=== PATIENT | female | born 1985 | race Caucasian/White ===

== ENCOUNTER 2018-01-20 10:27 | Emergency (ER) | payer BC ==
--- OUTSIDE RECORDS SUMMARY | 2018-01-20 10:31 | XMS REPORT | Clinical Summary ---
:1985 Author Organization [facility] Address [address] [place] [address] Phone Care Team Providers Name Role Phone Unavailable Primary Care Provider Unavailable Allergies Not on File Current Medications Not on file Active Problems Not on file Social History Tobacco Use Types Packs/Day Years Used Date Never Assessed Sex Assigned at Date Recorded Not on file Last Filed Vital Signs Not on file Plan of Treatment Not on file Results Not on fileafter 01/19/2017
--- OUTSIDE RECORDS SUMMARY | 2018-01-20 10:31 | XMS REPORT | Clinical Summary ---
:1985 Author Organization [facility] Address [address] [place] [address] Care Team Providers Name Role Phone Asked, No Pcp Primary Care Provider Unavailable Allergies Active Allergy Reactions Severity Noted Date Comments Diphenhydramine Hcl 08/06/2017 Fast heart rate Infliximab Shortness Of Breath High 05/07/2016 Pt said airway becomes completely closed within 5 seconds Current Medications Prescription Sig. Disp. Refills Start Date End Date Status fentaNYL (DURAGESIC) Place 1 patch Active 75 mcg/hr on the skin every third day. tiZANidine Take 4 mg by Active (ZANAFLEX) 4 MG mouth every 6 tablet (six) hours. clonAZEPAM Take 0.5 mg Active (KlonoPIN) 0.5 MG by mouth tablet nightly. zolpidem (AMBIEN) 10 Take 10 mg by Active mg tablet mouth nightly as needed for sleep. thyroid, pork, Take 30 mg by Active (ARMOUR THYROID) 15 mouth daily. mg tablet magnesium oxide Take 400 mg 0 07/25/2017 Active (MAG-OX) 400 mg by mouth 2 tablet (two) times a day. traMADol (ULTRAM) 50 Take 50 mg by Discontinued mg tablet mouth every 6 7 (six) hours as needed for moderate pain. 2 tabs of 50mg ( total of 100mg) levofloxacin Take 500 mg Discontinued (LEVAQUIN) 500 MG by mouth 7 tablet daily. gabapentin Take 600 mg Discontinued (NEURONTIN) 600 MG by mouth 3 7 tablet (three) times a day. benzonatate Take 100 mg Discontinued (TESSALON) 100 MG by mouth 3 7 capsule (three) times a day as needed for cough. acetaminophen-codein Take 1 tablet Discontinued e (TYLENOL with by mouth 7 CODEINE #4) 300-60 every 4 mg per tablet (four) hours as needed for moderate pain. potassium chloride Take 20 mEq 0 07/25/2017 Discontinued 20 mEq tablet by mouth 7 extended release daily. sucralfate Take 1 g by Discontinued (CARAFATE) 100 mg/mL mouth 4 7 suspension (four) times a day with meals and nightly. cyanocobalamin 1,000 Inject 1,000 Discontinued mcg/mL injection mcg into the 7 shoulder, thigh, or buttocks every 7 days. dicyclomine (BENTYL) Take 2 80 tablet 0 09/02/2017 20 mg tablet tablets (40 7 mg total) by mouth 4 (four) times a day for 10 days. gabapentin Take 1 tablet 90 tablet 0 09/02/2017 (NEURONTIN) 800 mg (800 mg 8 tablet total) by mouth 3 (three) times a day for 30 days. pantoprazole Take 1 tablet 15 tablet 0 09/03/2017 (PROTONIX) 20 MG EC (20 mg total) 8 tablet by mouth daily for 15 days. baclofen (LIORESAL) Take 1 tablet 28 tablet 0 09/02/2017 10 MG tablet (10 mg total) 7 by mouth every 6 (six) hours for 7 days. amitriptyline Take 2 60 tablet 0 09/02/2017 (ELAVIL) 10 MG tablets (20 8 tablet mg total) by mouth nightly for 30 days. cholecalciferol, Take 25 100 capsule 0 09/02/2017 vitamin D3, (VITAMIN capsules 8 D3) 2,000 unit (50,000 Units capsule capsule total) by mouth once a week for 30 days. metroNIDAZOLE Take 1 tablet 63 tablet 0 09/02/2017 (FLAGYL) 500 MG (500 mg 8 tablet total) by mouth 3 (three) times a day for 21 days. Active Problems Problem Noted Date Fever 08/24/2017 Crohn's disease of both small and large intestine with intestinal 08/12/2017 obstruction Stricture intestinal 08/12/2017 Small bowel obstruction 08/06/2017 Cyst of ovary 08/06/2017 Generalized abdominal pain 05/07/2016 Encounters Date Type Specialty Care Team Description 09/24/2017 Office Visit General Surgery Rohit Claros Crohn's disease without MD Melvin complication, unspecified gastrointestinal tract location (Primary Dx) 09/23/2017 Telephone Internal Medicine Rebeakh Spivey MA 08/19/2017 Anesthesia Event General Surgery Santi Lange Jr., MD 08/19/2017 Procedure Pass General Surgery 08/19/2017 Surgery General Surgery Gamaliel, DIAGNOSTIC LAPAROSCOPY, Nicholai LYSIS OF ADHESIONS (ONE MD Terry HOUR), MINI LAPAROTOMY WITH SMALL BOWEL RESECTION, REDUCTION AND CLOSURE INTERNAL HERNIA, STRICTUREPLASTY, COLOTOMY AND PRIMARY CLOSURE 08/18/2017 Anesthesia Event General Surgery Eric Evans MD 08/17/2017 Procedure Pass General Surgery 08/05/2017 - Hospital Encounter General Internal Ramos, Small bowel obstruction (Primary Dx); 09/02/2017 Medicine DO Jessica History of Crohn's disease; Nataliya Atwood Crohn's disease of pylorus without complication; MD Elena Fever, unspecified fever cause; Lazaro, Crohn's disease of both small and large intestine with intestinal obstruction MD Ajay Irene Ejaz, DO Ahmed, Rezwan, MD after 01/19/2017 Social History Tobacco Use Types Packs/Day Years Used Date Never Smoker Alcohol Use Drinks/Week oz/Week Comments No Sex Assigned at Date Recorded Not on file Last Filed Vital Signs Vital Sign Reading Time Taken Blood Pressure 95/67 09/24/2017 12:41 PM DOLLY PUSHER Pulse 95 09/24/2017 12:41 PM DOLLY PUSHER Temperature 36.8 C (98.2 F) 09/02/2017 12:35 PM DOLLY PUSHER Respiratory Rate 18 09/02/2017 12:35 PM DOLLY PUSHER Oxygen Saturation 96% 09/02/2017 12:35 PM DOLLY PUSHER Inhaled Oxygen Concentration - - Weight 50.8 kg (112 lb) 09/24/2017 12:41 PM DOLLY PUSHER Height 152.4 cm (5') 09/24/2017 12:41 PM DOLLY PUSHER Body Mass Index 21.87 09/24/2017 12:41 PM DOLLY PUSHER Plan of Treatment Health Maintenance Due Date Last Done Comments PAP SMEAR 2008 INFLUENZA VACCINE 04/14/2018 Implants Implanted Type Area News Commentator Device Expiration Model / Identifier Date Serial / Lot Port [id number] Smart Port W/ Dtchd 0.4ml 6.6fr 55cm 1.4x2.2mm - [id number] Implantable N/A: ANGIODYNAMICS 04/13/2020 [id number] / Implanted: 08/18/2017 (Quantity not on file) Infusion Ports N/A INC / or Accessories [id number] Procedures Procedure Name Priority Date/Time Associated Diagnosis Comments MD AN ELECTIVE Routine 08/19/2017 3:14 PM ENDOTRACHEAL AIRWAY DOLLY PUSHER Procedure Note - Santi Lange Jr., MD - 08/19/2017 3:12 PM DOLLY PUSHER Airway Date/Time: 08/19/2017 2:20 PM Performed by: SANTI LANGE JR Authorized by: SANTI LANGE JR Location: OR Urgency: Elective Difficult Airway: No Anesthesiologist: SANTI LANGE JR Performed by: anesthesiologist Preoxygenated with 100% O2: Yes C-spine Precautions Maintained Throughout: Yes Mask Ventilation: Easy mask Final Airway Type: Endotracheal airway Final Endotracheal Airway: ETT Cuffed: Yes Technique Used: Direct laryngoscopy Devices/Methods Used in Placement: Cricoid pressure and intubating stylet Insertion Site: Oral Blade Type: Dickey Laryngoscope Blade/Videolaryngoscope Blade Size: 2 ETT Size (mm): 7.0 Cuff at minimum occlusion pressure: Yes Measured from: Teeth ETT to Teeth (cm): 20 Placement Verified by: CO2 detection, direct visualization and equal breath sounds Laryngoscopic view: Grade I - full view of glottis Rapid Sequence Induction (RSI): No Modified RSI: Yes Number of Attempts at Approach: 1 DIAGNOSTIC LAPAROSCOPY, LYSIS 08/19/2017 11:50 AM DOLLY PUSHER Crohn's disease of pylorus OF ADHESIONS (ONE HOUR), MINI without complication LAPAROTOMY WITH SMALL BOWEL RESECTION, REDUCTION AND CLOSURE INTERNAL HERNIA, STRICTUREPLASTY, COLOTOMY AND PRIMARY CLOSURE Case Notes TF, REQ 1200 START Special Needs TF, REQ 1200 START; CONFIRMED START TIME W/ VIVIAN ON 08/18/17 @ 1249 EDM HC CATH DUAL LUMEN PICC Routine 08/06/2017 12:13 PM DOLLY PUSHER HC US GUIDED VASCULAR Routine 08/06/2017 12:13 PM DOLLY PUSHER Results for this procedure ACCESS are in the results section. HC CVL PICC INSERT 5 YRS Routine 08/06/2017 12:13 PM DOLLY PUSHER Results for this procedure OR > are in the results section. after 01/19/2017 Results POC glucose (09/02/2017 12:37 PM)Only the most recent of145 resultswithin the time period is included. Component Value Ref Range POC glucose 98 65 - 99 mg/dL Comment: [facility] Notified RN Meter ID: [id number] Communications Systems Engineer: Sathish Klein Specimen Performing Laboratory [facility] DEPARTMENT OF PATHOLOGY AND GENOMIC MEDICINE [address] [place] [address] Manual differential (09/02/2017 6:11 AM)Only the most recent of10 resultswithin the time period is included. Component Value Ref Range Manual differential PERFORMED Neutrophils 79.0 (H) 39.0 - 69.0 % Lymphocytes 11.0 (L) 25.0 - 45.0 % Monocytes 4.0 0.0 - 10.0 % Eosinophils 1.0 0.0 - 5.0 % Basophils 0.0 0.0 - 1.0 % Metamyelocytes 3 % Myelocytes 2 % Promyelocytes 0 % Platelet slide review Subha slt incr Anisocytosis Moderate Polychromasia Moderate Enlarged platelets Moderate (A) Specimen Performing Laboratory [facility] DEPARTMENT OF PATHOLOGY AND GENOMIC MEDICINE [address] [place] [address] CBC with platelet and differential (09/02/2017 6:11 AM)Only the most recent of23 resultswithin the time period is included. Component Value Ref Range WBC 7.66 4.50 - 11.00 k/uL RBC 3.40 (L) 4.20 - 5.50 m/uL HGB 9.6 (L) 12.0 - 16.0 g/dL HCT 31.6 (L) 37.0 - 47.0 % MCV 92.9 82.0 - 100.0 fL MCH 28.2 27.0 - 34.0 pg MCHC 30.4 (L) 31.0 - 37.0 g/dL RDW - SD 54.4 37.0 - 55.0 fL MPV 9.8 8.8 - 13.2 fL Platelet count 448 (H) 150 - 400 k/uL Nucleated RBC 0.00 /100 WBC Neutrophils 79.0 (H) 39.0 - 69.0 % Lymphocytes 11.0 (L) 25.0 - 45.0 % Monocytes 4.0 0.0 - 10.0 % Eosinophils 1.0 0.0 - 5.0 % Basophils 0.0 0.0 - 1.0 % Specimen Performing Laboratory Blood [facility] DEPARTMENT OF PATHOLOGY AND [address] [address] Estimated GFR (09/02/2017 4:00 AM)Only the most recent of27 resultswithin the time period is included. Component Value Ref Range GFR Non Af Amer >90 mL/min/1.73 m2 GFR Af Amer >90 mL/min/1.73 m2 Comment: Chronic kidney disease: <60 mL/min/1.73m2 Kidney failure: <15 mL/min/1.73m2 The estimated GFR is calculated from the IDMS-traceable Modification of Diet in Renal Disease Equation. The accuracy of the calculation is poor when the creatinine is normal. Calculated values >90 mL/min/1.73m2 are not reported. This equation has not been validated in children (<18 years), women, the elderly (>70 years), or ethnic groups other than Caucasians and Americans. Specimen Performing Laboratory Plasma specimen [facility] DEPARTMENT OF PATHOLOGY AND [address] [address] Phosphorus level (09/02/2017 4:00 AM)Only the most recent of23 resultswithin the time period is included. Component Value Ref Range Phosphorus 4.5 2.4 - 4.5 mg/dL Specimen Performing Laboratory Plasma specimen [facility] PATHOLOGY AND [address] [address] Magnesium level (09/02/2017 4:00 AM)Only the most recent of24 resultswithin the time period is included. Component Value Ref Range Magnesium 1.7 1.6 - 2.6 mg/dL Specimen Performing Laboratory Plasma specimen [facility] DEPARTMENT OF PATHOLOGY AND [address] [address] Basic metabolic panel (09/02/2017 4:00 AM)Only the most recent of24 resultswithin the time period is included. Component Value Ref Range Sodium 146 135 - 148 mEq/L Potassium 3.6 3.5 - 5.0 mEq/L Chloride 106 98 - 112 mEq/L CO2 25 24 - 31 mEq/L Anion gap 15 7 - 15 mEq/L Comment: Starting from December , anion gap calculation no longer incorporates potassium. Please note the change. BUN 12 6 - 20 mg/dL Creatinine 0.4 (L) 0.5 - 0.9 mg/dL Glucose 74 65 - 99 mg/dL Calcium 8.7 8.3 - 10.2 mg/dL Specimen Performing Laboratory Plasma specimen [facility] DEPARTMENT OF PATHOLOGY AND GENOMIC MEDICINE [address] [place] [address] Vitamin A level, plasma or serum (09/01/2017 9:24 AM) Component Value Ref Range Vitamin A (retinol) 0.66 0.30 - 1.20 mg/L Retinyl palmitate 0.08 0.00 - 0.10 mg/L Vitamin A interpretation Normal Comment: Test developed and characteristics determined by [facility]. See Compliance Statement B: [employer] Performed by [facility], [address] [place] [id number] [email or web address], Rodriguez Martinez MD - Lab. Director Specimen Performing Laboratory Plasma specimen [address] [address] Vitamin E level, plasma or serum (09/01/2017 9:24 AM) Component Value Ref Range Alpha-tocopherol mg/L 14.8 5.5 - 18.0 mg/L Comment: Test developed and characteristics determined by [facility]. See Compliance Statement B: [email or web address] Gamma-tocopherol mg/L 0.4 0.0 - 6.0 mg/L Comment: Performed by [facility], [address] [place] [id number] [email or web address], Rodriguez Martinez MD - Lab. Director Specimen Performing Laboratory Plasma specimen [address] [address] Comprehensive metabolic panel (09/01/2017 9:24 AM)Only the most recent of3 resultswithin the time period is included. Component Value Ref Range Sodium 144 135 - 148 mEq/L Potassium 3.5 3.5 - 5.0 mEq/L Chloride 100 98 - 112 mEq/L CO2 30 24 - 31 mEq/L Anion gap 14 7 - 15 mEq/L Comment: Starting from December , anion gap calculation no longer incorporates potassium. Please note the change. BUN 9 6 - 20 mg/dL Creatinine 0.4 (L) 0.5 - 0.9 mg/dL Glucose 107 (H) 65 - 99 mg/dL Calcium 8.7 8.3 - 10.2 mg/dL Protein 5.7 (L) 6.3 - 8.3 g/dL Comment: 4.6-7.0 g/dL 1 week 4.4-7.6 g/dL 7 months-1year5.1-7.3 g/dL 1-2 years5.6-7.5 g/dL >3 years6.0-8.0 g/dL 18-150 6.3-8.3 g/dL Albumin 2.4 (L) 3.5 - 5.0 g/dL A/G ratio 0.7 0.7 - 3.8 Alkaline phosphatase 61 35 - 104 U/L AST 12 10 - 35 U/L ALT 14 5 - 50 U/L Total bilirubin <0.2 0.0 - 1.2 mg/dL Specimen Performing Laboratory Plasma specimen [facility] DEPARTMENT OF PATHOLOGY AND GENOMIC MEDICINE [address] [place] [address] Urinalysis screen and microscopy, with reflex to culture (08/31/2017 4:20 PM) Only the most recent of4 resultswithin the time period is included. Component Value Ref Range Specimen site Clean catch Color, UA Straw Appearance, UA Clear Specific gravity, UA 1.006 1.001 - 1.035 pH, UA 7.0 5.0 - 8.5 Protein, UA Negative Negative Glucose, UA Negative Negative Ketones, UA Negative Negative Bilirubin, UA Negative Negative Blood, UA Negative Negative Nitrite, UA Negative Negative Urobilinogen, UA <2.0 <2.0 Leukocyte esterase, UA Negative Negative WBC, UA <1 0 - 4 /HPF RBC, UA None seen 0 - 2 /HPF Bacteria, UA None seen None seen Yeast, UA None seen Yeast with pseudohyphae, UA None seen Specimen Performing Laboratory Urine [facility] DEPARTMENT OF PATHOLOGY AND GENOMIC MEDICINE [address] [place] [address] Urine culture (08/31/2017 4:20 PM)Only the most recent of5 resultswithin the time period is included. Component Value Ref Range Urine culture SEE COMMENTComment: Bacteriuria screen negative. Specimen Performing Laboratory [facility] DEPARTMENT OF PATHOLOGY AND GENOMIC MEDICINE [address] [place] [address] XR Chest 1 Vw Portable (08/31/2017 2:37 AM)Only the most recent of4 resultswithin the time period is included. Specimen Performing Laboratory [address] [address] Narrative EXAMINATION:XR CHEST 1 VW PORTABLE CLINICAL HISTORY:rule out pneumonia COMPARISON:08/26/2017 IMPRESSION: Right chest port is in place with tip projecting over superior vena cava. Cardiomediastinal silhouette is within normal limits. No consolidations, effusions, or pneumothorax. No acute osseous abnormalities. [facility]-[id number] Procedure Note Hm Interface, Radiology Results Incoming - 08/31/2017 2:54 AM DOLLY PUSHER EXAMINATION: XR CHEST 1 VW PORTABLE CLINICAL HISTORY: rule out pneumonia COMPARISON: 08/26/2017 IMPRESSION: Right chest port is in place with tip projecting over superior vena cava. Cardiomediastinal silhouette is within normal limits. No consolidations, effusions, or pneumothorax. No acute osseous abnormalities. [facility]-[id number] Blood culture, aerobic & anaerobic (08/31/2017 2:35 AM)Only the most recent of7 resultswithin the time period is included. Component Value Ref Range Blood culture isolate No growth after 5 days of incubation. Comment: Specimen Information Specimen Source: Blood Specimen Site: Unspecified Specimen Performing Laboratory Blood [facility] DEPARTMENT OF PATHOLOGY AND GENOMIC MEDICINE [address] [place] [address] Vancomycin level, trough (08/29/2017 9:15 AM)Only the most recent of2 resultswithin the time period is included. Component Value Ref Range Vancomycin, trough 14.4 10.0 - 20.0 ug/mL Comment: Therapeutic Ranges: Peak 30.0 - 40.0 ug/mL Juofoa19.0 - 20.0 ug/mL Specimen Performing Laboratory Serum [facility] DEPARTMENT OF PATHOLOGY AND GENOMIC MEDICINE [address] [place] [address] C difficile toxin (08/29/2017 4:30 AM) Component Value Ref Range Clostridium difficile toxin No Clostridium difficle toxin present Comment: Specimen Information Specimen Source: Stool Specimen Site: Nonpreserved Specimen Performing Laboratory Stool - Nonpreserved [facility] DEPARTMENT OF PATHOLOGY AND GENOMIC MEDICINE [address] [place] [address] US Abdominal Paracentesis Imaging (08/27/2017 2:05 PM) Specimen Performing Laboratory [facility] [address] [place] [address] Narrative EXAMINATION:US ABDOMINAL PARACENTESIS IMAGING CLINICAL HISTORY: Pelvic Abscess COMPARISON:None. TECHNIQUE: The procedure's risks, benefits, and alternatives were discussed with the patient and written, informed consent was obtained. Using ultrasound guidance, a site for needle entry was selected and the overlying skin was prepped and draped in the usual sterile fashion. 1% buffered lidocaine was used for local anesthesia. A 5 [place] Yueh catheter was inserted into the peritoneal cavity and 450 mL of clear orange peritoneal fluid was removed. The fluid was sent to the lab for the requested studies.The patient tolerated the procedure without difficulty and was discharged to the radiology recovery area for monitoring prior to discharge. EBL: None. COMPLICATIONS: None. SPECIMENS: As above. ASSISTANTS: None. IMPRESSION: Uncomplicated ultrasound-guided diagnostic and therapeutic paracentesis. A sample of clear orange-colored fluid was sent for the requested labs. [facility]-[id number] Procedure Note [facility], Radiology Results Incoming - 08/27/2017 4:02 PM DOLLY PUSHER EXAMINATION: US ABDOMINAL PARACENTESIS IMAGING CLINICAL HISTORY: Pelvic Abscess COMPARISON:None. TECHNIQUE: The procedure's risks, benefits, and alternatives were discussed with the patient and written, informed consent was obtained. Using ultrasound guidance, a site for needle entry was selected and the overlying skin was prepped and draped in the usual sterile fashion. 1% buffered lidocaine was used for local anesthesia. A 5 [place] Yueh catheter was inserted into the peritoneal cavity and 450 mL of clear orange peritoneal fluid was removed. The fluid was sent to the lab for the requested studies. The patient tolerated the procedure without difficulty and was discharged to the radiology recovery area for monitoring prior to discharge. EBL: None. COMPLICATIONS: None. SPECIMENS: As above. ASSISTANTS: None. IMPRESSION: Uncomplicated ultrasound-guided diagnostic and therapeutic paracentesis. A sample of clear orange-colored fluid was sent for the requested labs. [facility]-[id number] Aerobic culture (08/27/2017 2:00 PM) Component Value Ref Range Aerobic culture isolate No growth after 3 days. Comment: Specimen Information Specimen Source: Fluid Specimen Site: ML pelvis Specimen Performing Laboratory [facility] DEPARTMENT OF PATHOLOGY AND GENOMIC MEDICINE [address] [place] [address] Gram stain (08/27/2017 2:00 PM)Only the most recent of3 resultswithin the time period is included. Component Value Ref Range Gram stain isolate Many WBC's No organisms seen Comment: Specimen Information Specimen Source: Fluid Specimen Site: ML pelvis Specimen Performing Laboratory [facility] DEPARTMENT OF PATHOLOGY AND [facility] MEDICINE [address] [place] [address] Anaerobic culture (08/27/2017 2:00 PM) Component Value Ref Range Anaerobic culture isolate No anaerobic organisms isolated. Comment: Specimen Information Specimen Source: Fluid Specimen Site: ML pelvis Specimen Performing Laboratory [facility] DEPARTMENT OF PATHOLOGY AND [facility] MEDICINE [address] [place] [address] Cell count and differential, body fluid (08/27/2017 2:00 PM) Component Value Ref Range Misc fluid type FootnoteComment: pelvic fluid Color, fluid [place] Appearance, fluid Cloudy (A) RBC, fluid SEE COMMENTComment: 3+ (10,000 - 20,000 RBC/CMM) /CMM Nucleated cells, fluid 10,719 /CMM Fluid mononuclear cell See Diff Neutrophils, fluid 72 % Lymphocytes, fluid 13 % Macrophages, fluid 15 % Specimen Performing Laboratory Fluid [facility] DEPARTMENT OF PATHOLOGY AND [address] [address] [address] Abdomen Pelvis W Contrast (08/26/2017 2:20 PM)Only the most recent of3 resultswithin the time period is included. Specimen Performing Laboratory [facility] [address] [place] [address] Addenda Addendum by Terrence Plummer MD on 08/27/2017 10:29 AM ADDENDUM #1 Review of imaging done: Correction on some Typos: GI tract: (Fourth sentence). Distal to this are mildly distended loops of small bowel with air-fluid levels leading to the distal small bowel-colon anastomosis probably a second transition point. IMPRESSION: (Second sentence) Fluid in the pouch of Jordan probably a component of the ascites with some peritoneal enhancement. There is no definite loculation or air to suggest abscess at this time. Proximal small bowel distention with transition point in the proximal anastomosis in the left abdomen may represent a partial obstruction. The distal segment of the small bowel also mildly distended with air-fluid levels and a second transition point in the small bowel-colon is most. Narrative EXAMINATION:CT ABDOMEN PELVIS W CONTRAST CLINICAL HISTORY:post surgical abdominal distention COMPARISON:None. TECHNIQUE: Multiple axial CT images of the Abdomen and pelvis were obtained With IV contrast . Sagittal and coronal reconstructions were done. CT imaging was performed with iterative reconstruction technique and/or automated exposure control to reduce radiation dose. FINDINGS: HEPATOBILIARY:No focal hepatic lesions. No biliary ductal dilation. GALLBLADDER: Absent. SPLEEN:Spleen is borderline enlarged measuring up to 13 cm in length, stable. PANCREAS:No focal masses or ductal dilation. ADRENALS:No adrenal nodules. KIDNEYS:Stable nonobstructing stone in the left kidney. No mass or hydronephrosis bilaterally. PERITONEUM/RETROPERITONEUM:Located rim-enhancing fluid present within the rectum and the uterus measures approximately 7.5 cm. There is a small amount of ascites mostly in the pelvis. No free air. Mild retroperitoneal and mesenteric adenopathy measure up to 11 mm nonspecific but probably reactive. ABDOMINAL AORTA/IVC: No aneurysm or dissection. GI TRACT:Proximal small bowel distention measures up to 4 cm with air-fluid levels. Transition point at the anastomosis in the left abdomen. There are nondistended small bowel loops in the pelvis. Distal to this are mildly distended loops of small bowel with air-fluid levels in the colitis contents leading to the small bowel: Anastomosis probably a second transition point. There are no signs of pneumatosis.. The colon is nondistended and contains fluid and stool. PELVIC ORGANS/BLADDER:The urinary bladder is fluid-filled. The uterus and ovaries are unremarkable. BONES AND SOFT TISSUES:No acute osseous abnormalities. There is some residual subcutaneous air along the left abdominal wall. VISUALIZED LOWER CHEST: Small bilateral pleural effusions with some atelectasis of the lung bases. Heart is enlarged. IMPRESSION: Rim-enhancing fluid collection in the pouch of Jordan. Abscess is in the differential diagnosis. Proximal small bowel distention with transition point in the proximal anastomosis in the left abdomen may represent a partial obstruction. The distal segment of the small bowel also mildly distended with air-fluid levels and some ventriculitis content but also represent a partial obstruction with a second transition point in the colon anastomosis.. [id number] Procedure Note Hm Interface, Radiology Results Incoming - 08/26/2017 3:00 PM DOLLY PUSHER EXAMINATION: CT ABDOMEN PELVIS W CONTRAST CLINICAL HISTORY: post surgical abdominal distention COMPARISON: None. TECHNIQUE: Multiple axial CT images of the Abdomen and pelvis were obtained With IV contrast . Sagittal and coronal reconstructions were done. CT imaging was performed with iterative reconstruction technique and/or automated exposure control to reduce radiation dose. FINDINGS: HEPATOBILIARY: No focal hepatic lesions. No biliary ductal dilation. GALLBLADDER: Absent. SPLEEN: Spleen is borderline enlarged measuring up to 13 cm in length, stable. PANCREAS: No focal masses or ductal dilation. ADRENALS: No adrenal nodules. KIDNEYS: Stable nonobstructing stone in the left kidney. No mass or hydronephrosis bilaterally. PERITONEUM/RETROPERITONEUM: Located rim-enhancing fluid present within the rectum and the uterus measures approximately 7.5 cm. There is a small amount of ascites mostly in the pelvis. No free air. Mild retroperitoneal and mesenteric adenopathy measure up to 11 mm nonspecific but probably reactive. ABDOMINAL AORTA/IVC: No aneurysm or dissection. GI TRACT: Proximal small bowel distention measures up to 4 cm with air-fluid levels. Transition point at the anastomosis in the left abdomen. There are nondistended small bowel loops in the pelvis. Distal to this are mildly distended loops of small bowel with air-fluid levels in the colitis contents leading to the small bowel : Anastomosis probably a second transition point. There are no signs of pneumatosis.. The colon is nondistended and contains fluid and stool. PELVIC ORGANS/BLADDER: The urinary bladder is fluid-filled. The uterus and ovaries are unremarkable. BONES AND SOFT TISSUES: No acute osseous abnormalities. There is some residual subcutaneous air along the left abdominal wall. VISUALIZED LOWER CHEST: Small bilateral pleural effusions with some atelectasis of the lung bases. Heart is enlarged. IMPRESSION: Rim-enhancing fluid collection in the pouch of [place]. Abscess is in the differential diagnosis. Proximal small bowel distention with transition point in the proximal anastomosis in the left abdomen may represent a partial obstruction. The distal segment of the small bowel also mildly distended with air-fluid levels and some ventriculitis content but also represent a partial obstruction with a second transition point in the colon anastomosis.. [id number] Hemoglobin & hematocrit (08/26/2017 1:54 PM)Only the most recent of3 resultswithin the time period is included. Component Value Ref Range HGB 10.2 (L) 12.0 - 16.0 g/dL HCT 32.1 (L) 37.0 - 47.0 % Specimen Performing Laboratory Blood [facility] DEPARTMENT OF PATHOLOGY AND GENOMIC MEDICINE [address] [place] [address]879 Lactic acid level (08/26/2017 1:21 PM)Only the most recent of4 resultswithin the time period is included. Component Value Ref Range Lactic acid 1.8 0.5 - 2.2 mmol/L Specimen Performing Laboratory Blood [facility] DEPARTMENT OF PATHOLOGY AND GENOMIC MEDICINE [address] [id number] Pv duplex venous upper extremity (08/25/2017 10:21 PM) Specimen Performing Laboratory [facility] [address] [place] [address] Narrative Vascular Ultrasound Laboratory Upper Extremity Venous Report [address] [facility] [address], [place] [address] Pat.Name:Felicity CARDOSO.ID:[id number] .Date: 08/25/2017Refer.MD:IDALIA BOLTON MD Exam Time: 8:04:00 PMStudy Type:UE Venous Height:61inWeight: 114lb BSA: 1.49 m2 DOBAge:1985,32Y Sex: FEMALESonogrphr: Perry Vera RVT, TRENT Pat. Stat.:Inpatient Room:[address] TapeVol: MEL, CPT - 4: 53436 Echo Event ID:[id number] Order ID:[id number] Reason for Study:Evaluate for DVT. PMH of crohn's disease, fibromyalgia, osteoporosis, neuropathy. Race:C SUMMARY: DUPLEX SCAN OBSERVATIONS Right Left IJNormal Normal SubclavianNormal Normal AxillaryNormal Normal BrachialNormal Obstructed BasilicNormal Obstructed CephalicNormal Normal RIGHT:There is normal compressibility and no evidence of echogenic material noted within the lumen of the visualized veins. Colorflow and Doppler signals are normal. LEFT:The brachial and basilic veins are non-compressible, and dilated with echogenic material noted within the lumen of the visualized vein. Colorflow and Doppler signals are absent. There is an indwelling catheter noted within the brachial vein lumen. PRELIMINARY FINDINGS 1. Total deep venous thrombosis of the left brachial vein. 2. Total superficial venous thrombosis of the left proximal basilic vein. *Report given to KELLY Logan at 2102 hr on 08/25/2017. PHYSICIAN INTERPRETATION Venous examination of the both upper extremities and neck demonstrateda deep venous thrombosis of the left brachial vein. Total superficial venous thrombosis of the left proximal basilic vein. Signed 08/25/2017 11:35 PM Lianna Angulo MD, RPVI Procedure Note Interface, Radiology Results In - 08/25/2017 11:35 PM [facility] [place] Vascular Ultrasound Laboratory Upper Extremity Venous Report [address] [place] [address] Pat.Name: [place] CARDOSO Pat.ID: [id number] .Date: 08/25/2017 Refer.MD: IDALIA BOLTON MD Exam Time: 8:04:00 PM Study Type:UE Venous Height: 61in Weight: 114lb BSA: 1.49 m2 Age: 11 1985,32Y Sex: FEMALE Sonogrphr: Perry Vera RVT, RDMS Pat. Stat.:Inpatient Room: [address] Tape Vol: MK, CPT - 4: 31340 Echo Event ID:[id number] Order ID: [id number] Reason for Study:Evaluate for DVT. PMH of crohn's disease, fibromyalgia, osteoporosis, neuropathy. Race: C SUMMARY: DUPLEX SCAN OBSERVATIONS Right Left IJ Normal Normal Subclavian Normal Normal Axillary Normal Normal Brachial Normal Obstructed Basilic Normal Obstructed Cephalic Normal Normal RIGHT:There is normal compressibility and no evidence of echogenic material noted within the lumen of the visualized veins. Colorflow and Doppler signals are normal. LEFT:The brachial and basilic veins are non-compressible, and dilated with echogenic material noted within the lumen of the visualized vein. Colorflow and Doppler signals are absent. There is an indwelling catheter noted within the brachial vein lumen. PRELIMINARY FINDINGS 1. Total deep venous thrombosis of the left brachial vein. 2. Total superficial venous thrombosis of the left proximal basilic vein. *Report given to KELLY Logan at 2102 hr on 08/25/2017. PHYSICIAN INTERPRETATION Venous examination of the both upper extremities and neck demonstrated a deep venous thrombosis of the left brachial vein. Total superficial venous thrombosis of the left proximal basilic vein. Signed 08/25/2017 11:35 PM Lianna Angulo MD, RPVI Transfuse RBC (08/25/2017 6:31 PM)Only the most recent of3 resultswithin the time period is included.Prepare RBC, 2 Units (08/25/2017 11:25 AM) Component Value Ref Range Product name Apheresis RC ACDA>-3 LR Unit number [id number] Product code [id number] Dispense status Transfused Blood expiration date 20170914 Blood type code 5100 Blood type O POSITIVE Product name Apheresis -1 LR #1 Unit number [id number] Product code [id number] Dispense status Transfused Blood expiration date 20170901 Blood type code 5100 Blood type O POSITIVE Specimen Performing Laboratory [facility] DEPARTMENT OF PATHOLOGY AND [facility] MEDICINE [address] [place] [address] Type and screen (08/25/2017 11:25 AM)Only the most recent of2 resultswithin the time period is included. Component Value Ref Range ABO grouping O Rh type POS Antibody screen (gel) NEG Specimen Performing Laboratory Blood [facility] DEPARTMENT OF PATHOLOGY AND [facility] MEDICINE [address] [place] [address]16 Smear review (08/25/2017 5:00 AM) Component Value Ref Range Platelet slide review Subha adequate Specimen Performing Laboratory [facility] DEPARTMENT OF PATHOLOGY AND GENOMIC MEDICINE [address] [place] [address] 20500 Ionized calcium (08/24/2017 2:30 PM) Component Value Ref Range pH 7.43 Ionized calcium 1.07 (L) 1.11 - 1.32 mmol/L Specimen Performing Laboratory Plasma specimen [facility] DEPARTMENT OF PATHOLOGY AND GENOMIC MEDICINE [address] [place] [address] Consult to Sepsis Response Team (08/24/2017 1:59 PM) Henna Porter NP 08/24/20171:59 PM 1345 focused examination performed. No s/s of hypotension or hypoperfusion. Fever curve improving. Remains tachycardic, but improved. Currently on vanco and zosyn. Will monitor for culture results Sepsis Clinical Assessment Performed by: SKYLER PORTER Authorized by: SKYLER PORTER Sepsis Clinical Assessment General Assessment Information Current sepsis score:4 On comfort care?: No If score does not worsen, snooze alerts until:08/25/2017 10:57 DOLLY PUSHER SIRS Criteria SIRS criteria met: Heart rate > 90 bpm and WBC < 4 K/mcL Sepsis Assessment Clinical suspicion of infection? Yes Time of suspicion of infection:08/24/2017 1:57 PM Clinical suspicion of sepsis?: Yes Sepsis staging:Sepsis Sepsis protocol started?Yes Where did the protocol start?:Inpatient Started Clinical disposition:Remain in room Sepsis Related Vitals Heart rate: 117 Temperature: 98.7 F Respiratory rate: 18 Blood pressure: 124/70 Altered mental status: WBC (k/uL) Date Value 08/24/2017 2.88 (L)08/23/2017 6.31 Weight-Based Fluid Bolus Calculation The recommended weight-based bolus volume: 1,632 mL (dosing weight) Please refer to the MAR for actual med/fluid administrations. Lactic acid, I-Stat, venous (08/24/2017 12:45 PM)Only the most recent of2 resultswithin the time period is included. Component Value Ref Range Lactic acid, I-Stat, venous 1.4 0.5 - 2.2 mmol/L Specimen Performing Laboratory Blood [facility] DEPARTMENT OF PATHOLOGY AND GENOMIC MEDICINE [address] [place] [address] ECG 12 lead (08/24/2017 6:48 AM) Component Value Ref Range Ventricular rate 144 Atrial rate 144 MD interval 132 QRSD interval 70 QT interval 258 QTC interval 399 P axis 1 35 QRS axis 1 6 T wave axis 51 EKG impression Sinus tachycardia-Otherwise normal ECG-In automated comparison with ECG of 07-MAY-2016 16:05,-Nonspecific T wave abnormality, improved in Inferior leads- Specimen Performing Laboratory [facility] [address] [place] [address] Troponin (08/24/2017 5:10 AM) Component Value Ref Range Troponin <0.30 0.00 - 0.30 ng/mL Comment: 0.30 - 1.49 ng/mlMay indicate increased risk of acute coronary syndrome. >=1.5 ng/mlConsistent with acute myocardial infarction. The diagnostic value of a single normal or non-diagnostic result is questionable.Serial samples at 2-6 hour intervals are required to rule out acute myocardial injury. Specimen Performing Laboratory Plasma specimen [facility] DEPARTMENT OF PATHOLOGY AND GENOMIC MEDICINE [address] [place] [address] XR Abdomen 2 Vw Ap W Upright And/Or Decubitus (08/21/2017 4:14 PM) Specimen Performing Laboratory [facility] [address] [place] [address] Narrative XR ABDOMEN 2 VW AP W UPRIGHT AND OR DECUBITUS CLINICAL INDICATION:ABDOMINAL PAIN, Distention COMPARISON:08/19/2017 IMPRESSION: Upright and left lateral decubitus views of the abdomen were performed demonstrating moderate gas in the splenic flexure and through large and small bowel loops in the left abdomen. No free intraperitoneal air is identified. A few air-fluid levels are noted in small bowel loops centrally. Bowel gas is however also present in the pelvis appearing to reflect sigmoid gas. Correlation for ileus is recommended. Nasogastric tube present on prior has been removed. Lung bases are clear with diminished lung volumes. [facility]-[id number] Procedure Note [facility], Radiology Results Incoming - 08/21/2017 4:31 PM DOLLY PUSHER XR ABDOMEN 2 VW AP W UPRIGHT AND OR DECUBITUS CLINICAL INDICATION: ABDOMINAL PAIN, Distention COMPARISON: 08/19/2017 IMPRESSION: Upright and left lateral decubitus views of the abdomen were performed demonstrating moderate gas in the splenic flexure and through large and small bowel loops in the left abdomen. No free intraperitoneal air is identified. A few air-fluid levels are noted in small bowel loops centrally. Bowel gas is however also present in the pelvis appearing to reflect sigmoid gas. Correlation for ileus is recommended. Nasogastric tube present on prior has been removed. Lung bases are clear with diminished lung volumes. [facility]-[id number] XR Abdomen 1 Vw Portable (08/19/2017 9:22 PM)Only the most recent of2 resultswithin the time period is included. Specimen [facility] [address] [place] [address] Narrative EXAMINATION:XR ABDOMEN 1 VW PORTABLE CLINICAL HISTORY:NG tube advancement COMPARISON:08/19/2017 at 1937 IMPRESSION: Enteric tube has been advanced with tip projecting over the distal body of the stomach. Nonobstructive bowel gas pattern. No pathologic calcification over the kidneys or expected course of the ureters. No acute osseous abnormalities. Right convexity of the lumbar spine is identified. [facility]-[id number] Procedure Note Interface, Radiology Results Incoming - 08/19/2017 9:35 PM DOLLY PUSHER EXAMINATION: XR ABDOMEN 1 VW PORTABLE CLINICAL HISTORY: NG tube advancement COMPARISON: 08/19/2017 at 1937 IMPRESSION: Enteric tube has been advanced with tip projecting over the distal body of the stomach. Nonobstructive bowel gas pattern. No pathologic calcification over the kidneys or expected course of the ureters. No acute osseous abnormalities. Right convexity of the lumbar spine is identified. [facility]-[id number] Surgical pathology request (08/19/2017 9:00 AM) Component Value Ref Range Surgical pathology report See link below for PDF Lab Report Result status This is Final Report to [id number] Specimen Performing Laboratory [facility] DEPARTMENT OF PATHOLOGY AND GENOMIC MEDICINE [address] [place] [address] IR Port Placement (08/18/2017 10:21 AM) Specimen Performing Laboratory [facility] [address] [place] [address] Narrative Performing Radiologist Shaq Stanley MD Assistants None Anesthesia Type Sedation provided by the anesthesiology service. Lidocaine 1% and lidocaine 1% mixed with epinephrine were used for local anesthetic. Indication Central venous access for chemotherapy Procedure Subcutaneous right chest port placement. Technique Written informed consent was obtained prior to the procedure. All elements of maximal sterile barrier technique were followed. Using ultrasound guidance, the right internal jugular vein was punctured with a 21-gauge needle allowing placement of a 0.018 inch guidewire. The needle was removed and a micropuncture sheath was then placed over the guidewire. Under ultrasound guidance, documentation of vessel patency, needle access with permanent recording, and reporting are performed followed by placement of a sheath in the right internal jugular vein. A subcutaneous pocket was then created at the right infraclavicular fossa using sharp and blunt dissection. A tunnel was made between the pocket and the venotomy site, through which the 6.6-[place] port catheter was placed. The venotomy was sequentially dilated to accept a peel-away sheath, through which the leading edge of the catheter was advanced under fluoroscopic guidance. The trailing end of the catheter was trimmed to the appropriate length and attached to an Angiodynamics Smart Port CT. The pocket was irrigated with dilute antibiotic solution. The port incision was closed using 3-0 Vicryl suture, and Dermabond. The small venotomy incision was closed using Dermabond. The port was accessed and found to flush and aspirate freely. A post placement fluoroscopic imaging of the chest was then obtained. There were no complications. Radiation Dose Ka,r=2 mGy Complications None. Specimens Removed None. Estimated Blood Loss Less than 2 mL. Blood/Blood Products Administered None. Grafts/Implants As described in the above report. Impression: Successful fluoroscopic-guided placement of a subcutaneous right chest port via the right internal jugular vein. The catheter tip lies at the right atrium/ superior vena cava junction and is ready for use. [facility]-[id number] Procedure Note [facility], Radiology Results Incoming - 08/18/2017 10:53 AM DOLLY PUSHER Performing Radiologist Shaq Stanley MD Assistants None Anesthesia Type Sedation provided by the anesthesiology service. Lidocaine 1% and lidocaine 1% mixed with epinephrine were used for local anesthetic. Indication Central venous access for chemotherapy Procedure Subcutaneous right chest port placement. Technique Written informed consent was obtained prior to the procedure. All elements of maximal sterile barrier technique were followed. Using ultrasound guidance, the right internal jugular vein was punctured with a 21-gauge needle allowing placement of a 0.018 inch guidewire. The needle was removed and a micropuncture sheath was then placed over the guidewire. Under ultrasound guidance, documentation of vessel patency, needle access with permanent recording, and reporting are performed followed by placement of a sheath in the right internal jugular vein. A subcutaneous pocket was then created at the right infraclavicular fossa using sharp and blunt dissection. A tunnel was made between the pocket and the venotomy site, through which the 6.6-[place] port catheter was placed. The venotomy was sequentially dilated to accept a peel-away sheath, through which the leading edge of the catheter was advanced under fluoroscopic guidance. The trailing end of the catheter was trimmed to the appropriate length and attached to an Angiodynamics Smart Port CT. The pocket was irrigated with dilute antibiotic solution. The port incision was closed using 3-0 Vicryl suture, and Dermabond. The small venotomy incision was closed using Dermabond. The port was accessed and found to flush and aspirate freely. A post placement fluoroscopic imaging of the chest was then obtained. There were no complications. Radiation Dose Ka,r=2 mGy Complications None. Specimens Removed None. Estimated Blood Loss Less than 2 mL. Blood/Blood Products Administered None. Grafts/Implants As described in the above report. Impression: Successful fluoroscopic-guided placement of a subcutaneous right chest port via the right internal jugular vein. The catheter tip lies at the right atrium/ superior vena cava junction and is ready for use. [facility]-[id number] Respiratory pathogen panel (08/14/2017 10:00 PM) Component Value Ref Range Respiratory pathogen panel Negative for all pathogens tested: Negative for Adenovirus Negative for Coronavirus HKU1 Negative for Coronavirus NL63 Negative for Coronavirus 229E Negative for Coronavirus OC43 Negative for Human Metapneumovirus Negative for Rhinovirus/Enterovirus Negative for Influenza A Negative for Influenza A/H1 Negative for Influenza A/H3 Negative for Influenza A/H1-2009 Negative for Influenza B Negative for Parainfluenza Virus 1 Negative for Parainfluenza Virus 2 Negative for Parainfluenza Virus 3 Negative for Parainfluenza Virus 4 Negative for Respiratory Syncytial Virus Negative for Bordetella pertussis Negative for Chlamydophila pneumoniae Negative for Mycoplasma pneumoniae This real-time PCR assay detects the presence of nucleic acids (RNA or DNA) for the respiratory pathogens listed. A result of "Not-detected" does not exclude the possibility of the presence of one or more pathogens at concentrations less than the detectable limits of the assay. Comment: Specimen Information Specimen Source: Nares Specimen Site: Right Specimen Performing Laboratory Nares - Right [facility] DEPARTMENT OF PATHOLOGY AND GENOMIC MEDICINE [address] [place] [address] Sedimentation rate (08/14/2017 12:25 PM)Only the most recent of2 resultswithin the time period is included. Component Value Ref Range Sedimentation rate 7 0 - 20 mm/hr Specimen Performing Laboratory Blood [facility] DEPARTMENT OF PATHOLOGY AND GENOMIC MEDICINE [address] [place] [address]65 C-reactive protein (08/14/2017 8:47 AM)Only the most recent of2 resultswithin the time period is included. Component Value Ref Range CRP <0.30 0.00 - 0.50 mg/dL Specimen Performing Laboratory Plasma specimen [facility] DEPARTMENT OF PATHOLOGY AND GENOMIC MEDICINE [address] [place] [address] Prothrombin time with INR (08/13/2017 12:40 PM) Component Value Ref Range Prothrombin time 12.9 12.0 - 15.0 sec INR 1.0 Comment: The International Normalized Ratio (INR) is a therapeutic monitoring tool for patients who are stable on oral anticoagulant therapy. An INR of 2.0-3.0 is suggested for deep vein thrombosis/pulmonary embolism. Specimen Performing Laboratory Blood [facility] DEPARTMENT OF PATHOLOGY AND [address] [address] Prealbumin level (08/12/2017 7:45 PM) Component Value Ref Range Prealbumin 40 (H) 16 - 32 mg/dL Specimen Performing Laboratory Serum [facility] DEPARTMENT OF PATHOLOGY AND [address] [address] Folate level (08/12/2017 7:45 PM) Component Value Ref Range Folate 10.0 4.8 - 24.2 ng/mL Specimen Performing Laboratory Serum [facility] PATHOLOGY AND [address] [address] Vitamin B12 level (08/12/2017 7:45 PM) Component Value Ref Range Vitamin B12 >1600 (H) 211 - 946 pg/mL Comment: Significant overlap exists between normal and deficiency states. However, most patients with deficiencies will have Serum B12 <200 pg/mL. Specimen Performing Laboratory Serum [facility] PATHOLOGY AND [address] [address] Hepatic function panel (08/12/2017 7:45 PM) Component Value Ref Range Albumin 2.6 (L) 3.5 - 5.0 g/dL Total bilirubin <0.2 0.0 - 1.2 mg/dL Bilirubin direct <0.2 0.0 - 0.3 mg/dL Alkaline phosphatase 56 35 - 104 U/L Protein 5.2 (L) 6.3 - 8.3 g/dL Comment: 4.6-7.0 g/dL 1 week 4.4-7.6 g/dL 7 months-1year5.1-7.3 g/dL 1-2 years5.6-7.5 g/dL >3 years6.0-8.0 g/dL 18-150 6.3-8.3 g/dL ALT 13 5 - 50 U/L AST 14 10 - 35 U/L Specimen Performing Laboratory Plasma specimen [facility] DEPARTMENT OF PATHOLOGY AND [address] [address] Zinc level, serum (08/12/2017 7:44 PM) Component Value Ref Range Zinc 65 60 - 120 ug/dL Comment: INTERPRETIVE INFORMATION: Zinc, Serum or Plasma Circulating zinc concentrations are dependent on albumin status and are depressed with malnutrition. Zinc may also be lowered with infection, inflammation, stress, oral contraceptives, and . Zinc may be elevated with zinc supplementation or fasting. Elevated zinc concentrations may interfere with copper absorption. Test developed and characteristics determined by [facility]. See Compliance Statement B: [facility]/ Performed by [facility], [address] [place] [address] [email or web address], Rodriguez Martinez MD - Lab. Director Specimen Performing Laboratory Blood [facility] [address] [place] [address] TB IN-TUBE Quantiferon (08/12/2017 12:35 PM) Component Value Ref Range TB IN-TUBE Quantiferon SEE NOTE Comment: Quantiferon TB Gold In-Tube Test Results: QUANTITATIVE NIL: 0.07 QUANTITATIVE ANTIGEN: 0.08 QUANTITATIVE MITOGEN: 10 QUANTITATIVE ANTIGEN-NIL: 0.01 QUANTITATIVE MITOGEN-NIL: 10 QUALITATIVE INTERPRETATION:NEGATIVE (Reference: negative) INTERFERON GAMMA CONCENTRATIONS EXPRESSED IN IU/ML. RESULT INTERPRETATION RESULTS ARE NEGATIVE UNDER THE FOLLOWING CONDITIONS: (Antigen - Nil) < 0.35 and (Mitogen - Nil) >=0.5 RESULTS ARE POSITIVE UNDER THE FOLLOWING CONDITIONS: (ANTIGEN-NIL) > 0.35 AND (ANTIGEN-NIL) >=25% OF NIL RESULTS ARE INDETERMINATE IF ANY OF THE FOLLOWING 3 CONDITIONS ARE MET: 1. (ANTIGEN-NIL) < 0.35 AND (MITOGEN-NIL) < 0.5 2. (ANTIGEN-NIL) >=0.35 AND (ANTIGEN-NIL) < 25% OF NIL AND (MITOGEN-NIL) < 0.5 3. NIL > 8.0 LIMITATIONS: Quantiferon TB In-Tube is an indirect test for M. tuberculosis infection (including disease).Diagnosing or excluding tuberculosis disease, and assessing the probability of LTBI, require a combination of epidemiological, historical, medical and diagnostic findings that should be taken into account when interpreting Quantiferon TB Gold results.See general guidance on the diagnosis and treatment of TB disease and LTBI: http://www.cdc.gov.nchstp/tb/ M. tuberculosis infection cannot be excluded especially when: 1. any illness is consistent with TB disease. 2. likelihood of progression to disease (e.g. due to immunosuppression) is increased. NOTE:The cut-point for the Quantiferon TB In-tube test is 0.35 IU/mL above the NIL control. Warning: The performance of the Quantiferon TB test has not been evaluated with specimens from the following group of individuals: 1. Individuals who have impaired or altered immune function (HIV infection or immunosuppressive treatment). 2. Individuals younger than age 17 years. 3. women. Test performed by: [facility] Molecular Tuberculosis Lab [facility] [id number] [place], [id number] lab: [phone] fax: [phone] Specimen Performing Laboratory Blood [facility] [address] [place] [address] CT Enterography (08/09/2017 2:47 PM) Specimen Performing Laboratory [facility] [address] [place] [address] Narrative EXAMINATION:CT ENTEROGRAPHY CLINICAL HISTORY:Crohn's disease with stricture TECHNIQUE:Multiple axial images of the abdomen and pelvis were obtained during intravenous administration of iodinated contrast. Low density oral contrast was administered (CT enterography protocol). CT images were obtained using low-dose technique with automated exposure control. Sagittal and coronal computerized reformatted images were also obtained. COMPARISON:CT of the abdomen and pelvis from 08/06/2017 IMPRESSION: 1.Previously seen small bowel obstruction has resolved. There is a small bowel enterostomy with associated luminal distention in the left abdomen. There is a ileocolic anastomosis in the right abdomen. There is some narrowing at the ileocolic anastomosis, which appears to be a side to end anastomosis. The small bowel loops proximal to the anastomosis measures 3.1 cm in diameter which may reflect an area of chronic dilation. Small bowel dilation present on prior study has mostly resolved. Areas of mild bowel prominence seen on prior study are not as evident on today' s exam. No areas of wall thickening or abnormal enhancement are identified at this time to indicate presence of active Crohn's disease. 2.Liver, spleen, pancreas, adrenal glands and right kidney are normal. There is a 4 mm nonobstructing calyceal stone in mid left kidney. Gallbladder is surgically absent. 1.There is no abdominal or pelvic adenopathy or ascites. Aorta is normal in caliber. Reactive mesenteric nodes are noted in the right abdomen along the superior mesenteric branches measuring up to 0.8 x 1.4 cm. 2.Bladder is normal. Uterus and ovaries are not enlarged. 3.Visualized osseous structures are intact. Mild curvature of the spine. Lung bases are clear. [facility]-[id number] Procedure Note Hm Interface, Radiology Results Incoming - 08/09/2017 3:11 PM DOLLY PUSHER EXAMINATION: CT ENTEROGRAPHY CLINICAL HISTORY: Crohn's disease with stricture TECHNIQUE: Multiple axial images of the abdomen and pelvis were obtained during intravenous administration of iodinated contrast. Low density oral contrast was administered (CT enterography protocol). CT images were obtained using low-dose technique with automated exposure control. Sagittal and coronal computerized reformatted images were also obtained. COMPARISON: CT of the abdomen and pelvis from 08/06/2017 IMPRESSION: 1. Previously seen small bowel obstruction has resolved. There is a small bowel enterostomy with associated luminal distention in the left abdomen. There is a ileocolic anastomosis in the right abdomen. There is some narrowing at the ileocolic anastomosis, which appears to be a side to end anastomosis. The small bowel loops proximal to the anastomosis measures 3.1 cm in diameter which may reflect an area of chronic dilation. Small bowel dilation present on prior study has mostly resolved. Areas of mild bowel prominence seen on prior study are not as evident on today' s exam. No areas of wall thickening or abnormal enhancement are identified at this time to indicate presence of active Crohn's disease. 2. Liver, spleen, pancreas, adrenal glands and right kidney are normal. There is a 4 mm nonobstructing calyceal stone in mid left kidney. Gallbladder is surgically absent. 1. There is no abdominal or pelvic adenopathy or ascites. Aorta is normal in caliber. Reactive mesenteric nodes are noted in the right abdomen along the superior mesenteric branches measuring up to 0.8 x 1.4 cm. 2. Bladder is normal. Uterus and ovaries are not enlarged. 3. Visualized osseous structures are intact. Mild curvature of the spine. Lung bases are clear. [facility]-[id number] CBC hemogram (08/09/2017 12:27 PM) Component Value Ref Range WBC 7.46 4.50 - 11.00 k/uL RBC 4.14 (L) 4.20 - 5.50 m/uL HGB 11.7 (L) 12.0 - 16.0 g/dL HCT 36.8 (L) 37.0 - 47.0 % MCV 88.9 82.0 - 100.0 fL MCH 28.3 27.0 - 34.0 pg MCHC 31.8 31.0 - 37.0 g/dL RDW - SD 44.0 37.0 - 55.0 fL MPV 9.5 8.8 - 13.2 fL Platelet count 262 150 - 400 k/uL Nucleated RBC 0.00 /100 WBC Specimen Performing Laboratory [facility] DEPARTMENT OF PATHOLOGY AND [facility] MEDICINE [address] [place] [id number] Hepatitis B surface antibody (08/07/2017 5:10 AM) Component Value Ref Range Hepatitis B surface Ab Non-reactive Non-reactive Specimen Performing Laboratory [facility] DEPARTMENT PATHOLOGY [address] [address] Hepatitis A antibody total (08/06/2017 3:31 PM) Component Value Ref Range Hepatitis A total Ab Non-reactive Non-reactive Specimen Performing Laboratory Serum [facility] DEPARTMENT PATHOLOGY [address] [address] Hepatitis acute panel (08/06/2017 3:31 PM) Component Value Ref Range Hepatitis A IgM Non-reactive Non-reactive Hepatitis B core IgM Non-reactive Non-reactive Hepatitis B surface Ag Non-reactive Non-reactive Hepatitis C Ab Non-reactive Non-reactive Specimen Performing Laboratory Serum [facility] DEPARTMENT OF PATHOLOGY AND [address] [address] Hepatitis B core antibody total (08/06/2017 3:31 PM) Component Value Ref Range Hepatitis B core total Ab Non-reactive Non-reactive Specimen Performing Laboratory Serum [facility] PATHOLOGY [address] [address] PICC INSERTION ATTEMPT - UNSUCCESSFUL (08/06/2017 12:13 PM) Henna Santiago 08/06/2017 12:13 PM Unsuccessful Attempt - PICC Date/Time: 08/06/2017 12:08 PM Performed by: CINTHYA SANTIAGO Authorized by: NATALIYA ATWOOD Consent: Consent obtained:Verbal Consent given by:Patient Risks discussed: arterial puncture, incorrect placement, nerve damage, bleeding, infection, superficial thrombus and deep vein thrombus Alternatives discussed:Delayed treatment Tracy protocol: Procedure explained and questions answered to patient or proxy's satisfaction: yes Relevant documents present and verified: yes Test results available and properly labeled: yes Imaging studies available: yes Required blood products, implants, devices, and special equipment available: no Site/side marked: yes Immediately prior to procedure, a time out was called: yes Patient identity confirmed:Verbally with patient, arm band, provided demographic data and hospital-assigned identification number Pre-procedure details: Hand hygiene: Hand hygiene performed prior to insertion Skin preparation:2% chlorhexidine Skin preparation agent: Skin preparation agent completely dried prior to procedure Anesthesia (see MAR for exact dosages): Anesthesia method:Local infiltration Local anesthetic:Lidocaine 1% w/o epi Route of administration:Subcutaneous Unsuccessful Attempt(s): Successful placement: No Location(s) Attempted:Left brachial Number of attempts:1 Problems or complications:Unable to advance guidewire (unable to advance guidewire pass the axillary area.) Procedure details: Landmarks identified: yes Ultrasound guidance: yes Sterile ultrasound techniques: Sterile gel and sterile probe covers were used Blood Loss Amount:Less than 20 mL Post-procedure details: Post-procedure:Dressing applied Patient tolerance of procedure:Tolerated well, no immediate complications Number of PICC kits used during procedure:1 Comments: Pt stated this her 18th PICC line and Interventional Radiology from [facility] had placed Rt. PICC and had 8 attempts at that time. She had PICC line on the left arm.Attempted to place PICC to left brachial, but unable to advance guidewire pass her axillary vein. Rec'd order from Dr. Krueger to place midline.Left Midline had good blood return. hCG qualitative, urine screen (08/06/2017 2:49 AM) Component Value Ref Range hCG qualitative, urine NegativeComment: Sensitivity of HCG test: 25 mIU/mL Specimen Performing Laboratory Urine [facility] DEPARTMENT OF PATHOLOGY AND GENOMIC MEDICINE [address] [place] [id number] Lipase level (08/06/2017 1:15 AM) Component Value Ref Range Lipase 11 (L) 13 - 60 U/L Specimen Performing Laboratory Plasma specimen [facility] DEPARTMENT OF PATHOLOGY AND GENOMIC MEDICINE [address] [place] [id number] Amylase level (08/06/2017 1:15 AM) Component Value Ref Range Amylase 9 (L) 13 - 53 U/L Specimen Performing Laboratory Plasma specimen [facility] DEPARTMENT OF PATHOLOGY AND GENOMIC MEDICINE [address] [place] [id number] after 01/19/2017 Insurance Payer Benefit Plan / Group Subscriber ID Type Phone Address BCBS BCBS CHOICE O/FEDERAL EMPL PPO xxxxxxxxxxxx PPO
[2018-01-20] MEDS ORDERED: ONDANSETRON 4 MG/2 ML VIAL ONE (11:18)
[2018-01-20] MEDS ORDERED: NA CHLORIDE 0.9% 1,000 ML ONE (11:18)
[2018-01-20] MEDS ORDERED: PANTOPRAZOLE 40 MG INJ ONE (11:18)
[2018-01-20 11:35] LABS: Bicarbonate 23 mEq/L (21-31); Glucose Level 80 mg/dL (65-120); Lipase 14 U/L (22-51); Potassium 3.1 mEq/L (3.6-5.0); Sodium Level 139 mEq/L (135-145)
[2018-01-20 11:37] LABS: Absolute Lymphocytes (CBC) 1.5 K/uL (0.7-4.9); Absolute Monocytes 0.5 K/uL (0.1-1.3); Basophils % 0.8 % (0-1.3); Eosinophils % 0.7 % (0-4.4); Hematocrit 38.8 % (36.0-45.0); Lymphocytes % 18.1 % (15.3-44.8); MCH 28.5 pg (27.0-35.0); MCV 85.8 fL (80-100); MPV 7.3 fL (7.6-11.3); Monocytes % 6.2 % (3.3-12.3); RBC Red Blood Cell Count 4.53 M/uL (3.86-4.86)
[2018-01-20 11:41] LABS: ALT/SGPT 9 IU/L (10-60); AST/SGOT 14 IU/L (10-42); Albumin 3.8 g/dL (3.2-5.5); Alkaline Phosphatase 66 IU/L (42-121); Amylase Level 41 U/L (28-100); BUN Blood Urea Nitrogen 13 mg/dL (6-20); Bilirubin Direct 0.1 mg/dL (0-0.2); Bilirubin Total 0.6 mg/dL (0.3-1.2); Protein, Total 6.7 g/dL (6.0-8.3)
[2018-01-20] MEDS ORDERED: POTASSIUM CL SA 10 MEQ TAB PO ONE (11:47)
--- NOTE | 2018-01-20 11:58 | EKG ---
Test Date: 2018-01-20 Test Time: 11:03:20 Extension Service Specialist In Charge: TRISHA MEASUREMENT RESULTS: Intervals: Rate: 106 FL: 126 QRSD: 70 QT: 316 QTc: 419 [place]: P: 67 FL: 126 QRS: 53 T: 60 INTERPRETIVE STATEMENTS: Sinus tachycardia Otherwise normal ECG Compared to ECG 06/05/2017 18:55:14 Sinus rhythm no longer present Electronically Signed On 01-20-18 11:57:29 CDT by Johnathan Lopez
[2018-01-20] MEDS ORDERED: MORPHINE 4 MG/ML SYR ONE (12:34)
--- NOTE | 2018-01-20 12:44 | RAD REPORT ---
EXAM DESCRIPTION: RAD - Chest Single View - 01/20/2018 12:22 pm CLINICAL HISTORY: Coffee-ground emesis, epigastric pain, right upper quadrant pain COMPARISON: May 2017 TECHNIQUE: AP portable chest image was obtained 1216 hours . FINDINGS: Lungs are clear. Heart and vasculature are normal. No measurable pleural effusion and no p neumothorax. No acute bone finding. Prominent thoracolumbar scoliotic changes are present and stable. Right-sided Port-A-Cath is in place. No acute aortic findings suspected. IMPRESSION: No acute cardiopulmonary process. No suspicious change from comparison.
--- NOTE | 2018-01-20 13:28 | EDPHYS ---
Physician Documentation [facility] Name: Va Cardoso Age: 32 yrs Sex: Female : 1985 Arrival Date: 01/20/2018 Time: 10:32 Bed 17 Private MD: ED Physician Tyler Harden HPI: 01/20 10:58 This 32 yrs old Female presents to ER via Ambulatory with complaints of kb Abdominal Pain, Back Pain, Nausea/Vomiting. 10:58 The patient presents with abdominal pain in the upper abdomen. Onset: The kb symptoms/episode began/occurred last year, and became worse 2 month(s) ago. The symptoms radiate to back. Associated signs and symptoms: Pertinent positives: nausea and vomiting, vomiting blood. The symptoms are described as waxing/waning. Modifying factors: The symptoms are alleviated by nothing, the symptoms are aggravated by pressure, sitting, standing. Severity of pain: At its worst the pain was moderate in the emergency department the pain is unchanged. The patient has experienced similar episodes in the past. The patient has been recently seen by a physician: Hyacinth Julien 1 month(s) ago, with similar presenting complaints, was given a prescription for pain medications, was given a prescription for an antiemetic. 11:00 The patient has been recently seen by a physician: the ER physician, out of Town, in [facility], 2 day(s) ago, with similar presenting complaints, lab tests were done, CT scan was done, and was referred to a specialist, but the patient's symptoms have persisted. Pt states she has had upper abd pain for a year, worse in the past 2 months. States she has also had nausea, vomiting coffee ground emesis, and having dark stools for the 2 months. States she was seen by Dr Claros (surgeon at [facility]) last month, Dr Hay last month, and [facility] ER twice this week for the same symptoms. Next appt with Dr Hay is in 2 weeks.. 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 LMP N/A - Irregular menses ch Historical: - Allergies: 10:39 Benadryl (MAKES ME HYPER A CHILD); ch 10:39 Remicade (Anaphylaxis); ch - Home Meds: 10:39 gabapentin 800 mg Oral tab 1 tab 3 times per day [Active]; Ambien 10 mg Oral tab 1 tab ch once daily [Active]; zubsolv [Active]; Phenergan 25 mg Rectal supp 1 suppository [Active]; - PMHx: 10:39 Anemia; B12 deficiency; Chronic pain; Crohn's; Fibromyalgia; HYPOGLYCEMIA; ch Hypothyroidism; Osteoporosis; Rheumatoid Arthritis; scoliosis; Seizures; fatty liver; uterine cysts; 10:40 bowel obstruction; ruptured small bowel; ch - PSHx: 10:39 Bowel resection; port a cath placement; ; Cholecystectomy; Tubal ligation; ch 10:40 ruptured bowel; stricture plasty; ch - Immunization history:: Adult Immunizations up to date. - Social history:: Smoking status: Patient/guardian denies using tobacco. ROS: 11:04 Constitutional: Negative for fever, chills, and weight loss, ENT: Negative for injury, kb pain, and discharge, Neck: Negative for injury, pain, and swelling, Cardiovascular: Negative for chest pain, palpitations, and edema, Respiratory: Negative for shortness of breath, cough, wheezing, and pleuritic chest pain, Back: Negative for injury and pain, : Negative for injury, bleeding, discharge, and swelling, MS/Extremity: Negative for injury and deformity, Skin: Negative for injury, rash, and discoloration, Neuro: Negative for headache, weakness, numbness, tingling, and seizure. 11:04 Abdomen/GI: Positive for abdominal pain, nausea and vomiting, hematemesis, black/tarry stool, Negative for diarrhea, constipation, abdominal cramps, abdominal distension, anorexia. Exam: 11:04 Constitutional: This is a well developed, well nourished patient who is awake, alert, kb and in no acute distress. Head/Face: Normocephalic, atraumatic. ENT: Nares patent. No nasal discharge, no septal abnormalities noted. Tympanic membranes are normal and external auditory canals are clear. Oropharynx with no redness, swelling, or masses, exudates, or evidence of obstruction, uvula midline. Mucous membranes moist. Neck: Trachea midline, no thyromegaly or masses palpated, and no cervical lymphadenopathy. Supple, full range of motion without nuchal rigidity, or vertebral point tenderness. No Meningismus. Chest/axilla: Normal chest wall appearance and motion. Nontender with no deformity. No lesions are appreciated. Cardiovascular: Regular rate and rhythm with a normal S1 and S2. No gallops, murmurs, or rubs. Normal PMI, no JVD. No pulse deficits. Respiratory: Lungs have equal breath sounds bilaterally, clear to auscultation and percussion. No rales, rhonchi or wheezes noted. No increased work of breathing, no retractions or nasal flaring. Back: No spinal tenderness. No costovertebral tenderness. Full range of motion. Skin: Warm, dry with normal turgor. Normal color with no rashes, no lesions, and no evidence of cellulitis. MS/ Extremity: Pulses equal, no cyanosis. Neurovascular intact. Full, normal range of motion. Neuro: Awake and alert, GCS 15, oriented to person, place, time, and situation. Cranial nerves II-XII grossly intact. Motor strength 5/5 in all extremities. Sensory grossly intact. Cerebellar exam normal. Normal gait. 11:04 Abdomen/GI: Inspection: abdomen appears normal, Bowel sounds: normal, in all quadrants, Palpation: soft, in all quadrants, moderate abdominal tenderness, in the epigastric area, right upper quadrant and left upper quadrant. 12:56 Abdomen/GI: Rectal exam: rectal tone normal, Stool: normal, guaiac negative, the exam kb is chaperoned by the nurse. Vital Signs: 10:40 BP 141 / 91; Pulse 136; Resp 22; Temp 100(O); Pulse Ox 100% on R/A; Weight 49.9 kg; ch Height 4 ft. 11 in. (149.86 cm); Pain 10/10; 11:10 BP 127 / 85; Pulse 122; Resp 18; Pulse Ox 100% ; aj1 12:09 BP 133 / 98; Pulse 107; Resp 18; Pulse Ox 98% on R/A; aj1 13:03 BP 136 / 96; Pulse 98; Resp 18; Pulse Ox 100% on R/A; aj1 13:40 BP 121 / 72; Pulse 97; Resp 18 S; Pulse Ox 98% on R/A; aa5 10:40 Body Mass Index 22.22 (49.90 kg, 149.86 cm) MDM: 10:43 Patient medically screened. 11:03 Data reviewed: vital signs, nurses notes. Data reviewed: diagnostic data from outside kb facility, amylase and lipase, CBC, electrolytes, hepatic panel, radiologic studies, CT scan, all lab values within normal limits, CT scan shows nothing acute (fatty liver and left ovarian cyst). Data interpreted: Pulse oximetry: on room air is 100 %. Interpretation: normal. 13:26 Counseling: I had a detailed discussion with the patient and/or guardian regarding: the kb historical points, exam findings, and any diagnostic results supporting the discharge/admit diagnosis, lab results, the need for outpatient follow up, a balancer, to return to the emergency department if symptoms worsen or persist or if there are any questions or concerns that arise at home. Physician consultation: Brayden Hay MD was contacted at 13:26, regarding consult, patient's condition, and will see patient in office, immediately. 01/20 10:43 Order name: Amylase, Serum; Complete Time: 11:42 kb 01/20 10:43 Order name: Basic Metabolic Panel; Complete Time: 11:42 kb 01/20 10:43 Order name: CBC with Diff; Complete Time: 11:40 kb 01/20 10:43 Order name: Hepatic Function; Complete Time: 11:42 kb 01/20 10:43 Order name: Lipase; Complete Time: 11:42 kb 01/20 10:57 Order name: Chest Single View XRAY; Complete Time: 12:50 kb 01/20 10:43 Order name: IV Saline Lock; Complete Time: 11:26 kb 01/20 10:57 Order name: EKG; Complete Time: 10:57 kb 01/20 10:43 Order name: Labs collected and sent; Complete Time: 11:26 kb 01/20 10:57 Order name: EKG - Nurse/Tech; Complete Time: 11:20 kb Administered Medications: 11:25 Drug: ProTONIX 40 mg Route: IVP; Site: Port-a-cath; aj1 11:54 Follow up: Response: No adverse reaction aj1 11:25 Drug: NS 0.9% 1000 ml Route: IV; Rate: 1000 ml; Site: Port-a-cath; aj1 14:08 Follow up: IV Status: Completed infusion; IV Intake: 1000ml aj1 11:25 Drug: Zofran 4 mg Route: IVP; Site: Port-a-cath; aj1 11:54 Follow up: Response: No adverse reaction aj1 11:53 Drug: Potassium Chloride 40 mEq Route: PO; aj1 11:54 Follow up: Response: No adverse reaction aj1 12:37 Drug: morphine 4 mg Route: IVP; Site: Port-a-cath; aj1 14:08 Follow up: Response: No adverse reaction; Pain is decreased aj1 Disposition: 22:31 Co-signature as Attending Physician, Tyler Harden MD I agree with the assessment and kdr plan of care. Disposition: 01/20/18 13:27 Discharged to Home. Impression: Upper abdominal pain, unspecified. - Condition is Stable. - Discharge Instructions: Abdominal Pain, Adult, [id number]. - Medication Reconciliation Form, Thank You Letter, Antibiotic Education, Prescription Opioid Use form. - Follow up: Emergency Department; When: As needed; Reason: Worsening of condition. Follow up: Private Physician; When: 2 - 3 days; Reason: Recheck today's complaints, Continuance of care, Re-evaluation by your physician. Follow up: Brayden Hay MD; When: Upon discharge from the Emergency Department; Reason: Recheck today's complaints, Continuance of care, Re-evaluation by your physician. Signatures: Dispatcher [employer] EDNJ Emilia Quinn, JOAN-C SOCIOLOGY TEACHER-Jennifer Renteria RN RN Mandy Mcgill RN RN aj1 Tyler Harden MD MD kdr Corrections: (The following items were deleted from the chart) 13:42 10:43 Urine Dipstick-Ancillary ordered. aa5 13:43 10:43 Urine Test ordered. kb aa5 14:22 13:27 01/20/2018 13:27 Discharged to Home. Impression: Upper abdominal pain, ch unspecified. Condition is Stable. Forms are Medication Reconciliation Form, Thank You Letter, Antibiotic Education, Prescription Opioid Use. Follow up: Emergency Department; When: As needed; Reason: Worsening of condition. Follow up: Private Physician; When: 2 - 3 days; Reason: Recheck today's complaints, Continuance of care, Re-evaluation by your physician. Follow up: Brayden Hay; When: Upon discharge from the Emergency Department; Reason: Recheck today's complaints, Continuance of care, Re-evaluation by your physician. kb
--- NOTE | 2018-01-20 13:28 | ER ---
Nurse's Notes [facility] Name: Va Cardoso Age: 32 yrs Sex: Female : 1985 Arrival Date: 01/20/2018 Time: 10:32 Bed 17 Private MD: Diagnosis: Upper abdominal pain, unspecified Presentation: 01/20 10:35 Presenting complaint: Patient states: I have been seen twice at [facility] for this, ch vomiting coffee grounds, diarrhea black. epigastric and RUQ pain that radiates into my back. I am on Phenergan suppositories but I have vomited [address] Hay is my GI doctor. This has been going on for over a year, worse the past 2 months. Transition of care: patient was not received from another setting of care. Onset of symptoms. Initial Sepsis Screen: Does the patient meet any 2 criteria? No. Patient's initial sepsis screen is negative. Does the patient have a suspected source of infection? No. Patient's initial sepsis screen is negative. Care prior to arrival: None. 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 LMP N/A - Irregular menses ch Historical: - Allergies: 10:39 Benadryl (MAKES ME HYPER A CHILD); 10:39 Remicade (Anaphylaxis); ch - Home Meds: 10:39 gabapentin 800 mg Oral tab 1 tab 3 times per day [Active]; Ambien 10 mg Oral tab 1 tab ch once daily [Active]; zubsolv [Active]; Phenergan 25 mg Rectal supp 1 suppository [Active]; - PMHx: 10:39 Anemia; B12 deficiency; Chronic pain; Crohn's; Fibromyalgia; HYPOGLYCEMIA; ch Hypothyroidism; Osteoporosis; Rheumatoid Arthritis; scoliosis; Seizures; fatty liver; uterine cysts; 10:40 bowel obstruction; ruptured small bowel; ch - PSHx: 10:39 Bowel resection; port a cath placement; ; Cholecystectomy; Tubal ligation; ch 10:40 ruptured bowel; stricture plasty; ch - Immunization history:: Adult Immunizations up to date. - Social history:: Smoking status: Patient/guardian denies using tobacco. Screenin:40 Abuse screen: Denies threats or abuse. Denies injuries from another. Nutritional aj1 screening: No deficits noted. Tuberculosis screening: No symptoms or risk factors identified. Assessment: 10:40 General: Appears distressed, uncomfortable, Behavior is cooperative, restless. Pain: aj1 Complains of pain in left upper quadrant and right upper quadrant and epigastric area Pain radiates to back Pain currently is 10 out of 10 on a pain scale. Quality of pain is described as sharp, Pain began one year ago. Neuro: Level of Consciousness is awake, alert, obeys commands, Oriented to person, place, time, situation, Speech is normal, Facial symmetry appears normal. Cardiovascular: Patient's skin is warm and dry. Respiratory: Airway is patent Respiratory effort is even, unlabored, Respiratory pattern is regular, symmetrical. GI: Abdomen is flat, non-distended, Bowel sounds present X 4 quads. Abd is soft X 4 quads Abdomen is tender to palpation in epigastric area, right upper quadrant and left upper quadrant Reports upper abdominal pain, intolerance of fluids, intolerance of food, nausea, vomiting, coffee ground emesis. : No signs and/or symptoms were reported regarding the genitourinary system. EENT: No signs and/or symptoms were reported regarding the EENT system. Derm: No signs and/or symptoms reported regarding the dermatologic system. Skin is pink, warm \T\ dry. normal. Musculoskeletal: No signs and/or symptoms reported regarding the musculoskeletal system. Circulation, motion, and sensation intact. 11:40 Reassessment: Patient appears in no apparent distress at this time. No changes from aj1 previously documented assessment. Patient and/or family updated on plan of care and expected duration. Pain level reassessed. Patient is alert, oriented x 3, equal unlabored respirations, skin warm/dry/pink. 12:10 Reassessment: Patient appears in no apparent distress at this time. No changes from aj1 previously documented assessment. Patient and/or family updated on plan of care and expected duration. Pain level reassessed. Patient is alert, oriented x 3, equal unlabored respirations, skin warm/dry/pink. 13:03 Reassessment: Patient appears in no apparent distress at this time. No changes from aj1 previously documented assessment. Patient and/or family updated on plan of care and expected duration. Pain level reassessed. Patient is alert, oriented x 3, equal unlabored respirations, skin warm/dry/pink. 13:43 Reassessment: Patient is alert, oriented x 3, equal unlabored respirations, skin aa5 warm/dry/pink. 14:08 Reassessment: Patient waiting in room for her ride to arrive per Shirley charge nurse. aj1 Vital Signs: 10:40 BP 141 / 91; Pulse 136; Resp 22; Temp 100(O); Pulse Ox 100% on R/A; Weight 49.9 kg; ch Height 4 ft. 11 in. (149.86 cm); Pain 10/10; 11:10 BP 127 / 85; Pulse 122; Resp 18; Pulse Ox 100% ; aj1 12:09 BP 133 / 98; Pulse 107; Resp 18; Pulse Ox 98% on R/A; aj1 13:03 BP 136 / 96; Pulse 98; Resp 18; Pulse Ox 100% on R/A; aj1 13:40 BP 121 / 72; Pulse 97; Resp 18 S; Pulse Ox 98% on R/A; aa5 10:40 Body Mass Index 22.22 (49.90 kg, 149.86 cm) ED Course: 10:32 Patient arrived in ED. sb2 10:37 Triage completed. 10:40 Arm band placed on left wrist. Patient placed in an exam room, on a stretcher. 10:40 Patient has correct armband on for positive identification. Bed in low position. Call [facility] light in reach. Side rails up X 1. operator weapon locating radar on. Pulse ox on. NIBP on. 10:40 No provider procedures requiring assistance completed. aj1 10:43 Emilia Quinn FNP-C [facility]. kb 10:43 Tyler Harden MD is Attending Physician. kb 11:20 Mandy Frias, KELLY is Primary Nurse. aj1 11:30 Accessed Port-a-Cath. using accessed w/ # 20 Vitale needle, ,sterile technique, per [facility] hospital protocol. 12:21 X-ray completed. Portable x-ray completed in exam room. Patient tolerated procedure jb2 well. 12:22 Chest Single View XRAY In Process Unspecified. EDMS 13:27 Brayden Hay MD is Referral Physician. kb 13:42 Port-a-cath dc'd, packed with heparin per protocol, band-aid applied. Pt tolerated well.aa5 Administered Medications: 11:25 Drug: ProTONIX 40 mg Route: IVP; Site: Port-a-cath; aj1 11:54 Follow up: Response: No adverse reaction aj1 11:25 Drug: NS 0.9% 1000 ml Route: IV; Rate: 1000 ml; Site: Port-a-cath; aj1 14:08 Follow up: IV Status: Completed infusion; IV Intake: 1000ml aj1 11:25 Drug: Zofran 4 mg Route: IVP; Site: Port-a-cath; aj1 11:54 Follow up: Response: No adverse reaction aj1 11:53 Drug: Potassium Chloride 40 mEq Route: PO; aj1 11:54 Follow up: Response: No adverse reaction aj1 12:37 Drug: morphine 4 mg Route: IVP; Site: Port-a-cath; aj1 14:08 Follow up: Response: No adverse reaction; Pain is decreased aj1 Intake: 14:08 IV: 1000ml; Total: 1000ml. aj1 Outcome: 13:27 Discharge ordered by MD. ribeiro 13:[address] Hay's office with family aa5 13:43 Condition: stable 13:43 Discharge instructions given to patient, Instructed on discharge instructions, follow up and referral plans. Demonstrated understanding of instructions, follow-up care. 14:22 Patient left the ED. Signatures: Dispatcher [employer] EDEmilia Ramon, ROSAMARIA FRANCO-Jennifer Renteria, RN RN Mandy Mcgill RN RN aj1 Sherif Fields Audri, RN RN aa5 Lyly Vargas2
[2018-01-20] MEDS ORDERED: HEPARIN 500 UNIT/5 ML SYR IV ONE (13:32)
[2018-01-20 14:35] VITALS: TEMP 100
[2018-01-20 14:40] VITALS: BP 121/72; O2SAT 98
== END 2018-01-20 14:22 | disposition home or self-care (01) ==
LOC: ER 10:27
DX: R10.10 Upper abdominal pain, unspecified (principal); E03.9 Hypothyroidism, unspecified; D64.9 Anemia, unspecified; K76.0 Fatty (change of) liver, not elsewhere classified; Z88.8 Allergy status to other drugs, medicaments and biological substances
CPT/HCPCS: 36415; 71045; 80048; 80076; 82150; 83690; 85025; 93005; 96361; 96374; 96375; 99285; C9113; J1642; J2405; J7030

== ENCOUNTER 2018-03-09 18:11 | Emergency (ER) | payer BC ==
--- OUTSIDE RECORDS SUMMARY | 2018-03-09 18:14 | XMS REPORT | Clinical Summary ---
:1985 Author Organization [facility] Address [address] [place] [address] Care Team Providers Name Role Phone Asked, [...] location (Primary Dx) 09/23/2017 Telephone Internal Medicine Rebekah Spivey MA 08/19/2017 Anesthesia Event General Surgery [...] Irene Ejaz, DO Ahmed, Rezwan, MD after 03/08/2017 Social History Tobacco Use Types Packs/Day Years Used Date Never Smoker Alcohol Use Drinks/Week oz/Week Comments No Sex Assigned at Date Recorded Not on file Last Filed Vital Signs Vital Sign Reading Time Taken Blood Pressure 95/67 09/24/2017 12:41 PM [employer] Pulse 95 09/24/2017 12:41 PM [employer] Temperature 36.8 C (98.2 F) 09/02/2017 12:35 PM [employer] Respiratory Rate 18 09/02/2017 12:35 PM [employer] Oxygen Saturation 96% 09/02/2017 12:35 PM [employer] Inhaled Oxygen Concentration - - Weight 50.8 kg (112 lb) 09/24/2017 12:41 PM [employer] Height 152.4 cm (5') 09/24/2017 12:41 PM [employer] Body Mass Index 21.87 09/24/2017 12:41 PM [employer] Plan of Treatment Health Maintenance Due Date Last Done Comments CERVICAL CANCER SCREENING 2008 INFLUENZA VACCINE 04/14/2018 Implants Implanted Type Area Trimming Inspector Device Expiration Model / Identifier Date Serial / Lot Port Imlpntbl Smart Port W/ Dtchd 0.4ml 6.6fr 55cm 1.4x2.2mm - [id number] Implantable N/A: ANGIODYNAMICS 04/13/2020 [id number] / Implanted: 08/18/2017 (Quantity not on file) Infusion Ports N/A INC / or Accessories [id number] Procedures Procedure Name Priority Date/Time Associated Comments Diagnosis POC GLUCOSE Routine 09/02/2017 12:37 Results for this PM [employer] procedure are in the results section. POC GLUCOSE Routine 09/02/2017 8:28 Results for this AM [employer] procedure are in the results section. MANUAL DIFFERENTIAL Routine 09/02/2017 6:11 Results for this AM [employer] procedure are in the results section. CBC WITH PLATELET AND Routine 09/02/2017 6:11 Results for this DIFFERENTIAL [employer] procedure are in the results section. POC GLUCOSE Routine 09/02/2017 5:04 Results for this AM [employer] procedure are in the results section. ESTIMATED GFR Routine 09/02/2017 4:00 Results for this AM [employer] procedure are in the results section. PHOSPHORUS LEVEL Routine 09/02/2017 4:00 Results for this AM [employer] procedure are in the results section. MAGNESIUM LEVEL Routine 09/02/2017 4:00 Results for this AM [employer] procedure are in the results section. BASIC METABOLIC PANEL Routine 09/02/2017 4:00 Results for this AM [employer] procedure are in the results section. POC GLUCOSE Routine 09/01/2017 11:10 Results for this [employer] procedure are in the results section. POC GLUCOSE Routine 09/01/2017 7:03 Results for this [employer] procedure are in the results section. POC GLUCOSE Routine 09/01/2017 11:57 Results for this [employer] procedure are in the results section. MANUAL DIFFERENTIAL Routine 09/01/2017 9:24 Results for this AM [employer] procedure are in the results section. ESTIMATED GFR Routine 09/01/2017 9:24 Results for this AM [employer] procedure are in the results section. VITAMIN E LEVEL, Routine 09/01/2017 9:24 Results for this PLASMA OR SERUM AM [employer] procedure are in the results section. VITAMIN A LEVEL, Routine 09/01/2017 9:24 Results for this PLASMA OR SERUM [employer] procedure are in the results section. COMPREHENSIVE Routine 09/01/2017 9:24 Results for this METABOLIC PANEL [employer] procedure are in the results section. PHOSPHORUS LEVEL Routine 09/01/2017 9:24 Results for this AM [employer] procedure are in the results section. MAGNESIUM LEVEL Routine 09/01/2017 9:24 Results for this AM [employer] procedure are in the results section. CBC WITH PLATELET AND Routine 09/01/2017 9:24 Results for this DIFFERENTIAL [employer] procedure are in the results section. POC GLUCOSE Routine 09/01/2017 8:37 Results for this [employer] procedure are in the results section. POC GLUCOSE Routine 09/01/2017 12:38 Results for this [employer] procedure are in the results section. POC GLUCOSE Routine 08/31/2017 6:16 Results for this [employer] procedure are in the results section. URINALYSIS SCREEN AND Routine 08/31/2017 4:20 Results for this MICROSCOPY, WITH PM [employer] procedure are in REFLEX TO CULTURE the results section. URINE CULTURE Routine 08/31/2017 4:20 Results for this [employer] procedure are in the results section. POC GLUCOSE Routine 08/31/2017 4:11 Results for this [employer] procedure are in the results section. POC GLUCOSE Routine 08/31/2017 11:41 Results for this [employer] procedure are in the results section. POC GLUCOSE Routine 08/31/2017 7:53 Results for this [employer] procedure are in the results section. POC GLUCOSE Routine 08/31/2017 5:14 Results for this [employer] procedure are in the results section. ESTIMATED GFR Routine 08/31/2017 2:58 Results for this AM [employer] procedure are in the results section. PHOSPHORUS LEVEL Routine 08/31/2017 2:58 Results for this [employer] procedure are in the results section. MAGNESIUM LEVEL Routine 08/31/2017 2:58 Results for this [employer] procedure are in the results section. BASIC METABOLIC PANEL Routine 08/31/2017 2:58 Results for this [employer] procedure are in the results section. XR CHEST 1 VW PORTABLE Routine 08/31/2017 2:37 Results for this [employer] procedure are in the results section. MANUAL DIFFERENTIAL Routine 08/31/2017 2:35 Results for this AM [employer] procedure are in the results section. CBC WITH PLATELET AND Routine 08/31/2017 2:35 Results for this DIFFERENTIAL [employer] procedure are in the results section. BLOOD CULTURE, AEROBIC Routine 08/31/2017 2:35 Results for this & ANAEROBIC [employer] procedure are in the results section. POC GLUCOSE Routine 08/30/2017 11:37 Results for this [employer] procedure are in the results section. POC GLUCOSE Routine 08/30/2017 8:34 Results for this [employer] procedure are in the results section. POC GLUCOSE Routine 08/30/2017 5:34 Results for this [employer] procedure are in the results section. POC GLUCOSE Routine 08/30/2017 4:30 Results for this [employer] procedure are in the results section. POC GLUCOSE Routine 08/30/2017 11:54 Results for this [employer] procedure are in the results section. POC GLUCOSE Routine 08/30/2017 7:43 Results for this AM [employer] procedure are in the results section. POC GLUCOSE Routine 08/30/2017 4:08 Results for this [employer] procedure are in the results section. ESTIMATED GFR Routine 08/30/2017 4:00 Results for this [employer] procedure are in the results section. PHOSPHORUS LEVEL Routine 08/30/2017 4:00 Results for this [employer] procedure are in the results section. MAGNESIUM LEVEL Routine 08/30/2017 4:00 Results for this [employer] procedure are in the results section. BASIC METABOLIC PANEL Routine 08/30/2017 4:00 Results for this [employer] procedure are in the results section. MANUAL DIFFERENTIAL Routine 08/30/2017 3:45 Results for this [employer] procedure are in the results section. CBC WITH PLATELET AND Routine 08/30/2017 3:45 Results for this DIFFERENTIAL [employer] procedure are in the results section. BLOOD CULTURE, AEROBIC Routine 08/30/2017 2:15 Results for this & ANAEROBIC [employer] procedure are in the results section. POC GLUCOSE Routine 08/29/2017 11:12 Results for this [employer] procedure are in the results section. POC GLUCOSE Routine 08/29/2017 8:33 Results for this [employer] procedure are in the results section. POC GLUCOSE Routine 08/29/2017 4:46 Results for this [employer] procedure are in the results section. POC GLUCOSE Routine 08/29/2017 12:07 Results for this [employer] procedure are in the results section. VANCOMYCIN LEVEL, Timed 08/29/2017 9:15 Results for this TROUGH [employer] procedure are in the results section. POC GLUCOSE Routine 08/29/2017 7:52 Results for this AM [employer] procedure are in the results section. HC COMPLETE BLD COUNT Routine 08/29/2017 4:50 Results for this W/AUTO DIFF [employer] procedure are in the results section. POC GLUCOSE Routine 08/29/2017 4:43 Results for this AM [employer] procedure are in the results section. CLOSTRIDIUM DIFFICILE Routine 08/29/2017 4:30 Results for this TOXIN [employer] procedure are in the results section. ESTIMATED GFR Routine 08/29/2017 4:00 Results for this [employer] procedure are in the results section. PHOSPHORUS LEVEL Routine 08/29/2017 4:00 Results for this [employer] procedure are in the results section. MAGNESIUM LEVEL Routine 08/29/2017 4:00 Results for this [employer] procedure are in the results section. BASIC METABOLIC PANEL Routine 08/29/2017 4:00 Results for this [employer] procedure are in the results section. POC GLUCOSE Routine 08/29/2017 12:05 Results for this [employer] procedure are in the results section. URINALYSIS SCREEN AND Routine 08/28/2017 4:40 Results for this MICROSCOPY, WITH [employer] procedure are in REFLEX TO CULTURE the results section. URINE CULTURE Routine 08/28/2017 4:40 Results for this [employer] procedure are in the results section. POC GLUCOSE Routine 08/28/2017 3:08 Results for this [employer] procedure are in the results section. POC GLUCOSE Routine 08/28/2017 11:30 Results for this [employer] procedure are in the results section. POC GLUCOSE Routine 08/28/2017 7:11 Results for this [employer] procedure are in the results section. POC GLUCOSE Routine 08/28/2017 4:32 Results for this [employer] procedure are in the results section. HC COMPLETE BLD COUNT Routine 08/28/2017 4:15 Results for this W/AUTO DIFF [employer] procedure are in the results section. ESTIMATED GFR Routine 08/28/2017 4:00 Results for this [employer] procedure are in the results section. PHOSPHORUS LEVEL Routine 08/28/2017 4:00 Results for this [employer] procedure are in the results section. MAGNESIUM LEVEL Routine 08/28/2017 4:00 Results for this [employer] procedure are in the results section. BASIC METABOLIC PANEL Routine 08/28/2017 4:00 Results for this [employer] procedure are in the results section. VANCOMYCIN LEVEL, Timed 08/28/2017 12:30 Results for this TROUGH [employer] procedure are in the results section. POC GLUCOSE Routine 08/28/2017 12:26 Results for this [employer] procedure are in the results section. POC GLUCOSE Routine 08/27/2017 7:31 Results for this [employer] procedure are in the results section. POC GLUCOSE Routine 08/27/2017 4:20 Results for this [employer] procedure are in the results section. US ABDOMINAL Routine 08/27/2017 2:05 Results for this PARACENTESIS IMAGING [employer] procedure are in the results section. CELL COUNT AND Routine 08/27/2017 2:00 Results for this DIFFERENTIAL, BODY [employer] procedure are in FLUID the results section. GRAM STAIN Routine 08/27/2017 2:00 Results for this [employer] procedure are in the results section. ANAEROBIC CULTURE Routine 08/27/2017 2:00 Results for this [employer] procedure are in the results section. AEROBIC CULTURE Routine 08/27/2017 2:00 Results for this [employer] procedure are in the results section. POC GLUCOSE Routine 08/27/2017 12:01 Results for this [employer] procedure are in the results section. POC GLUCOSE Routine 08/27/2017 8:07 Results for this [employer] procedure are in the results section. MANUAL DIFFERENTIAL Routine 08/27/2017 5:05 Results for this [employer] procedure are in the results section. CBC WITH PLATELET AND Routine 08/27/2017 5:05 Results for this DIFFERENTIAL [employer] procedure are in the results section. POC GLUCOSE Routine 08/27/2017 4:39 Results for this [employer] procedure are in the results section. ESTIMATED GFR Routine 08/27/2017 4:00 Results for this [employer] procedure are in the results section. PHOSPHORUS LEVEL Routine 08/27/2017 4:00 Results for this [employer] procedure are in the results section. MAGNESIUM LEVEL Routine 08/27/2017 4:00 Results for this [employer] procedure are in the results section. BASIC METABOLIC PANEL Routine 08/27/2017 4:00 Results for this [employer] procedure are in the results section. POC GLUCOSE Routine 08/26/2017 11:38 Results for this [employer] procedure are in the results section. POC GLUCOSE Routine 08/26/2017 7:53 Results for this [employer] procedure are in the results section. POC GLUCOSE Routine 08/26/2017 5:33 Results for this [employer] procedure are in the results section. XR CHEST 1 VW PORTABLE Routine 08/26/2017 4:56 Results for this [employer] procedure are in the results section. CT ABDOMEN PELVIS W Routine 08/26/2017 2:20 Results for this CONTRAST [employer] procedure are in the results section. HEMOGLOBIN & STAT 08/26/2017 1:54 Results for this HEMATOCRIT [employer] procedure are in the results section. BLOOD CULTURE, AEROBIC Routine 08/26/2017 1:45 Results for this & ANAEROBIC [employer] procedure are in the results section. BLOOD CULTURE, AEROBIC Routine 08/26/2017 1:35 Results for this & ANAEROBIC [employer] procedure are in the results section. LACTIC ACID LEVEL Routine 08/26/2017 1:21 Results for this [employer] procedure are in the results section. POC GLUCOSE Routine 08/26/2017 12:01 Results for this [employer] procedure are in the results section. POC GLUCOSE Routine 08/26/2017 8:20 Results for this [employer] procedure are in the results section. HC COMPLETE BLD COUNT Routine 08/26/2017 4:20 Results for this W/AUTO DIFF [employer] procedure are in the results section. POC GLUCOSE Routine 08/26/2017 4:11 Results for this [employer] procedure are in the results section. ESTIMATED GFR Routine 08/26/2017 4:00 Results for this [employer] procedure are in the results section. PHOSPHORUS LEVEL Routine 08/26/2017 4:00 Results for this [employer] procedure are in the results section. MAGNESIUM LEVEL Routine 08/26/2017 4:00 Results for this [employer] procedure are in the results section. BASIC METABOLIC PANEL Routine 08/26/2017 4:00 Results for this [employer] procedure are in the results section. POC GLUCOSE Routine 08/26/2017 12:01 Results for this [employer] procedure are in the results section. US DUPLEX VENOUS UPPER Routine 08/25/2017 10:21 Results for this EXTREMITY BILATERAL [employer] procedure are in the results section. POC GLUCOSE Routine 08/25/2017 9:12 Results for this [employer] procedure are in the results section. TRANSFUSE RED BLOOD Routine 08/25/2017 6:31 CELLS [employer] POC GLUCOSE Routine 08/25/2017 5:08 Results for this [employer] procedure are in the results section. TRANSFUSE RED BLOOD Routine 08/25/2017 3:19 CELLS [employer] POC GLUCOSE Routine 08/25/2017 12:43 Results for this [employer] procedure are in the results section. PREPARE RBC Timed 08/25/2017 11:25 Results for this [employer] procedure are in the results section. TYPE AND SCREEN Timed 08/25/2017 11:25 Results for this [employer] procedure are in the results section. POC GLUCOSE Routine 08/25/2017 7:46 Results for this [employer] procedure are in the results section. POC GLUCOSE Routine 08/25/2017 5:37 Results for this [employer] procedure are in the results section. SMEAR REVIEW Routine 08/25/2017 5:00 Results for this [employer] procedure are in the results section. HC COMPLETE BLD COUNT Routine 08/25/2017 5:00 Results for this W/AUTO DIFF [employer] procedure are in the results section. ESTIMATED GFR Routine 08/25/2017 4:00 Results for this [employer] procedure are in the results section. PHOSPHORUS LEVEL Routine 08/25/2017 4:00 Results for this [employer] procedure are in the results section. MAGNESIUM LEVEL Routine 08/25/2017 4:00 Results for this [employer] procedure are in the results section. BASIC METABOLIC PANEL Routine 08/25/2017 4:00 Results for this [employer] procedure are in the results section. POC GLUCOSE Routine 08/25/2017 12:20 Results for this [employer] procedure are in the results section. POC GLUCOSE Routine 08/24/2017 8:16 Results for this [employer] procedure are in the results section. ESTIMATED GFR Routine 08/24/2017 5:15 Results for this [employer] procedure are in the results section. PHOSPHORUS LEVEL Routine 08/24/2017 5:15 Results for this [employer] procedure are in the results section. MAGNESIUM LEVEL Routine 08/24/2017 5:15 Results for this [employer] procedure are in the results section. BASIC METABOLIC PANEL Routine 08/24/2017 5:15 Results for this [employer] procedure are in the results section. POC GLUCOSE Routine 08/24/2017 4:50 Results for this [employer] procedure are in the results section. IONIZED CALCIUM Routine 08/24/2017 2:30 Results for this [employer] procedure are in the results section. CONSULT TO SEPSIS Routine 08/24/2017 1:59 Fever, unspecified Results for this RESPONSE TEAM [employer] fever cause procedure are in the results section. LACTIC ACID, I-STAT, Routine 08/24/2017 12:45 Results for this VENOUS [employer] procedure are in the results section. POC GLUCOSE Routine 08/24/2017 12:29 Results for this [employer] procedure are in the results section. LACTIC ACID, I-STAT, Routine 08/24/2017 9:38 Results for this VENOUS [employer] procedure are in the results section. POC GLUCOSE Routine 08/24/2017 7:15 Results for this [employer] procedure are in the results section. ECG 12-LEAD STAT 08/24/2017 6:48 Results for this [employer] procedure are in the results section. POC GLUCOSE Routine 08/24/2017 5:46 Results for this [employer] procedure are in the results section. ESTIMATED GFR STAT 08/24/2017 5:10 Results for this [employer] procedure are in the results section. LACTIC ACID LEVEL STAT 08/24/2017 5:10 Results for this [employer] procedure are in the results section. TROPONIN STAT 08/24/2017 5:10 Results for this [employer] procedure are in the results section. PHOSPHORUS LEVEL STAT 08/24/2017 5:10 Results for this [employer] procedure are in the results section. MAGNESIUM LEVEL STAT 08/24/2017 5:10 Results for this [employer] procedure are in the results section. BASIC METABOLIC PANEL STAT 08/24/2017 5:10 Results for this [employer] procedure are in the results section. ESTIMATED GFR Routine 08/24/2017 5:09 Results for this [employer] procedure are in the results section. HC COMPLETE BLD COUNT Routine 08/24/2017 5:09 Results for this W/AUTO DIFF [employer] procedure are in the results section. PHOSPHORUS LEVEL Routine 08/24/2017 5:09 Results for this [employer] procedure are in the results section. MAGNESIUM LEVEL Routine 08/24/2017 5:09 Results for this [employer] procedure are in the results section. BASIC METABOLIC PANEL Routine 08/24/2017 5:09 Results for this [employer] procedure are in the results section. POC GLUCOSE Routine 08/24/2017 4:19 Results for this [employer] procedure are in the results section. POC GLUCOSE Routine 08/23/2017 7:33 Results for this [employer] procedure are in the results section. POC GLUCOSE Routine 08/23/2017 4:15 Results for this [employer] procedure are in the results section. POC GLUCOSE Routine 08/23/2017 11:39 Results for this [employer] procedure are in the results section. POC GLUCOSE Routine 08/23/2017 8:40 Results for this [employer] procedure are in the results section. HC COMPLETE BLD COUNT Routine 08/23/2017 4:20 Results for this W/AUTO DIFF [employer] procedure are in the results section. ESTIMATED GFR Routine 08/23/2017 4:00 Results for this [employer] procedure are in the results section. BASIC METABOLIC PANEL Routine 08/23/2017 4:00 Results for this [employer] procedure are in the results section. MAGNESIUM LEVEL Routine 08/23/2017 4:00 Results for this [employer] procedure are in the results section. POC GLUCOSE Routine 08/23/2017 3:58 Results for this [employer] procedure are in the results section. POC GLUCOSE Routine 08/22/2017 11:52 Results for this [employer] procedure are in the results section. POC GLUCOSE Routine 08/22/2017 8:08 Results for this [employer] procedure are in the results section. GRAM STAIN Routine 08/22/2017 5:50 Results for this [employer] procedure are in the results section. URINE CULTURE Routine 08/22/2017 5:50 Results for this [employer] procedure are in the results section. POC GLUCOSE Routine 08/22/2017 5:49 Results for this [employer] procedure are in the results section. CT ABDOMEN PELVIS W STAT 08/22/2017 1:37 Results for this CONTRAST [employer] procedure are in the results section. POC GLUCOSE Routine 08/22/2017 1:32 Results for this [employer] procedure are in the results section. BLOOD CULTURE, AEROBIC Routine 08/22/2017 12:57 Results for this & ANAEROBIC [employer] procedure are in the results section. HEMOGLOBIN & Routine 08/22/2017 11:51 Results for this HEMATOCRIT [employer] procedure are in the results section. XR CHEST 1 VW PORTABLE STAT 08/22/2017 10:36 Results for this [employer] procedure are in the results section. BLOOD CULTURE, AEROBIC Routine 08/22/2017 9:46 Results for this & ANAEROBIC [employer] procedure are in the results section. POC GLUCOSE Routine 08/22/2017 8:42 Results for this [employer] procedure are in the results section. POC GLUCOSE Routine 08/22/2017 6:42 Results for this [employer] procedure are in the results section. HC COMPLETE BLD COUNT Routine 08/22/2017 5:10 Results for this W/AUTO DIFF AM [employer] procedure are in the results section. ESTIMATED GFR Routine 08/22/2017 4:00 Results for this AM [employer] procedure are in the results section. COMPREHENSIVE Routine 08/22/2017 4:00 Results for this METABOLIC PANEL AM [employer] procedure are in the results section. PHOSPHORUS LEVEL Routine 08/22/2017 4:00 Results for this AM [employer] procedure are in the results section. MAGNESIUM LEVEL Routine 08/22/2017 4:00 Results for this AM [employer] procedure are in the results section. POC GLUCOSE Routine 08/22/2017 12:34 Results for this AM [employer] procedure are in the results section. POC GLUCOSE Routine 08/21/2017 7:08 Results for this PM [employer] procedure are in the results section. POC GLUCOSE Routine 08/21/2017 5:08 Results for this PM [employer] procedure are in the results section. XR ABDOMEN 2 VW AP W STAT 08/21/2017 4:14 Results for this UPRIGHT AND/OR PM [employer] procedure are in DECUBITUS the results section. HEMOGLOBIN & STAT 08/21/2017 12:00 Results for this HEMATOCRIT PM [employer] procedure are in the results section. POC GLUCOSE Routine 08/21/2017 11:41 Results for this AM [employer] procedure are in the results section. POC GLUCOSE Routine 08/21/2017 7:28 Results for this AM [employer] procedure are in the results section. HC COMPLETE BLD COUNT Routine 08/21/2017 5:00 Results for this W/AUTO DIFF AM [employer] procedure are in the results section. ESTIMATED GFR Routine 08/21/2017 4:00 Results for this AM [employer] procedure are in the results section. PHOSPHORUS LEVEL Routine 08/21/2017 4:00 Results for this AM [employer] procedure are in the results section. MAGNESIUM LEVEL Routine 08/21/2017 4:00 Results for this AM [employer] procedure are in the results section. BASIC METABOLIC PANEL Routine 08/21/2017 4:00 Results for this AM [employer] procedure are in the results section. POC GLUCOSE Routine 08/20/2017 9:19 Results for this PM [employer] procedure are in the results section. POC GLUCOSE Routine 08/20/2017 3:43 Results for this PM [employer] procedure are in the results section. POC GLUCOSE Routine 08/20/2017 11:52 Results for this AM [employer] procedure are in the results section. POC GLUCOSE Routine 08/20/2017 7:38 Results for this AM [employer] procedure are in the results section. HC COMPLETE BLD COUNT STAT 08/20/2017 6:30 Results for this W/AUTO DIFF AM [employer] procedure are in the results section. ESTIMATED GFR STAT 08/20/2017 6:24 Results for this AM [employer] procedure are in the results section. BASIC METABOLIC PANEL STAT 08/20/2017 6:24 Results for this AM [employer] procedure are in the results section. XR ABDOMEN 1 VW STAT 08/19/2017 9:22 Results for this PORTABLE PM [employer] procedure are in the results section. XR ABDOMEN 1 VW STAT 08/19/2017 7:52 Results for this PORTABLE PM [employer] procedure are in the results section. WV AN ELECTIVE Routine 08/19/2017 3:14 ENDOTRACHEAL AIRWAY PM [employer] Procedure Note - Santi Lange Jr., MD - 08/19/2017 3:12 PM [employer] Airway Date/Time: 08/19/2017 2:20 PM Performed by: [...] Yes Number of Attempts at Approach: 1 POC GLUCOSE Routine 08/19/2017 12:19 PM Results for this [employer] procedure are in the results section. ILEOSTOMY, 08/19/2017 11:50 AM Crohn's disease of LAPAROSCOPIC [employer] pylorus without complication Case Notes TF, REQ 1200 START Special Needs TF, REQ 1200 START; CONFIRMED START TIME W/ VIVIAN ON 08/18/17 @ 1249 EDM SURGICAL PATHOLOGY REQUEST Routine 08/19/2017 9:00 AM [employer] POC GLUCOSE Routine 08/19/2017 7:50 AM [employer] POC GLUCOSE Routine 08/19/2017 4:22 AM [employer] HC COMPLETE BLD COUNT W/AUTO Routine 08/19/2017 4:15 AM [employer] Results for this DIFF procedure are in the results section. ESTIMATED GFR Routine 08/19/2017 4:00 AM [employer] PHOSPHORUS LEVEL Routine 08/19/2017 4:00 AM [employer] MAGNESIUM LEVEL Routine 08/19/2017 4:00 AM [employer] BASIC METABOLIC PANEL Routine 08/19/2017 4:00 AM [employer] POC GLUCOSE Routine 08/18/2017 11:36 PM [employer] POC GLUCOSE Routine 08/18/2017 7:35 PM [employer] POC GLUCOSE Routine 08/18/2017 6:06 PM [employer] POC GLUCOSE Routine 08/18/2017 11:43 AM [employer] IR PORT PLACEMENT Routine 08/18/2017 10:21 AM [employer] POC GLUCOSE Routine 08/18/2017 3:54 AM [employer] POC GLUCOSE Routine 08/17/2017 11:15 PM [employer] POC GLUCOSE Routine 08/17/2017 7:47 PM [employer] POC GLUCOSE Routine 08/17/2017 5:03 PM [employer] POC GLUCOSE Routine 08/17/2017 12:19 PM [employer] POC GLUCOSE Routine 08/17/2017 7:52 AM [employer] TYPE AND SCREEN Routine 08/17/2017 7:15 AM [employer] MANUAL DIFFERENTIAL Routine 08/17/2017 4:35 AM [employer] CBC WITH PLATELET AND Routine 08/17/2017 4:35 AM [employer] Results for this DIFFERENTIAL procedure are in the results section. POC GLUCOSE Routine 08/17/2017 4:03 AM [employer] ESTIMATED GFR Routine 08/17/2017 4:00 AM [employer] PHOSPHORUS LEVEL Routine 08/17/2017 4:00 AM [employer] MAGNESIUM LEVEL Routine 08/17/2017 4:00 AM [employer] BASIC METABOLIC PANEL Routine 08/17/2017 4:00 AM [employer] POC GLUCOSE Routine 08/16/2017 11:09 PM [employer] POC GLUCOSE Routine 08/16/2017 7:50 PM [employer] POC GLUCOSE Routine 08/16/2017 3:37 PM [employer] POC GLUCOSE Routine 08/16/2017 11:51 AM [employer] POC GLUCOSE Routine 08/16/2017 7:48 AM [employer] ESTIMATED GFR Routine 08/16/2017 4:00 AM [employer] PHOSPHORUS LEVEL Routine 08/16/2017 4:00 AM [employer] MAGNESIUM LEVEL Routine 08/16/2017 4:00 AM [employer] BASIC METABOLIC PANEL Routine 08/16/2017 4:00 AM [employer] POC GLUCOSE Routine 08/15/2017 8:56 PM [employer] POC GLUCOSE Routine 08/15/2017 3:47 PM [employer] POC GLUCOSE Routine 08/15/2017 11:42 AM [employer] MANUAL DIFFERENTIAL Routine 08/15/2017 9:55 AM [employer] CBC WITH PLATELET AND Routine 08/15/2017 9:55 AM [employer] Results for this DIFFERENTIAL procedure are in the results section. POC GLUCOSE Routine 08/15/2017 7:15 AM [employer] POC GLUCOSE Routine 08/15/2017 12:32 AM [employer] RESPIRATORY PATHOGEN PANEL Routine 08/14/2017 10:00 PM [employer] POC GLUCOSE Routine 08/14/2017 8:59 PM [employer] URINALYSIS SCREEN AND Routine 08/14/2017 4:58 PM [employer] Results for this MICROSCOPY, WITH REFLEX TO procedure are in the CULTURE results section. URINE CULTURE Routine 08/14/2017 4:58 PM [employer] POC GLUCOSE Routine 08/14/2017 3:51 PM [employer] SEDIMENTATION RATE Routine 08/14/2017 12:25 PM [employer] BLOOD CULTURE, AEROBIC & Routine 08/14/2017 12:25 PM [employer] Results for this ANAEROBIC procedure are in the results section. POC GLUCOSE Routine 08/14/2017 12:09 PM [employer] XR CHEST 1 VW PORTABLE STAT 08/14/2017 11:45 AM [employer] C-REACTIVE PROTEIN Routine 08/14/2017 8:47 AM [employer] POC GLUCOSE Routine 08/14/2017 8:01 AM [employer] MANUAL DIFFERENTIAL Routine 08/14/2017 4:20 AM [employer] CBC WITH PLATELET AND Routine 08/14/2017 4:20 AM [employer] Results for this DIFFERENTIAL procedure are in the results section. ESTIMATED GFR Routine 08/14/2017 4:00 AM [employer] BASIC METABOLIC PANEL Routine 08/14/2017 4:00 AM [employer] POC GLUCOSE Routine 08/14/2017 3:30 AM [employer] POC GLUCOSE Routine 08/14/2017 12:00 AM [employer] POC GLUCOSE Routine 08/13/2017 8:25 PM [employer] POC GLUCOSE Routine 08/13/2017 5:33 PM [employer] POC GLUCOSE Routine 08/13/2017 12:42 PM [employer] PROTHROMBIN TIME WITH INR STAT 08/13/2017 12:40 PM [employer] POC GLUCOSE Routine 08/13/2017 9:10 AM [employer] POC GLUCOSE Routine 08/13/2017 5:37 AM [employer] MANUAL DIFFERENTIAL Routine 08/13/2017 5:10 AM [employer] CBC WITH PLATELET AND Routine 08/13/2017 5:10 AM [employer] Results for this DIFFERENTIAL procedure are in the results section. ESTIMATED GFR Routine 08/13/2017 4:00 AM [employer] BASIC METABOLIC PANEL Routine 08/13/2017 4:00 AM [employer] POC GLUCOSE Routine 08/12/2017 11:42 PM [employer] POC GLUCOSE Routine 08/12/2017 8:19 PM [employer] HEPATIC FUNCTION PANEL Routine 08/12/2017 7:45 PM [employer] VITAMIN B12 LEVEL Routine 08/12/2017 7:45 PM [employer] FOLATE LEVEL Routine 08/12/2017 7:45 PM [employer] PREALBUMIN LEVEL Routine 08/12/2017 7:45 PM [employer] ZINC LEVEL, SERUM Routine 08/12/2017 7:44 PM [employer] POC GLUCOSE Routine 08/12/2017 5:34 PM [employer] TB IN-TUBE QUANTIFERON Routine 08/12/2017 12:35 PM [employer] POC GLUCOSE Routine 08/12/2017 11:21 AM [employer] POC GLUCOSE Routine 08/12/2017 7:20 AM [employer] POC GLUCOSE Routine 08/12/2017 3:42 AM [employer] MANUAL DIFFERENTIAL Routine 08/12/2017 3:30 AM [employer] ESTIMATED GFR Routine 08/12/2017 3:30 AM [employer] CBC WITH PLATELET AND Routine 08/12/2017 3:30 AM [employer] Results for this DIFFERENTIAL procedure are in the results section. PHOSPHORUS LEVEL Routine 08/12/2017 3:30 AM [employer] MAGNESIUM LEVEL Routine 08/12/2017 3:30 AM [employer] BASIC METABOLIC PANEL Routine 08/12/2017 3:30 AM [employer] POC GLUCOSE Routine 08/11/2017 11:36 PM [employer] POC GLUCOSE Routine 08/11/2017 8:02 PM [employer] POC GLUCOSE Routine 08/11/2017 5:06 PM [employer] POC GLUCOSE Routine 08/11/2017 12:25 PM [employer] POC GLUCOSE Routine 08/11/2017 8:18 AM [employer] ESTIMATED GFR Routine 08/11/2017 4:00 AM [employer] PHOSPHORUS LEVEL Routine 08/11/2017 4:00 AM [employer] MAGNESIUM LEVEL Routine 08/11/2017 4:00 AM [employer] BASIC METABOLIC PANEL Routine 08/11/2017 4:00 AM [employer] POC GLUCOSE Routine 08/10/2017 4:54 PM [employer] POC GLUCOSE Routine 08/10/2017 12:01 PM [employer] POC GLUCOSE Routine 08/10/2017 8:02 AM [employer] PHOSPHORUS LEVEL Routine 08/10/2017 4:00 AM [employer] MAGNESIUM LEVEL Routine 08/10/2017 4:00 AM [employer] ESTIMATED GFR Routine 08/10/2017 4:00 AM [employer] BASIC METABOLIC PANEL Routine 08/10/2017 4:00 AM [employer] POC GLUCOSE Routine 08/10/2017 3:28 AM [employer] POC GLUCOSE Routine 08/09/2017 11:31 PM [employer] POC GLUCOSE Routine 08/09/2017 7:12 PM [employer] POC GLUCOSE Routine 08/09/2017 3:[address] [address] [address] ENTEROGRAPHY Routine 08/09/2017 2:47 PM [employer] CBC HEMOGRAM Routine 08/09/2017 12:27 PM [employer] POC GLUCOSE Routine 08/09/2017 11:38 AM [employer] POC GLUCOSE Routine 08/09/2017 8:03 AM [employer] POC GLUCOSE Routine 08/09/2017 4:22 AM [employer] BASIC METABOLIC PANEL Routine 08/09/2017 4:00 AM [employer] ESTIMATED GFR Routine 08/09/2017 4:00 AM [employer] PHOSPHORUS LEVEL Routine 08/09/2017 4:00 AM [employer] MAGNESIUM LEVEL Routine 08/09/2017 4:00 AM [employer] POC GLUCOSE Routine 08/09/2017 12:04 AM [employer] POC GLUCOSE Routine 08/08/2017 7:18 PM [employer] POC GLUCOSE Routine 08/08/2017 3:26 PM [employer] POC GLUCOSE Routine 08/08/2017 11:40 AM [employer] POC GLUCOSE Routine 08/08/2017 7:41 AM [employer] CBC WITH PLATELET AND Routine 08/08/2017 6:10 AM [employer] Results for this DIFFERENTIAL procedure are in the results section. POC GLUCOSE Routine 08/08/2017 4:14 AM [employer] POC GLUCOSE Routine 08/07/2017 11:53 PM [employer] POC GLUCOSE Routine 08/07/2017 7:31 PM [employer] POC GLUCOSE Routine 08/07/2017 3:56 PM [employer] POC GLUCOSE Routine 08/07/2017 11:44 AM [employer] POC GLUCOSE Routine 08/07/2017 7:45 AM [employer] HEPATITIS B SURFACE ANTIBODY Routine 08/07/2017 5:10 AM [employer] HC COMPLETE BLD COUNT W/AUTO Routine 08/07/2017 5:10 AM [employer] Results for this DIFF procedure are in the results section. ESTIMATED GFR Routine 08/07/2017 4:00 AM [employer] PHOSPHORUS LEVEL Routine 08/07/2017 4:00 AM [employer] MAGNESIUM LEVEL Routine 08/07/2017 4:00 AM [employer] BASIC METABOLIC PANEL Routine 08/07/2017 4:00 AM [employer] POC GLUCOSE Routine 08/07/2017 3:45 AM [employer] POC GLUCOSE Routine 08/07/2017 12:13 AM [employer] SEDIMENTATION RATE Routine 08/06/2017 4:10 PM [employer] HEPATITIS B CORE ANTIBODY Routine 08/06/2017 3:31 PM [employer] Results for this TOTAL procedure are in the results section. HEPATITIS A ANTIBODY TOTAL Routine 08/06/2017 3:31 PM [employer] HEPATITIS ACUTE PANEL Routine 08/06/2017 3:31 PM [employer] C-REACTIVE PROTEIN Routine 08/06/2017 3:31 PM [employer] HC CATH DUAL LUMEN PICC Routine 08/06/2017 12:13 PM [employer] HC US GUIDED VASCULAR ACCESS Routine 08/06/2017 12:13 PM [employer] HC CVL PICC INSERT 5 YRS OR Routine 08/06/2017 12:13 PM [employer] Results for this > procedure are in the results section. CT ABDOMEN PELVIS W CONTRAST STAT 08/06/2017 3:27 AM [employer] HCG QUALITATIVE, URINE STAT 08/06/2017 2:49 AM [employer] Results for this SCREEN procedure are in the results section. URINALYSIS SCREEN AND STAT 08/06/2017 2:49 AM [employer] Results for this MICROSCOPY, WITH REFLEX TO procedure are in the CULTURE results section. GRAM STAIN STAT 08/06/2017 2:43 AM [employer] URINE CULTURE STAT 08/06/2017 2:43 AM [employer] PHOSPHORUS LEVEL STAT 08/06/2017 1:15 AM [employer] MAGNESIUM LEVEL STAT 08/06/2017 1:15 AM [employer] ESTIMATED GFR STAT 08/06/2017 1:15 AM [employer] LACTIC ACID LEVEL Timed 08/06/2017 1:15 AM [employer] LACTIC ACID LEVEL STAT 08/06/2017 1:15 AM [employer] HC COMPLETE BLD COUNT W/AUTO STAT 08/06/2017 1:15 AM [employer] Results for this DIFF procedure are in the results section. LIPASE LEVEL STAT 08/06/2017 1:15 AM [employer] AMYLASE LEVEL STAT 08/06/2017 1:15 AM [employer] COMPREHENSIVE METABOLIC STAT 08/06/2017 1:15 AM [employer] Results for this PANEL procedure are in the results section. after 03/08/2017 Results POC glucose (09/02/2017 12:37 PM)Only the most recent of145 resultswithin the time period is included. POC glucose 98 65 - 99 mg/dL [facility] DEPARTMENT OF PATHOLOGY AND Comment: GENOMIC MEDICINE [facility] Notified RN Meter ID: [id number] [employer] Machine Operator: Sathish Klein Performing Organization Address City/[facility] Phone Number [facility] DEPARTMENT OF PATHOLOGY AND [address] [place] [phone] GENOMIC MEDICINE Manual differential (09/02/2017 6:11 AM)Only the most recent of10 resultswithin the time period is included. Manual differential PERFORMED [facility] DEPARTMENT OF PATHOLOGY AND GENOMIC MEDICINE Neutrophils 79.0 (H) 39.0 - 69.0 % [facility] DEPARTMENT OF PATHOLOGY AND GENOMIC MEDICINE Lymphocytes 11.0 (L) 25.0 - 45.0 % [facility] DEPARTMENT OF PATHOLOGY AND GENOMIC MEDICINE Monocytes 4.0 0.0 - 10.0 % [facility] DEPARTMENT OF PATHOLOGY AND GENOMIC MEDICINE Eosinophils 1.0 0.0 - 5.0 % [facility] DEPARTMENT OF PATHOLOGY AND GENOMIC MEDICINE Basophils 0.0 0.0 - 1.0 % [facility] DEPARTMENT OF PATHOLOGY AND GENOMIC MEDICINE Metamyelocytes 3 % [facility] DEPARTMENT OF PATHOLOGY AND GENOMIC MEDICINE Myelocytes 2 % [facility] DEPARTMENT OF PATHOLOGY AND GENOMIC MEDICINE Promyelocytes 0 % [facility] DEPARTMENT OF PATHOLOGY AND GENOMIC MEDICINE Platelet slide review Subha slt incr [facility] DEPARTMENT OF PATHOLOGY AND GENOMIC MEDICINE Anisocytosis Moderate [facility] DEPARTMENT OF PATHOLOGY AND GENOMIC MEDICINE Polychromasia Moderate [facility] DEPARTMENT OF PATHOLOGY AND GENOMIC MEDICINE Enlarged platelets Moderate (A) [facility] DEPARTMENT OF PATHOLOGY AND GENOMIC MEDICINE Performing Organization Address City/[facility] Phone Number [facility] DEPARTMENT OF PATHOLOGY AND [address] [place] [phone] GENOMIC MEDICINE CBC with platelet and differential (09/02/2017 6:11 AM)Only the most recent of23 resultswithin the time period is included. WBC 7.66 4.50 - 11.00 k/uL [facility] DEPARTMENT OF PATHOLOGY AND GENOMIC MEDICINE RBC 3.40 (L) 4.20 - 5.50 m/uL [facility] DEPARTMENT OF PATHOLOGY AND GENOMIC MEDICINE HGB 9.6 (L) 12.0 - 16.0 g/dL [facility] DEPARTMENT OF PATHOLOGY AND GENOMIC MEDICINE HCT 31.6 (L) 37.0 - 47.0 % [facility] DEPARTMENT OF PATHOLOGY AND GENOMIC MEDICINE MCV 92.9 82.0 - 100.[address] [facility] DEPARTMENT OF PATHOLOGY AND GENOMIC MEDICINE MCH 28.2 27.0 - 34.[address] [facility] DEPARTMENT OF PATHOLOGY AND GENOMIC MEDICINE MCHC 30.4 (L) 31.0 - 37.0 g/dL [facility] DEPARTMENT OF PATHOLOGY AND GENOMIC MEDICINE RDW - SD 54.4 37.0 - 55.[address] [facility] DEPARTMENT OF PATHOLOGY AND GENOMIC MEDICINE MPV 9.8 8.8 - 13.[address] [facility] DEPARTMENT OF PATHOLOGY AND GENOMIC MEDICINE Platelet count 448 (H) 150 - 400 k/uL [facility] DEPARTMENT OF PATHOLOGY AND GENOMIC MEDICINE Nucleated RBC 0.00 /[address] [facility] DEPARTMENT OF PATHOLOGY AND GENOMIC MEDICINE Neutrophils 79.0 (H) 39.0 - 69.0 % [facility] DEPARTMENT OF PATHOLOGY AND GENOMIC MEDICINE Lymphocytes 11.0 (L) 25.0 - 45.0 % [facility] DEPARTMENT OF PATHOLOGY AND GENOMIC MEDICINE Monocytes 4.0 0.0 - 10.0 % [facility] DEPARTMENT OF PATHOLOGY AND GENOMIC MEDICINE Eosinophils 1.0 0.0 - 5.0 % [facility] DEPARTMENT OF PATHOLOGY AND GENOMIC MEDICINE Basophils 0.0 0.0 - 1.0 % [facility] DEPARTMENT OF PATHOLOGY AND GENOMIC MEDICINE Specimen Blood Performing Organization Address City/State/Zipcode Phone Number [facility] DEPARTMENT OF PATHOLOGY AND [address] [place] [address] [employer]Pal [facility] Estimated GFR (09/02/2017 4:00 AM)Only the most recent of27 resultswithin the time period is included. GFR Non Af Amer >90 mL/min/1.[address] [facility] DEPARTMENT OF PATHOLOGY AND GENOMIC MEDICINE GFR Af Amer >90 mL/min/1.[address] [facility] DEPARTMENT OF Comment: PATHOLOGY AND GENOMIC Chronic kidney disease: <60 mL/min/1.73m2 MEDICINE Kidney failure: <15 mL/min/1.73m2 The estimated GFR is calculated from the IDMS-traceable Modification of Diet in Renal Disease Equation. The accuracy of the calculation is poor when the creatinine is normal. Calculated values >90 mL/min/1.73m2 are not reported. This equation has not been validated in children (<18 years), women, the elderly (>70 years), or ethnic groups other than Caucasians and Americans. Specimen Plasma specimen Performing Organization Address City/[facility] Hospitalcode Phone Number [facility] DEPARTMENT OF PATHOLOGY AND [address] [place] [address] Phosphorus level (09/02/2017 4:00 AM)Only the most recent of23 resultswithin the time period is included. Phosphorus 4.5 2.4 - 4.5 mg/dL [facility] DEPARTMENT OF PATHOLOGY AND [facility] Specimen Plasma specimen Performing Organization Address [facility] Phone Number [facility] DEPARTMENT OF PATHOLOGY AND [address] [place] [address] Magnesium level (09/02/2017 4:00 AM)Only the most recent of24 resultswithin the time period is included. Magnesium 1.7 1.6 - 2.6 mg/dL [facility] DEPARTMENT OF PATHOLOGY AND [employer] MEDICINE Specimen Plasma specimen Performing Organization Address [facility] Phone Number [facility] DEPARTMENT OF PATHOLOGY AND [address] [place] [address] Basic metabolic panel (09/02/2017 4:00 AM)Only the most recent of24 resultswithin the time period is included. Sodium 146 135 - 148 mEq/L [facility] DEPARTMENT OF PATHOLOGY AND GENOMIC MEDICINE Potassium 3.6 3.5 - 5.0 mEq/L [facility] DEPARTMENT OF PATHOLOGY AND GENOMIC MEDICINE Chloride 106 98 - 112 mEq/L [facility] DEPARTMENT OF PATHOLOGY AND GENOMIC MEDICINE CO2 25 24 - 31 mEq/L [facility] DEPARTMENT OF PATHOLOGY AND GENOMIC MEDICINE Anion gap 15 7 - 15 mEq/L [facility] DEPARTMENT OF PATHOLOGY Comment: [facility] Starting from December , anion gap calculation no longer incorporates potassium. Please note the change. BUN 12 6 - 20 mg/dL [facility] DEPARTMENT OF PATHOLOGY AND GENOMIC MEDICINE Creatinine 0.4 (L) 0.5 - 0.9 mg/dL [facility] DEPARTMENT OF PATHOLOGY AND GENOMIC MEDICINE Glucose 74 65 - 99 mg/dL [facility] DEPARTMENT OF PATHOLOGY AND GENOMIC MEDICINE Calcium 8.7 8.3 - 10.2 mg/dL [facility] DEPARTMENT OF PATHOLOGY AND GENOMIC MEDICINE Specimen Plasma specimen Performing Organization Address City/[facility] Phone Number [facility] DEPARTMENT OF PATHOLOGY AND [address] [place] [address] GENOMIC MEDICINE Vitamin A level, plasma or serum (09/01/2017 9:24 AM) Vitamin A (retinol) 0.66 0.30 - 1.20 mg/L [facility] Retinyl palmitate 0.08 0.00 - 0.10 mg/L [facility] Vitamin A interpretation Normal [facility] Comment: Test developed and characteristics determined by [employer]. See Compliance Statement B: Unocoin.Novalere FP/CS Performed by [employer], [address] [place] [address] [email or web address], Rodriguez Martinez MD - Lab. Director Specimen Plasma specimen Performing Organization Address [facility] Phone Number [facility] [address] [place] [address] Vitamin E level, plasma or serum (09/01/2017 9:24 AM) Alpha-tocopherol mg/L 14.8 5.5 - 18.0 mg/L [facility] Comment: Test developed and characteristics determined by [employer]. See Compliance Statement B: Unocoin.Novalere FP/CS Gamma-tocopherol mg/L 0.4 0.0 - 6.0 mg/L [facility] Comment: Performed by [employer], [address] [place] [id number] [email or web address], Rodriguez Martinez MD - Lab. Director Specimen Plasma specimen Performing Organization Address [facility] Phone Number [facility] [address] [place] [address] Comprehensive metabolic panel (09/01/2017 9:24 AM)Only the most recent of3 resultswithin the time period is included. Sodium 144 135 - 148 mEq/L [facility] DEPARTMENT OF PATHOLOGY AND GENOMIC MEDICINE Potassium 3.5 3.5 - 5.0 mEq/L [facility] DEPARTMENT OF PATHOLOGY AND GENOMIC MEDICINE Chloride 100 98 - 112 mEq/L [facility] DEPARTMENT OF PATHOLOGY AND GENOMIC MEDICINE CO2 30 24 - 31 mEq/L [facility] DEPARTMENT OF PATHOLOGY AND GENOMIC MEDICINE Anion gap 14 7 - 15 mEq/L [facility] DEPARTMENT OF Comment: PATHOLOGY AND GENOMIC Starting from December , anion gap calculation MEDICINE no longer incorporates potassium. Please note the change. BUN 9 6 - 20 mg/dL [facility] DEPARTMENT OF PATHOLOGY AND GENOMIC MEDICINE Creatinine 0.4 (L) 0.5 - 0.9 mg/dL [facility] DEPARTMENT OF PATHOLOGY AND GENOMIC MEDICINE Glucose 107 (H) 65 - 99 mg/dL [facility] DEPARTMENT OF PATHOLOGY AND GENOMIC MEDICINE Calcium 8.7 8.3 - 10.2 mg/dL [facility] DEPARTMENT OF PATHOLOGY AND GENOMIC MEDICINE Protein 5.7 (L) 6.3 - 8.3 g/dL [facility] DEPARTMENT OF Comment: PATHOLOGY AND GENOMIC 4.6-7.0 g/dL MEDICINE 1 week 4.4-7.6 g/dL 7 months-1year5.1-7.3 g/dL 1-2 years5.6-7.5 g/dL >3 years6.0-8.0 g/dL 18-150 6.3-8.3 g/dL Albumin 2.4 (L) 3.5 - 5.0 g/dL [facility] DEPARTMENT OF PATHOLOGY AND GENOMIC MEDICINE A/G ratio 0.7 0.7 - 3.[address] [facility] DEPARTMENT OF PATHOLOGY AND GENOMIC MEDICINE Alkaline phosphatase 61 35 - 104 U/L [facility] DEPARTMENT OF PATHOLOGY AND GENOMIC MEDICINE AST 12 10 - 35 U/L [facility] DEPARTMENT OF PATHOLOGY AND GENOMIC MEDICINE ALT 14 5 - 50 U/L [facility] DEPARTMENT OF PATHOLOGY AND GENOMIC MEDICINE Total bilirubin <0.2 0.0 - 1.2 mg/dL [facility] DEPARTMENT OF PATHOLOGY AND GENOMIC MEDICINE Specimen Plasma specimen Performing Organization Address City/State/Zipcode Phone Number [facility] DEPARTMENT OF PATHOLOGY AND [address] [place] [address] [facility] Urinalysis screen and microscopy, with reflex to culture (08/31/2017 4:20 PM) Only the most recent of4 resultswithin the time period is included. Specimen site Clean catch [facility] DEPARTMENT OF PATHOLOGY AND GENOMIC MEDICINE Color, UA Straw [facility] DEPARTMENT OF PATHOLOGY AND GENOMIC MEDICINE Appearance, UA Clear [facility] DEPARTMENT OF PATHOLOGY AND GENOMIC MEDICINE Specific gravity, UA 1.006 1.001 - 1.[address] [facility] DEPARTMENT OF PATHOLOGY AND GENOMIC MEDICINE pH, UA 7.0 5.0 - 8.[address] [facility] DEPARTMENT OF PATHOLOGY AND GENOMIC MEDICINE Protein, UA Negative Negative [facility] DEPARTMENT OF PATHOLOGY AND GENOMIC MEDICINE Glucose, UA Negative Negative [facility] DEPARTMENT OF PATHOLOGY AND GENOMIC MEDICINE Ketones, UA Negative Negative [facility] DEPARTMENT OF PATHOLOGY AND GENOMIC MEDICINE Bilirubin, UA Negative Negative [facility] DEPARTMENT OF PATHOLOGY AND GENOMIC MEDICINE Blood, UA Negative Negative [facility] DEPARTMENT OF PATHOLOGY AND GENOMIC MEDICINE Nitrite, UA Negative Negative [facility] DEPARTMENT OF PATHOLOGY AND GENOMIC MEDICINE Urobilinogen, UA <2.0 <2.[address] [facility] DEPARTMENT OF PATHOLOGY AND GENOMIC MEDICINE Leukocyte esterase, UA Negative Negative [facility] DEPARTMENT OF PATHOLOGY AND GENOMIC MEDICINE WBC, UA <1 0 - 4 /HPF [facility] DEPARTMENT OF PATHOLOGY AND GENOMIC MEDICINE RBC, UA None seen 0 - 2 /HPF [facility] DEPARTMENT OF PATHOLOGY AND GENOMIC MEDICINE Bacteria, UA None seen None seen [facility] DEPARTMENT OF PATHOLOGY AND GENOMIC MEDICINE Yeast, UA None seen [facility] DEPARTMENT OF PATHOLOGY AND GENOMIC MEDICINE Yeast with pseudohyphae, UA None seen [facility] DEPARTMENT OF PATHOLOGY AND GENOMIC MEDICINE Specimen Urine Performing Organization Address City/[facility]/Zipcode Phone Number [facility] DEPARTMENT OF PATHOLOGY AND [address] [place] [address] Urine culture (08/31/2017 4:20 PM)Only the most recent of5 resultswithin the time period is included. Urine culture SEE COMMENTComment: Bacteriuria [facility] DEPARTMENT OF PATHOLOGY screen negative. AND GENOMIC MEDICINE Performing Organization Address City/[facility]/Zipcode Phone Number [facility] DEPARTMENT OF PATHOLOGY AND [address] [place], [place] [id number] [facility] XR Chest 1 Vw Portable (08/31/2017 2:37 AM)Only the most recent of4 resultswithin the time period is included. Narrative Performed At EXAMINATION:XR CHEST 1 VW PORTABLE [facility] CLINICAL HISTORY:rule out pneumonia COMPARISON:08/26/2017 IMPRESSION: Right chest port is in place with tip projecting over superior vena cava. Cardiomediastinal silhouette is within normal limits. No consolidations, effusions, or pneumothorax. No acute osseous abnormalities. [facility]-[id number] Procedure Note Interface, Radiology Results Incoming - 08/31/2017 2:54 AM [employer] EXAMINATION: XR CHEST 1 VW PORTABLE CLINICAL HISTORY: rule out pneumonia COMPARISON: 08/26/2017 IMPRESSION: Right chest port is in place with tip projecting over superior vena cava. Cardiomediastinal silhouette is within normal limits. No consolidations, effusions, or pneumothorax. No acute osseous abnormalities. [facility]-[id number] Performing Organization Address City/[facility] Phone Number [facility] [address] [place] [phone] Blood culture, aerobic & anaerobic (08/31/2017 2:35 AM)Only the most recent of7 resultswithin the time period is included. Blood culture isolate No growth after 5 days of incubation. [facility] DEPARTMENT OF Comment: PATHOLOGY AND GENOMIC Specimen Information MEDICINE Specimen Source: Blood Specimen Site: Unspecified Specimen Blood Performing Organization Address City/[facility] Phone Number [facility] DEPARTMENT OF PATHOLOGY AND [address] [place] [phone] [facility] Vancomycin level, trough (08/29/2017 9:15 AM)Only the most recent of2 resultswithin the time period is included. Vancomycin, trough 14.4 10.0 - 20.0 ug/mL [facility] DEPARTMENT OF Comment: PATHOLOGY AND GENOMIC Therapeutic Ranges: MEDICINE Peak 30.0 - 40.0 ug/mL Ovryui78.0 - 20.0 ug/mL Specimen Serum Performing Organization Address [facility] Phone Number [facility] DEPARTMENT OF PATHOLOGY AND [address] [place] [address] [facility] C difficile toxin (08/29/2017 4:30 AM) Clostridium difficile No Clostridium difficle toxin present [facility] DEPARTMENT OF toxin Comment: PATHOLOGY AND GENOMIC Specimen Information MEDICINE Specimen Source: Stool Specimen Site: Nonpreserved Specimen Stool - Nonpreserved Performing Organization Address [facility] Phone Number [facility] DEPARTMENT OF PATHOLOGY AND [address] [place] [phone] [facility] US Abdominal Paracentesis Imaging (08/27/2017 2:05 PM) Narrative Performed At EXAMINATION:US ABDOMINAL PARACENTESIS IMAGING [facility] CLINICAL HISTORY: Pelvic Abscess COMPARISON:None. TECHNIQUE: The procedure's risks, benefits, and alternatives were discussed with the patient and written, informed consent was obtained. Using ultrasound guidance, a site for needle entry was selected and the overlying skin was prepped and draped in the usual sterile fashion. 1% buffered lidocaine was used for local anesthesia. A 5 [place] [employer] catheter was inserted into the peritoneal cavity [...] fluid was sent for the requested labs. [facility]-[id number] Procedure Note Hm Interface, Radiology Results Incoming - 08/27/2017 4:02 PM [employer] EXAMINATION: US ABDOMINAL PARACENTESIS IMAGING CLINICAL HISTORY: Pelvic Abscess COMPARISON:None. TECHNIQUE: The procedure's risks, benefits, and alternatives were discussed with the patient and written, informed consent was obtained. Using ultrasound guidance, a site for needle entry was selected and the overlying skin was prepped and draped in the usual sterile fashion. 1% buffered lidocaine was used for local anesthesia. A 5 [place]ian [employer] catheter was inserted into the peritoneal [...] fluid was sent for the requested labs. [facility]-[id number] Performing Organization Address City/[facility] Phone Number [facility] [address] [place] [address] Aerobic culture (08/27/2017 2:00 PM) Aerobic culture isolate No growth after [address] [facility] DEPARTMENT OF Comment: PATHOLOGY AND GENOMIC Specimen Information MEDICINE Specimen Source: Fluid Specimen Site: ML pelvis Performing Organization Address City/[facility]/Zipcode Phone Number [facility] DEPARTMENT OF PATHOLOGY AND [address] [place] [address] GENOMIC MEDICINE Gram stain (08/27/2017 2:00 PM)Only the most recent of3 resultswithin the time period is included. Gram stain isolate Many WBC's [facility] DEPARTMENT OF PATHOLOGY AND No organisms seen GENOMIC MEDICINE Comment: Specimen Information Specimen Source: Fluid Specimen Site: ML pelvis Performing Organization Address City/[facility]/Zipcode Phone Number [facility] DEPARTMENT OF PATHOLOGY AND [address] [place] [phone] [employer] [facility] Anaerobic culture (08/27/2017 2:00 PM) Anaerobic culture No anaerobic organisms isolated. [facility] DEPARTMENT OF isolate Comment: PATHOLOGY AND GENOMIC Specimen Information MEDICINE Specimen Source: Fluid Specimen Site: ML pelvis Performing Organization Address City/[facility] Phone Number [facility] DEPARTMENT OF PATHOLOGY AND [address] [place] [address] [employer] [facility] Cell count and differential, body fluid (08/27/2017 2:00 PM) [facility] fluid type FootnoteComment: pelvic [facility] DEPARTMENT OF PATHOLOGY fluid AND GENOMIC MEDICINE Color, fluid [place] [facility] DEPARTMENT OF PATHOLOGY AND GENOMIC MEDICINE Appearance, fluid Cloudy (A) [facility] DEPARTMENT OF PATHOLOGY AND GENOMIC MEDICINE RBC, fluid SEE COMMENTComment: 3+ /CMM [facility] DEPARTMENT OF PATHOLOGY (10,000 - 20,000 AND GENOMIC MEDICINE RBC/CMM) Nucleated cells, fluid 10,719 /CMM [facility] DEPARTMENT OF PATHOLOGY AND GENOMIC MEDICINE Fluid mononuclear cell See Diff [facility] DEPARTMENT OF PATHOLOGY AND GENOMIC MEDICINE Neutrophils, fluid 72 % [facility] DEPARTMENT OF PATHOLOGY AND GENOMIC MEDICINE Lymphocytes, fluid 13 % [facility] DEPARTMENT OF PATHOLOGY AND GENOMIC MEDICINE Macrophages, fluid 15 % [facility] DEPARTMENT OF PATHOLOGY AND GENOMIC MEDICINE Specimen Fluid Performing Organization Address City/[facility] Phone Number [facility] DEPARTMENT OF PATHOLOGY AND [address] [place] [phone] [facility] CT Abdomen Pelvis W Contrast (08/26/2017 2:20 PM)Only the most recent of3 resultswithin the time period is included. Addenda Addendum by Terrence Plummer MD on [...] in the small bowel-colon is most. Narrative Performed At EXAMINATION:CT ABDOMEN PELVIS W CONTRAST HM [facility] CLINICAL HISTORY:post surgical abdominal distention COMPARISON:None. TECHNIQUE: Multiple axial CT images of the Abdomen and pelvis were obtainedWith IV contrast . Sagittal and coronal reconstructions [...] second transition point in the colon anastomosis.. [id number] Procedure Note Hm Interface, Radiology Results Incoming - 08/26/2017 3:00 PM [employer] EXAMINATION: CT ABDOMEN PELVIS W CONTRAST CLINICAL [...] second transition point in the colon anastomosis.. [id number] Performing Organization Address City/State/Zipcode Phone Number [facility] [address] [place] [address] Hemoglobin & hematocrit (08/26/2017 1:54 PM)Only the most recent of3 resultswithin the time period is included. HGB 10.2 (L) 12.0 - 16.0 g/dL [facility] DEPARTMENT OF PATHOLOGY AND GENOMIC MEDICINE HCT 32.1 (L) 37.0 - 47.0 % [facility] DEPARTMENT OF PATHOLOGY AND GENOMIC MEDICINE Specimen Blood Performing Organization Address [facility] Phone Number [facility] DEPARTMENT OF PATHOLOGY AND [address] [place] [address] Lactic acid level (08/26/2017 1:21 PM)Only the most recent of4 resultswithin the time period is included. Lactic acid 1.8 0.5 - 2.2 mmol/L [facility] DEPARTMENT OF PATHOLOGY AND GENOMIC MEDICINE Specimen Blood Performing Organization Address [facility] Phone Number [facility] DEPARTMENT OF PATHOLOGY AND [address] [place] [address] Pv duplex venous upper extremity (08/25/2017 10:21 PM) Narrative Performed At [facility] Vascular Ultrasound Laboratory Upper Extremity Venous Report [address] [place] [address] Pat.Name:Felicity CARDOSO.ID:[id number] .Date: 08/25/2017Refer.MD:IDALIA BOLTON MD Exam Time: 8:04:00 PMStudy Type:UE Venous Height:61inWeight: 114lb BSA: 1.49 m2 DOBAge:1985,32Y Sex: FEMALESonogrphr: Perry Vera RVT, [facility] Pat. Stat.:Inpatient Room:[address] TapeVol: MEL, CPT - 4: [address] Echo Event ID:[id number] Order ID:[id number] Reason for Study:Evaluate for DVT. PMH of [...] Results In - 08/25/2017 11:35 PM [facility] Vascular Ultrasound Laboratory Upper Extremity Venous Report [address]Name: [place] CARDOSO Pat.ID: [id number] .Date: 08/25/2017 Refer.MD: IDALIA BOLTON MD Exam Time: 8:04:00 PM Study Type:UE Venous Height: 61in Weight: 114lb BSA: 1.49 m2 Age: 11 1985,32Y Sex: FEMALE Sonogrphr: Perry Vera RVT, [facility] Pat. Stat.:Inpatient Room: [address] Vol: , CPT - 4: [address] Echo Event ID:[id number] Order ID: [id number] Reason for Study:Evaluate for DVT. PMH of [...] 08/25/2017 11:35 PM Lianna Angulo MD, RPVI Performing Organization Address City/[facility] Phone Number [facility] [address] [place] [address] Transfuse RBC (08/25/2017 6:31 PM)Only the most recent of3 resultswithin the time period is included.Prepare RBC, 2 Units (08/25/2017 11:25 AM) Product name Apheresis RC ACDA>-[address] [facility] DEPARTMENT OF PATHOLOGY AND GENOMIC MEDICINE Unit number [id number] [facility] DEPARTMENT OF PATHOLOGY AND GENOMIC MEDICINE Product code [id number] [facility] DEPARTMENT OF PATHOLOGY AND GENOMIC MEDICINE Dispense status Transfused [facility] DEPARTMENT OF PATHOLOGY AND GENOMIC MEDICINE Blood expiration date [id number] [facility] DEPARTMENT OF PATHOLOGY AND GENOMIC MEDICINE Blood type code [address] [facility] DEPARTMENT OF PATHOLOGY AND GENOMIC MEDICINE Blood type O POSITIVE [facility] DEPARTMENT OF PATHOLOGY AND GENOMIC MEDICINE Product name Apheresis -1 LR #[address] [facility] DEPARTMENT OF PATHOLOGY AND GENOMIC MEDICINE Unit number [id number] [facility] DEPARTMENT OF PATHOLOGY AND GENOMIC MEDICINE Product code [id number] [facility] DEPARTMENT OF PATHOLOGY AND GENOMIC MEDICINE Dispense status Transfused [facility] DEPARTMENT OF PATHOLOGY AND GENOMIC MEDICINE Blood expiration date [id number] [facility] DEPARTMENT OF PATHOLOGY AND GENOMIC MEDICINE Blood type code [address] [facility] DEPARTMENT OF PATHOLOGY AND GENOMIC MEDICINE Blood type O POSITIVE [facility] DEPARTMENT OF PATHOLOGY AND GENOMIC MEDICINE Performing Organization Address City/[facility]/Zipcode Phone Number [facility] DEPARTMENT OF PATHOLOGY AND [address] [place] [phone] GENOMIC MEDICINE Type and screen (08/25/2017 11:25 AM)Only the most recent of2 resultswithin the time period is included. ABO grouping O [facility] DEPARTMENT OF PATHOLOGY AND GENOMIC MEDICINE Rh type POS [facility] DEPARTMENT OF PATHOLOGY AND GENOMIC MEDICINE Antibody screen (gel) NEG [facility] DEPARTMENT OF PATHOLOGY AND GENOMIC MEDICINE Specimen Blood Performing Organization Address City/[facility] Phone Number [facility] DEPARTMENT OF PATHOLOGY AND [address] [place] [address] GENOMIC MEDICINE Smear review (08/25/2017 5:00 AM) Platelet slide review Subha adequate [facility] DEPARTMENT OF PATHOLOGY AND GENOMIC MEDICINE Performing Organization Address City/[facility] Phone Number [facility] DEPARTMENT OF PATHOLOGY AND [address] [place] [address] GENOMIC MEDICINE Ionized calcium (08/24/2017 2:30 PM) pH 7.[address] [facility] DEPARTMENT OF PATHOLOGY AND GENOMIC MEDICINE Ionized calcium 1.07 (L) 1.11 - 1.32 mmol/L [facility] DEPARTMENT OF PATHOLOGY AND GENOMIC MEDICINE Specimen Plasma specimen Performing Organization Address City/[facility] Phone Number [facility] DEPARTMENT OF PATHOLOGY AND [address] [place] [address] GENOMIC MEDICINE Consult to Sepsis Response Team (08/24/2017 1:59 PM) Narrative Performed At Skyler Porter NP 08/24/20171:59 PM 1345 focused examination [...] does not worsen, snooze alerts until:08/25/2017 10:57 [employer] SIRS Criteria SIRS criteria met: Heart rate [...] of2 resultswithin the time period is included. Lactic acid, I-Stat, venous 1.4 0.5 - 2.2 mmol/L [facility] DEPARTMENT OF PATHOLOGY AND [employer] MEDICINE Specimen Blood Performing Organization Address [facility] Phone Number [facility] DEPARTMENT OF PATHOLOGY [place] [address] [employer] MEDICINE ECG 12 lead (08/24/2017 6:48 AM) Ventricular rate 144 [facility]USE Atrial rate 144 [facility] WV interval 132 [facility] QRSD interval 70 [facility] QT interval 258 [facility] QTC interval [address] [facility] MUSE P axis 1 35 [facility] QRS axis 1 6 [facility] T wave axis [address] [facility] MUSE EKG impression Sinus tachycardia-Otherwise normal ECG-In [facility] MUSE automated comparison with ECG of 07-MAY-2016 16:05,-Nonspecific T wave abnormality, improved in Inferior leads- Performing Organization Address [facility] Phone Number [facility] MUSE [address] [place] [address] Troponin (08/24/2017 5:10 AM) Troponin <0.30 0.00 - 0.30 ng/mL [facility] DEPARTMENT OF PATHOLOGY Comment: AND GENOMIC MEDICINE 0.30 - 1.49 ng/mlMay indicate increased risk of acute coronary syndrome. >=1.5 ng/mlConsistent with acute myocardial infarction. The diagnostic value of a single normal or non-diagnostic result is questionable.Serial samples at 2-6 hour intervals are required to rule out acute myocardial injury. Specimen Plasma specimen Performing Organization Address City/[facility]/Zipcode Phone Number [facility] DEPARTMENT OF PATHOLOGY AND [address] [place] [address] GENOMIC MEDICINE XR Abdomen 2 Vw Ap W Upright And/Or Decubitus (08/21/2017 4:14 PM) Narrative Performed At XR ABDOMEN 2 VW AP W UPRIGHT AND OR DECUBITUS RADIANT CLINICAL INDICATION:ABDOMINAL PAIN, Distention COMPARISON:08/19/2017 IMPRESSION: Upright [...] bases are clear with diminished lung volumes. [facility]-[id number] Procedure Note Interface, Radiology Results Incoming - 08/21/2017 4:31 PM SENIOR PRODUCTION [employer]ANNER XR ABDOMEN 2 VW AP W UPRIGHT [...] bases are clear with diminished lung volumes. [facility]-[id number] Performing Organization Address City/State/Zipcode Phone Number [facility] [address] [place] [address] XR Abdomen 1 Vw Portable (08/19/2017 9:22 PM)Only the most recent of2 resultswithin the time period is included. Narrative Performed At EXAMINATION:XR ABDOMEN 1 VW PORTABLE RADIANT CLINICAL HISTORY:NG tube advancement COMPARISON:08/19/2017 at 1937 IMPRESSION: Enteric tube has been advanced with tip projecting over the distal body of the stomach. Nonobstructive bowel gas pattern. No pathologic calcification over the kidneys or expected course of the ureters. No acute osseous abnormalities. Right convexity of the lumbar spine is identified. [facility]-[id number] Procedure Note Interface, Radiology Results Incoming - 08/19/2017 9:35 PM SENIOR [employer]ODUCTION [employer]ANNER EXAMINATION: XR ABDOMEN 1 VW PORTABLE CLINICAL HISTORY: NG tube advancement COMPARISON: 08/19/2017 at 1937 IMPRESSION: Enteric tube has been advanced with tip projecting over the distal body of the stomach. Nonobstructive bowel gas pattern. No pathologic calcification over the kidneys or expected course of the ureters. No acute osseous abnormalities. Right convexity of the lumbar spine is identified. [facility]-[id number] Performing Organization Address City/[facility]/Zipcode Phone Number [facility] [address] [place] [address] Surgical pathology request (08/19/2017 9:00 AM) [facility] DEPARTMENT OF PATHOLOGY AND GENOMIC MEDICINE Surgical pathology report See link below for PDF [facility] DEPARTMENT OF Lab Report PATHOLOGY AND GENOMIC MEDICINE Result status This is Final Report to [facility] DEPARTMENT OF [id number] PATHOLOGY AND GENOMIC MEDICINE Performing Organization Address City/[facility] Phone Number [facility] DEPARTMENT OF PATHOLOGY AND [address] [place] [address] GENOMIC MEDICINE IR Port Placement (08/18/2017 10:21 AM) Narrative Performed At Performing Radiologist ROB Stanley MD Assistants None Anesthesia Type Sedation [...] and the venotomy site, through which the 6.6-Ghanaian port catheter was placed. The venotomy was [...] The catheter tip lies at the right atrium/superior vena cava junction and is ready for use. [facility]-[id number] Procedure Note [facility], Radiology Results Incoming - 08/18/2017 10:53 AM SENIOR [employer]ODUCTION PL[employer]NER Performing Radiologist Shaq Stanley MD Assistants None [...] and the venotomy site, through which the 6.6-Ghanaian port catheter was placed. The venotomy was [...] cava junction and is ready for use. [facility]-[id number] Performing Organization Address City/[facility]/Zipcode Phone Number [address] [address] Respiratory pathogen panel (08/14/2017 10:00 PM) Respiratory pathogen Negative for all pathogens tested: [facility] DEPARTMENT OF panel Negative for Adenovirus PATHOLOGY AND GENOMIC Negative for Coronavirus HKU1 MEDICINE Negative for Coronavirus NL63 Negative for Coronavirus [...] Specimen Source: Nares Specimen Site: Right Specimen Nares - Right Performing Organization Address City/[facility] Phone Number [facility] DEPARTMENT OF PATHOLOGY AND [address] [place] [address] Sedimentation rate (08/14/2017 12:25 PM)Only the most recent of2 resultswithin the time period is included. Sedimentation rate 7 0 - 20 mm/hr [facility] DEPARTMENT OF PATHOLOGY AND [employer] MEDICINE Specimen Blood Performing Organization Address City/[facility] Phone Number [facility] DEPARTMENT OF PATHOLOGY AND [address] [place] [address] [facility] C-reactive protein (08/14/2017 8:47 AM)Only the most recent of2 resultswithin the time period is included. CRP <0.30 0.00 - 0.50 mg/dL [facility] DEPARTMENT OF PATHOLOGY AND GENOMIC [facility] Specimen Plasma specimen Performing Organization Address City/[facility] Phone Number [facility] DEPARTMENT OF PATHOLOGY AND [address] [place] [address] Prothrombin time with INR (08/13/2017 12:40 PM) Prothrombin time 12.9 12.0 - 15.[address] [facility] DEPARTMENT OF PATHOLOGY AND GENOMIC MEDICINE INR 1.[address] [facility] DEPARTMENT OF Comment: PATHOLOGY AND GENOMIC The International Normalized Ratio (INR) is a therapeutic MEDICINE monitoring tool for patients who are stable on oral anticoagulant therapy. An INR of 2.0-3.0 is suggested for deep vein thrombosis/pulmonary embolism. Specimen Blood Performing Organization Address City/[facility] Phone Number [facility] DEPARTMENT OF PATHOLOGY AND [address] [place] [address] Prealbumin level (08/12/2017 7:45 PM) Prealbumin 40 (H) 16 - 32 mg/dL [facility] DEPARTMENT OF PATHOLOGY AND [facility] Specimen Serum Performing Organization Address [facility] Phone Number [facility] DEPARTMENT OF PATHOLOGY AND [address] [place] [address] Folate level (08/12/2017 7:45 PM) Folate 10.0 4.8 - 24.2 ng/mL [facility] DEPARTMENT OF PATHOLOGY AND [facility] Specimen Serum Performing Organization Address [facility] Phone Number [facility] DEPARTMENT OF PATHOLOGY AND [address] [place] [address] Vitamin B12 level (08/12/2017 7:45 PM) Vitamin B12 >1600 (H) 211 - 946 pg/mL [facility] DEPARTMENT OF PATHOLOGY Comment: AND [facility] Significant overlap exists between normal and deficiency states. However, most patients with deficiencies will have Serum B12 <200 pg/mL. Specimen Serum Performing Organization Address [facility] Phone Number [facility] DEPARTMENT OF PATHOLOGY AND [address] [place] [address] Hepatic function panel (08/12/2017 7:45 PM) Albumin 2.6 (L) 3.5 - 5.0 g/dL [facility] DEPARTMENT OF PATHOLOGY AND [facility] Total bilirubin <0.2 0.0 - 1.2 mg/dL [facility] DEPARTMENT OF PATHOLOGY AND GENOMIC MEDICINE Bilirubin direct <0.2 0.0 - 0.3 mg/dL [facility] DEPARTMENT OF PATHOLOGY AND GENOMIC MEDICINE Alkaline phosphatase 56 35 - 104 U/L [facility] DEPARTMENT OF PATHOLOGY AND GENOMIC MEDICINE Protein 5.2 (L) 6.3 - 8.3 g/dL [facility] DEPARTMENT OF Comment: PATHOLOGY AND GENOMIC 4.6-7.0 g/dL MEDICINE 1 week 4.4-7.6 g/dL 7 months-1year5.1-7.3 g/dL 1-2 years5.6-7.5 g/dL >3 years6.0-8.0 g/dL 18-150 6.3-8.3 g/dL ALT 13 5 - 50 U/L [facility] DEPARTMENT OF PATHOLOGY AND GENOMIC MEDICINE AST 14 10 - 35 U/L [facility] DEPARTMENT OF PATHOLOGY AND GENOMIC [facility] Specimen Plasma specimen Performing Organization Address City/[facility]/Zipcode Phone Number [facility] DEPARTMENT OF PATHOLOGY AND [address] Zinc level, serum (08/12/2017 7:44 PM) Zinc 65 60 - 120 ug/dL [facility] Comment: INTERPRETIVE INFORMATION: Zinc, Serum or Plasma Circulating zinc concentrations are dependent on albumin status and are depressed with malnutrition. Zinc may also be lowered with infection, inflammation, stress, oral contraceptives, and . Zinc may be elevated with zinc supplementation or fasting. Elevated zinc concentrations may interfere with copper absorption. Test developed and characteristics determined by [facility]. See Compliance Statement B: [employer] FP/CS Performed by [facility], [address] [place] [address] [email or web address], Rodriguez Martinez MD - Lab. Director Specimen Blood Performing Organization Address [facility]/Zipcode Phone Number [facility] [address] [place] [address] TB IN-TUBE Quantiferon (08/12/2017 12:35 PM) TB IN-TUBE Quantiferon SEE NOTE [facility] Comment: Quantiferon TB Gold In-Tube Test Results: [...] 17 years. 3. women. Test performed by: [facility] Molecular Tuberculosis Lab [facility] [place], [place] lab: [phone] fax: [phone] Specimen Blood Performing Organization Address City/State/Zipcode Phone Number [address] [address] [address] Enterography (08/09/2017 2:47 PM) Narrative Performed At EXAMINATION:CT ENTEROGRAPHY HM RADIANT CLINICAL HISTORY:Crohn's disease with stricture TECHNIQUE:Multiple axial [...] prior study are not as evident on today's exam. No areas of wall thickening or [...] of the spine. Lung bases are clear. [facility]-[id number] Procedure Note [facility], Radiology Results Incoming - 08/09/2017 3:11 PM SENIOR PRODUCTION PLANNER EXAMINATION: CT ENTEROGRAPHY CLINICAL HISTORY: Crohn's disease [...] of the spine. Lung bases are clear. [facility]-[id number] Performing Organization Address City/[facility]/Zipcode Phone Number [facility] [address] [place] [address] CBC hemogram (08/09/2017 12:27 PM) WBC 7.46 4.50 - 11.00 k/uL [facility] DEPARTMENT OF PATHOLOGY AND GENOMIC MEDICINE RBC 4.14 (L) 4.20 - 5.50 m/uL [facility] DEPARTMENT OF PATHOLOGY AND GENOMIC MEDICINE HGB 11.7 (L) 12.0 - 16.0 g/dL [facility] DEPARTMENT OF PATHOLOGY AND GENOMIC MEDICINE HCT 36.8 (L) 37.0 - 47.0 % [facility] DEPARTMENT OF PATHOLOGY AND GENOMIC MEDICINE MCV 88.9 82.0 - 100.[address] [facility] DEPARTMENT OF PATHOLOGY AND GENOMIC MEDICINE MCH 28.3 27.0 - 34.[address] [facility] DEPARTMENT OF PATHOLOGY AND GENOMIC MEDICINE MCHC 31.8 31.0 - 37.0 g/dL [facility] DEPARTMENT OF PATHOLOGY AND GENOMIC MEDICINE RDW - SD 44.0 37.0 - 55.[address] [facility] DEPARTMENT OF PATHOLOGY AND GENOMIC MEDICINE MPV 9.5 8.8 - 13.[address] [facility] DEPARTMENT OF PATHOLOGY AND GENOMIC MEDICINE Platelet count 262 150 - 400 k/uL [facility] DEPARTMENT OF PATHOLOGY AND GENOMIC MEDICINE Nucleated RBC 0.00 /[address] [facility] DEPARTMENT OF PATHOLOGY AND GENOMIC MEDICINE Performing Organization Address City/[facility]/Zipcode Phone Number [facility] DEPARTMENT OF PATHOLOGY AND [address] [place] [address] [facility] Hepatitis B surface antibody (08/07/2017 5:10 AM) Hepatitis B surface Ab Non-reactive Non-reactive [facility] DEPARTMENT OF PATHOLOGY AND GENOMIC MEDICINE Performing Organization Address City/[facility] Phone Number [facility] DEPARTMENT OF PATHOLOGY AND [address] [place] [id number] [place] [address] Hepatitis A antibody total (08/06/2017 3:31 PM) Hepatitis A total Ab Non-reactive Non-reactive [facility] DEPARTMENT OF PATHOLOGY AND GENOMIC MEDICINE Specimen Serum Performing Organization Address [facility] Phone Number [facility] DEPARTMENT OF PATHOLOGY AND [address] [place] [address] Hepatitis acute panel (08/06/2017 3:31 PM) Hepatitis A IgM Non-reactive Non-reactive [facility] DEPARTMENT OF PATHOLOGY AND GENOMIC MEDICINE Hepatitis B core IgM Non-reactive Non-reactive [facility] DEPARTMENT OF PATHOLOGY AND GENOMIC MEDICINE Hepatitis B surface Ag Non-reactive Non-reactive [facility] DEPARTMENT OF PATHOLOGY AND GENOMIC MEDICINE Hepatitis C Ab Non-reactive Non-reactive [facility] DEPARTMENT OF PATHOLOGY AND GENOMIC MEDICINE Specimen Serum Performing Organization Address [facility] Phone Number [facility] DEPARTMENT OF PATHOLOGY AND [address] [place] [address] Hepatitis B core antibody total (08/06/2017 3:31 PM) Hepatitis B core total Ab Non-reactive Non-reactive [facility] DEPARTMENT OF PATHOLOGY AND GENOMIC MEDICINE Specimen Serum Performing Organization Address [facility] Phone Number [facility] DEPARTMENT OF PATHOLOGY AND [address] [place] [address] PICC INSERTION ATTEMPT - UNSUCCESSFUL (08/06/2017 12:13 PM) Narrative Performed At Cinthya Santiago 08/06/2017 12:13 PM Unsuccessful Attempt - PICC Date/Time: 08/06/2017 12:08 PM Performed by: CINTHYA SANTIAGO Authorized by: NATALIYA ATWOOD Consent: Consent obtained:Verbal Consent given by:Patient Risks discussed: arterial puncture, incorrect placement, nerve damage, bleeding, infection, superficial thrombus and deep vein thrombus Alternatives discussed:Delayed treatment [place] protocol: Procedure explained and questions answered to [...] 18th PICC line and Interventional Radiology from [place] had placed Rt. PICC and had 8 attempts at that time. She had PICC line on the left arm.Attempted to place PICC to left brachial, but unable to advance guidewire pass her axillary vein. Rec'd order from Dr. Krueger to place midline.Left Midline had good blood return. hCG qualitative, urine screen (08/06/2017 2:49 AM) hCG qualitative, urine NegativeComment: [facility] DEPARTMENT OF Sensitivity of HCG test: 25 PATHOLOGY AND GENOMIC mIU/mL MEDICINE Specimen Urine Performing Organization Address [facility] Phone Number [facility] DEPARTMENT OF PATHOLOGY AND [address] [place] [address] Lipase level (08/06/2017 1:15 AM) Lipase 11 (L) 13 - 60 U/L [facility] DEPARTMENT OF PATHOLOGY AND GENOMIC MEDICINE Specimen Plasma specimen Performing Organization Address [facility] Phone Number [facility] DEPARTMENT OF PATHOLOGY AND [address] [place] [id number] [facility] MEDICINE Amylase level (08/06/2017 1:15 AM) Amylase 9 (L) 13 - 53 U/L [facility] DEPARTMENT OF PATHOLOGY AND GENOMIC MEDICINE Specimen Plasma specimen Performing Organization Address [facility] Phone Number [facility] DEPARTMENT OF PATHOLOGY AND [address] [place] [address] GENOMIC MEDICINE after 03/08/2017 Insurance Payer Benefit Plan / Group Subscriber ID Type Phone Address BCBS BCBS CHOICE PPO/[employer] EMPL PPO xxxxxxxxxxxx PPO [phone] [address]
--- OUTSIDE RECORDS SUMMARY | 2018-03-09 18:15 | XMS REPORT | Clinical Summary ---
:1985 Author Organization [facility]ly [facility] Address [address] [place] [address] Phone Care Team Providers Name Role Phone Unavailable Primary Care Provider Unavailable Allergies Not on File Current Medications Not on file Active Problems Not on file Social History Tobacco Use Types Packs/Day Years Used Date Never Assessed Sex Assigned at Date Recorded Not on file Last Filed Vital Signs Not on file Plan of Treatment Not on file Results Not on fileafter 03/08/2017
[2018-03-09] MEDS ORDERED: NA CHLORIDE 0.9% 1,000 ML ONE ×2 (18:51→21:31)
[2018-03-09] MEDS ORDERED: METOCLOPRAMIDE 10 MG/2mL INJ ONE ×2 (18:51→22:26)
[2018-03-09 18:53] LABS: Absolute Lymphocytes (CBC) 1.5 K/uL (0.7-4.9); Absolute Monocytes 0.7 K/uL (0.1-1.3); Absolute Neutrophil 6.3 K/uL (1.8-8.0); Basophils % 0.5 % (0-1.3); Eosinophils % 0.3 % (0-4.4); Hematocrit 35.9 % (36.0-45.0); Lymphocytes % 17.6 % (15.3-44.8); MCH 27.8 pg (27.0-35.0); MCV 85.2 fL (80-100); MPV 6.8 fL (7.6-11.3); Monocytes % 7.7 % (3.3-12.3); RBC Red Blood Cell Count 4.21 M/uL (3.86-4.86)
[2018-03-09 19:15] LABS: ALT/SGPT 15 U/L (12-78); AST/SGOT 15 U/L (15-37); Albumin 3.5 g/dL (3.4-5.0); Alkaline Phosphatase 72 U/L (45-117); Amylase Level 118 U/L (25-115); BUN Blood Urea Nitrogen 11 mg/dL (7-18); Bicarbonate 28 mmol/L (21-32); Bilirubin Direct 0.1 mg/dL (0-0.2); Bilirubin Total 0.4 mg/dL (0.2-1.0); Glucose Level 90 mg/dL (74-106); Lipase 43 U/L (73-393); Potassium 3.1 mmol/L (3.5-5.1); Protein, Total 6.8 g/dL (6.4-8.2); Sodium Level 138 mmol/L (136-145)
--- NOTE | 2018-03-09 20:02 | RAD REPORT ---
EXAM DESCRIPTION: CT - Abdomen Pelvis W Contrast - 03/09/2018 7:53 pm CLINICAL HISTORY: Abdominal pain and swelling, nausea and vomiting, history of bowel obstruction ane clare. COMPARISON: CT study July 2017 TECHNIQUE: Biphasic, helical CT imaging of the abdomen and pelvis was performed following 100 ml non -ionic IV contrast. Oral contrast was given. All CT scans are performed using dose optimization technique as appropriate and may include automated exposure control or mA/KV adjustment according to patient size. FINDINGS: No suspicious findings in the lung bases. No pericardial thickening or effusion. The liver, spleen, and pancreas show no suspicious findings. Cholecystectomy clips are present. No bi liary tree dilatation. Symmetric renal function is seen with no hydronephrosis or suspicious renal mass. A few small areas o f diminished attenuation in the renal parenchyma believed be areas of scarring. Pyelonephritis is not suspected without supporting clinical findings. No urinary bladder abnormality. Uterus and left ovar y show no suspicious findings. Right ovary contains a 3.4 centimeter cyst. There is fluid adjacent to this ovarian cyst suggesting recent leakage of the cyst. No gastric outlet obstruction. However, singh of the antrum are thickened and edematous. This extends into the duodenal bulb. Distal duodenum is not involved. Small bowel loops are not dilated. There ar e several distal small bowel loops show prominent singh. Fluid is seen filling the right side of the colon. Left side of the colon is decompressed. No obstruction or transition point. No free air or pneumatosis. There is some mild congestion or edema in the fat adjacent to the gastr ic antrum and bulb. No hernia, mass or bulky lymphadenopathy. No adrenal abnormality. No suspicious bony findings. IMPRESSION: Moderately prominent gastric antritis and proximal duodenitis. No perforation. These fi ndings do not result in gastric outlet obstruction. Several loops of prominent distal small bowel with fluid filled with right-sided colon. Findings are most likely a nonspecific enteritis. No abscess, free air or surgically emergent finding. Slight diminished attenuation within areas of the renal parenchyma believed to be normal variant for the patient. Pyelonephritis would not be suspected without supporting the UA abnormality.
[2018-03-09] MEDS ORDERED: FENTANYL CITR 100 MCG/2 ML ONE (20:50)
[2018-03-09] MEDS ORDERED: KCL 20 MEQ/100 mL IVPB 20 MEQ/100 ML BAG IV ONE (20:50)
[2018-03-09 21:24] LABS: Urine Blood TRACE (NEG); Urine Glucose NEGATIVE (NEG); Urine Protein NEGATIVE (NEG); Urine Specific Gravity 1.015 (1.005-1.030); Urine pH 6.5 (5.0-7.0)
[2018-03-09 21:35] LABS: Urine Bacteria <20 /HPF (<20); Urine Culture Reflex Order NOT NEEDED
[2018-03-09 21:36] LABS: Urine Specific Gravity 1.015 (1.005-1.030)
[2018-03-09] MEDS ORDERED: SUCRALFATE 1 GM TABLET ONE (22:08)
--- NOTE | 2018-03-09 22:29 | ER ---
Nurse's Notes [facility] Name: Va Cardoso Age: 32 yrs Sex: Female : 1985 Arrival Date: 03/09/2018 Time: 18:14 Bed 26 Private MD: None, None Diagnosis: Generalized abdominal pain-chronic;Duodenitis without bleeding Presentation: 03/09 18:16 Presenting complaint: Patient states: abd pain/swelling started Thursday, reports sv constipation and hx of bowel obstruction. Unable to pass gas and reports n/v. Transition of care: patient was not received from another setting of care. Onset of symptoms was March 05, 2018. Care prior to arrival: None. 18:16 Method Of Arrival: Ambulatory sv 18:16 Acuity: IGNACIO 3 sv 18:30 Risk Assessment: Do you want to hurt yourself or someone else? Patient reports no rk2 desire to harm self or others. Initial Sepsis Screen: Does the patient meet any 2 criteria? No. Patient's initial sepsis screen is negative. Does the patient have a suspected source of infection? Yes: Acute abdominal pain. Triage Assessment: 18:30 General: Appears uncomfortable, slender, well groomed, Behavior is calm, cooperative, rk2 appropriate for age. 18:30 Pain: Complains of pain in abdomen. Neuro: Level of Consciousness is alert, obeys rk2 commands, Oriented to person, place, time, situation. Respiratory: Airway is patent Respiratory effort is even, unlabored, Respiratory pattern is regular, symmetrical. GI: Abdomen is distended, Reports bloating. Derm: Skin is dry, Skin is pale, Skin temperature is warm. 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 - Social history:: Smoking status: Patient/guardian denies using tobacco. - Ebola Screening: : No symptoms or risks identified at this time. Screenin:30 Abuse screen: Denies threats or abuse. rk2 18:30 Nutritional screening: No deficits noted. Tuberculosis screening: No symptoms or risk rk2 factors identified. Fall Risk Secondary diagnosis (15 points). Assessment: 19:35 Reassessment: Pt. refused NGT... also unable to drink oral contrast down. Per provider rk2 okay to do CT without oral contrast. General:. 20:09 GI: Bowel sounds rk2 20:30 Reassessment: Patient appears in no apparent distress at this time. No changes from rk2 previously documented assessment. Patient and/or family updated on plan of care and expected duration. Pain level reassessed. 21:30 Reassessment: Patient appears in no apparent distress at this time. No changes from rk2 previously documented assessment. Patient and/or family updated on plan of care and expected duration. Pain level reassessed. 23:00 Reassessment: Patient appears in no apparent distress at this time. No changes from rk2 previously documented assessment. Patient and/or family updated on plan of care and expected duration. Pain level reassessed. Vital Signs: 18:19 BP 128 / 97; Pulse 103; Resp 22; Temp 98.7; Pulse Ox 97% ; Weight 54.43 kg; Height 5 sv ft. 0 in. (152.40 cm); Pain 10/10; 19:05 BP 116 / 81; Pulse 92; Resp 19; Pulse Ox 98% on R/A; rk2 19:30 BP 124 / 80; Pulse 91; Resp 19; Pulse Ox 100% on R/A; rk2 21:45 BP 114 / 85; Pulse 79; Resp 18; Pulse Ox 100% on R/A; rk2 23:34 BP 119 / 74; Pulse 84; Resp 17; Pulse Ox 98% on R/A; rk2 18:19 Body Mass Index 23.44 (54.43 kg, 152.40 cm) sv ED Course: 18:14 Patient arrived in ED. mr 18:14 None, None is Private Physician. mr 18:17 Triage completed. sv 18:18 Arm band placed on right wrist. sv 18:22 [facility]. snw 18:22 Eh Champion MD is Attending Physician. snw 18:28 Adamaris Serrano RN is Primary Nurse. rk2 18:29 Oral contrast given. vr 18:30 Patient has correct armband on for positive identification. Placed in gown. Bed in low rk2 position. Call light in reach. 19:05 TS Sent. rk2 19:25 Radiology exam delayed due to PT JUST STARTED PO CONTRAST \T\ 19:26. kc3 19:[address] via stretcher. nj 19:50 CT completed. Patient tolerated procedure well. Patient moved back from CT. vr 19:53 CT Abd/Pelvis - W/Contrast In Process Unspecified. EDMS 23:33 No provider procedures requiring assistance completed. IV discontinued. rk2 Administered Medications: 18:53 Drug: NS 0.9% 1000 ml Route: IV; Rate: 125 ml/hr; Site: Port-a-cath; rk2 23:25 Follow up: Response: No adverse reaction; IV Status: Completed infusion rk2 18:54 Drug: Reglan 5 mg Route: IVP; Site: Port-a-cath; rk2 23:25 Follow up: Response: No adverse reaction rk2 18:54 Drug: NS 0.9% 1000 ml Route: IV; Rate: 1 bolus; Site: Port-a-cath; rk2 20:56 Drug: fentaNYL (PF) 25 mcg Route: IVP; Site: Port-a-cath; rk2 23:24 Follow up: Response: No adverse reaction rk2 20:56 Drug: Potassium Chloride 20 mEq Route: IV; Rate: calculated rate; Site: Port-a-cath; rk2 22:00 Follow up: Response: No adverse reaction; IV Status: Completed infusion rk2 21:44 Drug: NS 0.9% 1000 ml Route: IV; Rate: 1 bolus; Site: Port-a-cath; rk2 23:23 Follow up: Response: No adverse reaction; IV Status: Completed infusion rk2 22:18 Drug: CarafATE 1 grams Route: PO; rk2 23:24 Follow up: Response: No adverse reaction rk2 22:28 Drug: Reglan 5 mg Route: IVP; Site: Port-a-cath; rk2 23:23 Follow up: Response: No adverse reaction; Nausea is decreased rk2 Outcome: 22:29 Discharge ordered by . snw 23:33 Discharged to home ambulatory. rk2 23:33 Condition: improved 23:33 Discharge instructions given to patient, Prescriptions given X 2. 23:35 Patient left the ED. rk2 Signatures: Dispatcher [employer] Marge Hernandez, RN RN Sita Harrington, RETAIL GREETING CARD MERCHANDISER-C RETAIL GREETING CARD MERCHANDISER-Csnw Alisha Lerma mr Julio César, Dipika Orozco, Adamaris Platt RN RN rk2 Jocelyn Horton3
--- NOTE | 2018-03-09 22:29 | EDPHYS ---
Physician Documentation [facility] Name: Va Cardoso Age: 32 yrs Sex: Female : 1985 Arrival Date: 03/09/2018 Time: 18:14 Bed 26 Private MD: None, None ED Physician Eh Champion HPI: 03/09 18:36 This 32 yrs old Female presents to ER via Ambulatory with complaints of snw Abdominal Pain. 18:36 The patient presents with abdominal pain that is diffuse. Onset: The symptoms/episode snw began/occurred gradually, 5 day(s) ago, and became worse and became persistent. The symptoms do not radiate. Associated signs and symptoms: Pertinent positives: nausea and vomiting, anorexia. The symptoms are described as burning, steady. Modifying factors: The symptoms are alleviated by nothing. Severity of pain: At its worst the pain was moderate severe. The patient has experienced similar episodes in the past, multiple times, chronically. pt was at [facility] last pm. She sees Dr. Roblero who is leaving [facility] and Dr. Claros. Multiple abdominal surgeries. 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 - Social history:: Smoking status: Patient/guardian denies using tobacco. - Ebola Screening: : No symptoms or risks identified at this time. ROS: 18:35 Eyes: Negative for injury, pain, redness, and discharge, ENT: Negative for injury, snw pain, and discharge, Neck: Negative for injury, pain, and swelling, Cardiovascular: Negative for chest pain, palpitations, and edema, Respiratory: Negative for shortness of breath, cough, wheezing, and pleuritic chest pain. 18:35 Back: Negative for injury and pain, : Negative for injury, bleeding, discharge, and swelling, MS/Extremity: Negative for injury and deformity, Skin: Negative for injury, rash, and discoloration, Neuro: Negative for headache, weakness, numbness, tingling, and seizure. 18:35 Constitutional: Positive for body aches, malaise, poor PO intake. 18:35 Abdomen/GI: Positive for abdominal pain, nausea and vomiting, of fecal material. Exam: 18:34 Head/Face: Normocephalic, atraumatic. Eyes: Pupils equal round and reactive to light, snw extra-ocular motions intact. Lids and lashes normal. Conjunctiva and sclera are non-icteric and not injected. Cornea within normal limits. Periorbital areas with no swelling, redness, or edema. ENT: Nares patent. No nasal discharge, no septal abnormalities noted. Tympanic membranes are normal and external auditory canals are clear. Oropharynx with no redness, swelling, or masses, exudates, or evidence of obstruction, uvula midline. Mucous membranes moist. Neck: Trachea midline, no thyromegaly or masses palpated, and no cervical lymphadenopathy. Supple, full range of motion without nuchal rigidity, or vertebral point tenderness. No Meningismus. Chest/axilla: Normal chest wall appearance and motion. Nontender with no deformity. No lesions are appreciated. 18:34 Back: No spinal tenderness. No costovertebral tenderness. Full range of motion. MS/ Extremity: Pulses equal, no cyanosis. Neurovascular intact. Full, normal range of motion. Neuro: Awake and alert, GCS 15, oriented to person, place, time, and situation. Cranial nerves II-XII grossly intact. Motor strength 5/5 in all extremities. Sensory grossly intact. Cerebellar exam normal. Normal gait. 18:34 Constitutional: The patient appears alert, anxious, in obvious pain, uncomfortable. 18:34 Cardiovascular: Rate: tachycardic, Rhythm: regular. 18:34 Respiratory: the patient does not display signs of respiratory distress, Respirations: normal, Breath sounds: are clear throughout. 18:34 Abdomen/GI: Inspection: distension, Bowel sounds: diminished, in all quadrants, Palpation: moderate abdominal tenderness, severe abdominal tenderness. 18:34 Skin: Appearance: Color: pale. Vital Signs: 18:19 BP 128 / 97; Pulse 103; Resp 22; Temp 98.7; Pulse Ox 97% ; Weight 54.43 kg; Height 5 sv ft. 0 in. (152.40 cm); Pain 10/10; 19:05 BP 116 / 81; Pulse 92; Resp 19; Pulse Ox 98% on R/A; rk2 19:30 BP 124 / 80; Pulse 91; Resp 19; Pulse Ox 100% on R/A; rk2 21:45 BP 114 / 85; Pulse 79; Resp 18; Pulse Ox 100% on R/A; rk2 23:34 BP 119 / 74; Pulse 84; Resp 17; Pulse Ox 98% on R/A; rk2 18:19 Body Mass Index 23.44 (54.43 kg, 152.40 cm) sv MDM: 18:28 Patient medically screened. lauren 22:25 Data reviewed: vital signs, nurses notes. Data interpreted: Pulse oximetry: on room air snw is 100 %. Interpretation: normal. Counseling: I had a detailed discussion with the patient and/or guardian regarding: the historical points, exam findings, and any diagnostic results supporting the discharge/admit diagnosis, the presence of at least one elevated blood pressure reading (>120/80) during this emergency department visit, lab results, radiology results, the need for outpatient follow up, for definitive care. Response to treatment: the patient's symptoms have markedly improved after treatment. Refusal of service: The patient/guardian displays adequate decision making capability and despite a detailed discussion of alternatives, benefits, risks, and consequences refuses: Admission to the hospital for further work-up and treatment, offered admission more than once. Pt states she just wants to go home, take her own medicine, and get in a hot bath. 4 + ketones, will give additional liter of NS prior to dc. Special discussion: Based on the patient's Hx, exam, and Dx evaluation, there is no indication for emergent surgery or inpatient Tx. It is understood by the patient/guardian that if the Sx's persist or worsen they need to return immediately for re-evaluation. Based on the history and exam findings, there is no indication for further emergent testing or inpatient evaluation. I discussed with the patient/guardian the need to see the unemployment benefits claims taker for further evaluation of the symptoms. I discussed with the patient/guardian the need to see the primary care provider for further evaluation of the symptoms. 03/09 18:23 Order name: Amylase, Serum; Complete Time: 19:16 snw 03/09 18:23 Order name: Basic Metabolic Panel; Complete Time: 19:16 snw 03/09 18:23 Order name: CBC with Diff; Complete Time: 19:20 snw 03/09 18:23 Order name: Creatinine for Radiology; Complete Time: 19:16 snw 03/09 18:23 Order name: Hepatic Function; Complete Time: 19:16 snw 03/09 18:23 Order name: Lipase; Complete Time: 19:16 snw 03/09 18:23 Order name: Urine Microscopic Only; Complete Time: 21:53 snw 03/09 18:34 Order name: Blood Culture Adult (2) w 03/09 18:36 Order name: TS w 03/09 18:36 Order name: Type and Screen; Complete Time: 20:44 EDMS 03/09 19:09 Order name: Antibody Screen; Complete Time: 20:44 EDMS 03/09 20:38 Order name: ABO/RH no charge; Complete Time: 20:44 EDMS 03/09 21:22 Order name: Urine Dipstick--Ancillary (enter results); Complete Time: 21:28 ms 03/09 21:28 Order name: Urine --Ancillary (enter results); Complete Time: 21:53 ms 03/09 18:23 Order name: Urine Test (obtain specimen); Complete Time: 21:46 snw 03/09 18:23 Order name: IV Saline Lock; Complete Time: 19:55 snw 03/09 18:23 Order name: Labs collected and sent; Complete Time: 19:56 snw 03/09 18:23 Order name: Urine Dipstick-Ancillary (obtain specimen); Complete Time: 21:46 snw 03/09 18:23 Order name: CT Abd/Pelvis - W/Contrast; Complete Time: 20:05 snw Administered Medications: 18:53 Drug: NS 0.9% 1000 ml Route: IV; Rate: 125 ml/hr; Site: Port-a-cath; rk2 23:25 Follow up: Response: No adverse reaction; IV Status: Completed infusion rk2 18:54 Drug: Reglan 5 mg Route: IVP; Site: Port-a-cath; rk2 23:25 Follow up: Response: No adverse reaction rk2 18:54 Drug: NS 0.9% 1000 ml Route: IV; Rate: 1 bolus; Site: Port-a-cath; rk2 20:56 Drug: fentaNYL (PF) 25 mcg Route: IVP; Site: Port-a-cath; rk2 23:24 Follow up: Response: No adverse reaction rk2 20:56 Drug: Potassium Chloride 20 mEq Route: IV; Rate: calculated rate; Site: Port-a-cath; rk2 22:00 Follow up: Response: No adverse reaction; IV Status: Completed infusion rk2 21:44 Drug: NS 0.9% 1000 ml Route: IV; Rate: 1 bolus; Site: Port-a-cath; rk2 23:23 Follow up: Response: No adverse reaction; IV Status: Completed infusion rk2 22:18 Drug: CarafATE 1 grams Route: PO; rk2 23:24 Follow up: Response: No adverse reaction rk2 22:28 Drug: Reglan 5 mg Route: IVP; Site: Port-a-cath; rk2 23:23 Follow up: Response: No adverse reaction; Nausea is decreased rk2 Disposition: 03/10 06:45 Co-signature as Attending Physician, Eh Champion MD I agree with the assessment and lauren plan of care. Disposition: 03/09/18 22:29 Discharged to Home. Impression: Generalized abdominal pain - chronic, Duodenitis without bleeding. - Condition is Fair. - Discharge Instructions: Abdominal Pain, Adult, Duodenitis. - Prescriptions for Reglan 10 mg Oral Tablet - take 1 tablet by ORAL route every 6 hours take 30 minutes before meals and at bedtime; 20 tablet. Carafate 1 gram Oral Tablet - take 2 tablet by ORAL route every 12 hours take on an empty stomach, beginning on waking and last dose at bedtime; 100 tablet. - Medication Reconciliation Form, Thank You Letter, Antibiotic Education, Prescription Opioid Use form. - Follow up: Private Physician; When: Tomorrow; Reason: Recheck today's complaints, Continuance of care, Re-evaluation by your physician. Follow up: Emergency Department; When: As needed; Reason: Worsening of condition. Signatures: Dispatcher [employer] Marge Hernandez RN RN sv Anderson, Corey, MD MD cha Therrien, Shelly, MANAGEMENT DEVELOPMENT SPECIALIST-C MANAGEMENT DEVELOPMENT SPECIALIST-Csnw Adamaris Serrano RN RN rk2 Corrections: (The following items were deleted from the chart) 03/09 19:37 18:34 NG Tube ordered. phuong rk2 23:35 22:29 03/09/2018 22:29 Discharged to Home. Impression: Generalized abdominal pain - rk2 chronic; Duodenitis without bleeding. Condition is Fair. Forms are Medication Reconciliation Form, Thank You Letter, Antibiotic Education, Prescription Opioid Use. Follow up: Private Physician; When: Tomorrow; Reason: Recheck today's complaints, Continuance of care, Re-evaluation by your physician. Follow up: Emergency Department; When: As needed; Reason: Worsening of condition. phuong
[2018-03-09] MEDS ORDERED: HEPARIN 500 UNIT/5 ML SYR IV ONE (23:04)
[2018-03-09 23:42] VITALS: TEMP 98.7
[2018-03-09 23:46] VITALS: BP 119/74; O2SAT 98
== END 2018-03-09 23:35 | disposition home or self-care (01) ==
LOC: ER 18:11
DX: K29.80 Duodenitis without bleeding (principal); Z88.8 Allergy status to other drugs, medicaments and biological substances
CPT/HCPCS: 36415; 74177; 80048; 80076; 81003; 81015; 81025; 82150; 83690; 85025; 86850; 86900; 86901; 87040; 96361; 96365; 96375; 99284; J1642; J2765; J3010; J7030; Q9967

== ENCOUNTER 2018-03-11 15:58 | Inpatient (IN) | payer BC ==
--- OUTSIDE RECORDS SUMMARY | 2018-03-11 16:01 | XMS REPORT | Clinical Summary ---
:1985 Author Organization [facility] Address [address] [place] [address] Phone Care Team Providers Name Role Phone Unavailable Primary Care Provider Unavailable Allergies Not on File Current Medications Not on file Active Problems Not on file Social History Tobacco Use Types Packs/Day Years Used Date Never Assessed Sex Assigned at Date Recorded Not on file Last Filed Vital Signs Not on file Plan of Treatment Not on file Results Not on fileafter 03/10/2017
--- OUTSIDE RECORDS SUMMARY | 2018-03-11 16:01 | XMS REPORT | Clinical Summary ---
:1985 Author Organization [facility] Address [address] [place] [address] Care Team Providers Name Role Phone Asked, [...] Irene Ejaz, DO Ahmed, Rezwan, MD after 03/10/2017 Social History Tobacco Use Types Packs/Day Years Used Date Never Smoker Alcohol Use Drinks/Week oz/Week Comments No Sex Assigned at Date Recorded Not on file Last Filed Vital Signs Vital Sign Reading Time Taken Blood Pressure 95/67 09/24/2017 12:41 PM [employer] Pulse 95 09/24/2017 12:41 PM [employer] Temperature 36.8 C (98.2 F) 09/02/2017 12:35 PM [employer] Respiratory Rate 18 09/02/2017 12:35 PM [employer] Oxygen Saturation 96% 09/02/2017 12:35 PM [employer] Inhaled Oxygen Concentration - - Weight 50.8 kg (112 lb) 09/24/2017 12:41 PM [employer] Height 152.4 cm (5') 09/24/2017 12:41 PM [employer] Body Mass Index 21.87 09/24/2017 12:41 PM [employer] Plan of Treatment Health Maintenance Due Date Last Done Comments CERVICAL CANCER SCREENING 2008 INFLUENZA VACCINE 04/14/2018 Implants Implanted Type Area Ticket Counter Device Expiration Model / Identifier Date Serial / Lot Port Imlpntbl Smart Port W/ Dtchd 0.4ml 6.6fr 55cm 1.4x2.2mm - [id number] Implantable N/A: ANGIODYNAMICS 04/13/2020 [id number] / Implanted: 08/18/2017 (Quantity not on file) Infusion Ports N/A INC / or Accessories [id number] Procedures Procedure Name Priority Date/Time Associated Comments Diagnosis POC GLUCOSE Routine 09/02/2017 12:37 Results for this PM [employer] procedure are in the results section. POC GLUCOSE Routine 09/02/2017 8:28 Results for this AM [employer] procedure are in the results section. MANUAL DIFFERENTIAL Routine 09/02/2017 6:11 Results for this AM [employer] procedure are in the results section. CBC WITH PLATELET AND Routine 09/02/2017 6:11 Results for this DIFFERENTIAL AM [employer] procedure are in the results section. POC GLUCOSE Routine 09/02/2017 5:04 Results for this AM [employer] procedure are in the results section. ESTIMATED GFR Routine 09/02/2017 4:00 Results for this AM [employer] procedure are in the results section. PHOSPHORUS LEVEL Routine 09/02/2017 4:00 Results for this AM [employer] procedure are in the results section. MAGNESIUM LEVEL Routine 09/02/2017 4:00 Results for this AM [employer] procedure are in the results section. BASIC METABOLIC PANEL Routine 09/02/2017 4:00 Results for this AM [employer] procedure are in the results section. POC GLUCOSE Routine 09/01/2017 11:10 Results for this PM [employer] procedure are in the results section. POC GLUCOSE Routine 09/01/2017 7:03 Results for this PM [employer] procedure are in the results section. POC GLUCOSE Routine 09/01/2017 11:57 Results for this AM [employer] procedure are in the results section. MANUAL DIFFERENTIAL Routine 09/01/2017 9:24 Results for this AM [employer] procedure are in the results section. ESTIMATED GFR Routine 09/01/2017 9:24 Results for this AM [employer] procedure are in the results section. VITAMIN E LEVEL, Routine 09/01/2017 9:24 Results for this PLASMA OR SERUM AM [employer] procedure are in the results section. VITAMIN A LEVEL, Routine 09/01/2017 9:24 Results for this PLASMA OR SERUM AM [employer] procedure are in the results section. COMPREHENSIVE Routine 09/01/2017 9:24 Results for this METABOLIC PANEL AM [employer] procedure are in the results section. PHOSPHORUS LEVEL Routine 09/01/2017 9:24 Results for this AM [employer] procedure are in the results section. MAGNESIUM LEVEL Routine 09/01/2017 9:24 Results for this AM [employer] procedure are in the results section. CBC WITH PLATELET AND Routine 09/01/2017 9:24 Results for this DIFFERENTIAL AM [employer] procedure are in the results section. POC GLUCOSE Routine 09/01/2017 8:37 Results for this AM [employer] procedure are in the results section. POC GLUCOSE Routine 09/01/2017 12:38 Results for this AM [employer] procedure are in the results section. POC GLUCOSE Routine 08/31/2017 6:16 Results for this PM [employer] procedure are in the results section. URINALYSIS SCREEN AND Routine 08/31/2017 4:20 Results for this MICROSCOPY, WITH PM [employer] procedure are in REFLEX TO CULTURE the results section. URINE CULTURE Routine 08/31/2017 4:20 Results for this PM [employer] procedure are in the results section. POC GLUCOSE Routine 08/31/2017 4:11 Results for this PM [employer] procedure are in the results section. POC GLUCOSE Routine 08/31/2017 11:41 Results for this AM [employer] procedure are in the results section. POC GLUCOSE Routine 08/31/2017 7:53 Results for this AM [employer] procedure are in the results section. POC GLUCOSE Routine 08/31/2017 5:14 Results for this AM [employer] procedure are in the results section. ESTIMATED GFR Routine 08/31/2017 2:58 Results for this AM [employer] procedure are in the results section. PHOSPHORUS LEVEL Routine 08/31/2017 2:58 Results for this AM [employer] procedure are in the results section. MAGNESIUM LEVEL Routine 08/31/2017 2:58 Results for this AM [employer] procedure are in the results section. BASIC METABOLIC PANEL Routine 08/31/2017 2:58 Results for this AM [employer] procedure are in the results section. XR CHEST 1 VW PORTABLE Routine 08/31/2017 2:37 Results for this AM [employer] procedure are in the results section. MANUAL DIFFERENTIAL Routine 08/31/2017 2:35 Results for this AM [employer] procedure are in the results section. CBC WITH PLATELET AND Routine 08/31/2017 2:35 Results for this DIFFERENTIAL AM [employer] procedure are in the results section. BLOOD CULTURE, AEROBIC Routine 08/31/2017 2:35 Results for this & ANAEROBIC AM [employer] procedure are in the results section. POC GLUCOSE Routine 08/30/2017 11:37 Results for this PM [employer] procedure are in the results section. POC GLUCOSE Routine 08/30/2017 8:34 Results for this PM [employer] procedure are in the results section. POC GLUCOSE Routine 08/30/2017 5:34 Results for this PM [employer] procedure are in the results section. POC GLUCOSE Routine 08/30/2017 4:30 Results for this PM [employer] procedure are in the results section. POC GLUCOSE Routine 08/30/2017 11:54 Results for this AM [employer] procedure are in the results section. POC GLUCOSE Routine 08/30/2017 7:43 Results for this AM [employer] procedure are in the results section. POC GLUCOSE Routine 08/30/2017 4:08 Results for this AM [employer] procedure are in the results section. ESTIMATED GFR Routine 08/30/2017 4:00 Results for this AM [employer] procedure are in the results section. PHOSPHORUS LEVEL Routine 08/30/2017 4:00 Results for this AM [employer] procedure are in the results section. MAGNESIUM LEVEL Routine 08/30/2017 4:00 Results for this AM [employer] procedure are in the results section. BASIC METABOLIC PANEL Routine 08/30/2017 4:00 Results for this AM [employer] procedure are in the results section. MANUAL DIFFERENTIAL Routine 08/30/2017 3:45 Results for this AM [employer] procedure are in the results section. CBC WITH PLATELET AND Routine 08/30/2017 3:45 Results for this DIFFERENTIAL AM [employer] procedure are in the results section. BLOOD CULTURE, AEROBIC Routine 08/30/2017 2:15 Results for this & ANAEROBIC AM [employer] procedure are in the results section. POC GLUCOSE Routine 08/29/2017 11:12 Results for this PM [employer] procedure are in the results section. POC GLUCOSE Routine 08/29/2017 8:33 Results for this PM [employer] procedure are in the results section. POC GLUCOSE Routine 08/29/2017 4:46 Results for this PM [employer] procedure are in the results section. POC GLUCOSE Routine 08/29/2017 12:07 Results for this PM [employer] procedure are in the results section. VANCOMYCIN LEVEL, Timed 08/29/2017 9:15 Results for this TROUGH AM [employer] procedure are in the results section. POC GLUCOSE Routine 08/29/2017 7:52 Results for this AM [employer] procedure are in the results section. HC COMPLETE BLD COUNT Routine 08/29/2017 4:50 Results for this W/AUTO DIFF AM [employer] procedure are in the results section. POC GLUCOSE Routine 08/29/2017 4:43 Results for this AM [employer] procedure are in the results section. CLOSTRIDIUM DIFFICILE Routine 08/29/2017 4:30 Results for this TOXIN AM [employer] procedure are in the results section. ESTIMATED GFR Routine 08/29/2017 4:00 Results for this AM [employer] procedure are in the results section. PHOSPHORUS LEVEL Routine 08/29/2017 4:00 Results for this AM [employer] procedure are in the results section. MAGNESIUM LEVEL Routine 08/29/2017 4:00 Results for this AM [employer] procedure are in the results section. BASIC METABOLIC PANEL Routine 08/29/2017 4:00 Results for this AM [employer] procedure are in the results section. POC GLUCOSE Routine 08/29/2017 12:05 Results for this AM [employer] procedure are in the results section. URINALYSIS SCREEN AND Routine 08/28/2017 4:40 Results for this MICROSCOPY, WITH PM [employer] procedure are in REFLEX TO CULTURE the results section. URINE CULTURE Routine 08/28/2017 4:40 Results for this PM [employer] procedure are in the results section. POC GLUCOSE Routine 08/28/2017 3:08 Results for this PM [employer] procedure are in the results section. POC GLUCOSE Routine 08/28/2017 11:30 Results for this AM [employer] procedure are in the results section. POC GLUCOSE Routine 08/28/2017 7:11 Results for this AM [employer] procedure are in the results section. POC GLUCOSE Routine 08/28/2017 4:32 Results for this AM [employer] procedure are in the results section. HC COMPLETE BLD COUNT Routine 08/28/2017 4:15 Results for this W/AUTO DIFF AM [employer] procedure are in the results section. ESTIMATED GFR Routine 08/28/2017 4:00 Results for this AM [employer] procedure are in the results section. PHOSPHORUS LEVEL Routine 08/28/2017 4:00 Results for this AM [employer] procedure are in the results section. MAGNESIUM LEVEL Routine 08/28/2017 4:00 Results for this AM [employer] procedure are in the results section. BASIC METABOLIC PANEL Routine 08/28/2017 4:00 Results for this AM [employer] procedure are in the results section. VANCOMYCIN LEVEL, Timed 08/28/2017 12:30 Results for this TROUGH AM [employer] procedure are in the results section. POC GLUCOSE Routine 08/28/2017 12:26 Results for this AM [employer] procedure are in the results section. POC GLUCOSE Routine 08/27/2017 7:31 Results for this PM [employer] procedure are in the results section. POC GLUCOSE Routine 08/27/2017 4:20 Results for this PM [employer] procedure are in the results section. US ABDOMINAL Routine 08/27/2017 2:05 Results for this PARACENTESIS IMAGING PM [employer] procedure are in the results section. CELL COUNT AND Routine 08/27/2017 2:00 Results for this DIFFERENTIAL, BODY PM [employer] procedure are in FLUID the results section. GRAM STAIN Routine 08/27/2017 2:00 Results for this PM [employer] procedure are in the results section. ANAEROBIC CULTURE Routine 08/27/2017 2:00 Results for this PM [employer] procedure are in the results section. AEROBIC CULTURE Routine 08/27/2017 2:00 Results for this PM [employer] procedure are in the results section. POC GLUCOSE Routine 08/27/2017 12:01 Results for this PM [employer] procedure are in the results section. POC GLUCOSE Routine 08/27/2017 8:07 Results for this AM [employer] procedure are in the results section. MANUAL DIFFERENTIAL Routine 08/27/2017 5:05 Results for this AM [employer] procedure are in the results section. CBC WITH PLATELET AND Routine 08/27/2017 5:05 Results for this DIFFERENTIAL AM [employer] procedure are in the results section. POC GLUCOSE Routine 08/27/2017 4:39 Results for this AM [employer] procedure are in the results section. ESTIMATED GFR Routine 08/27/2017 4:00 Results for this AM [employer] procedure are in the results section. PHOSPHORUS LEVEL Routine 08/27/2017 4:00 Results for this AM [employer] procedure are in the results section. MAGNESIUM LEVEL Routine 08/27/2017 4:00 Results for this AM [employer] procedure are in the results section. BASIC METABOLIC PANEL Routine 08/27/2017 4:00 Results for this AM [employer] procedure are in the results section. POC GLUCOSE Routine 08/26/2017 11:38 Results for this PM [employer] procedure are in the results section. POC GLUCOSE Routine 08/26/2017 7:53 Results for this PM [employer] procedure are in the results section. POC GLUCOSE Routine 08/26/2017 5:33 Results for this PM [employer] procedure are in the results section. XR CHEST 1 VW PORTABLE Routine 08/26/2017 4:56 Results for this PM [employer] procedure are in the results section. CT ABDOMEN PELVIS W Routine 08/26/2017 2:20 Results for this CONTRAST [employer] procedure are in the results section. HEMOGLOBIN & STAT 08/26/2017 1:54 Results for this HEMATOCRIT PM [employer] procedure are in the results section. BLOOD CULTURE, AEROBIC Routine 08/26/2017 1:45 Results for this & ANAEROBIC PM [employer] procedure are in the results section. BLOOD CULTURE, AEROBIC Routine 08/26/2017 1:35 Results for this & ANAEROBIC PM [employer] procedure are in the results section. LACTIC ACID LEVEL Routine 08/26/2017 1:21 Results for this PM [employer] procedure are in the results section. POC GLUCOSE Routine 08/26/2017 12:01 Results for this PM [employer] procedure are in the results section. POC GLUCOSE Routine 08/26/2017 8:20 Results for this AM [employer] procedure are in the results section. HC COMPLETE BLD COUNT Routine 08/26/2017 4:20 Results for this W/AUTO DIFF AM [employer] procedure are in the results section. POC GLUCOSE Routine 08/26/2017 4:11 Results for this AM [employer] procedure are in the results section. ESTIMATED GFR Routine 08/26/2017 4:00 Results for this AM [employer] procedure are in the results section. PHOSPHORUS LEVEL Routine 08/26/2017 4:00 Results for this AM [employer] procedure are in the results section. MAGNESIUM LEVEL Routine 08/26/2017 4:00 Results for this AM [employer] procedure are in the results section. BASIC METABOLIC PANEL Routine 08/26/2017 4:00 Results for this AM [employer] procedure are in the results section. POC GLUCOSE Routine 08/26/2017 12:01 Results for this AM [employer] procedure are in the results section. US DUPLEX VENOUS UPPER Routine 08/25/2017 10:21 Results for this EXTREMITY BILATERAL [employer] procedure are in the results section. POC GLUCOSE Routine 08/25/2017 9:12 Results for this PM [employer] procedure are in the results section. TRANSFUSE RED BLOOD Routine 08/25/2017 6:31 CELLS PM [employer] POC GLUCOSE Routine 08/25/2017 5:08 Results for this PM [employer] procedure are in the results section. TRANSFUSE RED BLOOD Routine 08/25/2017 3:19 CELLS PM [employer] POC GLUCOSE Routine 08/25/2017 12:43 Results for this PM [employer] procedure are in the results section. PREPARE RBC Timed 08/25/2017 11:25 Results for this AM [employer] procedure are in the results section. TYPE AND SCREEN Timed 08/25/2017 11:25 Results for this AM [employer] procedure are in the results section. POC GLUCOSE Routine 08/25/2017 7:46 Results for this AM [employer] procedure are in the results section. POC GLUCOSE Routine 08/25/2017 5:37 Results for this AM [employer] procedure are in the results section. SMEAR REVIEW Routine 08/25/2017 5:00 Results for this AM [employer] procedure are in the results section. HC COMPLETE BLD COUNT Routine 08/25/2017 5:00 Results for this W/AUTO DIFF AM [employer] procedure are in the results section. ESTIMATED GFR Routine 08/25/2017 4:00 Results for this AM [employer] procedure are in the results section. PHOSPHORUS LEVEL Routine 08/25/2017 4:00 Results for this AM [employer] procedure are in the results section. MAGNESIUM LEVEL Routine 08/25/2017 4:00 Results for this AM [employer] procedure are in the results section. BASIC METABOLIC PANEL Routine 08/25/2017 4:00 Results for this AM [employer] procedure are in the results section. POC GLUCOSE Routine 08/25/2017 12:20 Results for this AM [employer] procedure are in the results section. POC GLUCOSE Routine 08/24/2017 8:16 Results for this PM [employer] procedure are in the results section. ESTIMATED GFR Routine 08/24/2017 5:15 Results for this PM [employer] procedure are in the results section. PHOSPHORUS LEVEL Routine 08/24/2017 5:15 Results for this PM [employer] procedure are in the results section. MAGNESIUM LEVEL Routine 08/24/2017 5:15 Results for this PM [employer] procedure are in the results section. BASIC METABOLIC PANEL Routine 08/24/2017 5:15 Results for this [employer] procedure are in the results section. POC GLUCOSE Routine 08/24/2017 4:50 Results for this [employer] procedure are in the results section. IONIZED CALCIUM Routine 08/24/2017 2:30 Results for this [employer] procedure are in the results section. CONSULT TO SEPSIS Routine 08/24/2017 1:59 Fever, unspecified Results for this RESPONSE TEAM [employer] fever cause procedure are in the results section. LACTIC ACID, I-STAT, Routine 08/24/2017 12:45 Results for this VENOUS [employer] procedure are in the results section. POC GLUCOSE Routine 08/24/2017 12:29 Results for this [employer] procedure are in the results section. LACTIC ACID, I-STAT, Routine 08/24/2017 9:38 Results for this VENOUS AM [employer] procedure are in the results section. POC GLUCOSE Routine 08/24/2017 7:15 Results for this AM [employer] procedure are in the results section. ECG 12-LEAD STAT 08/24/2017 6:48 Results for this AM [employer] procedure are in the results section. POC GLUCOSE Routine 08/24/2017 5:46 Results for this AM [employer] procedure are in the results section. ESTIMATED GFR STAT 08/24/2017 5:10 Results for this AM [employer] procedure are in the results section. LACTIC ACID LEVEL STAT 08/24/2017 5:10 Results for this AM [employer] procedure are in the results section. TROPONIN STAT 08/24/2017 5:10 Results for this AM [employer] procedure are in the results section. PHOSPHORUS LEVEL STAT 08/24/2017 5:10 Results for this AM [employer] procedure are in the results section. MAGNESIUM LEVEL STAT 08/24/2017 5:10 Results for this AM [employer] procedure are in the results section. BASIC METABOLIC PANEL STAT 08/24/2017 5:10 Results for this AM [employer] procedure are in the results section. ESTIMATED GFR Routine 08/24/2017 5:09 Results for this AM [employer] procedure are in the results section. HC COMPLETE BLD COUNT Routine 08/24/2017 5:09 Results for this W/AUTO DIFF AM [employer] procedure are in the results section. PHOSPHORUS LEVEL Routine 08/24/2017 5:09 Results for this AM [employer] procedure are in the results section. MAGNESIUM LEVEL Routine 08/24/2017 5:09 Results for this AM [employer] procedure are in the results section. BASIC METABOLIC PANEL Routine 08/24/2017 5:09 Results for this AM [employer] procedure are in the results section. POC GLUCOSE Routine 08/24/2017 4:19 Results for this AM [employer] procedure are in the results section. POC GLUCOSE Routine 08/23/2017 7:33 Results for this PM [employer] procedure are in the results section. POC GLUCOSE Routine 08/23/2017 4:15 Results for this PM [employer] procedure are in the results section. POC GLUCOSE Routine 08/23/2017 11:39 Results for this AM [employer] procedure are in the results section. POC GLUCOSE Routine 08/23/2017 8:40 Results for this AM [employer] procedure are in the results section. HC COMPLETE BLD COUNT Routine 08/23/2017 4:20 Results for this W/AUTO DIFF AM [employer] procedure are in the results section. ESTIMATED GFR Routine 08/23/2017 4:00 Results for this AM [employer] procedure are in the results section. BASIC METABOLIC PANEL Routine 08/23/2017 4:00 Results for this [employer] procedure are in the results section. MAGNESIUM LEVEL Routine 08/23/2017 4:00 Results for this AM [employer] procedure are in the results section. POC GLUCOSE Routine 08/23/2017 3:58 Results for this AM [employer] procedure are in the results section. POC GLUCOSE Routine 08/22/2017 11:52 Results for this PM [employer] procedure are in the results section. POC GLUCOSE Routine 08/22/2017 8:08 Results for this PM [employer] procedure are in the results section. GRAM STAIN Routine 08/22/2017 5:50 Results for this PM [employer] procedure are in the results section. URINE CULTURE Routine 08/22/2017 5:50 Results for this PM [employer] procedure are in the results section. POC GLUCOSE Routine 08/22/2017 5:49 Results for this PM [employer] procedure are in the results section. CT ABDOMEN PELVIS W STAT 08/22/2017 1:37 Results for this CONTRAST PM [employer] procedure are in the results section. POC GLUCOSE Routine 08/22/2017 1:32 Results for this PM [employer] procedure are in the results section. BLOOD CULTURE, AEROBIC Routine 08/22/2017 12:57 Results for this & ANAEROBIC PM [employer] procedure are in the results section. HEMOGLOBIN & Routine 08/22/2017 11:51 Results for this HEMATOCRIT AM [employer] procedure are in the results section. XR CHEST 1 VW PORTABLE STAT 08/22/2017 10:36 Results for this AM [employer] procedure are in the results section. BLOOD CULTURE, AEROBIC Routine 08/22/2017 9:46 Results for this & ANAEROBIC AM [employer] procedure are in the results section. POC GLUCOSE Routine 08/22/2017 8:42 Results for this AM [employer] procedure are in the results section. POC GLUCOSE Routine 08/22/2017 6:42 Results for this AM [employer] procedure are in the results section. HC COMPLETE BLD COUNT Routine 08/22/2017 5:10 Results for this W/AUTO DIFF AM [employer] procedure are in the results section. ESTIMATED GFR Routine 08/22/2017 4:00 Results for this AM [employer] procedure are in the results section. COMPREHENSIVE Routine 08/22/2017 4:00 Results for this METABOLIC PANEL AM [employer] procedure are in the results section. PHOSPHORUS LEVEL Routine 08/22/2017 4:00 Results for this AM [employer] procedure are in the results section. MAGNESIUM LEVEL Routine 08/22/2017 4:00 Results for this AM [employer] procedure are in the results section. POC GLUCOSE Routine 08/22/2017 12:34 Results for this AM [employer] procedure are in the results section. POC GLUCOSE Routine 08/21/2017 7:08 Results for this PM [employer] procedure are in the results section. POC GLUCOSE Routine 08/21/2017 5:08 Results for this PM [employer] procedure are in the results section. XR ABDOMEN 2 VW AP W STAT 08/21/2017 4:14 Results for this UPRIGHT AND/OR PM [employer] procedure are in DECUBITUS the results section. HEMOGLOBIN & STAT 08/21/2017 12:00 Results for this HEMATOCRIT PM [employer] procedure are in the results section. POC GLUCOSE Routine 08/21/2017 11:41 Results for this AM [employer] procedure are in the results section. POC GLUCOSE Routine 08/21/2017 7:28 Results for this AM [employer] procedure are in the results section. HC COMPLETE BLD COUNT Routine 08/21/2017 5:00 Results for this W/AUTO DIFF AM [employer] procedure are in the results section. ESTIMATED GFR Routine 08/21/2017 4:00 Results for this AM [employer] procedure are in the results section. PHOSPHORUS LEVEL Routine 08/21/2017 4:00 Results for this AM [employer] procedure are in the results section. MAGNESIUM LEVEL Routine 08/21/2017 4:00 Results for this AM [employer] procedure are in the results section. BASIC METABOLIC PANEL Routine 08/21/2017 4:00 Results for this AM [employer] procedure are in the results section. POC GLUCOSE Routine 08/20/2017 9:19 Results for this PM [employer] procedure are in the results section. POC GLUCOSE Routine 08/20/2017 3:43 Results for this PM [employer] procedure are in the results section. POC GLUCOSE Routine 08/20/2017 11:52 Results for this AM [employer] procedure are in the results section. POC GLUCOSE Routine 08/20/2017 7:38 Results for this AM [employer] procedure are in the results section. HC COMPLETE BLD COUNT STAT 08/20/2017 6:30 Results for this W/AUTO DIFF AM [employer] procedure are in the results section. ESTIMATED GFR STAT 08/20/2017 6:24 Results for this AM [employer] procedure are in the results section. BASIC METABOLIC PANEL STAT 08/20/2017 6:24 Results for this AM [employer] procedure are in the results section. XR ABDOMEN 1 VW STAT 08/19/2017 9:22 Results for this PORTABLE PM [employer] procedure are in the results section. XR ABDOMEN 1 VW STAT 08/19/2017 7:52 Results for this PORTABLE PM [employer] procedure are in the results section. OK AN ELECTIVE Routine 08/19/2017 3:14 ENDOTRACHEAL AIRWAY PM [employer] Procedure Note - Santi Lange Jr., MD - 08/19/2017 3:12 PM [employer]ING Airway Date/Time: 08/19/2017 2:20 PM Performed by: [...] Routine 08/19/2017 12:19 PM Results for this [employer] procedure are in the results section. ILEOSTOMY, 08/19/2017 11:50 AM Crohn's disease of LAPAROSCOPIC [employer] pylorus without complication Case Notes TF, REQ 1200 START Special Needs TF, REQ 1200 START; CONFIRMED START TIME W/ VIVIAN ON 08/18/17 @ 1249 EDM SURGICAL PATHOLOGY REQUEST Routine 08/19/2017 9:00 AM [employer] POC GLUCOSE Routine 08/19/2017 7:50 AM [employer]ING POC GLUCOSE Routine 08/19/2017 4:22 AM [employer] HC COMPLETE BLD COUNT W/AUTO Routine 08/19/2017 4:15 AM [employer] Results for this DIFF procedure are in the results section. ESTIMATED GFR Routine 08/19/2017 4:00 AM [employer]ING PHOSPHORUS LEVEL Routine 08/19/2017 4:00 AM [employer]ING MAGNESIUM LEVEL Routine 08/19/2017 4:00 AM [employer] BASIC METABOLIC PANEL Routine 08/19/2017 4:00 AM [employer] POC GLUCOSE Routine 08/18/2017 11:36 PM [employer]ING POC GLUCOSE Routine 08/18/2017 7:35 PM [employer]ING POC GLUCOSE Routine 08/18/2017 6:06 PM [employer] POC GLUCOSE Routine 08/18/2017 11:43 AM [employer]ING IR PORT PLACEMENT Routine 08/18/2017 10:21 AM [employer] POC GLUCOSE Routine 08/18/2017 3:54 AM [employer] POC GLUCOSE Routine 08/17/2017 11:15 PM [employer] POC GLUCOSE Routine 08/17/2017 7:47 PM [employer]ING POC GLUCOSE Routine 08/17/2017 5:03 PM [employer]ING POC GLUCOSE Routine 08/17/2017 12:19 PM [employer]ING POC GLUCOSE Routine 08/17/2017 7:52 AM [employer] TYPE AND SCREEN Routine 08/17/2017 7:15 AM [employer] MANUAL DIFFERENTIAL Routine 08/17/2017 4:35 AM [employer] CBC WITH PLATELET AND Routine 08/17/2017 4:35 AM [employer] Results for this DIFFERENTIAL procedure are in the results section. POC GLUCOSE Routine 08/17/2017 4:03 AM [employer] ESTIMATED GFR Routine 08/17/2017 4:00 AM [employer]ING PHOSPHORUS LEVEL Routine 08/17/2017 4:00 AM [employer]ING MAGNESIUM LEVEL Routine 08/17/2017 4:00 AM [employer] BASIC METABOLIC PANEL Routine 08/17/2017 4:00 AM [employer] POC GLUCOSE Routine 08/16/2017 11:09 PM [employer] POC GLUCOSE Routine 08/16/2017 7:50 PM [employer]ING POC GLUCOSE Routine 08/16/2017 3:37 PM [employer]GER [employer]ING POC GLUCOSE Routine 08/16/2017 11:51 AM [employer]ING POC GLUCOSE Routine 08/16/2017 7:48 AM [employer] ESTIMATED GFR Routine 08/16/2017 4:00 AM [employer]GER [employer]ING PHOSPHORUS LEVEL Routine 08/16/2017 4:00 AM [employer]ING MAGNESIUM LEVEL Routine 08/16/2017 4:00 AM [employer] BASIC METABOLIC PANEL Routine 08/16/2017 4:00 AM [employer] POC GLUCOSE Routine 08/15/2017 8:56 PM [employer]ING POC GLUCOSE Routine 08/15/2017 3:47 PM [employer]GER [employer]ING POC GLUCOSE Routine 08/15/2017 11:42 AM [employer]ING MANUAL DIFFERENTIAL Routine 08/15/2017 9:55 AM [employer] CBC WITH PLATELET AND Routine 08/15/2017 9:55 AM [employer] Results for this DIFFERENTIAL procedure are in the results section. POC GLUCOSE Routine 08/15/2017 7:15 AM [employer] POC GLUCOSE Routine 08/15/2017 12:32 AM [employer]ING RESPIRATORY PATHOGEN PANEL Routine 08/14/2017 10:00 PM [employer]ING POC GLUCOSE Routine 08/14/2017 8:59 PM [employer]ING URINALYSIS SCREEN AND Routine 08/14/2017 4:58 PM [employer] Results for this MICROSCOPY, WITH REFLEX TO procedure are in the CULTURE results section. URINE CULTURE Routine 08/14/2017 4:58 PM [employer] POC GLUCOSE Routine 08/14/2017 3:51 PM [employer]GER [employer]ING SEDIMENTATION RATE Routine 08/14/2017 12:25 PM [employer]GER [employer]ING BLOOD CULTURE, AEROBIC & Routine 08/14/2017 12:25 PM [employer] Results for this ANAEROBIC procedure are in the results section. POC GLUCOSE Routine 08/14/2017 12:09 PM [employer] XR CHEST 1 VW PORTABLE STAT 08/14/2017 11:45 AM [employer] C-REACTIVE PROTEIN Routine 08/14/2017 8:47 AM [employer]ING POC GLUCOSE Routine 08/14/2017 8:01 AM [employer]ING MANUAL DIFFERENTIAL Routine 08/14/2017 4:20 AM [employer]ING CBC WITH PLATELET AND Routine 08/14/2017 4:20 AM [employer]ING Results for this DIFFERENTIAL procedure are in the results section. ESTIMATED GFR Routine 08/14/2017 4:00 AM [employer] BASIC METABOLIC PANEL Routine 08/14/2017 4:00 AM [employer] POC GLUCOSE Routine 08/14/2017 3:30 AM [employer]GER [employer]ING POC GLUCOSE Routine 08/14/2017 12:00 AM [employer]GER [employer]ING POC GLUCOSE Routine 08/13/2017 8:25 PM [employer]GER [employer]ING POC GLUCOSE Routine 08/13/2017 5:33 PM [employer]GER [employer]ING POC GLUCOSE Routine 08/13/2017 12:42 PM [employer]GER [employer]ING PROTHROMBIN TIME WITH INR STAT 08/13/2017 12:40 PM [employer]ING POC GLUCOSE Routine 08/13/2017 9:10 AM [employer]GER [employer]ING POC GLUCOSE Routine 08/13/2017 5:37 AM [employer]GER [employer]ING MANUAL DIFFERENTIAL Routine 08/13/2017 5:10 AM [employer]GER [employer]ING CBC WITH PLATELET AND Routine 08/13/2017 5:10 AM [employer]ING Results for this DIFFERENTIAL procedure are in the results section. ESTIMATED GFR Routine 08/13/2017 4:00 AM [employer]ING BASIC METABOLIC PANEL Routine 08/13/2017 4:00 AM [employer]ING POC GLUCOSE Routine 08/12/2017 11:42 PM [employer]GER [employer]ING POC GLUCOSE Routine 08/12/2017 8:19 PM [employer]GER [employer]ING HEPATIC FUNCTION PANEL Routine 08/12/2017 7:45 PM [employer]GER [employer]ING VITAMIN B12 LEVEL Routine 08/12/2017 7:45 PM [employer]ING FOLATE LEVEL Routine 08/12/2017 7:45 PM [employer]GER [employer]ING PREALBUMIN LEVEL Routine 08/12/2017 7:45 PM [employer] ZINC LEVEL, SERUM Routine 08/12/2017 7:44 PM [employer]GER [employer] POC GLUCOSE Routine 08/12/2017 5:34 PM [employer]GER [employer]ING TB IN-TUBE QUANTIFERON Routine 08/12/2017 12:35 PM [employer]GER [employer]ING POC GLUCOSE Routine 08/12/2017 11:21 AM [employer]GER [employer]ING POC GLUCOSE Routine 08/12/2017 7:20 AM [employer]GER [employer]ING POC GLUCOSE Routine 08/12/2017 3:42 AM [employer]GER [employer]ING MANUAL DIFFERENTIAL Routine 08/12/2017 3:30 AM [employer]GER [employer]ING ESTIMATED GFR Routine 08/12/2017 3:30 AM [employer] CBC WITH PLATELET AND Routine 08/12/2017 3:30 AM [employer] Results for this DIFFERENTIAL procedure are in the results section. PHOSPHORUS LEVEL Routine 08/12/2017 3:30 AM [employer]ING MAGNESIUM LEVEL Routine 08/12/2017 3:30 AM [employer]GER [employer]ING BASIC METABOLIC PANEL Routine 08/12/2017 3:30 AM [employer]GER [employer]ING POC GLUCOSE Routine 08/11/2017 11:36 PM [employer]GER [employer]ING POC GLUCOSE Routine 08/11/2017 8:02 PM [employer]GER [employer]ING POC GLUCOSE Routine 08/11/2017 5:06 PM [employer]NAGER [employer]ING POC GLUCOSE Routine 08/11/2017 12:25 PM [employer]NAGER [employer]UFA[employer]ING POC GLUCOSE Routine 08/11/2017 8:18 AM [employer]GER [employer]ING ESTIMATED GFR Routine 08/11/2017 4:00 AM [employer]GER [employer]ING PHOSPHORUS LEVEL Routine 08/11/2017 4:00 AM [employer]GER [employer]URING MAGNESIUM LEVEL Routine 08/11/2017 4:00 AM [employer]GER [employer]ING BASIC METABOLIC PANEL Routine 08/11/2017 4:00 AM [employer]GER [employer]ING POC GLUCOSE Routine 08/10/2017 4:54 PM [employer]GER [employer]ING POC GLUCOSE Routine 08/10/2017 12:01 PM [employer]GER [employer]ING POC GLUCOSE Routine 08/10/2017 8:02 AM [employer]GER [employer]URING PHOSPHORUS LEVEL Routine 08/10/2017 4:00 AM [employer]GER [employer]URING MAGNESIUM LEVEL Routine 08/10/2017 4:00 AM [employer]GER [employer]ING ESTIMATED GFR Routine 08/10/2017 4:00 AM [employer]GER [employer]ING BASIC METABOLIC PANEL Routine 08/10/2017 4:00 AM [employer]GER [employer]ING POC GLUCOSE Routine 08/10/2017 3:28 AM [employer]GER [employer]ING POC GLUCOSE Routine 08/09/2017 11:31 PM [employer]GER [employer]ING POC GLUCOSE Routine 08/09/2017 7:12 PM [employer]GER [employer]ING POC GLUCOSE Routine 08/09/2017 3:[address] CT ENTEROGRAPHY Routine 08/09/2017 2:47 PM [employer]ING CBC HEMOGRAM Routine 08/09/2017 12:27 PM [employer]GER [employer]ING POC GLUCOSE Routine 08/09/2017 11:38 AM H[employer]NAGER [employer]UFA[employer]URING POC GLUCOSE Routine 08/09/2017 8:03 AM [employer]NAGER [employer]URING POC GLUCOSE Routine 08/09/2017 4:22 AM [employer]GER [employer]ING BASIC METABOLIC PANEL Routine 08/09/2017 4:00 AM [employer]GER [employer]ING ESTIMATED GFR Routine 08/09/2017 4:00 AM [employer]NAGER [employer]UFA[employer]URING PHOSPHORUS LEVEL Routine 08/09/2017 4:00 AM [employer]GER [employer]URING MAGNESIUM LEVEL Routine 08/09/2017 4:00 AM [employer]GER [employer]ING POC GLUCOSE Routine 08/09/2017 12:04 AM [employer]NAGER [employer]URING POC GLUCOSE Routine 08/08/2017 7:18 PM [employer]GER [employer]ING POC GLUCOSE Routine 08/08/2017 3:26 PM [employer]GER [employer]ING POC GLUCOSE Routine 08/08/2017 11:40 AM [employer]NAGER [employer]ING POC GLUCOSE Routine 08/08/2017 7:41 AM [employer]ING CBC WITH PLATELET AND Routine 08/08/2017 6:10 AM [employer]ING Results for this DIFFERENTIAL procedure are in the results section. POC GLUCOSE Routine 08/08/2017 4:14 AM [employer]GER [employer]ING POC GLUCOSE Routine 08/07/2017 11:53 PM [employer]GER [employer]ING POC GLUCOSE Routine 08/07/2017 7:31 PM [employer]NAGER [employer]URING POC GLUCOSE Routine 08/07/2017 3:56 PM [employer]NAGER [employer]ING POC GLUCOSE Routine 08/07/2017 11:44 AM [employer]GER [employer]ING POC GLUCOSE Routine 08/07/2017 7:45 AM [employer]GER [employer]ING HEPATITIS B SURFACE ANTIBODY Routine 08/07/2017 5:10 AM [employer]ING HC COMPLETE BLD COUNT W/AUTO Routine 08/07/2017 5:10 AM [employer]ING Results for this DIFF procedure are in the results section. ESTIMATED GFR Routine 08/07/2017 4:00 AM [employer]GER [employer]ING PHOSPHORUS LEVEL Routine 08/07/2017 4:00 AM [employer]NAGER [employer]UFA[employer]URING MAGNESIUM LEVEL Routine 08/07/2017 4:00 AM [employer]GER [employer]ING BASIC METABOLIC PANEL Routine 08/07/2017 4:00 AM [employer]GER [employer]URING POC GLUCOSE Routine 08/07/2017 3:45 AM [employer]NAGER [employer]URING POC GLUCOSE Routine 08/07/2017 12:13 AM [employer]NAGER [employer]URING SEDIMENTATION RATE Routine 08/06/2017 4:10 PM [employer]GER [employer]ING HEPATITIS B CORE ANTIBODY Routine 08/06/2017 3:31 PM [employer]ING Results for this TOTAL procedure are in the results section. HEPATITIS A ANTIBODY TOTAL Routine 08/06/2017 3:31 PM [employer]GER [employer]ING HEPATITIS ACUTE PANEL Routine 08/06/2017 3:31 PM [employer]GER [employer]ING C-REACTIVE PROTEIN Routine 08/06/2017 3:31 PM [employer]GER [employer]ING HC CATH DUAL LUMEN PICC Routine 08/06/2017 12:13 PM [employer]GER [employer]ING HC US GUIDED VASCULAR ACCESS Routine 08/06/2017 12:13 PM [employer]GER [employer]ING HC CVL PICC INSERT 5 YRS OR Routine 08/06/2017 12:13 PM [employer]ING Results for this > procedure are in the results section. CT ABDOMEN PELVIS W CONTRAST STAT 08/06/2017 3:27 AM [employer]ING HCG QUALITATIVE, URINE STAT 08/06/2017 2:49 AM [employer] Results for this SCREEN procedure are in the results section. URINALYSIS SCREEN AND STAT 08/06/2017 2:49 AM [employer]ING Results for this MICROSCOPY, WITH REFLEX TO procedure are in the CULTURE results section. GRAM STAIN STAT 08/06/2017 2:43 AM [employer]GER [employer]ING URINE CULTURE STAT 08/06/2017 2:43 AM [employer]NAGER [employer]UFA[employer]URING PHOSPHORUS LEVEL STAT 08/06/2017 1:15 AM H[employer]NAGER [employer]UFA[employer]URING MAGNESIUM LEVEL STAT 08/06/2017 1:15 AM [employer]GER [employer]ING ESTIMATED GFR STAT 08/06/2017 1:15 AM [employer]GER [employer]URING LACTIC ACID LEVEL Timed 08/06/2017 1:15 AM [employer]GER [employer]URING LACTIC ACID LEVEL STAT 08/06/2017 1:15 AM [employer]GER [employer]ING HC COMPLETE BLD COUNT W/AUTO STAT 08/06/2017 1:15 AM [employer]ING Results for this DIFF procedure are in the results section. LIPASE LEVEL STAT 08/06/2017 1:15 AM [employer]GER [employer]URING AMYLASE LEVEL STAT 08/06/2017 1:15 AM [employer]GER [employer]ING COMPREHENSIVE METABOLIC STAT 08/06/2017 1:15 AM [employer]ING Results for this PANEL procedure are in the results section. after 03/10/2017 Results POC glucose (09/02/2017 12:37 PM)Only the most recent of145 resultswithin the time period is included. POC glucose 98 65 - 99 mg/dL [facility] DEPARTMENT OF PATHOLOGY AND Comment: GENOMIC MEDICINE [facility] Notified RN Meter ID: [id number] Photography Spotter: Sathish Klein Performing Organization Address City/[facility] Phone Number [facility] DEPARTMENT OF PATHOLOGY AND [address] [place] [id number] GENOMIC MEDICINE Manual differential (09/02/2017 6:11 AM)Only the most recent of10 resultswithin the time period is included. Manual differential PERFORMED [facility] DEPARTMENT OF PATHOLOGY AND GENOMIC MEDICINE Neutrophils 79.0 (H) 39.0 - 69.0 % [facility] DEPARTMENT OF PATHOLOGY AND GENOMIC MEDICINE Lymphocytes 11.0 (L) 25.0 - 45.0 % [facility] DEPARTMENT OF PATHOLOGY AND GENOMIC MEDICINE Monocytes 4.0 0.0 - 10.0 % [facility] DEPARTMENT OF PATHOLOGY AND GENOMIC MEDICINE Eosinophils 1.0 0.0 - 5.0 % [facility] DEPARTMENT OF PATHOLOGY AND GENOMIC MEDICINE Basophils 0.0 0.0 - 1.0 % [facility] DEPARTMENT OF PATHOLOGY AND GENOMIC MEDICINE Metamyelocytes 3 % [facility] DEPARTMENT OF PATHOLOGY AND GENOMIC MEDICINE Myelocytes 2 % [facility] DEPARTMENT OF PATHOLOGY AND GENOMIC MEDICINE Promyelocytes 0 % [facility] DEPARTMENT OF PATHOLOGY AND GENOMIC MEDICINE Platelet slide review Subha slt incr [facility] DEPARTMENT OF PATHOLOGY AND GENOMIC MEDICINE Anisocytosis Moderate [facility] DEPARTMENT OF PATHOLOGY AND GENOMIC MEDICINE Polychromasia Moderate [facility] DEPARTMENT OF PATHOLOGY AND GENOMIC MEDICINE Enlarged platelets Moderate (A) [facility] DEPARTMENT OF PATHOLOGY AND GENOMIC MEDICINE Performing Organization Address City/[facility] Hospitalcode Phone Number [facility] DEPARTMENT OF PATHOLOGY AND [address] [place] [phone] GENOMIC MEDICINE CBC with platelet and differential (09/02/2017 6:11 AM)Only the most recent of23 resultswithin the time period is included. WBC 7.66 4.50 - 11.00 k/uL [facility] DEPARTMENT OF PATHOLOGY AND GENOMIC MEDICINE RBC 3.40 (L) 4.20 - 5.50 m/uL [facility] DEPARTMENT OF PATHOLOGY AND GENOMIC MEDICINE HGB 9.6 (L) 12.0 - 16.0 g/dL [facility] DEPARTMENT OF PATHOLOGY AND GENOMIC MEDICINE HCT 31.6 (L) 37.0 - 47.0 % [facility] DEPARTMENT OF PATHOLOGY AND GENOMIC MEDICINE MCV 92.9 82.0 - 100.0 fL [facility] DEPARTMENT OF PATHOLOGY AND GENOMIC MEDICINE MCH 28.2 27.0 - 34.0 pg [facility] DEPARTMENT OF PATHOLOGY AND GENOMIC MEDICINE MCHC 30.4 (L) 31.0 - 37.0 g/dL [facility] DEPARTMENT OF PATHOLOGY AND GENOMIC MEDICINE RDW - SD 54.4 37.0 - 55.0 fL [facility] DEPARTMENT OF PATHOLOGY AND GENOMIC MEDICINE MPV 9.8 8.8 - 13.2 fL [facility] DEPARTMENT OF PATHOLOGY AND GENOMIC MEDICINE Platelet count 448 (H) 150 - 400 k/uL [facility] DEPARTMENT OF PATHOLOGY AND GENOMIC MEDICINE Nucleated RBC 0.00 /100 WBC [facility] DEPARTMENT OF PATHOLOGY AND GENOMIC MEDICINE Neutrophils 79.0 (H) 39.0 - 69.0 % [facility] DEPARTMENT OF PATHOLOGY AND GENOMIC MEDICINE Lymphocytes 11.0 (L) 25.0 - 45.0 % [facility] DEPARTMENT OF PATHOLOGY AND GENOMIC MEDICINE Monocytes 4.0 0.0 - 10.0 % [facility] DEPARTMENT OF PATHOLOGY AND GENOMIC MEDICINE Eosinophils 1.0 0.0 - 5.0 % [facility] DEPARTMENT OF PATHOLOGY AND GENOMIC MEDICINE Basophils 0.0 0.0 - 1.0 % [facility] DEPARTMENT OF PATHOLOGY AND GENOMIC MEDICINE Specimen Blood Performing Organization Address City/State/Zipcode Phone Number [facility] DEPARTMENT OF PATHOLOGY AND [address] [place] [address] [employer] [facility] Estimated GFR (09/02/2017 4:00 AM)Only the most recent of27 resultswithin the time period is included. GFR Non Af Amer >90 mL/min/1.73 m2 [facility] DEPARTMENT OF PATHOLOGY AND GENOMIC MEDICINE GFR Af Amer >90 mL/min/1.73 m2 [facility] DEPARTMENT OF Comment: PATHOLOGY AND GENOMIC Chronic [...] Americans. Specimen Plasma specimen Performing Organization Address City/[facility] Phone Number [facility] DEPARTMENT OF PATHOLOGY AND [address] [place] [address] Phosphorus level (09/02/2017 4:00 AM)Only the most recent of23 resultswithin the time period is included. Phosphorus 4.5 2.4 - 4.5 mg/dL [facility] DEPARTMENT OF PATHOLOGY AND [facility] Specimen Plasma specimen Performing Organization Address [facility] Phone Number [facility] DEPARTMENT OF PATHOLOGY AND [address] [place] [address] Magnesium level (09/02/2017 4:00 AM)Only the most recent of24 resultswithin the time period is included. Magnesium 1.7 1.6 - 2.6 mg/dL [facility] DEPARTMENT OF PATHOLOGY AND [employer] MEDICINE Specimen Plasma specimen Performing Organization Address [facility] Phone Number [facility] DEPARTMENT OF PATHOLOGY AND [address] [place] [address] Basic metabolic panel (09/02/2017 4:00 AM)Only the most recent of24 resultswithin the time period is included. Sodium 146 135 - 148 mEq/L [facility] DEPARTMENT OF PATHOLOGY AND GENOMIC MEDICINE Potassium 3.6 3.5 - 5.0 mEq/L [facility] DEPARTMENT OF PATHOLOGY AND GENOMIC MEDICINE Chloride 106 98 - 112 mEq/L [facility] DEPARTMENT OF PATHOLOGY AND GENOMIC MEDICINE CO2 25 24 - 31 mEq/L [facility] DEPARTMENT OF PATHOLOGY AND GENOMIC MEDICINE Anion gap 15 7 - 15 mEq/L [facility] DEPARTMENT OF PATHOLOGY Comment: [facility] Starting from December , anion gap calculation no longer incorporates potassium. Please note the change. BUN 12 6 - 20 mg/dL [facility] DEPARTMENT OF PATHOLOGY AND GENOMIC MEDICINE Creatinine 0.4 (L) 0.5 - 0.9 mg/dL [facility] DEPARTMENT OF PATHOLOGY AND GENOMIC MEDICINE Glucose 74 65 - 99 mg/dL [facility] DEPARTMENT OF PATHOLOGY AND GENOMIC MEDICINE Calcium 8.7 8.3 - 10.2 mg/dL [facility] DEPARTMENT OF PATHOLOGY AND GENOMIC MEDICINE Specimen Plasma specimen Performing Organization Address City/[facility] Phone Number [facility] DEPARTMENT OF PATHOLOGY AND [address] [place] [address] GENOMIC MEDICINE Vitamin A level, plasma or serum (09/01/2017 9:24 AM) Vitamin A (retinol) 0.66 0.30 - 1.20 mg/L [facility] Retinyl palmitate 0.08 0.00 - 0.10 mg/L [facility] Vitamin A interpretation Normal [facility] Comment: Test developed and characteristics determined by [facility]. See Compliance Statement B: cocone.Workable/CS Performed by [facility], [address] [place] [address] [email or web address], Rodriguez Martinez MD - Lab. Director Specimen Plasma specimen Performing Organization Address [facility] Phone Number [facility] [address] [place] [address] Vitamin E level, plasma or serum (09/01/2017 9:24 AM) Alpha-tocopherol mg/L 14.8 5.5 - 18.0 mg/L [facility] Comment: Test developed and characteristics determined by [facility]. See Compliance Statement B: cocone.Workable/CS Gamma-tocopherol mg/L 0.4 0.0 - 6.0 mg/L [facility] Comment: Performed by [facility], [address] [place] [address] [phone] [email or web address], Rodriguez Martinez MD - Lab. Director Specimen Plasma specimen Performing Organization Address [facility] Phone Number [facility] [address] [place] [address] Comprehensive metabolic panel (09/01/2017 9:24 AM)Only the most recent of3 resultswithin the time period is included. Sodium 144 135 - 148 mEq/L [facility] DEPARTMENT OF PATHOLOGY AND GENOMIC MEDICINE Potassium 3.5 3.5 - 5.0 mEq/L [facility] DEPARTMENT OF PATHOLOGY AND GENOMIC MEDICINE Chloride 100 98 - 112 mEq/L [facility] DEPARTMENT OF PATHOLOGY AND GENOMIC MEDICINE CO2 30 24 - 31 mEq/L [facility] DEPARTMENT OF PATHOLOGY AND GENOMIC MEDICINE Anion gap 14 7 - 15 mEq/L [facility] DEPARTMENT OF Comment: PATHOLOGY AND GENOMIC Starting from December , anion gap calculation MEDICINE no longer incorporates potassium. Please note the change. BUN 9 6 - 20 mg/dL [facility] DEPARTMENT OF PATHOLOGY AND GENOMIC MEDICINE Creatinine 0.4 (L) 0.5 - 0.9 mg/dL [facility] DEPARTMENT OF PATHOLOGY AND GENOMIC MEDICINE Glucose 107 (H) 65 - 99 mg/dL [facility] DEPARTMENT OF PATHOLOGY AND GENOMIC MEDICINE Calcium 8.7 8.3 - 10.2 mg/dL [facility] DEPARTMENT OF PATHOLOGY AND GENOMIC MEDICINE Protein 5.7 (L) 6.3 - 8.3 g/dL [facility] DEPARTMENT OF Comment: PATHOLOGY AND GENOMIC 4.6-7.0 g/dL MEDICINE 1 week 4.4-7.6 g/dL 7 months-1year5.1-7.3 g/dL 1-2 years5.6-7.5 g/dL >3 years6.0-8.0 g/dL 18-150 6.3-8.3 g/dL Albumin 2.4 (L) 3.5 - 5.0 g/dL [facility] DEPARTMENT OF PATHOLOGY AND GENOMIC MEDICINE A/G ratio 0.7 0.7 - 3.8 [facility] DEPARTMENT OF PATHOLOGY AND GENOMIC MEDICINE Alkaline phosphatase 61 35 - 104 U/L [facility] DEPARTMENT OF PATHOLOGY AND GENOMIC MEDICINE AST 12 10 - 35 U/L [facility] DEPARTMENT OF PATHOLOGY AND GENOMIC MEDICINE ALT 14 5 - 50 U/L [facility] DEPARTMENT OF PATHOLOGY AND GENOMIC MEDICINE Total bilirubin <0.2 0.0 - 1.2 mg/dL [facility] DEPARTMENT OF PATHOLOGY AND GENOMIC MEDICINE Specimen Plasma specimen Performing Organization Address City/State/Zipcode Phone Number [facility] DEPARTMENT OF PATHOLOGY AND [address] [place] [address] [facility] Urinalysis screen and microscopy, with reflex to culture (08/31/2017 4:20 PM) Only the most recent of4 resultswithin the time period is included. Specimen site Clean catch [facility] DEPARTMENT OF PATHOLOGY AND GENOMIC MEDICINE Color, UA Straw [facility] DEPARTMENT OF PATHOLOGY AND GENOMIC MEDICINE Appearance, UA Clear [facility] DEPARTMENT OF PATHOLOGY AND GENOMIC MEDICINE Specific gravity, UA 1.006 1.001 - 1.035 [facility] DEPARTMENT OF PATHOLOGY AND GENOMIC MEDICINE pH, UA 7.0 5.0 - 8.5 [facility] DEPARTMENT OF PATHOLOGY AND GENOMIC MEDICINE Protein, UA Negative Negative [facility] DEPARTMENT OF PATHOLOGY AND GENOMIC MEDICINE Glucose, UA Negative Negative [facility] DEPARTMENT OF PATHOLOGY AND GENOMIC MEDICINE Ketones, UA Negative Negative [facility] DEPARTMENT OF PATHOLOGY AND GENOMIC MEDICINE Bilirubin, UA Negative Negative [facility] DEPARTMENT OF PATHOLOGY AND GENOMIC MEDICINE Blood, UA Negative Negative [facility] DEPARTMENT OF PATHOLOGY AND GENOMIC MEDICINE Nitrite, UA Negative Negative [facility] DEPARTMENT OF PATHOLOGY AND GENOMIC MEDICINE Urobilinogen, UA <2.0 <2.0 [facility] DEPARTMENT OF PATHOLOGY AND GENOMIC MEDICINE Leukocyte esterase, UA Negative Negative [facility] DEPARTMENT OF PATHOLOGY AND GENOMIC MEDICINE WBC, UA <1 0 - 4 /HPF [facility] DEPARTMENT OF PATHOLOGY AND GENOMIC MEDICINE RBC, UA None seen 0 - 2 /HPF [facility] DEPARTMENT OF PATHOLOGY AND GENOMIC MEDICINE Bacteria, UA None seen None seen [facility] DEPARTMENT OF PATHOLOGY AND GENOMIC MEDICINE Yeast, UA None seen [facility] DEPARTMENT OF PATHOLOGY AND GENOMIC MEDICINE Yeast with pseudohyphae, UA None seen [facility] DEPARTMENT OF PATHOLOGY AND GENOMIC MEDICINE Specimen Urine Performing Organization Address City/[facility]/Zipcode Phone Number [facility] DEPARTMENT OF PATHOLOGY AND [address] [place] [address] Urine culture (08/31/2017 4:20 PM)Only the most recent of5 resultswithin the time period is included. Urine culture SEE COMMENTComment: Bacteriuria [facility] DEPARTMENT OF PATHOLOGY screen negative. AND GENOMIC MEDICINE Performing Organization Address City/[facility]/Zipcode Phone Number [facility] DEPARTMENT OF PATHOLOGY AND [address] [place], [place] [phone] [facility] XR Chest 1 Vw Portable (08/31/2017 2:37 AM)Only the most recent of4 resultswithin the time period is included. Narrative Performed At EXAMINATION:XR CHEST 1 VW PORTABLE [facility] CLINICAL HISTORY:rule out pneumonia COMPARISON:08/26/2017 IMPRESSION: Right chest port is in place with tip projecting over superior vena cava. Cardiomediastinal silhouette is within normal limits. No consolidations, effusions, or pneumothorax. No acute osseous abnormalities. 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 Cardiomediastinal silhouette is within normal limits. No consolidations, effusions, or pneumothorax. No acute osseous abnormalities. [facility]-[id number] Performing Organization Address City/[facility] Phone Number [facility] [address] [place] [phone] Blood culture, aerobic & anaerobic (08/31/2017 2:35 AM)Only the most recent of7 resultswithin the time period is included. Blood culture isolate No growth after 5 days of incubation. [facility] DEPARTMENT OF Comment: PATHOLOGY AND GENOMIC Specimen Information MEDICINE Specimen Source: Blood Specimen Site: Unspecified Specimen Blood Performing Organization Address City/[facility] Phone Number [facility] DEPARTMENT OF PATHOLOGY AND [address] [place] [address] [facility] Vancomycin level, trough (08/29/2017 9:15 AM)Only the most recent of2 resultswithin the time period is included. Vancomycin, trough 14.4 10.0 - 20.0 ug/mL [facility] DEPARTMENT OF Comment: PATHOLOGY AND GENOMIC Therapeutic Ranges: MEDICINE Peak 30.0 - 40.0 ug/mL Qiswgz79.0 - 20.0 ug/mL Specimen Serum Performing Organization Address [facility] Phone Number [facility] DEPARTMENT OF PATHOLOGY AND [address] [place] [address] [facility] C difficile toxin (08/29/2017 4:30 AM) Clostridium difficile No Clostridium difficle toxin present [facility] DEPARTMENT OF toxin Comment: PATHOLOGY AND GENOMIC Specimen Information MEDICINE Specimen Source: Stool Specimen Site: Nonpreserved Specimen Stool - Nonpreserved Performing Organization Address [facility] Phone Number [facility] DEPARTMENT OF PATHOLOGY AND [address] [place] [address] [facility] US Abdominal Paracentesis Imaging (08/27/2017 2:05 PM) Narrative Performed At EXAMINATION:US ABDOMINAL PARACENTESIS IMAGING [facility] CLINICAL HISTORY: Pelvic Abscess COMPARISON:None. TECHNIQUE: The procedure's risks, benefits, and alternatives were discussed with the patient and written, informed consent was obtained. Using ultrasound guidance, a site for needle entry was selected and the overlying skin was prepped and draped in the usual sterile fashion. 1% buffered lidocaine was used for local anesthesia. A 5 Irish Audionamixeh catheter was inserted into the peritoneal cavity [...] fluid was sent for the requested labs. [facility]-[id number] Procedure Note Hm Interface, Radiology Results Incoming - 08/27/2017 4:02 PM [employer] MANAGER [employer]URING EXAMINATION: US ABDOMINAL PARACENTESIS IMAGING CLINICAL HISTORY: Pelvic Abscess COMPARISON:None. TECHNIQUE: The procedure's risks, benefits, and alternatives were discussed with the patient and written, informed consent was obtained. Using ultrasound guidance, a site for needle entry was selected and the overlying skin was prepped and draped in the usual sterile fashion. 1% buffered lidocaine was used for local anesthesia. A 5 Irish Yueh catheter was inserted into the peritoneal [...] fluid was sent for the requested labs. [facility]-[id number] Performing Organization Address City/[facility] Phone Number [facility] [address] [place] [address] Aerobic culture (08/27/2017 2:00 PM) Aerobic culture isolate No growth after 3 days. [facility] DEPARTMENT OF Comment: PATHOLOGY AND GENOMIC Specimen Information MEDICINE Specimen Source: Fluid Specimen Site: ML pelvis Performing Organization Address City/[facility]/Zipcode Phone Number [facility] DEPARTMENT OF PATHOLOGY AND [address] [place] [address] GENOMIC MEDICINE Gram stain (08/27/2017 2:00 PM)Only the most recent of3 resultswithin the time period is included. Gram stain isolate Many WBC's [facility] DEPARTMENT OF PATHOLOGY AND No organisms seen GENOMIC MEDICINE Comment: Specimen Information Specimen Source: Fluid Specimen Site: ML pelvis Performing Organization Address City/[facility]/Zipcode Phone Number [facility] DEPARTMENT OF PATHOLOGY AND [address] [place] [address] [employer] MEDICINE Anaerobic culture (08/27/2017 2:00 PM) Anaerobic culture No anaerobic organisms isolated. [facility] DEPARTMENT OF isolate Comment: PATHOLOGY AND GENOMIC Specimen Information MEDICINE Specimen Source: Fluid Specimen Site: ML pelvis Performing Organization Address City/[facility] Phone Number [facility] DEPARTMENT OF PATHOLOGY AND [address] [place] [address] [employer] MEDICINE Cell count and differential, body fluid (08/27/2017 2:00 PM) [facility] fluid type FootnoteComment: pelvic [facility] DEPARTMENT OF PATHOLOGY fluid AND GENOMIC MEDICINE Color, fluid [place] [facility] DEPARTMENT OF PATHOLOGY AND GENOMIC MEDICINE Appearance, fluid Cloudy (A) [facility] DEPARTMENT OF PATHOLOGY AND GENOMIC MEDICINE RBC, fluid SEE COMMENTComment: 3+ /CMM [facility] DEPARTMENT OF PATHOLOGY (10,000 - 20,000 AND GENOMIC MEDICINE RBC/CMM) Nucleated cells, fluid 10,719 /CMM [facility] DEPARTMENT OF PATHOLOGY AND GENOMIC MEDICINE Fluid mononuclear cell See Diff [facility] DEPARTMENT OF PATHOLOGY AND GENOMIC MEDICINE Neutrophils, fluid 72 % [facility] DEPARTMENT OF PATHOLOGY AND GENOMIC MEDICINE Lymphocytes, fluid 13 % [facility] DEPARTMENT OF PATHOLOGY AND GENOMIC MEDICINE Macrophages, fluid 15 % [facility] DEPARTMENT OF PATHOLOGY AND GENOMIC MEDICINE Specimen Fluid Performing Organization Address City/[facility] Phone Number [facility] DEPARTMENT OF PATHOLOGY AND [address] [place] [address] [employer] [facility] CT Abdomen Pelvis W Contrast (08/26/2017 2:20 [...] second transition point in the colon anastomosis.. [id number] Procedure Note Hm Interface, Radiology Results Incoming - 08/26/2017 3:00 PM HUMAN RESOURCES MANAGER MANUFACTURING EXAMINATION: CT ABDOMEN PELVIS W CONTRAST CLINICAL [...] second transition point in the colon anastomosis.. [id number] Performing Organization Address City/State/Zipcode Phone Number [facility] [address] [place] [address] Hemoglobin & hematocrit (08/26/2017 1:54 PM)Only the most recent of3 resultswithin the time period is included. HGB 10.2 (L) 12.0 - 16.0 g/dL [facility] DEPARTMENT OF PATHOLOGY AND GENOMIC MEDICINE HCT 32.1 (L) 37.0 - 47.0 % [facility] DEPARTMENT OF PATHOLOGY AND GENOMIC MEDICINE Specimen Blood Performing Organization Address [facility] Phone Number [facility] DEPARTMENT OF PATHOLOGY AND [address] [place] [address] Lactic acid level (08/26/2017 1:21 PM)Only the most recent of4 resultswithin the time period is included. Lactic acid 1.8 0.5 - 2.2 mmol/L [facility] DEPARTMENT OF PATHOLOGY AND GENOMIC MEDICINE Specimen Blood Performing Organization Address [facility] Phone Number [facility] DEPARTMENT OF PATHOLOGY AND [address] [place] [address] Pv duplex venous upper extremity (08/25/2017 10:21 PM) Narrative Performed At [facility] Vascular Ultrasound Laboratory Upper Extremity Venous Report [address] [place] [address] Pat.Name:Felicity CARDOSO.ID:[id number] .Date: 08/25/2017Refer.MD:IDALIA BOLTON MD Exam Time: 8:04:00 PMStudy Type:UE Venous Height:61inWeight: 114lb BSA: 1.49 m2 DOBAge:1985,32Y Sex: FEMALESonogrphr: Perry Vera RVT, [facility] Pat. Stat.:Inpatient Room:[address] TapeVol: MEL, CPT - 4: 61145 Echo Event ID:[id number] Order ID:[id number] Reason for Study:Evaluate for DVT. PMH of [...] Radiology Results In - 08/25/2017 11:35 PM [facility] Vascular Ultrasound Laboratory Upper Extremity Venous Report [id number]Name: VA CARDOSO Pat.ID: [id number] .Date: 08/25/2017 Refer.MD: IDALIA BOLTON MD Exam Time: 8:04:00 PM Study Type:UE Venous Height: 61in Weight: 114lb BSA: 1.49 m2 Age: 11 1985,32Y Sex: FEMALE Sonogrphr: Perry Vera RVT, [facility] Pat. Stat.:Inpatient Room: [address] Vol: , CPT - 4: [address]35 Echo Event ID:[id number] Order ID: [id number] Reason for Study:Evaluate for DVT. PMH of [...] basilic vein. Signed 08/25/2017 11:35 PM Lianna Anuglo MD, RPVI Performing Organization Address City/[facility] Phone Number [facility] [address] [place] [address] Transfuse RBC (08/25/2017 6:31 PM)Only the most recent of3 resultswithin the time period is included.Prepare RBC, 2 Units (08/25/2017 11:25 AM) Product name Apheresis RC ACDA>-3 LR [facility] DEPARTMENT OF PATHOLOGY AND GENOMIC MEDICINE Unit number [id number] [facility] DEPARTMENT OF PATHOLOGY AND GENOMIC MEDICINE Product code [id number] [facility] DEPARTMENT OF PATHOLOGY AND GENOMIC MEDICINE Dispense status Transfused [facility] DEPARTMENT OF PATHOLOGY AND GENOMIC MEDICINE Blood expiration date [id number] [facility] DEPARTMENT OF PATHOLOGY AND GENOMIC MEDICINE Blood type code 5100 [facility] DEPARTMENT OF PATHOLOGY AND GENOMIC MEDICINE Blood type O POSITIVE [facility] DEPARTMENT OF PATHOLOGY AND GENOMIC MEDICINE Product name Apheresis -1 LR #1 [facility] DEPARTMENT OF PATHOLOGY AND GENOMIC MEDICINE Unit number [id number] [facility] DEPARTMENT OF PATHOLOGY AND GENOMIC MEDICINE Product code [id number] [facility] DEPARTMENT OF PATHOLOGY AND GENOMIC MEDICINE Dispense status Transfused [facility] DEPARTMENT OF PATHOLOGY AND GENOMIC MEDICINE Blood expiration date [id number] [facility] DEPARTMENT OF PATHOLOGY AND GENOMIC MEDICINE Blood type code 5100 [facility] DEPARTMENT OF PATHOLOGY AND GENOMIC MEDICINE Blood type O POSITIVE [facility] DEPARTMENT OF PATHOLOGY AND GENOMIC MEDICINE Performing Organization Address City/[facility]/Zipcode Phone Number [facility] DEPARTMENT OF PATHOLOGY AND [address] [place] [address] GENOMIC MEDICINE Type and screen (08/25/2017 11:25 AM)Only the most recent of2 resultswithin the time period is included. ABO grouping O [facility] DEPARTMENT OF PATHOLOGY AND GENOMIC MEDICINE Rh type POS [facility] DEPARTMENT OF PATHOLOGY AND GENOMIC MEDICINE Antibody screen (gel) NEG [facility] DEPARTMENT OF PATHOLOGY AND GENOMIC MEDICINE Specimen Blood Performing Organization Address City/[facility] Phone Number [facility] DEPARTMENT OF PATHOLOGY AND [address] [place] [address] GENOMIC MEDICINE Smear review (08/25/2017 5:00 AM) Platelet slide review Subha adequate [facility] DEPARTMENT OF PATHOLOGY AND GENOMIC MEDICINE Performing Organization Address City/[facility] Phone Number [facility] DEPARTMENT OF PATHOLOGY AND [address] [place] [address] GENOMIC MEDICINE Ionized calcium (08/24/2017 2:30 PM) pH 7.43 [facility] DEPARTMENT OF PATHOLOGY AND GENOMIC MEDICINE Ionized calcium 1.07 (L) 1.11 - 1.32 mmol/L [facility] DEPARTMENT OF PATHOLOGY AND GENOMIC MEDICINE Specimen Plasma specimen Performing Organization Address City/[facility] Phone Number [facility] DEPARTMENT OF PATHOLOGY AND [address] [place] [address] GENOMIC MEDICINE Consult to Sepsis Response Team [...] does not worsen, snooze alerts until:08/25/2017 10:57 HUMAN RESOURCES MANAGER MANUFACTURING SIRS Criteria SIRS criteria met: Heart rate [...] I-Stat, venous 1.4 0.5 - 2.2 mmol/L [facility] DEPARTMENT OF PATHOLOGY AND [employer] MEDICINE Specimen Blood Performing Organization Address [facility] Phone Number [facility] DEPARTMENT OF PATHOLOGY [place] [address] [employer] MEDICINE ECG 12 lead (08/24/2017 6:48 AM) Ventricular rate 144 [facility] MUSE Atrial rate 144 [facility] MUSE OK interval 132 [facility] M[facility] QRSD interval 70 [facility] M[facility] QT interval 258 [facility] M[facility] QTC interval 399 [facility] MUSE P axis 1 35 [facility] M[facility] QRS axis 1 6 [facility] MUSE T wave axis 51 [facility] MUSE EKG impression Sinus tachycardia-Otherwise normal ECG-In [facility] MUSE automated comparison with ECG of 07-MAY-2016 16:05,-Nonspecific T wave abnormality, improved in Inferior leads- Performing Organization Address [facility] Phone Number [facility] MUSE [address] [place] [address] Troponin (08/24/2017 5:10 AM) Troponin <0.30 0.00 - 0.30 ng/mL [facility] DEPARTMENT OF PATHOLOGY Comment: AND GENOMIC MEDICINE 0.30 - 1.49 ng/mlMay indicate increased risk of acute coronary syndrome. >=1.5 ng/mlConsistent with acute myocardial infarction. The diagnostic value of a single normal or non-diagnostic result is questionable.Serial samples at 2-6 hour intervals are required to rule out acute myocardial injury. Specimen Plasma specimen Performing Organization Address City/[facility]/Zipcode Phone Number [facility] DEPARTMENT OF PATHOLOGY AND [address] [place] [address] GENOMIC MEDICINE XR Abdomen 2 Vw Ap [...] bases are clear with diminished lung volumes. [facility]-[id number] Procedure Note Interface, Radiology Results Incoming - 08/21/2017 4:31 PM [employer]NAGER [employer]ING XR ABDOMEN 2 VW AP W UPRIGHT [...] bases are clear with diminished lung volumes. [facility]-[id number] Performing Organization Address City/State/Zipcode Phone Number [facility] [address] [place] [address] XR Abdomen 1 Vw Portable (08/19/2017 9:22 [...] convexity of the lumbar spine is identified. [facility]-[id number] Procedure Note Interface, Radiology Results Incoming - 08/19/2017 9:35 PM [employer]GER [employer]ING EXAMINATION: XR ABDOMEN 1 VW PORTABLE CLINICAL HISTORY: NG tube advancement COMPARISON: 08/19/2017 at 1937 IMPRESSION: Enteric tube has been advanced with tip projecting over the distal body of the stomach. Nonobstructive bowel gas pattern. No pathologic calcification over the kidneys or expected course of the ureters. No acute osseous abnormalities. Right convexity of the lumbar spine is identified. [facility]-[id number] Performing Organization Address City/[facility]/Zipcode Phone Number [facility] [address] [place] [address] Surgical pathology request (08/19/2017 9:00 AM) [facility] DEPARTMENT OF PATHOLOGY AND GENOMIC MEDICINE Surgical pathology report See link below for PDF [facility] DEPARTMENT OF Lab Report PATHOLOGY AND GENOMIC MEDICINE Result status This is Final Report to [facility] DEPARTMENT OF [id number] PATHOLOGY AND GENOMIC MEDICINE Performing Organization Address City/[facility] Phone Number [facility] DEPARTMENT OF PATHOLOGY AND [address] [place] [address] GENOMIC MEDICINE IR Port Placement (08/18/2017 10:21 [...] and the venotomy site, through which the 6.6-Irish port catheter was placed. The venotomy was [...] cava junction and is ready for use. [facility]-[id number] Procedure Note [facility], Radiology Results Incoming - 08/18/2017 10:53 AM [employer]ING Performing Radiologist Shaq Stanley MD Assistants None [...] and the venotomy site, through which the 6.6-Irish port catheter was placed. The venotomy was [...] cava junction and is ready for use. [facility]-[id number] Performing Organization Address City/[facility]/Zipcode Phone Number [address] [address] Respiratory pathogen panel (08/14/2017 10:00 PM) Respiratory pathogen Negative for all pathogens tested: [facility] DEPARTMENT OF panel Negative for Adenovirus PATHOLOGY [...] Specimen Nares - Right Performing Organization Address City/[facility] Phone Number [facility] DEPARTMENT OF PATHOLOGY AND [address] [place] [address] Sedimentation rate (08/14/2017 12:25 PM)Only the most recent of2 resultswithin the time period is included. Sedimentation rate 7 0 - 20 mm/hr [facility] DEPARTMENT OF PATHOLOGY AND [employer] MEDICINE Specimen Blood Performing Organization Address City/[facility] Phone Number [facility] DEPARTMENT OF PATHOLOGY AND [address] [place] [address] [facility] C-reactive protein (08/14/2017 8:47 AM)Only the most recent of2 resultswithin the time period is included. CRP <0.30 0.00 - 0.50 mg/dL [facility] DEPARTMENT OF PATHOLOGY AND GENOMIC [facility] Specimen Plasma specimen Performing Organization Address City/[facility] Phone Number [facility] DEPARTMENT OF PATHOLOGY AND [address] [place] [address] Prothrombin time with INR (08/13/2017 12:40 PM) Prothrombin time 12.9 12.0 - 15.0 sec [facility] DEPARTMENT OF PATHOLOGY AND GENOMIC MEDICINE INR 1.0 [facility] DEPARTMENT OF Comment: PATHOLOGY AND GENOMIC The International Normalized Ratio (INR) is a therapeutic MEDICINE monitoring tool for patients who are stable on oral anticoagulant therapy. An INR of 2.0-3.0 is suggested for deep vein thrombosis/pulmonary embolism. Specimen Blood Performing Organization Address City/[facility] Phone Number [facility] DEPARTMENT OF PATHOLOGY AND [address] [place] [address] Prealbumin level (08/12/2017 7:45 PM) Prealbumin 40 (H) 16 - 32 mg/dL [facility] DEPARTMENT OF PATHOLOGY AND [facility] Specimen Serum Performing Organization Address [facility] Phone Number [facility] DEPARTMENT OF PATHOLOGY AND [address] [place] [address] Folate level (08/12/2017 7:45 PM) Folate 10.0 4.8 - 24.2 ng/mL [facility] DEPARTMENT OF PATHOLOGY AND [facility] Specimen Serum Performing Organization Address [facility] Phone Number [facility] DEPARTMENT OF PATHOLOGY AND [address] [place] [address] Vitamin B12 level (08/12/2017 7:45 PM) Vitamin B12 >1600 (H) 211 - 946 pg/mL [facility] DEPARTMENT OF PATHOLOGY Comment: AND [facility] Significant overlap exists between normal and deficiency states. However, most patients with deficiencies will have Serum B12 <200 pg/mL. Specimen Serum Performing Organization Address [facility] Phone Number [facility] DEPARTMENT OF PATHOLOGY AND [address] [place] [address] Hepatic function panel (08/12/2017 7:45 PM) Albumin 2.6 (L) 3.5 - 5.0 g/dL [facility] DEPARTMENT OF PATHOLOGY AND [facility] Total bilirubin <0.2 0.0 - 1.2 mg/dL [facility] DEPARTMENT OF PATHOLOGY AND GENOMIC MEDICINE Bilirubin direct <0.2 0.0 - 0.3 mg/dL [facility] DEPARTMENT OF PATHOLOGY AND GENOMIC MEDICINE Alkaline phosphatase 56 35 - 104 U/L [facility] DEPARTMENT OF PATHOLOGY AND GENOMIC MEDICINE Protein 5.2 (L) 6.3 - 8.3 g/dL [facility] DEPARTMENT OF Comment: PATHOLOGY AND GENOMIC 4.6-7.0 g/dL MEDICINE 1 week 4.4-7.6 g/dL 7 months-1year5.1-7.3 g/dL 1-2 years5.6-7.5 g/dL >3 years6.0-8.0 g/dL 18-150 6.3-8.3 g/dL ALT 13 5 - 50 U/L [facility] DEPARTMENT OF PATHOLOGY AND GENOMIC MEDICINE AST 14 10 - 35 U/L [facility] DEPARTMENT OF PATHOLOGY AND GENOMIC [facility] Specimen Plasma specimen Performing Organization Address City/[facility]/Zipcode Phone Number [facility] DEPARTMENT OF PATHOLOGY AND [address] Zinc level, serum (08/12/2017 7:44 PM) Zinc 65 60 - 120 ug/dL [facility] Comment: INTERPRETIVE INFORMATION: Zinc, Serum or Plasma Circulating zinc concentrations are dependent on albumin status and are depressed with malnutrition. Zinc may also be lowered with infection, inflammation, stress, oral contraceptives, and . Zinc may be elevated with zinc supplementation or fasting. Elevated zinc concentrations may interfere with copper absorption. Test developed and characteristics determined by [facility]. See Compliance Statement B: cocone.Workable/CS Performed by [facility], [address] [place] [address] [email or web address], Rodriguez Martinez MD - Lab. Director Specimen Blood Performing Organization Address [facility]/Zipcode Phone Number [facility] [address] [place] [address] TB IN-TUBE Quantiferon (08/12/2017 12:35 PM) TB IN-TUBE Quantiferon SEE NOTE [facility] Comment: Quantiferon TB Gold In-Tube Test [...] 17 years. 3. women. Test performed by: [facility] Molecular Tuberculosis Lab [facility] [place], [place] lab: [phone] fax: [phone] Specimen Blood Performing Organization Address City/State/Zipcode Phone Number [address] [address] [address] Enterography (08/09/2017 2:47 PM) Narrative Performed [...] of the spine. Lung bases are clear. [facility]-[id number] Procedure Note [facility], Radiology Results Incoming - 08/09/2017 3:11 PM HUMAN RESOURCES MANAGER MANUFACTURING EXAMINATION: CT ENTEROGRAPHY CLINICAL HISTORY: Crohn's disease [...] of the spine. Lung bases are clear. [facility]-[id number] Performing Organization Address City/[facility]/Zipcode Phone Number [facility] [address] [place] [address] CBC hemogram (08/09/2017 12:27 PM) WBC 7.46 4.50 - 11.00 k/uL [facility] DEPARTMENT OF PATHOLOGY AND GENOMIC MEDICINE RBC 4.14 (L) 4.20 - 5.50 m/uL [facility] DEPARTMENT OF PATHOLOGY AND GENOMIC MEDICINE HGB 11.7 (L) 12.0 - 16.0 g/dL [facility] DEPARTMENT OF PATHOLOGY AND GENOMIC MEDICINE HCT 36.8 (L) 37.0 - 47.0 % [facility] DEPARTMENT OF PATHOLOGY AND GENOMIC MEDICINE MCV 88.9 82.0 - 100.0 fL [facility] DEPARTMENT OF PATHOLOGY AND GENOMIC MEDICINE MCH 28.3 27.0 - 34.0 pg [facility] DEPARTMENT OF PATHOLOGY AND GENOMIC MEDICINE MCHC 31.8 31.0 - 37.0 g/dL [facility] DEPARTMENT OF PATHOLOGY AND GENOMIC MEDICINE RDW - SD 44.0 37.0 - 55.0 fL [facility] DEPARTMENT OF PATHOLOGY AND GENOMIC MEDICINE MPV 9.5 8.8 - 13.2 fL [facility] DEPARTMENT OF PATHOLOGY AND GENOMIC MEDICINE Platelet count 262 150 - 400 k/uL [facility] DEPARTMENT OF PATHOLOGY AND GENOMIC MEDICINE Nucleated RBC 0.00 /100 WBC [facility] DEPARTMENT OF PATHOLOGY AND GENOMIC MEDICINE Performing Organization Address City/[facility]/Zipcode Phone Number [facility] DEPARTMENT OF PATHOLOGY AND [address] [place] [address] [facility] Hepatitis B surface antibody (08/07/2017 5:10 AM) Hepatitis B surface Ab Non-reactive Non-reactive [facility] DEPARTMENT OF PATHOLOGY AND GENOMIC MEDICINE Performing Organization Address City/[facility] Phone Number [facility] DEPARTMENT OF PATHOLOGY AND [address] [place] [id number] [place] [address] Hepatitis A antibody total (08/06/2017 3:31 PM) Hepatitis A total Ab Non-reactive Non-reactive [facility] DEPARTMENT OF PATHOLOGY AND GENOMIC MEDICINE Specimen Serum Performing Organization Address [facility] Phone Number [facility] DEPARTMENT OF PATHOLOGY AND [address] [place] [address] Hepatitis acute panel (08/06/2017 3:31 PM) Hepatitis A IgM Non-reactive Non-reactive [facility] DEPARTMENT OF PATHOLOGY AND GENOMIC MEDICINE Hepatitis B core IgM Non-reactive Non-reactive [facility] DEPARTMENT OF PATHOLOGY AND GENOMIC MEDICINE Hepatitis B surface Ag Non-reactive Non-reactive [facility] DEPARTMENT OF PATHOLOGY AND GENOMIC MEDICINE Hepatitis C Ab Non-reactive Non-reactive [facility] DEPARTMENT OF PATHOLOGY AND GENOMIC MEDICINE Specimen Serum Performing Organization Address [facility] Phone Number [facility] DEPARTMENT OF PATHOLOGY AND [address] [place] [address] Hepatitis B core antibody total (08/06/2017 3:31 PM) Hepatitis B core total Ab Non-reactive Non-reactive [facility] DEPARTMENT OF PATHOLOGY AND GENOMIC MEDICINE Specimen Serum Performing Organization Address [facility] Phone Number [facility] DEPARTMENT OF PATHOLOGY AND [address] [place] [address] PICC INSERTION ATTEMPT - UNSUCCESSFUL (08/06/2017 12:13 PM) Narrative Performed At Cinthya Santiago 08/06/2017 12:13 PM Unsuccessful Attempt - PICC Date/Time: 08/06/2017 12:08 PM Performed by: CINTHYA SANTIAGO Authorized by: NATALIYA ATWOOD Consent: Consent obtained:Verbal Consent given by:Patient Risks discussed: arterial puncture, incorrect placement, nerve damage, bleeding, infection, superficial thrombus and deep vein thrombus Alternatives discussed:Delayed treatment [place] protocol: Procedure explained and questions answered to [...] 18th PICC line and Interventional Radiology from [place] had placed Rt. PICC and had 8 attempts at that time. She had PICC line on the left arm.Attempted to place PICC to left brachial, but unable to advance guidewire pass her axillary vein. Rec'd order from Dr. Krueger to place midline.Left Midline had good blood return. hCG qualitative, urine screen (08/06/2017 2:49 AM) hCG qualitative, urine NegativeComment: [facility] DEPARTMENT OF Sensitivity of HCG test: 25 PATHOLOGY AND GENOMIC mIU/mL MEDICINE Specimen Urine Performing Organization Address [facility] Phone Number [facility] DEPARTMENT OF PATHOLOGY AND [address] [place] [address] Lipase level (08/06/2017 1:15 AM) Lipase 11 (L) 13 - 60 U/L [facility] DEPARTMENT OF PATHOLOGY AND GENOMIC MEDICINE Specimen Plasma specimen Performing Organization Address [facility] Phone Number [facility] DEPARTMENT OF PATHOLOGY AND [address] [place] [address] [facility] MEDICINE Amylase level (08/06/2017 1:15 AM) Amylase 9 (L) 13 - 53 U/L [facility] DEPARTMENT OF PATHOLOGY AND GENOMIC MEDICINE Specimen Plasma specimen Performing Organization Address [facility] Phone Number [facility] DEPARTMENT OF PATHOLOGY AND [address] [place] [address] GENOMIC MEDICINE after 03/10/2017 Insurance Payer Benefit Plan / Group Subscriber ID Type Phone Address BCBS BCBS CHOICE PPO/[employer] PPO xxxxxxxxxxxx PPO [phone] [address]
[2018-03-11] MEDS ORDERED: ALTEPLASE 2 MG/VIAL IV SCH ×2 (18:00→19:00)
[2018-03-11] MEDS ORDERED: WATER FOR INJ,STERILE 10 ML IV SCH (18:00)
[2018-03-11 18:06] LABS: Absolute Lymphocytes (CBC) 1.5 K/uL (0.7-4.9); Absolute Monocytes 0.7 K/uL (0.1-1.3); Basophils % 0.2 % (0-1.3); Eosinophils % 1.5 % (0-4.4); Hematocrit 32.2 % (36.0-45.0); Lymphocytes % 17.8 % (15.3-44.8); MCH 28.2 pg (27.0-35.0); MCV 85.6 fL (80-100); MPV 7.4 fL (7.6-11.3); RBC Red Blood Cell Count 3.75 M/uL (3.86-4.86)
[2018-03-11 18:50] LABS: ALT/SGPT 16 U/L (12-78); AST/SGOT 14 U/L (15-37); Albumin 3.7 g/dL (3.4-5.0); Alkaline Phosphatase 79 U/L (45-117); BUN Blood Urea Nitrogen 9 mg/dL (7-18); Bicarbonate 25 mmol/L (21-32); Bilirubin Direct < 0.1 mg/dL (0-0.2); Bilirubin Total 0.4 mg/dL (0.2-1.0); Glucose Level 73 mg/dL (74-106); Lipase 80 U/L (73-393); Protein, Total 7.1 g/dL (6.4-8.2); Sodium Level 138 mmol/L (136-145)
[2018-03-11 18:51] LABS: Potassium 2.8 mmol/L (3.5-5.1)
[2018-03-11] MEDS: WATER FOR INJ,STERILE 10 ML IV SCH (19:00)
[2018-03-11] MEDS ORDERED: PROMETHAZINE 25 MG/ML VIAL ONE (21:36)
[2018-03-11] MEDS ORDERED: NA CHLORIDE 0.9% 1,000 ML ONE (21:36)
[2018-03-11] MEDS ORDERED: MORPHINE 4 MG/ML SYR ONE (21:36)
[2018-03-11] MEDS ORDERED: KCL 20 MEQ/100 mL IVPB 20 MEQ/100 ML BAG IV ONE (21:36)
--- NOTE | 2018-03-11 22:06 | RAD REPORT ---
EXAM DESCRIPTION: CTAbdomen Pelvis W Contrast - 03/11/2018 9:53 pm CLINICAL HISTORY: Abdominal pain. IV only;Abd pain COMPARISON: Abdomen Pelvis W Contrast dated 03/09/2018; Abdomen Pelvis W Contrast dated 7; Abdomen Pelvis W Contrast dated 05/31/2017; Abdomen Pelvis W Contrast dated 10/27/2016 TECHNIQUE: CT imaging of the abdomen and pelvis was performed with 100 ml non-ionic IV contrast. All CT scans are performed using dose optimization technique as appropriate and may include automated exposure control or mA/KV adjustment according to patient size. FINDINGS: The lung bases are clear. The liver, spleen, adrenal glands and kidneys are within normal limits. Cholecystectomy clips. Trace fluid is seen along the course of the duodenal C-loop/adjacent to the pancreas. Complex postsurgical changes are present in the abdomen involving both large and small bowel. No free air, abscess or bowel obstruction. Appendix is likely surgically absent. A few mildly prominent ly mph nodes are present the small bowel mesentery. Recent right ovarian follicle rupture suspected. IMPRESSION: Small amount of fluid is seen along the duodenal C-loop/ pancreatic head region. Correla tion for possible peptic inflammation or pancreatitis would be suggested. Complex postsurgical changes within the abdomen bowel loops without evidence of bowel obstruction or free air.
--- NOTE | 2018-03-11 22:28 | EDPHYS ---
Physician Documentation [facility] Name: Va Cardoso Age: 32 yrs Sex: Female : 1985 Arrival Date: 03/11/2018 Time: 16:01 Bed 14 Private MD: None, None ED Physician Tyler Harden HPI: 03/11 16:53 This 32 yrs old Female presents to ER via Wheelchair with complaints of kav Abdominal Pain. 17:20 The patient presents with abdominal pain in the upper abdomen. Onset: The jr8 symptoms/episode began/occurred gradually, 3 day(s) ago. The symptoms do not radiate. Associated signs and symptoms: Pertinent positives: nausea and vomiting. The symptoms are described as sharp. Modifying factors: The symptoms are alleviated by nothing, the symptoms are aggravated by nothing. Severity of pain: At its worst the pain was moderate in the emergency department the pain is unchanged. The patient has not experienced similar symptoms in the past. The patient has been recently seen by a physician:. Patient recently seen by ED for abdominal pain and had labs and imaging done revealing duodenitis and antritis. Came back today because she stated that she has worsening of pain and feels that she is vomiting fecal matter up . 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 - Irregular menses lk1 Historical: - Allergies: 16:21 Benadryl (MAKES ME HYPER A CHILD); lk1 16:21 Remicade (Anaphylaxis); lk1 - Home Meds: 16:21 Ambien 10 mg Oral tab 1 tab once daily [Active]; amitriptyline 10 mg Oral tab 2 tabs hj nightly [Active]; Phenergan 25 mg Rectal supp 1 suppository [Active]; zubsolv [Active]; Vitamin B-12 1,000 mcg/mL injection soln 0.1 mL q 3 days [Active]; tizanidine 4 mg Oral tab 1 tab every 6 hours [Active]; promethazine 25 mg Oral tab every 6 hours [Active]; pantoprazole 20 mg Oral TbEC 1 tab once daily [Active]; magnesium oxide 400 mg Oral tab twice a day [Active]; gabapentin 800 mg Oral tab 1 tab 3 times per day [Active]; fentanyl 75 mcg/hr Topical pt72 1 patch every 72 hours [Active]; clonazepam 0.5 mg Oral tab 1 tab nightly [Active]; cholecalciferol (vitamin D3) 50,000 unit Oral cap WEEKLY [Active]; Bentyl 10 mg Oral cap 1 cap 3 times per day [Active]; baclofen 10 mg Oral tab 1 tab every 6 hours [Active]; Cubero Thyroid 30 mg Oral tab daily [Active]; - PMHx: 16:21 Anemia; B12 deficiency; bowel obstruction; Chronic pain; Crohn's; fatty liver; lk1 Fibromyalgia; HYPOGLYCEMIA; Hypothyroidism; Osteoporosis; Rheumatoid Arthritis; ruptured small bowel; scoliosis; Seizures; uterine cysts; - PSHx: 16:21 Bowel resection; port a cath placement; stricture plasty; ruptured bowel; ; lk1 Cholecystectomy; Tubal ligation; - Immunization history:: Adult Immunizations up to date. - Social history:: Smoking status: Patient/guardian denies using tobacco. - Ebola Screening: : No symptoms or risks identified at this time. ROS: 17:20 Eyes: Negative for injury, pain, redness, and discharge, ENT: Negative for injury, jr8 pain, and discharge, Neck: Negative for injury, pain, and swelling, Cardiovascular: Negative for chest pain, palpitations, and edema, Respiratory: Negative for shortness of breath, cough, wheezing, and pleuritic chest pain, Back: Negative for injury and pain, MS/Extremity: Negative for injury and deformity, Skin: Negative for injury, rash, and discoloration, Neuro: Negative for headache, weakness, numbness, tingling, and seizure. 17:20 Abdomen/GI: Positive for abdominal pain, nausea and vomiting, Negative for diarrhea, abdominal distension, anorexia, dysphagia, hematemesis, black/tarry stool, rectal pain, rectal bleeding, bowel incontinence, flatulence. Exam: 17:20 Eyes: Pupils equal round and reactive to light, extra-ocular motions intact. Lids and jr8 lashes normal. Conjunctiva and sclera are non-icteric and not injected. Cornea within normal limits. Periorbital areas with no swelling, redness, or edema. ENT: Nares patent. No nasal discharge, no septal abnormalities noted. Tympanic membranes are normal and external auditory canals are clear. Oropharynx with no redness, swelling, or masses, exudates, or evidence of obstruction, uvula midline. Mucous membranes moist. Neck: Trachea midline, no thyromegaly or masses palpated, and no cervical lymphadenopathy. Supple, full range of motion without nuchal rigidity, or vertebral point tenderness. No Meningismus. Cardiovascular: Regular rate and rhythm with a normal S1 and S2. No gallops, murmurs, or rubs. Normal PMI, no JVD. No pulse deficits. Respiratory: Lungs have equal breath sounds bilaterally, clear to auscultation and percussion. No rales, rhonchi or wheezes noted. No increased work of breathing, no retractions or nasal flaring. Back: No spinal tenderness. No costovertebral tenderness. Full range of motion. Skin: Warm, dry with normal turgor. Patients skin is pale MS/ Extremity: Pulses equal, no cyanosis. Neurovascular intact. Full, normal range of motion. Neuro: Awake and alert, GCS 15, oriented to person, place, time, and situation. Cranial nerves II-XII grossly intact. Motor strength 5/5 in all extremities. Sensory grossly intact. Cerebellar exam normal. Normal gait. 17:20 Constitutional: The patient appears obviously ill, uncomfortable. Vital Signs: 16:21 BP 127 / 83; Pulse 94; Resp 16; Temp 98.3(TE); Pulse Ox 96% on R/A; Weight 52.16 kg lk1 (R); Height 5 ft. 0 in. (152.40 cm) (R); Pain 7/10; 17:30 BP 118 / 85; Pulse 85; Resp 18; Pulse Ox 100% on R/A; hj 18:31 BP 124 / 85; Pulse 78; Resp 18; Pulse Ox 98% on R/A; hj 19:41 BP 125 / 82; Pulse 84; Resp 18; Pulse Ox 98% on R/A; tl2 22:31 BP 126 / 87; Pulse 99; Resp 18; Pulse Ox 100% on R/A; tl2 03/12 01:36 BP 121 / 78; Pulse 81; Resp 18; Pulse Ox 99% on R/A; tl2 03/11 16:21 Body Mass Index 22.46 (52.16 kg, 152.40 cm) lk1 MDM: 03/11 17:11 Patient medically screened. jr8 20:53 ED course: Patient has had two rounds of activase to see if we can get port to work. jr8 Still having decreased omar. We are attempting to replace needle to see if that works . 21:30 ED course: Second port access worked. [facility] 22:25 Data reviewed: vital signs, nurses notes, old medical records, lab test result(s), [facility] radiologic studies, CT scan, and as a result, I will admit patient. Data interpreted: Pulse oximetry: on room air is 98 %. Interpretation: normal. Counseling: I had a detailed discussion with the patient and/or guardian regarding: the historical points, exam findings, and any diagnostic results supporting the discharge/admit diagnosis, lab results, radiology results, the need for further work-up and treatment in the hospital. Response to treatment: the patient's symptoms have mildly improved after treatment. Physician consultation: Felix Weathers MD was called at 22:26, was contacted at 22:26, regarding admission, to the medical/surgical unit. consult, patient's condition, and will see patient. 03/11 17:14 Order name: Basic Metabolic Panel [facility] 03/11 17:14 Order name: CBC with Diff; Complete Time: 18:24 [facility] 03/11 17:14 Order name: Creatinine for Radiology; Complete Time: 18:55 [facility] 03/11 17:14 Order name: Hepatic Function; Complete Time: 18:55 [facility] 03/11 17:14 Order name: Lipase; Complete Time: 18:55 [facility] 03/11 17:14 Order name: Basic Metabolic Panel; Complete Time: 18:55 [facility] 03/11 17:17 Order name: CT Abd/Pelvis - W/Contrast; Complete Time: 22:16 [facility] 03/11 22:20 Order name: Urine Dipstick--Ancillary (enter results) [facility] 03/11 22:20 Order name: Urine --Ancillary (enter results) [facility] 03/11 22:20 Order name: Urine Culture [facility] 03/11 22:20 Order name: Urine Microscopic Only [facility] 03/11 17:14 Order name: Urine Test (obtain specimen); Complete Time: 22:10 [facility] 03/11 17:14 Order name: IV Saline Lock; Complete Time: 18:43 [facility] 03/11 17:14 Order name: Labs collected and sent; Complete Time: 18:43 [facility] 03/11 17:14 Order name: Urine Dipstick-Ancillary (obtain specimen); Complete Time: 22:10 jr8 Administered Medications: 19:30 Drug: Cathflo Activase 2 mg {Note: First dose was given at 1820 according to offgoing tl2 nurse. No order was placed in [employer]. This is the second dose of Cath omar .} Route: IV; Rate: bolus; Site: Port-a-cath; 20:30 Follow up: Response: No change in condition; IV Status: Completed infusion tl2 21:59 Drug: NS 0.9% 1000 ml Route: IV; Rate: 1000 ml; Site: Port-a-cath; tl2 03/12 01:33 Follow up: IV Status: Completed infusion; IV Intake: 1000ml tl2 03/11 22:00 Drug: Phenergan 25 mg Route: IVP; Site: Port-a-cath; tl2 23:00 Follow up: Response: No adverse reaction; Nausea is decreased tl2 22:00 Drug: morphine 4 mg Route: IVP; Site: Port-a-cath; tl2 23:00 Follow up: Response: No adverse reaction; Pain is decreased tl2 22:09 Drug: Potassium Chloride 20 mEq Route: IV; Rate: calculated rate; Site: Port-a-cath; tl2 03/12 00:00 Follow up: IV Status: Completed infusion tl2 03/11 23:03 Drug: Rocephin 1 grams Route: IV; Rate: calculated rate; Site: Port-a-cath; tl2 03/12 01:35 Follow up: IV Status: Completed infusion tl2 Disposition: 03/11/18 22:27 Hospitalization ordered by Felix Weathers for Observation. Preliminary diagnosis are Urinary tract infection, site not specified, Dehydration, Hypokalemia, Intractable vomiting, Duodenitis. - Bed requested for Telemetry/MedSurg (observation). - Status is Observation. tl2 - Condition is Stable. - Problem is new. - Symptoms have improved. UTI on Admission? Yes Addendum: 03/18/2018 11:31 Co-signature as Attending Physician, Tyler Harden MD I agree with the assessment and k dr plan of care. Signatures: Dispatcher [employer] EDAudrey Molina RN RN kl Rittger, Kevin, MD MD kdr Vern, Katherine, FLEXO FOLDER GLUER OPERATOR FLEXO FOLDER GLUER OPERATOR Jamaal Ruffin PA PA jr8 Tony Melo, RN RN Sandra Barboza, RN RN lk1 Frida Hall, RN RN tl2 Corrections: (The following items were deleted from the chart) 03/11 21:31 21:30 ED course: Second access worked. jr8 jr8 03/12 00:33 03/11 22:27 Hospitalization Ordered by Felix Weathers MD for Observation. Preliminary kl diagnosis is Urinary tract infection, site not specified; Dehydration; Hypokalemia; Intractable vomiting; Duodenitis. Bed requested for Telemetry/MedSurg (observation). Status is Observation. Condition is Stable. Problem is new. Symptoms have improved. UTI on Admission? Yes. jr8 03/12 01:37 00:33 03/11/2018 22:27 Hospitalization Ordered by Felix Weathers MD for Observation. tl2 Preliminary diagnosis is Urinary tract infection, site not specified; Dehydration; Hypokalemia; Intractable vomiting; Duodenitis. Bed requested for Telemetry/MedSurg (observation). Status is Observation. Condition is Stable. Problem is new. Symptoms have improved. UTI on Admission? Yes. kl
--- NOTE | 2018-03-11 22:28 | ER ---
Nurse's Notes [facility] Name: Va Cardoso Age: 32 yrs Sex: Female : 1985 Arrival Date: 03/11/2018 Time: 16:01 Bed 14 Private MD: None, None Diagnosis: Urinary tract infection, site not specified;Dehydration;Hypokalemia;Intractable vomiting;Duodenitis Presentation: 03/11 16:19 Presenting complaint: Patient states: "I was here a few nights ago and they gave me lk1 different meds, but I have gotten worse.". Transition of care: patient was not received from another setting of care. Onset of symptoms is unknown. Risk Assessment: Do you want to hurt yourself or someone else? Patient reports no desire to harm self or others. Initial Sepsis Screen: Does the patient meet any 2 criteria? No. Patient's initial sepsis screen is negative. Does the patient have a suspected source of infection? No. Patient's initial sepsis screen is negative. Care prior to arrival: None. 16:19 Method Of Arrival: Wheelchair [facility] 16:19 Acuity: IGNACIO 3 lk1 Triage Assessment: 16:26 General: Appears in no apparent distress. uncomfortable, Behavior is calm, cooperative, hj appropriate for age. Pain: Complains of pain in abdomen. EENT: No signs and/or symptoms were reported regarding the EENT system. Neuro: Level of Consciousness is awake, alert, obeys commands, Oriented to person, place, time, situation, Appropriate for age. Cardiovascular: Capillary refill < 3 seconds Patient's skin is warm and dry. Respiratory: Airway is patent Respiratory effort is even, unlabored, Respiratory pattern is regular, symmetrical. GI: Reports lower abdominal pain, upper abdominal pain, nausea, vomiting. : No signs and/or symptoms were reported regarding the genitourinary system. Derm: No signs and/or symptoms reported regarding the dermatologic system. Musculoskeletal: No signs and/or symptoms reported regarding the musculoskeletal system. 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 - Irregular menses lk1 Historical: - Allergies: 16:21 Benadryl (MAKES ME HYPER A CHILD); lk1 16:21 Remicade (Anaphylaxis); lk1 - Home Meds: 16:21 Ambien 10 mg Oral tab 1 tab once daily [Active]; amitriptyline 10 mg Oral tab 2 tabs hj nightly [Active]; Phenergan 25 mg Rectal supp 1 suppository [Active]; zubsolv [Active]; Vitamin B-12 1,000 mcg/mL injection soln 0.1 mL q 3 days [Active]; tizanidine 4 mg Oral tab 1 tab every 6 hours [Active]; promethazine 25 mg Oral tab every 6 hours [Active]; pantoprazole 20 mg Oral TbEC 1 tab once daily [Active]; magnesium oxide 400 mg Oral tab twice a day [Active]; gabapentin 800 mg Oral tab 1 tab 3 times per day [Active]; fentanyl 75 mcg/hr Topical pt72 1 patch every 72 hours [Active]; clonazepam 0.5 mg Oral tab 1 tab nightly [Active]; cholecalciferol (vitamin D3) 50,000 unit Oral cap WEEKLY [Active]; Bentyl 10 mg Oral cap 1 cap 3 times per day [Active]; baclofen 10 mg Oral tab 1 tab every 6 hours [Active]; Meredith Thyroid 30 mg Oral tab daily [Active]; - PMHx: 16:21 Anemia; B12 deficiency; bowel obstruction; Chronic pain; Crohn's; fatty liver; lk1 Fibromyalgia; HYPOGLYCEMIA; Hypothyroidism; Osteoporosis; Rheumatoid Arthritis; ruptured small bowel; scoliosis; Seizures; uterine cysts; - PSHx: 16:21 Bowel resection; port a cath placement; stricture plasty; ruptured bowel; ; lk1 Cholecystectomy; Tubal ligation; - Immunization history:: Adult Immunizations up to date. - Social history:: Smoking status: Patient/guardian denies using tobacco. - Ebola Screening: : No symptoms or risks identified at this time. Screenin:26 Abuse screen: Denies threats or abuse. Denies injuries from another. Nutritional hj screening: No deficits noted. Tuberculosis screening: No symptoms or risk factors identified. Fall Risk None identified. Assessment: 16:27 GI: Bowel sounds present X 4 quads. Abdomen is tender to palpation. hj 16:30 Reassessment: Patient and/or family updated on plan of care and expected duration. Pain hj level reassessed. Patient is alert, oriented x 3, equal unlabored respirations, skin warm/dry/pink. in pain provider informed;. 16:45 Reassessment: accessed the port on R upper chest; able to draw blood and sent the lab hj orders;. 17:30 Reassessment: unable to flush with NS 10 mls; provider informed and requested for cath hj omar-. 18:13 Reassessment: administered cath omar- Activase 2mg; to wait for 30 mins to flush NS and hj draw blood;. 18:30 Reassessment: Patient and/or family updated on plan of care and expected duration. Pain hj level reassessed. Patient is alert, oriented x 3, equal unlabored respirations, skin warm/dry/pink. to flush line in 1850;. 18:45 Reassessment: pt wheeled to CT;. hj 19:31 Reassessment: First dose of cath omar was given at 1819 according to offgoing nurse, tl2 Port continued to be difficult to push. Second dose of cath oamr administered now. Will remove and flush port at 1999. CT and medications held until port can flush easily. Pt verbalized understanding. 19:41 General: Appears in no apparent distress. uncomfortable, Behavior is calm, cooperative, tl2 appropriate for age. Pain: Complains of pain in abdomen. Neuro: Level of Consciousness is awake, alert, obeys commands, Oriented to person, place, time, situation. Cardiovascular: Denies chest pain. Respiratory: Airway is patent Respiratory effort is even, unlabored, Respiratory pattern is regular, symmetrical. GI: Bowel sounds present X 4 quads. Abdomen is tender to palpation X 4 quads. : No signs and/or symptoms were reported regarding the genitourinary system. Derm: Skin is pale. 21:35 Reassessment: Port continued to be difficult to flush after second dose of cath omar. tl2 Decided to remove access and access port again with new needle. This access pulled blood and flushed easily. PA notified, Meds administered and CT called for CT scan. 23:00 Reassessment: Patient appears in no apparent distress at this time. Patient and/or tl2 family updated on plan of care and expected duration. Pain level reassessed. Patient is alert, oriented x 3, equal unlabored respirations, skin warm/dry/pink. 03/12 01:36 Reassessment: Patient appears in no apparent distress at this time. Patient and/or tl2 family updated on plan of care and expected duration. Pain level reassessed. Patient is alert, oriented x 3, equal unlabored respirations, skin warm/dry/pink. Pt stable and ready for transport to floor. Vital Signs: 03/11 16:21 BP 127 / 83; Pulse 94; Resp 16; Temp 98.3(TE); Pulse Ox 96% on R/A; Weight 52.16 kg lk1 (R); Height 5 ft. 0 in. (152.40 cm) (R); Pain 7/10; 17:30 BP 118 / 85; Pulse 85; Resp 18; Pulse Ox 100% on R/A; hj 18:31 BP 124 / 85; Pulse 78; Resp 18; Pulse Ox 98% on R/A; hj 19:41 BP 125 / 82; Pulse 84; Resp 18; Pulse Ox 98% on R/A; tl2 22:31 BP 126 / 87; Pulse 99; Resp 18; Pulse Ox 100% on R/A; 2 03/12 01:36 BP 121 / 78; Pulse 81; Resp 18; Pulse Ox 99% on R/A; 2 03/11 16:21 Body Mass Index 22.46 (52.16 kg, 152.40 cm) [facility] ED Course: 03/11 16:01 Patient arrived in ED. mr 16:01 None, None is Private Physician. mr 16:20 Triage completed. 1 16:23 Arm band placed on right wrist. [facility] 16:26 Tony Melo, RN is Primary Nurse. 16:28 Patient has correct armband on for positive identification. Placed in gown. Bed in low hj position. Call light in reach. Side rails up X 1. 17:10 Jamaal Yuen PA is PHCP. [facility] 17:10 Tyler Harden MD is Attending Physician. [facility] 17:30 Accessed Port-a-Cath. using accessed w/ # 20 Vitale needle, ,sterile technique, per hospital protocol. Site reddened. Good blood return. Difficult to flush. 18:[address] 2 19:15 Radiology exam delayed due to PORT IS NOT ACCESSED AT THIS TIME. 2 20:22 Radiology exam delayed due to Port is still not able to flush at this time, Nurse will vm2 call when pt is ready. 21:11 Radiology exam delayed due to IV insertion attempt and/or patient not having nj appropriate IV at this time. no access to port at this time per Frida Hall RN. 21:35 Patient moved to MT. nj 21:35 IV discontinued, intact, bleeding controlled, No redness/swelling at site. Pressure tl2 dressing applied. Accessed Port-a-Cath. using accessed w/ # 20 Vitale needle, ,sterile technique, per hospital protocol. Clean \\T\\ dry. Dressing intact. Site reddened. Good blood return. Flushes easily. 21:53 CT Abd/Pelvis - W/Contrast In Process Unspecified. EDMS 21:53 CT completed. Patient tolerated procedure well. Patient moved back from MT. 2 22:26 Felix Weathers MD is Hospitalizing Provider. 8 03/12 01:22 No provider procedures requiring assistance completed. tl2 Administered Medications: 03/11 19:30 Drug: Cathflo Activase 2 mg {Note: First dose was given at 1820 according to offgoing tl2 nurse. No order was placed in [employer]. This is the second dose of Cath omar .} Route: IV; Rate: bolus; Site: Port-a-cath; 20:30 Follow up: Response: No change in condition; IV Status: Completed infusion tl2 21:59 Drug: NS 0.9% 1000 ml Route: IV; Rate: 1000 ml; Site: Port-a-cath; tl2 03/12 01:33 Follow up: IV Status: Completed infusion; IV Intake: 1000ml tl2 03/11 22:00 Drug: Phenergan 25 mg Route: IVP; Site: Port-a-cath; tl2 23:00 Follow up: Response: No adverse reaction; Nausea is decreased tl2 22:00 Drug: morphine 4 mg Route: IVP; Site: Port-a-cath; tl2 23:00 Follow up: Response: No adverse reaction; Pain is decreased tl2 22:09 Drug: Potassium Chloride 20 mEq Route: IV; Rate: calculated rate; Site: Port-a-cath; tl2 03/12 00:00 Follow up: IV Status: Completed infusion tl2 03/11 23:03 Drug: Rocephin 1 grams Route: IV; Rate: calculated rate; Site: Port-a-cath; 2 03/12 01:35 Follow up: IV Status: Completed infusion tl2 Intake: 01:33 IV: 1000ml; Total: 1000ml. tl2 Outcome: 03/11 22:27 Decision to Hospitalize by Provider. jr8 03/12 01:14 Instructed on the need for admit. tl2 01:21 Admitted to Tele accompanied by tech, via stretcher, room 202, with chart, Report tl2 called to Sudheer Gaines RN 01:21 Condition: stable 01:37 Patient left the ED. tl2 Signatures: Dispatcher [employer] Alisha Pak, Jamaal, NITZA GODDARD jr8 Tony Melo, RN RN Sandra Barboza RN RN lk1 Frida Hall RN RN tl2 Sathish Orozco [facility]
[2018-03-11 22:39] LABS: Urine Blood TRACE (NEG); Urine Glucose NEGATIVE (NEG); Urine Protein TRACE (NEG)
[2018-03-11] MEDS ORDERED: CEFTRIAXONE/SWI 1gm 1 GM/10 ML SYR ONE (22:55)
--- NOTE | 2018-03-11 22:59 | P.HP ---
Certification for Inpatient Patient admitted to: Observation With expected LOS: <2 Midnights Practitioner: I am a practitioner with admitting privileges, knowledge of patient current condition, hospital course, and medical plan of care. Services: Services provided to patient in accordance with Admission requirements found in Title 42 Section 412.3 of the Code of Federal Regulations Patient History Date of Service: 03/11/18 Reason for admission: duodenitis History of Present Illness: Ms Cardoso is a 32 years old woman with history of Crohn's disease, s/p several abdominal surgeries, including bowel resection and hernia repair, who start about 3 days ago with abdominal pain. The pain is localized in epigastric area, radiated to the back. It is associated with nausea and vomiting. She is unable to keep food down. She states that had fever at home 101.1 3 days ago, but not today. She came to ED 2 days ago because similar symptoms. CT abd showed duodenitis. She was discharged home with symptomatic medication. Since her symptoms did not improve, she came back again today. WBC WNL, no fever, UA abnormal consustent with UTI, she is hypokalemic. potassium level 2.8. Allergies diphenhydramine [From Benadryl] Adverse Reaction (Verified 08/04/17 20:32) hyperactive infliximab [From Remicade] Adverse Reaction (Verified 08/04/17 20:32) Anaphylaxis Home medications list reviewed: Yes Home Medications: Zolpidem Tartrate [Ambien*] 10 mg PO BEDTIME 06/03/16 Buprenorphine HCl/Naloxone HCl [Zubsolv 5.7-1.4 mg Tablet Sl] 1 each SL BID Docusate/Senna [Senokot-S*] 1 tab PO DAILY #30 tab 06/05/17 Simethicone [Mylicon*] 80 mg PO Q6H PRN #30 tab 06/05/17 Dicyclomine [Bentyl*] 10 mg PO TID #90 cap 06/12/17 Pantoprazole [Protonix Tab*] 40 mg PO BID #60 tab 06/12/17 Promethazine Tab [Phenergan*] 25 mg PO Q6HP PRN #60 tab 06/12/17 Sucralfate [Carafate*] 10 ml FT ACHS #300 ucup 06/12/17 azaTHIOprine [Azathioprine] 50 mg PO DAILY #30 tablet 06/12/17 Cyanocobalamin [Vitamin B-12*] 1 ml IM Q72H 08/04/17 Gabapentin 600 mg PO TID 08/04/17 azaTHIOprine [Imuran*] 50 mg PO DAILY 08/04/17 predniSONE [Prednisone] 20 mg PO BID 08/04/17 - Past Medical/Surgical History Diabetic: No -: Fibromyalgia -: Scoliosis stage 4 -: The Crohn's exacerbation -: Hypoglycemia -: Hypothyroidism -: Anemia; B12 Deficiency -: RA -: Osteoarthritis -: Herniated disc -: Seizures -: neuropathy -: Bilateral Tubal ligation -: X3 -: Lumbar Fusion -: Bowel Resection X2 -: Appendectomy - Family History Family History: Reviewed- Non-Contributory - Social History Smoking Status: Never smoker Alcohol use: No CD- Drugs: No Caffeine use: Yes Place of Residence: Home Review of Systems 10-point ROS is otherwise unremarkable Physical Examination - Physical Exam General: Alert, In no apparent distress HEENT: Atraumatic, PERRLA, Mucous membr. moist/pink, EOMI, Sclerae nonicteric Neck: Supple, 2+ carotid pulse no bruit, No LAD, Without JVD or thyroid abnormality Respiratory: Clear to auscultation bilaterally, Normal air movement Cardiovascular: Regular rate/rhythm, Normal S1 S2 Gastrointestinal: Hypoactive, Non-distended, No rebound, No guarding, Tenderness (epigastric area) Musculoskeletal: No tenderness Integumentary: No rashes Neurological: Normal speech, Normal strength at 5/5 x4 extr, Normal tone, Normal affect Lymphatics: No axilla or inguinal lymphadenopathy - Studies Laboratory Data (last 24 hrs) 03/11/18 18:20: Creatinine 0.40 L 03/11/18 18:20: Sodium 138, Potassium 2.8 L*, BUN 9, Creatinine 0.40 L, Glucose 73 L, Total Bilirubin 0.4, AST 14 L, ALT 16, Alkaline Phosphatase 79, Lipase 80 03/11/18 17:45: WBC 8.3, Hgb 10.6 L, Hct 32.2 L, Plt Count 247 D Assessment and Plan - Problems (Diagnosis) (1) Abdominal pain Onset Date: 07/08/16 Current Visit: No Status: Acute Qualifiers: Abdominal location: generalized Qualified Code(s): R10.84 - Generalized abdominal pain (2) Exacerbation of Crohn's disease Onset Date: 06/11/17 Current Visit: No Status: Resolved Qualifiers: Digestive disease complication type: without complication Qualified Code(s) : K50.90 - Crohn's disease, unspecified, without complications (3) Hypokalemia Onset Date: 06/02/17 Current Visit: No Status: Resolved (4) Intractable vomiting Onset Date: 06/11/17 Current Visit: No Status: Resolved Qualifiers: Vomiting type: cyclical vomiting Nausea presence: with nausea Qualified Code(s): G43.A1 - Cyclical vomiting, intractable - Plan The patient will be admitted to the hospital due to crohn's disease flare up. CT abd/pelvis today remarkable for peptical inflammation, similar to previous CT done 2 days ago. Will order IV steroids, empiric antibiotics treatment, also covering UTI. Consult GI specialist for evaluation and recommendations. - Advance Directives Does patient have a Living Will: No Does patient have a Durable POA for Healthcare: No - Code Status/Comfort Care Code Status Assessed: Yes Code Status: Full Code
[2018-03-11 23:55] LABS: Urine Bacteria LOADED /HPF (<20); Urine Culture Reflex Order NOT NEEDED; Urine RBC <5 /HPF (NONE SEEN)
[2018-03-12] MEDS ORDERED: ACETAMINOPHEN 500 MG TAB PO PRN (02:13)
[2018-03-12] MEDS ORDERED: Morphine 2 MG/2 ML SYR IV PRN (02:13)
[2018-03-12] MEDS: METRONIDAZOLE 500mg IVPB 500 MG/100 ML BAG IV SCH ×3 (02:37→16:57)
[2018-03-12] MEDS: NA CHLORIDE 0.9% 1,000 ML IV SCH ×3 (02:37→20:23)
[2018-03-12] MEDS: METHYLPREDNISOLONE 125 MG INJ IV SCH ×3 (02:42→17:55)
[2018-03-12] MEDS: ONDANSETRON 4 MG/2 ML VIAL IV PRN ×2 (03:01→16:54)
[2018-03-12] MEDS: MORPHINE 2 MG/ML SYR IV PRN ×4 (03:01→20:22)
[2018-03-12 06:02] LABS: Absolute Lymphocytes (CBC) 0.6 K/uL (0.7-4.9); Absolute Monocytes 0.2 K/uL (0.1-1.3); Absolute Neutrophil 6.8 K/uL (1.8-8.0); Basophils % 0.3 % (0-1.3); Eosinophils % 1.1 % (0-4.4); Hematocrit 32.3 % (36.0-45.0); Lymphocytes % 8.2 % (15.3-44.8); MCV 85.2 fL (80-100); MPV 7.2 fL (7.6-11.3); Monocytes % 2.4 % (3.3-12.3)
[2018-03-12 06:32] LABS: BUN Blood Urea Nitrogen 6 mg/dL (7-18); Bicarbonate 26 mmol/L (21-32); Glucose Level 168 mg/dL (74-106); Sodium Level 140 mmol/L (136-145)
[2018-03-12 06:36] LABS: Potassium 2.7 mmol/L (3.5-5.1)
[2018-03-12] MEDS: KCL 20 MEQ/100 mL IVPB 20 MEQ/100 ML BAG IV SCH ×3 (06:50→14:24)
[2018-03-12] MEDS: CIPROFLOXACIN 400mg IV 400 MG/200 ML BAG IV SCH ×2 (08:20→20:23)
[2018-03-12] MEDS: PROMETHAZINE 25 MG/ML VIAL IV PRN ×2 (08:20→20:33)
[2018-03-12 08:30] LABS: Urine White Blood Cell Casts OK
[2018-03-12 08:31] LABS: Blood Morphology Comment NOT SEEN (NOT SEEN); Platelet Estimate ADEQ
[2018-03-12] MEDS ORDERED: SIMETHICONE 80 MG TAB PO PRN (10:28)
[2018-03-12] MEDS ORDERED: HOME MED 1 EA UNK (Metoclopramide Hcl [Reglan] 10 MG) PO SCH (10:30)
[2018-03-12] MEDS ORDERED: SUCRALFATE 1GM/10ML UCUP PO SCH (11:00)
[2018-03-12] MEDS: METOCLOPRAMIDE 5 MG TAB PO SCH ×4 (11:10→22:44)
[2018-03-12] MEDS: SUCRALFATE 1 GM TABLET PO SCH ×2 (11:11→20:24)
[2018-03-12] MEDS: TIZANIDINE 4 MG TABLET PO PRN ×3 (11:17→22:44)
--- NOTE | 2018-03-12 12:15 | PN ---
Date of Progress Note: 03/12/2018 Subjective: The patient is seen and examined. Chart reviewed and case discussed with RN. The patie nt states her pain is still present. No further nausea or vomiting. Tolerated the part of her diet. Review of Systems: Negative except as above. Medications: Reviewed. Objective: Vital Signs: Temperature 98, heart rate 75, blood pressure 131/71, respirations 18, O2 9 8% on room air. General: Awake, alert, oriented x3. Some mild distress, ill-appearing female. CV: S1, S2. No murmurs. Regular rate and rhythm. Peripheral pulses present. Respiratory: Clear to auscultation bilaterally. No wheezing. No stridor. No use of accessory musc les. Gastrointestinal: Abdomen is soft. Tenderness to palpation. No rebound or guarding. No rigidity. Nondistended. Positive bowel sounds. Extremities: No clubbing, cyanosis, edema. Neuro: Nonfocal. Laboratory Data: Sodium 140, potassium 2.7, chloride 103, CO2 26, BUN 6, creatinine 0.4, glucose 168 , calcium 7.8. WBC 7.8, H and H 10.6 and 32.3, platelets 301, neutrophils 88%. Urine culture growin g 3+ gram-negative rods. Assessment And Plan: A 32-year-old female with: 1.Acute Crohn exacerbation. We will continue with IV steroids, pain control. 2.Generalized abdominal pain secondary to above. 3.Intractable nausea and vomiting, cyclical. We will continue with IV antiemetics. 4.Hypokalemia. We will replace and monitor. 5.Fibromyalgia. 6.Scoliosis, stage IV. 7.Hypothyroidism. Continue [place] Thyroid. 8.B12 deficiency anemia. We will continue vitamins. 9.History of rheumatoid arthritis. 10.History of seizure disorder. 11.Neuropathy. 12.Urinary tract infection, acute cystitis without hematuria. We will follow up with ID and sensiti vities. Currently growing gram-negative rods. Continue antibiotics. Plan: Follow up with GI recommendations. Continue antibiotics. Advance diet as tolerated. SA/MODL Voice ID: [id number] Report ID: [id number]
[2018-03-12] MEDS: GABAPENTIN 400 MG CAP PO SCH ×2 (14:24→20:24)
[2018-03-12] MEDS ORDERED: MINERAL OIL ENEMA 135 ML BTL PR SCH (18:00)
[2018-03-12] MEDS: WATER FOR INJ,STERILE 10 ML IV SCH (19:00)
[2018-03-12] MEDS: ZOLPIDEM TARTRATE 10 MG TABLET PO SCH (20:24)
[2018-03-12] MEDS: [UNRECOGNIZED DRUG - OTHER] SL SCH (21:00)
[2018-03-12] MEDS: BUPRENORPHINE HCL SL SCH (21:00)
[2018-03-12] MEDS: NALOXONE HCL SL SCH (21:00)
[2018-03-12] MEDS ORDERED: SUCRALFATE 1 GM TABLET PO SCH (21:00)
[2018-03-13] MEDS: METRONIDAZOLE 500mg IVPB 500 MG/100 ML BAG IV SCH ×3 (00:04→16:52)
[2018-03-13] MEDS: METHYLPREDNISOLONE 125 MG INJ IV SCH ×3 (00:04→21:22)
[2018-03-13] MEDS ORDERED: POTASSIUM 25 MEQ EFFERV TAB PO ONE (01:14)
[2018-03-13] MEDS ORDERED: KCL 20 MEQ/100 mL IVPB 20 MEQ/100 ML BAG IV SCH ×2 (02:00→07:00)
[2018-03-13] MEDS: MORPHINE 2 MG/ML SYR IV PRN ×4 (03:30→23:30)
[2018-03-13 05:24] LABS: Absolute Lymphocytes (CBC) 0.7 K/uL (0.7-4.9); Absolute Monocytes 0.2 K/uL (0.1-1.3); Absolute Neutrophil 9.7 K/uL (1.8-8.0); Basophils % 0.1 % (0-1.3); Hematocrit 33.5 % (36.0-45.0); MCH 29.1 pg (27.0-35.0); MCV 84.2 fL (80-100); MPV 7.5 fL (7.6-11.3); Monocytes % 1.7 % (3.3-12.3); RBC Red Blood Cell Count 3.99 M/uL (3.86-4.86)
[2018-03-13] MEDS: THYROID 30 MG TAB PO SCH (05:36)
[2018-03-13] MEDS: SUCRALFATE 1 GM TABLET PO SCH ×2 (05:37→21:21)
[2018-03-13] MEDS: TIZANIDINE 4 MG TABLET PO PRN ×3 (05:37→17:21)
[2018-03-13] MEDS: PROMETHAZINE 25 MG/ML VIAL IV PRN ×4 (05:38→20:39)
[2018-03-13 05:43] LABS: ALT/SGPT 13 U/L (12-78); AST/SGOT 10 U/L (15-37); Albumin 3.3 g/dL (3.4-5.0); Alkaline Phosphatase 72 U/L (45-117); BUN Blood Urea Nitrogen 5 mg/dL (7-18); Bicarbonate 25 mmol/L (21-32); Bilirubin Total 0.3 mg/dL (0.2-1.0); Glucose Level 155 mg/dL (74-106); Magnesium 1.6 mg/dL (1.8-2.4); Potassium 3.7 mmol/L (3.5-5.1); Protein, Total 6.3 g/dL (6.4-8.2); Sodium Level 143 mmol/L (136-145)
[2018-03-13] MEDS ORDERED: MAGNESIUM SULFATE 1 gm IVPB 1 GM/100 ML BAG IV ONE (06:37)
[2018-03-13] MEDS: ONDANSETRON 4 MG/2 ML VIAL IV PRN ×2 (08:38→17:21)
[2018-03-13] MEDS: GABAPENTIN 400 MG CAP PO SCH ×3 (08:39→21:21)
[2018-03-13] MEDS: CIPROFLOXACIN 400mg IV 400 MG/200 ML BAG IV SCH ×2 (08:39→21:22)
[2018-03-13] MEDS: VITAMIN D 1000 UNIT TAB PO SCH (08:40)
[2018-03-13] MEDS: NA CHLORIDE 0.9% 1,000 ML IV SCH ×3 (08:58→21:20)
[2018-03-13] MEDS: NALOXONE HCL SL SCH ×2 (09:00→21:00)
[2018-03-13] MEDS: BUPRENORPHINE HCL SL SCH ×2 (09:00→21:00)
[2018-03-13] MEDS: [UNRECOGNIZED DRUG - OTHER] SL SCH ×2 (09:00→21:00)
[2018-03-13] MEDS: METOCLOPRAMIDE 5 MG TAB PO SCH ×4 (09:45→21:21)
--- NOTE | 2018-03-13 12:46 | PN ---
Date of Progress Note: 03/13/2018 Subjective: The patient is seen and examined. Chart reviewed and case discussed with RN and Dr. Robbie osullivan. The patient continues to have abdominal pain, requesting more pain medications. She does hav e a history of pain seeking behavior. Currently on buprenorphine. Review of Systems: Negative except as above. Medications: Reviewed. Physical Examination: Vital Signs: Temperature 98, heart rate 69, blood pressure 94/52, respirations 17, O2 saturation 95% on room air. General: Awake, alert, oriented x3, in some mild distress. CV: S1, S2. No murmurs. Regular rate and rhythm. Peripheral pulses present. Respiratory: Clear to auscultation bilaterally. No wheezing. Gastrointestinal: Abdomen is soft. Mild tenderness to palpation in the epigastric region. No rebou nd, guarding, or rigidity. Bowel sounds are positive. Extremities: No clubbing, cyanosis, or edema. Neurologic: Nonfocal. Laboratory Data: Sodium 143, potassium 3.7, chloride 111, CO2 25, BUN 5, creatinine 0.5, glucose 155 , calcium is 8.4, magnesium 1.6. WBC 10.7, H and H 11.6 and 33.5, platelets 343, neutrophils 91%. U rine culture shows Klebsiella oxytoca. Assessment And Plan: A 32-year-old female with: 1.Abdominal pain, generalized secondary to Crohn's. 2.Acute exacerbation of Crohn disease. 3.Hypokalemia. We will replace and monitor. 4.Hypomagnesemia. We will replace and monitor. 5.Intractable nausea and vomiting. We will continue with antiemetics. 6.Pain seeking behavior. 7.Gastrointestinal and deep venous thrombosis prophylaxis with PPI and Lovenox. Plan: We will adjust pain medications. Case discussed with GI, Dr. Howard. No interventions ana mmended at this time. We will wean steroids. SA/MODL Voice ID: [id number] Report ID: [id number]
[2018-03-13] MEDS: WATER FOR INJ,STERILE 10 ML IV SCH (17:34)
[2018-03-13] MEDS: POLYETHYL GLY 3350 17 GM/DOSE PO PRN (18:38)
[2018-03-13] MEDS: ZOLPIDEM TARTRATE 10 MG TABLET PO SCH (21:29)
[2018-03-14] MEDS: METRONIDAZOLE 500mg IVPB 500 MG/100 ML BAG IV SCH ×3 (00:37→17:28)
[2018-03-14] MEDS: TIZANIDINE 4 MG TABLET PO PRN ×3 (00:41→19:17)
[2018-03-14] MEDS: PROMETHAZINE 25 MG/ML VIAL IV PRN ×5 (00:41→23:44)
[2018-03-14] MEDS: NA CHLORIDE 0.9% 1,000 ML IV SCH ×3 (04:13→17:28)
[2018-03-14] MEDS: THYROID 30 MG TAB PO SCH (05:30)
[2018-03-14] MEDS: MORPHINE 2 MG/ML SYR IV PRN ×4 (05:31→23:45)
[2018-03-14] MEDS: SUCRALFATE 1 GM TABLET PO SCH ×2 (05:31→20:43)
[2018-03-14 05:37] LABS: Absolute Lymphocytes (CBC) 0.7 K/uL (0.7-4.9); Absolute Monocytes 0.2 K/uL (0.1-1.3); Absolute Neutrophil 10.1 K/uL (1.8-8.0); Basophils % 0.1 % (0-1.3); Hematocrit 31.6 % (36.0-45.0); Lymphocytes % 6.4 % (15.3-44.8); MCH 28.6 pg (27.0-35.0); MCV 86.2 fL (80-100); MPV 7.8 fL (7.6-11.3); RBC Red Blood Cell Count 3.67 M/uL (3.86-4.86)
[2018-03-14 05:46] LABS: ALT/SGPT 13 U/L (12-78); AST/SGOT 9 U/L (15-37); Albumin 3.1 g/dL (3.4-5.0); Alkaline Phosphatase 69 U/L (45-117); BUN Blood Urea Nitrogen 5 mg/dL (7-18); Bicarbonate 26 mmol/L (21-32); Bilirubin Total 0.3 mg/dL (0.2-1.0); Glucose Level 174 mg/dL (74-106); Magnesium 1.8 mg/dL (1.8-2.4); Potassium 3.1 mmol/L (3.5-5.1); Protein, Total 5.9 g/dL (6.4-8.2); Sodium Level 144 mmol/L (136-145)
[2018-03-14] MEDS ORDERED: POTASSIUM CL SA 10 MEQ TAB PO ONE (06:30)
[2018-03-14] MEDS ORDERED: MAGNESIUM SULFATE 1 gm IVPB 1 GM/100 ML BAG IV ONE (06:30)
[2018-03-14 08:36] LABS: Blood Morphology Comment NOT SEEN (NOT SEEN); Platelet Estimate ADEQ
[2018-03-14] MEDS: [UNRECOGNIZED DRUG - OTHER] SL SCH ×2 (09:00→21:00)
[2018-03-14] MEDS: NALOXONE HCL SL SCH ×2 (09:00→21:00)
[2018-03-14] MEDS: BUPRENORPHINE HCL SL SCH ×2 (09:00→21:00)
[2018-03-14] MEDS: METOCLOPRAMIDE 5 MG TAB PO SCH ×4 (09:26→20:43)
[2018-03-14] MEDS: GABAPENTIN 400 MG CAP PO SCH ×3 (09:26→20:42)
[2018-03-14] MEDS: CIPROFLOXACIN 400mg IV 400 MG/200 ML BAG IV SCH ×2 (09:26→20:40)
[2018-03-14] MEDS: VITAMIN D 1000 UNIT TAB PO SCH (09:26)
[2018-03-14] MEDS: METHYLPREDNISOLONE 125 MG INJ IV SCH ×2 (09:27→20:42)
[2018-03-14] MEDS: ONDANSETRON 4 MG/2 ML VIAL IV PRN ×2 (09:30→19:26)
[2018-03-14] MEDS: POLYETHYL GLY 3350 17 GM/DOSE PO PRN (12:29)
--- NOTE | 2018-03-14 13:35 | PN ---
Date of Progress Note: 03/14/2018 History Of Present Illness: Patient seen and examined, chart reviewed, and case discussed with RN. The patient states her pain is improving, wants to eat solid food. Review of Systems: Negative except as above. Medications: Reviewed. Physical Examination: Vital Signs: Temperature 97.8, heart rate 75, blood pressure 118/76, respirations 12, O2 98% on room air. General: Awake, alert, oriented x3. Not in any acute distress. CV: S1, S2. No murmurs. Regular rate and rhythm. Peripheral pulses present. Respiratory: Clear to auscultation bilaterally. No wheezing. Gastrointestinal: Abdomen is soft. Mild tenderness to palpation. Nondistended. Positive bowel elissa nds. No guarding, no rigidity. Extremities: No clubbing, cyanosis, edema. Neurologic: Nonfocal. Laboratory Data: Sodium 144, potassium 3.1, chloride 110, CO2 26, BUN 5, creatinine 0.6, glucose 174 , calcium 8, magnesium 1.8. WBC 11.1, H and H 10.5 and 31.6, platelets 316, neutrophils 91%. Urine culture growing Klebsiella oxytoca. Assessment: A 32-year-old female with: 1.Abdominal pain secondary to Crohn disease. Pain is generalized, improving. We will adjust pain m edications. 2.Acute exacerbation of Crohn's. Appreciate GI input. Spoke with Dr. Howard. Recommend steroids and antibiotics. We will wean steroids. 3.Steroid-induced leukocytosis. 4.Hypokalemia. We will replace and monitor. 5.Hypomagnesemia. Correct it. 6.Intractable nausea and vomiting, improved. The patient tolerating clear liquid diet. We will adv ance to GI soft. 7.Pain seeking behavior. 8.Gastrointestinal and deep venous thrombosis prophylaxis with PPI and SCDs. Encourage ambulation. Plan: Wean steroids. Advanced diet. Likely discharge in the next 24-48 hours. /PATRICIA Voice ID: [id number] Report ID: [id number]
[2018-03-14] MEDS: ENOXAPARIN 40 MG/0.4 ML SQ SCH (17:00)
[2018-03-14] MEDS: WATER FOR INJ,STERILE 10 ML IV SCH (19:00)
[2018-03-14] MEDS: MINERAL OIL ENEMA 135 ML BTL PR PRN (19:11)
[2018-03-14] MEDS: ZOLPIDEM TARTRATE 10 MG TABLET PO SCH (23:44)
[2018-03-15] MEDS: NA CHLORIDE 0.9% 1,000 ML IV SCH ×3 (00:13→20:54)
[2018-03-15] MEDS: METRONIDAZOLE 500mg IVPB 500 MG/100 ML BAG IV SCH ×3 (01:00→17:21)
[2018-03-15] MEDS: ONDANSETRON 4 MG/2 ML VIAL IV PRN (03:20)
[2018-03-15] MEDS: TIZANIDINE 4 MG TABLET PO PRN ×3 (04:08→20:59)
[2018-03-15 04:40] LABS: Absolute Lymphocytes (CBC) 0.9 K/uL (0.7-4.9); Absolute Monocytes 0.3 K/uL (0.1-1.3); Absolute Neutrophil 8.1 K/uL (1.8-8.0); Basophils % 0.1 % (0-1.3); Eosinophils % 0.1 % (0-4.4); Hematocrit 35.4 % (36.0-45.0); Lymphocytes % 10.1 % (15.3-44.8); MCH 28.3 pg (27.0-35.0); MCV 86.2 fL (80-100); MPV 7.7 fL (7.6-11.3); Monocytes % 3.1 % (3.3-12.3)
[2018-03-15 04:54] LABS: ALT/SGPT 12 U/L (12-78); AST/SGOT 7 U/L (15-37); Albumin 3.3 g/dL (3.4-5.0); Alkaline Phosphatase 72 U/L (45-117); BUN Blood Urea Nitrogen 7 mg/dL (7-18); Bicarbonate 30 mmol/L (21-32); Bilirubin Total 0.3 mg/dL (0.2-1.0); Glucose Level 111 mg/dL (74-106); Magnesium 1.7 mg/dL (1.8-2.4); Potassium 3.7 mmol/L (3.5-5.1); Protein, Total 6.2 g/dL (6.4-8.2); Sodium Level 142 mmol/L (136-145)
[2018-03-15] MEDS: MORPHINE 2 MG/ML SYR IV PRN (05:24)
[2018-03-15] MEDS: PROMETHAZINE 25 MG/ML VIAL IV PRN ×4 (05:25→19:46)
[2018-03-15] MEDS: MINERAL OIL ENEMA 135 ML BTL PR PRN (05:28)
[2018-03-15] MEDS: SUCRALFATE 1 GM TABLET PO SCH ×2 (05:29→20:53)
[2018-03-15] MEDS: THYROID 30 MG TAB PO SCH (05:29)
[2018-03-15] MEDS ORDERED: MAGNESIUM SULFATE 1 gm IVPB 1 GM/100 ML BAG IV ONE (06:03)
[2018-03-15] MEDS ORDERED: POTASSIUM 25 MEQ EFFERV TAB PO ONE (06:03)
[2018-03-15 07:27] VITALS: BMI 3548.7
[2018-03-15] MEDS: METOCLOPRAMIDE 5 MG TAB PO SCH ×4 (08:27→20:53)
[2018-03-15] MEDS ORDERED: KCL 20 MEQ/100 mL IVPB 20 MEQ/100 ML BAG IV SCH (09:00)
[2018-03-15] MEDS: BUPRENORPHINE HCL SL SCH ×2 (09:00→21:00)
[2018-03-15] MEDS: [UNRECOGNIZED DRUG - OTHER] SL SCH ×2 (09:00→21:00)
[2018-03-15] MEDS: NALOXONE HCL SL SCH ×2 (09:00→21:00)
[2018-03-15] MEDS: VITAMIN D 1000 UNIT TAB PO SCH (09:00)
[2018-03-15] MEDS: GABAPENTIN 400 MG CAP PO SCH ×3 (09:00→20:53)
[2018-03-15] MEDS: CIPROFLOXACIN 400mg IV 400 MG/200 ML BAG IV SCH ×2 (09:04→20:54)
[2018-03-15] MEDS: METHYLPREDNISOLONE 125 MG INJ IV SCH (09:06)
--- NOTE | 2018-03-15 10:19 | RAD REPORT ---
EXAM DESCRIPTION: RAD - Abdomen Acute Series - 03/15/2018 10:11 am CLINICAL HISTORY: Abdominal pain COMPARISON: Portable chest January 20, had been two-view July 2017, CT study March 11 FINDINGS: Stranding in each lung base is believed to be atelectasis related to shallow inspiration. No consolidation, mass or failure finding. Right-sided Port-A-Cath remains in place. Heart size and p ulmonary vasculature are normal. No pleural effusion, pneumothorax or other acute cardiopulmonary pro cess seen. Bowel gas pattern is nonspecific. No bowel obstruction, free air or other acute findings. No suspicio us calcifications. Numerous punctate densities in the left upper quadrant are believed be part of ing ested medication distributed throughout the stomach. Surgical staple line present in the left mid abd omen. Prominent scoliotic changes are present in the spine. No acute bone process. IMPRESSION: No obstruction, free air or surgically emergent finding. No acute bowel finding identifiable. No acute chest finding suspected. Lung base atelectasis present.
[2018-03-15] MEDS: HYDROCODONE/APAP 10/325 TAB PO PRN ×3 (10:33→20:54)
[2018-03-15] MEDS: MAGNESIUM CITRATE 300 ML BOT PO SCH (10:33)
[2018-03-15 11:43] VITALS: O2SAT 100
[2018-03-15] MEDS: ENOXAPARIN 40 MG/0.4 ML SQ SCH (17:00)
--- NOTE | 2018-03-15 17:48 | PN ---
Date of Progress Note: 03/15/2018 Subjective: The patient is seen and examined. Chart reviewed, and case discussed with RN. The patient continues to display pain-seeking behavior, asking for IV pain medications. I have explained to her that the pain medications would be switched over to oral. Review of Systems: Negative except as above. Medications: Reviewed. Physical Examination: Vital Signs: Temperature 98.9, heart rate 69, blood pressure 140/78, respirations 20, O2 is 100% on room air. GENERAL: Awake, alert, oriented x3. Some mild distress. CV: S1, S2. No murmurs. Regular rate and rhythm. Respiratory: Clear to auscultation bilaterally. No wheezing. Gastrointestinal: Abdomen is soft. Mild tenderness to palpation. No guarding or rigidity. No palpable masses. Nondistended. Positive bowel sounds. Extremities: No clubbing, cyanosis, or edema. Neurologic: Nonfocal. Laboratory Data: Sodium 142, potassium 3.7, chloride 103, CO2 of 30, BUN 7, creatinine 0.5, glucose 111, calcium 8.3, magnesium 1.7. WBC 9.4, H and H 11.6 and 35.4, platelets 348, neutrophils 86%. Urine culture growing Klebsiella oxytoca. Acute abdominal series shows no obstruction, free air, or surgically emergent finding. No acute bowel finding identifiable. No acute chest findings. Suspected lung base atelectasis is present. Assessment And Plan: A 32-year-old female with: 1. Abdominal pain, secondary to Crohn disease. Pain is generalized, improving. We will adjust pain medications and discontinue morphine. 2. Acute exacerbations of Crohn disease. Appreciate GI input. We will continue to wean steroids. Continue IV antibiotics. 3. Steroid-induced leukocytosis, resolved. 4. Hypokalemia, replace and monitor. 5. Intractable nausea and vomiting, improved. No hypochloremia or hypokalemia at this time. Tolerating a GI soft diet. 6. Pain medication-seeking behavior. 7. Gastrointestinal and deep venous thrombosis prophylaxis addressed. Likely discharge in a.m. if continues to improve. /PATRICIA Voice ID: [id number] Report ID: [id number] [facility]
[2018-03-15] MEDS: WATER FOR INJ,STERILE 10 ML IV SCH (19:00)
[2018-03-15] MEDS: predniSONE 20 MG TAB PO SCH (20:53)
[2018-03-15] MEDS: ZOLPIDEM TARTRATE 10 MG TABLET PO SCH (20:54)
[2018-03-16] MEDS: METRONIDAZOLE 500mg IVPB 500 MG/100 ML BAG IV SCH ×2 (00:27→08:46)
[2018-03-16] MEDS: PROMETHAZINE 25 MG/ML VIAL IV PRN ×4 (00:28→14:08)
[2018-03-16] MEDS: HYDROCODONE/APAP 10/325 TAB PO PRN ×3 (02:04→09:53)
[2018-03-16] MEDS: TIZANIDINE 4 MG TABLET PO PRN ×2 (03:35→09:54)
[2018-03-16 05:38] LABS: BUN Blood Urea Nitrogen 9 mg/dL (7-18); Bicarbonate 28 mmol/L (21-32); Glucose Level 133 mg/dL (74-106); Magnesium 1.8 mg/dL (1.8-2.4); Potassium 3.9 mmol/L (3.5-5.1); Sodium Level 141 mmol/L (136-145)
[2018-03-16] MEDS ORDERED: MAGNESIUM SULFATE 1 gm IVPB 1 GM/100 ML BAG IV ONE (05:53)
[2018-03-16] MEDS ORDERED: POTASSIUM 25 MEQ EFFERV TAB PO ONE (05:55)
[2018-03-16] MEDS: NA CHLORIDE 0.9% 1,000 ML IV SCH (06:06)
[2018-03-16] MEDS: SUCRALFATE 1 GM TABLET PO SCH (06:10)
[2018-03-16] MEDS: THYROID 30 MG TAB PO SCH (06:10)
[2018-03-16] MEDS: NALOXONE HCL SL SCH (08:27)
[2018-03-16] MEDS: BUPRENORPHINE HCL SL SCH (08:27)
[2018-03-16] MEDS: [UNRECOGNIZED DRUG - OTHER] SL SCH (08:27)
[2018-03-16] MEDS: METOCLOPRAMIDE 5 MG TAB PO SCH ×2 (08:45→11:14)
[2018-03-16] MEDS: CIPROFLOXACIN 400mg IV 400 MG/200 ML BAG IV SCH (08:46)
[2018-03-16] MEDS: GABAPENTIN 400 MG CAP PO SCH ×2 (08:46→13:23)
[2018-03-16] MEDS: VITAMIN D 1000 UNIT TAB PO SCH (08:46)
[2018-03-16] MEDS: predniSONE 20 MG TAB PO SCH (08:46)
[2018-03-16] MEDS: MAGNESIUM CITRATE 300 ML BOT PO SCH (08:46)
[2018-03-16] MEDS ORDERED: BISACODYL 10 MG RECTAL SUPP PR ONE (09:25)
[2018-03-16] MEDS ORDERED: HEPARIN 500 UNIT/5 ML SYR IV PRN (14:00)
[2018-03-16 15:25] VITALS: BP 111/63; TEMP 97
--- NOTE | 2018-03-17 04:25 | DS ---
Date of Discharge: 03/16/2018 Digital Project Coordinator: Dick Howard MD, with GI. Procedures: None. Admitting Diagnoses: 1.Acute Crohn exacerbation. 2.Abdominal pain, generalized. 3.Hypokalemia. 4.Intractable nausea and vomiting. Discharge Diagnoses: 1.Acute Crohn exacerbation. 2.Abdominal pain, generalized, secondary to above. 3.Steroid-induced leukocytosis, resolved. 4.Hypokalemia, replaced. 5.Intractable nausea and vomiting, resolved. 6.Pain medication seeking behavior. 7.Acute cystitis without hematuria. Hospital Course: The patient is a 32-year-old female, who has had multiple admissions to the [facility] for her Crohn disease; has had several abdominal surgeries, bowel resection, hernia repair; comes i n with recurrent pain in her abdomen. She had fever. CT scan showed duodenitis. Two days prior to admission, she was discharged home. Came back again with continued symptoms. She was found to be hy pokalemic. The patient was started on IV pain medications, IV antibiotics, as well as IV steroids. GI was consulted. Dr. Howard saw the patient. He did not recommend any intervention at this time. Agreed with steroids. The patient did display pain medication seeking behavior, asking for stronge r narcotics, asking for medications around the clock. The patient did have some mild improvement in her pain with steroids and pain medications along with antibiotics. After symptoms improved, she was able to tolerate a clear liquid diet and was advanced to GI soft, which the patient tolerated well. She did complain of some constipation. Multiple enemas and stool softeners were given with some bradford ited success. The patient, otherwise, did not have any evidence of bowel obstruction or free air on the repeat CT scan. The patient overall did well. She was counseled regarding her pain medications. She also takes promethazine suppositories. The patient did have some steroid-induced leukocytosis which resolved. She also had UTI. Cultures grew out Klebsiella oxytoca, which was essentially panse nsitive except to ampicillin and nitrofurantoin. Her treatment was completed with IV antibiotics. T he patient was then cleared for discharge from a GI standpoint. She was sent home with IV antibiotic s and steroids. She will follow up with primary care physician in 2-3 days, follow up with GI Dr. Joshua rosales in 2 weeks, and return to ER for worsening condition. Diet: [place]. Activity: No driving or operating heavy machinery while on narcotics. Medications: As per medication reconciliation list. Physical Examination: General: Awake, alert, oriented, no acute distress. CV: S1, S2. No murmurs. Respiratory: Moving air well bilaterally. Abdomen: Soft, nontender, and nondistended. Positive bowel sounds. Extremities: No clubbing, cyanosis, edema. Neurologic: Nonfocal. Total time spent discharging patient was 35 minutes. /PATRICIA Voice ID: [id number] Report ID: [id number]
== END 2018-03-16 14:41 | disposition home or self-care (01) | DRG 386 ==
LOC: ER 15:58 → ERHOLD 22:28 → 2ND 03-12 01:02 → OBSVTOIN 03-13 14:49
PROVIDERS: ADMIT Internal Medicine; ATTEND Family Medicine
DX: K50.919 Crohn's disease, unspecified, with unspecified complications (principal); N30.00 Acute cystitis without hematuria; B96.1 Klebsiella pneumoniae [K. pneumoniae] as the cause of diseases classified elsewhere; D72.829 Elevated white blood cell count, unspecified; E87.6 Hypokalemia; Z76.5 Malingerer [conscious simulation]; K59.00 Constipation, unspecified; E83.42 Hypomagnesemia; M79.7 Fibromyalgia; M41.9 Scoliosis, unspecified; E03.9 Hypothyroidism, unspecified; D51.3 Other dietary vitamin B12 deficiency anemia; M06.9 Rheumatoid arthritis, unspecified; G40.909 Epilepsy, unspecified, not intractable, without status epilepticus; G62.9 Polyneuropathy, unspecified
CPT/HCPCS: 36415; 74022; 74177; 80048; 80053; 80076; 81003; 81015; 81025; 83690; 83735; 84132; 85025; 87077; 87086; 87088; 87186; 92977; 96365; 96366; 96367; 96368; 96375; 99291; 99292; G0378; J0696; J0744; J1642; J1650; J2270; J2405; J2550; J2930; J2997; J3475; J7030; J7512; Q9967

== ENCOUNTER 2018-12-01 08:19 | Inpatient (IN) | payer BC, SELFPAY ==
--- OUTSIDE RECORDS SUMMARY | 2018-12-01 08:35 | XMS REPORT | Clinical Summary ---
:1985 Author Organization [facility] Address [address] [place] [address] Care Team Providers Name Role Phone Asked, No Pcp Primary Care Provider Unavailable Allergies Active Allergy Reactions Severity Noted Date Comments Diphenhydramine Hcl 08/06/2017 Fast heart rate Infliximab Shortness Of Breath High 05/07/2016 Pt said airway becomes completely closed within 5 seconds Medications Medication Sig Dispensed Refills Start Date End Date Status fentaNYL (DURAGESIC) Place 1 patch on 0 Active 75 mcg/hr the skin every third day. tiZANidine (ZANAFLEX) Take 4 mg by mouth 0 Active 4 MG tablet every 6 (six) hours. clonAZEPAM (KlonoPIN) Take 0.5 mg by 0 Active 0.5 MG tablet mouth nightly. zolpidem (AMBIEN) 10 Take 10 mg by 0 Active mg tablet mouth nightly as needed for sleep. thyroid, pork, (ARMOUR Take 30 mg by 0 Active THYROID) 15 mg tablet mouth daily. magnesium oxide Take 400 mg by 0 07/25/2017 Active (MAG-OX) 400 mg tablet mouth 2 (two) times a day. Active Problems Problem Noted Date Fever 08/24/2017 Crohn's disease of both small and large intestine with intestinal 08/12/2017 obstruction Stricture intestinal 08/12/2017 Small bowel obstruction 08/06/2017 Cyst of ovary 08/06/2017 Generalized abdominal pain 05/07/2016 Social History Tobacco Use Types Packs/Day Years Used Date Never Smoker Alcohol Use Drinks/Week oz/Week Comments No Sex Assigned at Date Recorded Not on file Job Start Date Occupation Industry Not on file Not on file Not on file Travel History Travel Start Travel End No recent travel history available. Last Filed Vital Signs Not on file Plan of Treatment Health Maintenance Due Date Last Done Comments CERVICAL CANCER SCREENING 2008 INFLUENZA VACCINE 04/14/2018 Implants Implanted Type Area [employer]er Device Shelf Model / Identifier Expiration Serial / Date Lot Port Imlpntbl Smart Port W/ Dtchd 0.4ml 6.6fr 55cm 1.4x2.2mm - [id number] Implantable N/A: ANGIODYNAMICS 04/13/2020 [id number] / Implanted: 08/18/2017 (Quantity not on file) Infusion Ports N/A INC / or Accessories [id number] Results Not on fileafter 11/30/2017 Insurance Payer Benefit Plan / Group Subscriber ID Type Phone Address BCBS BCBS CHOICE PPO/FEDERAL EMPL PPO xxxxxxxxxxxx PPO Advance Directives Patient has advance care planning documents, and code status on file. For more information, please contact:[place] [address] Code Status Date Activated Date Inactivated Comments Full Code 05/08/2016 3:11 AM 05/09/2016 10:10 PM Code Status decision reached by: Patient
--- OUTSIDE RECORDS SUMMARY | 2018-12-01 08:35 | XMS REPORT | Clinical Summary ---
:1985 Author Organization [facility] Address [address] [place] [address] Care Team Providers Name Role Phone Unavailable Primary Care Provider Unavailable Allergies Not on File Medications Not on file Active Problems Not [...] Not on file Results Not on fileafter 11/30/2017
[2018-12-01 09:44] LABS: Urine Blood NEGATIVE (NEG); Urine Glucose TRACE (NEG); Urine Protein 3+ (NEG); Urine Specific Gravity 1.025 (1.005-1.030); Urine pH 5.5 (5.0-7.0)
[2018-12-01] MEDS ORDERED: NA CHLORIDE 0.9% 1,000 ML ONE ×2 (10:18→11:14)
[2018-12-01] MEDS ORDERED: ONDANSETRON 4 MG/2 ML VIAL ONE (10:18)
[2018-12-01] MEDS ORDERED: FAMOTIDINE 20 MG/2 ML VIAL IV ONE (10:18)
[2018-12-01] MEDS ORDERED: HYDROMORPHONE HCL 1 MG/ML INJ ONE (10:18)
[2018-12-01 10:22] LABS: Absolute Lymphocytes (CBC) 0.8 K/uL (0.7-4.9); Absolute Monocytes 0.4 K/uL (0.1-1.3); Absolute Neutrophil 2.4 K/uL (1.8-8.0); Basophils % 0.2 % (0-1.3); Eosinophils % 0.1 % (0-4.4); Hematocrit 43.5 % (36.0-45.0); Lymphocytes % 21.7 % (15.3-44.8); MPV 7.9 fL (7.6-11.3); Monocytes % 11.9 % (3.3-12.3); RBC Red Blood Cell Count 5.12 M/uL (3.86-4.86)
[2018-12-01 10:33] LABS: ALT/SGPT 22 U/L (12-78); AST/SGOT 26 U/L (15-37); Albumin 4.2 g/dL (3.4-5.0); Alkaline Phosphatase 98 U/L (45-117); BUN Blood Urea Nitrogen 28 mg/dL (7-18); Bicarbonate 15 mmol/L (21-32); Bilirubin Direct < 0.1 mg/dL (0-0.2); Bilirubin Total 0.3 mg/dL (0.2-1.0); Glucose Level 68 mg/dL (74-106); Lipase 57 U/L (73-393); Potassium 3.8 mmol/L (3.5-5.1); Sodium Level 139 mmol/L (136-145)
--- NOTE | 2018-12-01 10:38 | RAD REPORT ---
EXAM DESCRIPTION: RAD - Abdomen Acute Series - 12/01/2018 9:45 am CLINICAL HISTORY: Abdominal pain and vomiting FINDINGS: The lungs appear clear of acute infiltrate. Free air is not seen beneath the diaphragm. Moderate scoliosis involves spine. Fluid is present within nondilated large and small bowel in a nonspecific fashion.
--- NOTE | 2018-12-01 10:41 | EDPHYS ---
Physician Documentation [facility] Name: Va Cardoso Age: 33 yrs Sex: Female : 1985 Arrival Date: 12/01/2018 Time: 08:21 Bed 15 Private MD: ED Physician Eh Champion HPI: 12/01 09:07 This 33 yrs old Female presents to ER via Ambulatory with complaints of lauren Abdominal Pain, Vomiting. 09:07 The patient presents to the emergency department with nausea, vomiting, abdominal pain. lauren Onset: The symptoms/episode began/occurred 3 day(s) ago. Possible causes: unknown. The symptoms are aggravated by. Associated signs and symptoms: The patient has no apparent associated signs or symptoms. Severity of symptoms: in the emergency department the symptoms are unchanged. The patient has not experienced similar symptoms in the past. AUCTIONEER ART: 08:35 LMP N/A - Irregular menses bp Historical: - Allergies: 08:35 Remicade (Anaphylaxis); bp 08:35 Benadryl (MAKES ME HYPER A CHILD); bp - Home Meds: 09:40 Ambien 10 mg Oral tab 1 tab once daily [Active]; amitriptyline 10 mg Oral tab 2 tabs bp nightly [Active]; [place] Thyroid 30 mg Oral tab daily [Active]; baclofen 10 mg Oral tab 1 tab every 6 hours [Active]; Bentyl 10 mg Oral cap 1 cap 3 times per day [Active]; Phenergan 25 mg Rectal supp 1 suppository [Active]; promethazine 25 mg Oral tab every 6 hours [Active]; Vitamin B-12 1,000 mcg/mL injection soln 0.1 mL q 3 days [Active]; tizanidine 4 mg Oral tab 1 tab every 6 hours [Active]; pantoprazole 20 mg Oral TbEC 1 tab once daily [Active]; magnesium oxide 400 mg Oral tab twice a day [Active]; gabapentin 800 mg Oral tab 1 tab 3 times per day [Active]; fentanyl 75 mcg/hr Topical pt72 1 patch every 72 hours [Active]; clonazepam 0.5 mg Oral tab 1 tab nightly [Active]; cholecalciferol (vitamin D3) 50,000 unit Oral cap WEEKLY [Active]; - PMHx: 08:35 Anemia; B12 deficiency; bowel obstruction; uterine cysts; Seizures; scoliosis; Chronic bp pain; Crohn's; fatty liver; Fibromyalgia; HYPOGLYCEMIA; Hypothyroidism; Rheumatoid Arthritis; Osteoporosis; ruptured small bowel; - Immunization history:: Adult Immunizations up to date. - Social history:: Smoking status: Patient/guardian denies using tobacco. - Ebola Screening: : Patient negative for fever greater than or equal to 101.5 degrees Fahrenheit, and additional compatible Ebola Virus Disease symptoms Patient denies exposure to infectious person Patient denies travel to an Ebola-affected area in the 21 days before illness onset No symptoms or risks identified at this time. - Family history:: not pertinent. ROS: 09:07 Constitutional: Negative for fever, chills, and weight loss, Eyes: Negative for injury, lauren pain, redness, and discharge, ENT: Negative for injury, pain, and discharge, Neck: Negative for injury, pain, and swelling, Cardiovascular: Negative for chest pain, palpitations, and edema, Respiratory: Negative for shortness of breath, cough, wheezing, and pleuritic chest pain, Back: Negative for injury and pain, : Negative for injury, bleeding, discharge, and swelling, MS/Extremity: Negative for injury and deformity, Skin: Negative for injury, rash, and discoloration, Neuro: Negative for headache, weakness, numbness, tingling, and seizure, Psych: Negative for depression, anxiety, suicide ideation, homicidal ideation, and hallucinations, Allergy/Immunology: Negative for hives, rash, and allergies, Endocrine: Negative for neck swelling, polydipsia, polyuria, polyphagia, and marked weight changes, Hematologic/Lymphatic: Negative for swollen nodes, abnormal bleeding, and unusual bruising. 09:07 Abdomen/GI: Positive for abdominal pain, nausea and vomiting, of the right upper quadrant, left upper quadrant, right lower quadrant and left lower quadrant. Exam: 09:07 Constitutional: This is a well developed, well nourished patient who is awake, alert, lauren and in no acute distress. Head/Face: Normocephalic, atraumatic. Eyes: Pupils equal round and reactive to light, extra-ocular motions intact. Lids and lashes normal. Conjunctiva and sclera are non-icteric and not injected. Cornea within normal limits. Periorbital areas with no swelling, redness, or edema. ENT: Nares patent. No nasal discharge, no septal abnormalities noted. Tympanic membranes are normal and external auditory canals are clear. Oropharynx with no redness, swelling, or masses, exudates, or evidence of obstruction, uvula midline. Mucous membranes moist. Neck: Trachea midline, no thyromegaly or masses palpated, and no cervical lymphadenopathy. Supple, full range of motion without nuchal rigidity, or vertebral point tenderness. No Meningismus. Chest/axilla: Normal chest wall appearance and motion. Nontender with no deformity. No lesions are appreciated. Cardiovascular: Regular rate and rhythm with a normal S1 and S2. No gallops, murmurs, or rubs. Normal PMI, no JVD. No pulse deficits. Respiratory: Lungs have equal breath sounds bilaterally, clear to auscultation and percussion. No rales, rhonchi or wheezes noted. No increased work of breathing, no retractions or nasal flaring. Abdomen/GI: Soft, non-tender, with normal bowel sounds. No distension or tympany. No guarding or rebound. No evidence of tenderness throughout. Back: No spinal tenderness. No costovertebral tenderness. Full range of motion. Skin: Warm, dry with normal turgor. Normal color with no rashes, no lesions, and no evidence of cellulitis. MS/ Extremity: Pulses equal, no cyanosis. Neurovascular intact. Full, normal range of motion. Neuro: Awake and alert, GCS 15, oriented to person, place, time, and situation. Cranial nerves II-XII grossly intact. Motor strength 5/5 in all extremities. Sensory grossly intact. Cerebellar exam normal. Normal gait. Psych: Awake, alert, with orientation to person, place and time. Behavior, mood, and affect are within normal limits. Vital Signs: 08:48 BP 112 / 81; Pulse 92; Resp 18; Temp 98; Pulse Ox 100% ; Weight 49.9 kg; Height 5 ft. 0 bp in. (152.40 cm); 10:15 BP 97 / 67; Pulse 84; Resp 14; Pulse Ox 96% ; bp 11:30 BP 126 / 77; Pulse 93; Resp 14; Pulse Ox 99% ; bp 12:30 BP 101 / 57; Pulse 78; Resp 14; Pulse Ox 97% ; bp 13:00 BP 100 / 54; Pulse 72; Resp 16; Pulse Ox 94% ; bp 14:00 BP 109 / 69; Pulse 65; Resp 14; Pulse Ox 93% ; bp 08:48 Body Mass Index 21.48 (49.90 kg, 152.40 cm) bp MDM: 08:30 Patient medically screened. [facility] 09:07 Data reviewed: vital signs, nurses notes, lab test result(s), radiologic studies, plain lauren films. 12/01 09:06 Order name: Basic Metabolic Panel; Complete Time: 10:34 [facility] 12/01 09:06 Order name: CBC with Diff; Complete Time: 10:32 [facility] 12/01 09:06 Order name: Creatinine for Radiology; Complete Time: 10:32 [facility] 12/01 09:06 Order name: Hepatic Function; Complete Time: 10:34 [facility] 12/01 09:06 Order name: Lipase; Complete Time: 10:34 [facility] 12/01 09:06 Order name: Urine Culture [facility] 12/01 09:06 Order name: Abdomen Acute Series XRAY [facility] 12/01 09:10 Order name: Urine Dipstick--Ancillary (enter results); Complete Time: 09:57 12/01 09:10 Order name: Urine --Ancillary (enter results); Complete Time: 09:57 12/01 09:06 Order name: IV Saline Lock; Complete Time: 11:51 [facility] 12/01 09:06 Order name: Labs collected and sent; Complete Time: 11:51 [facility] 12/01 09:06 Order name: Urine Dipstick-Ancillary (obtain specimen); Complete Time: 09:08 [facility] 12/01 09:06 Order name: Urine Test (obtain specimen); Complete Time: 09:08 [facility] Administered Medications: 09:40 Drug: NS 0.9% 1000 ml Route: IV; Rate: 1 bolus; Site: Port-a-cath; bp 11:00 Follow up: IV Status: Completed infusion; IV Intake: 1000ml bp 09:40 Drug: Pepcid 20 mg Route: IVP; Site: Port-a-cath; bp 14:15 Follow up: Response: No adverse reaction bp 09:40 Drug: Zofran 4 mg Route: IVP; Site: Port-a-cath; bp 14:15 Follow up: Response: No adverse reaction bp 09:40 Drug: Dilaudid 1 mg Route: IVP; Site: Port-a-cath; bp 14:14 Follow up: Response: No adverse reaction; Pain is decreased bp 10:36 CANCELLED (Duplicate Order): D5-1/2 NS with KCl 10 mEq/L 1000 ml IV at 125 ml/hr lauren continuous 10:46 Not Given (Other Intervention Used): NS 0.9% 1000 ml IV at 125 ml/hr continuous bp 11:00 Drug: D50W 25 ml Route: IVP; Site: Port-a-cath; bp 12:03 Follow up: Response: No adverse reaction bp 11:00 Drug: NS 0.9% 1000 ml Route: IV; Rate: 1 bolus; Site: Port-a-cath; bp 12:03 Follow up: IV Status: Completed infusion; IV Intake: 1000ml bp 11:00 Drug: D5-1/2 NS with KCl 20 mEq/L 1000 ml Route: IV; Rate: 125 ml/hr; Site: Port-a-cath;bp 14:13 Follow up: IV Status: Infusion continued upon admission bp 11:00 Drug: SOLU-Medrol 2 mg/kg Route: IVP; Site: Port-a-cath; bp 12:04 Follow up: Response: No adverse reaction bp 11:00 Drug: Rocephin - (cefTRIAXone) 1 grams Route: IVPB; Infused Over: 30 mins; Site: [facility]; 12:04 Follow up: IV Status: Completed infusion; IV Intake: 10ml bp 11:00 Drug: Flagyl 500 mg Volume: 100 ml; Route: IVPB; Rate: 200 ml/hr; Infused Over: 30 bp mins; Site: [facility]; 12:04 Follow up: IV Status: Completed infusion; IV Intake: 100ml bp 12:03 Drug: Dilaudid 1 mg Route: IVP; Site: Port-a-cath; bp 14:14 Follow up: Response: No adverse reaction; Pain is decreased bp 12:03 Drug: Phenergan 12.5 mg Route: IVP; Site: Port-a-cath; bp 14:14 Follow up: Response: No adverse reaction; Pain is decreased bp Disposition: 12/01/18 10:40 Hospitalization ordered by Kavitha Jolly for Inpatient Admission. Preliminary diagnosis are Vomiting, Crohn's disease [regional enteritis], Abdominal tenderness, Dehydration, Hypoglycemia, unspecified. - Bed requested for Telemetry/MedSurg (Inpatient). - Status is Inpatient Admission. bp - Condition is Fair. - Problem is new. - Symptoms have improved. UTI on Admission? No Signatures: Dispatcher [employer] EDMS Adela Duarte Eh Odonnell MD MD cha Peltier, Brian, RN RN bp Corrections: (The following items were deleted from the chart) 10:36 10:36 D5-1/2 NS with KCl 10 mEq/L 1000 ml IV at 125 ml/hr continuous ordered. [facility] 13:44 10:40 Hospitalization Ordered by Kavitha Jolly MD for Inpatient Admission. Preliminary bd diagnosis is Vomiting; Crohn's disease [regional enteritis]; Abdominal tenderness; Dehydration; Hypoglycemia, unspecified. Bed requested for Telemetry/MedSurg (Inpatient). Status is Inpatient Admission. Condition is Fair. Problem is new. Symptoms have improved. UTI on Admission? No. [facility] 14:55 13:44 12/01/2018 10:40 Hospitalization Ordered by Kavitha Jolly MD for Inpatient bp Admission. Preliminary diagnosis is Vomiting; Crohn's disease [regional enteritis]; Abdominal tenderness; Dehydration; Hypoglycemia, unspecified. Bed requested for Telemetry/MedSurg (Inpatient). Status is Inpatient Admission. Condition is Fair. Problem is new. Symptoms have improved. UTI on Admission? No. bd
--- NOTE | 2018-12-01 10:41 | ER ---
Nurse's Notes [facility] Name: Va Cardoso Age: 33 yrs Sex: Female : 1985 Arrival Date: 12/01/2018 Time: 08:21 Bed 15 Private MD: Diagnosis: Vomiting;Crohn's disease [regional enteritis];Abdominal tenderness;Dehydration;Hypoglycemia, unspecified Presentation: 12/01 08:35 Presenting complaint: Patient states: VOMITING AND ABD PAIN. Transition of care: bp patient was not received from another setting of care. Onset of symptoms is unknown. Risk Assessment: Do you want to hurt yourself or someone else? Patient reports no desire to harm self or others. Care prior to arrival: None. 08:35 Method Of Arrival: Ambulatory bp 08:35 Acuity: IGNACIO 3 bp 14:29 Initial Sepsis Screen: Does the patient meet any 2 criteria? No. Patient's initial bp sepsis screen is negative. Does the patient have a suspected source of infection? No. Patient's initial sepsis screen is negative. Triage Assessment: 08:35 General: Appears distressed, slender, Behavior is cooperative, appropriate for age, bp anxious. Pain: Complains of pain in abdomen. EENT: No deficits noted. Neuro: Level of Consciousness is awake, alert, obeys commands, Oriented to person, place, time, situation, Appropriate for age. Cardiovascular: No deficits noted. Respiratory: Airway is patent Respiratory effort is even, unlabored, Respiratory pattern is regular, symmetrical. GI: Reports nausea, vomiting. : No signs and/or symptoms were reported regarding the genitourinary system. Derm: No deficits noted. Musculoskeletal: Circulation, motion, and sensation intact. Range of motion: intact in all extremities. AEROSPACE CONTROL AND WARNING SYSTEMS: 08:35 LMP N/A - Irregular menses bp Historical: - Allergies: 08:35 Remicade (Anaphylaxis); bp 08:35 Benadryl (MAKES ME HYPER A CHILD); bp - Home Meds: 09:40 Ambien 10 mg Oral tab 1 tab once daily [Active]; amitriptyline 10 mg Oral tab 2 tabs bp nightly [Active]; [place] Thyroid 30 mg Oral tab daily [Active]; baclofen 10 mg Oral tab 1 tab every 6 hours [Active]; Bentyl 10 mg Oral cap 1 cap 3 times per day [Active]; Phenergan 25 mg Rectal supp 1 suppository [Active]; promethazine 25 mg Oral tab every 6 hours [Active]; Vitamin B-12 1,000 mcg/mL injection soln 0.1 mL q 3 days [Active]; tizanidine 4 mg Oral tab 1 tab every 6 hours [Active]; pantoprazole 20 mg Oral TbEC 1 tab once daily [Active]; magnesium oxide 400 mg Oral tab twice a day [Active]; gabapentin 800 mg Oral tab 1 tab 3 times per day [Active]; fentanyl 75 mcg/hr Topical pt72 1 patch every 72 hours [Active]; clonazepam 0.5 mg Oral tab 1 tab nightly [Active]; cholecalciferol (vitamin D3) 50,000 unit Oral cap WEEKLY [Active]; - PMHx: 08:35 Anemia; B12 deficiency; bowel obstruction; uterine cysts; Seizures; scoliosis; Chronic bp pain; Crohn's; fatty liver; Fibromyalgia; HYPOGLYCEMIA; Hypothyroidism; Rheumatoid Arthritis; Osteoporosis; ruptured small bowel; - Immunization history:: Adult Immunizations up to date. - Social history:: Smoking status: Patient/guardian denies using tobacco. - Ebola Screening: : Patient negative for fever greater than or equal to 101.5 degrees Fahrenheit, and additional compatible Ebola Virus Disease symptoms Patient denies exposure to infectious person Patient denies travel to an Ebola-affected area in the 21 days before illness onset No symptoms or risks identified at this time. - Family history:: not pertinent. Screenin:00 Abuse screen: Denies threats or abuse. Denies injuries from another. Nutritional bp screening: No deficits noted. Tuberculosis screening: No symptoms or risk factors identified. Fall Risk None identified. Assessment: 08:45 General: Appears in no apparent distress. uncomfortable, slender, Behavior is bp cooperative, appropriate for age, anxious. Pain: Complains of pain in abdomen. Neuro: Level of Consciousness is awake, alert, obeys commands, Oriented to person, place, time, situation, Appropriate for age. Cardiovascular: No deficits noted. Respiratory: Airway is patent Respiratory effort is even, unlabored, Respiratory pattern is regular, symmetrical. GI: Bowel sounds present X 4 quads. Abd is soft X 4 quads. : No signs and/or symptoms were reported regarding the genitourinary system. EENT: No deficits noted. Derm: No deficits noted. Musculoskeletal: No deficits noted. Circulation, motion, and sensation intact. Range of motion: intact in all extremities. 11:00 Reassessment: ALL CURRENT ORDERS COMPLETED, DISPO PENDING. bp 12:36 Reassessment: PT SEEN BY ADMIT MD, ADMIT IN PROCESS. VS STABLE ON MONITOR. bp Vital Signs: 08:48 BP 112 / 81; Pulse 92; Resp 18; Temp 98; Pulse Ox 100% ; Weight 49.9 kg; Height 5 ft. 0 bp in. (152.40 cm); 10:15 BP 97 / 67; Pulse 84; Resp 14; Pulse Ox 96% ; bp 11:30 BP 126 / 77; Pulse 93; Resp 14; Pulse Ox 99% ; bp 12:30 BP 101 / 57; Pulse 78; Resp 14; Pulse Ox 97% ; bp 13:00 BP 100 / 54; Pulse 72; Resp 16; Pulse Ox 94% ; bp 14:00 BP 109 / 69; Pulse 65; Resp 14; Pulse Ox 93% ; bp 08:48 Body Mass Index 21.48 (49.90 kg, 152.40 cm) bp ED Course: 08:21 Patient arrived in ED. as 08:30 Rudy Ybarra, RN is Primary Nurse. bp 08:30 Eh Champion MD is Attending Physician. lauren 08:43 Triage completed. bp 08:47 Arm band placed on. bp 08:55 Patient has correct armband on for positive identification. Placed in gown. Bed in low mh5 position. Call light in reach. Warm blanket given. Pulse ox on. NIBP on. 08:55 Urine collected: clean catch specimen, dixie colored. mh5 09:09 Urine Culture Sent. mh5 09:15 Patient moved to radiology via wheelchair. jb2 09:40 Accessed Port-a-Cath. using accessed w/ #19 Vitale needle, ,sterile technique, per hospital protocol. 09:43 X-ray completed. Patient tolerated procedure well. Patient moved back from radiology. jb2 09:43 Abdomen Acute Series XRAY In Process Unspecified. EDMS 10:38 Kavitha Jolly MD is Hospitalizing Provider. lauren 14:29 No provider procedures requiring assistance completed. Patient admitted, IV remains in bp place. Administered Medications: 09:40 Drug: NS 0.9% 1000 ml Route: IV; Rate: 1 bolus; Site: [facility]; bp 11:00 Follow up: IV Status: Completed infusion; IV Intake: 1000ml bp 09:40 Drug: Pepcid 20 mg Route: IVP; Site: Port-a-cath; bp 14:15 Follow up: Response: No adverse reaction bp 09:40 Drug: Zofran 4 mg Route: IVP; Site: Port-a-cath; bp 14:15 Follow up: Response: No adverse reaction bp 09:40 Drug: Dilaudid 1 mg Route: IVP; Site: Port-a-cath; bp 14:14 Follow up: Response: No adverse reaction; Pain is decreased bp 10:36 CANCELLED (Duplicate Order): D5-1/2 NS with KCl 10 mEq/L 1000 ml IV at 125 ml/hr lauren continuous 10:46 Not Given (Other Intervention Used): NS 0.9% 1000 ml IV at 125 ml/hr continuous bp 11:00 Drug: D50W 25 ml Route: IVP; Site: [facility]; bp 12:03 Follow up: Response: No adverse reaction bp 11:00 Drug: NS 0.9% 1000 ml Route: IV; Rate: 1 bolus; Site: [facility]; bp 12:03 Follow up: IV Status: Completed infusion; IV Intake: 1000ml bp 11:00 Drug: D5-1/2 NS with KCl 20 mEq/L 1000 ml Route: IV; Rate: 125 ml/hr; Site: [facility];bp 14:13 Follow up: IV Status: Infusion continued upon admission bp 11:00 Drug: SOLU-Medrol 2 mg/kg Route: IVP; Site: [facility]; bp 12:04 Follow up: Response: No adverse reaction bp 11:00 Drug: Rocephin - (cefTRIAXone) 1 grams Route: IVPB; Infused Over: 30 mins; Site: Port-a-cath; 12:04 Follow up: IV Status: Completed infusion; IV Intake: 10ml bp 11:00 Drug: Flagyl 500 mg Volume: 100 ml; Route: IVPB; Rate: 200 ml/hr; Infused Over: 30 bp mins; Site: [facility]; 12:04 Follow up: IV Status: Completed infusion; IV Intake: 100ml bp 12:03 Drug: Dilaudid 1 mg Route: IVP; Site: Port-a-cath; bp 14:14 Follow up: Response: No adverse reaction; Pain is decreased bp 12:03 Drug: Phenergan 12.5 mg Route: IVP; Site: Port-a-cath; bp 14:14 Follow up: Response: No adverse reaction; Pain is decreased bp Intake: 11:00 IV: 1000ml; Total: 1000ml. bp 12:03 IV: 1000ml; Total: 2000ml. bp 12:04 IV: 10ml; Total: 2010ml. bp 12:04 IV: 100ml; Total: 2110ml. bp Outcome: 10:40 Decision to Hospitalize by Provider. lauren 14:29 Admitted to Med/surg accompanied by tech, via wheelchair, room 417, with chart, Report bp called to EULOGIO MENDOZA 14:29 Condition: stable 14:29 Instructed on the need for admit. 14:55 Patient left the ED. bp Signatures: Dispatcher [employer] EDEh Cortez MD MD cha Buechter, Jesse jb2 Danette Mendoza Maria 5 Rudy Ybarra, RN RN bp Corrections: (The following items were deleted from the chart) 09:02 08:48 49.9 kg; Height 5 ft. 0 in.; BMI: 21.4; bp bp
[2018-12-01] MEDS ORDERED: D5.45NS W/KCL 20MEQ 1,000 ML IV ONE (11:13)
[2018-12-01] MEDS ORDERED: CEFTRIAXONE/SWI 1gm 1 GM/10 ML SYR ONE (11:13)
[2018-12-01] MEDS ORDERED: D50W 25 GM/50 ML SYRINGE IV ONE (11:13)
[2018-12-01] MEDS ORDERED: METHYLPREDNISOLONE 125 MG INJ ONE (11:13)
[2018-12-01] MEDS ORDERED: METRONIDAZOLE 500mg IVPB 500 MG/100 ML BAG IV ONE (11:14)
[2018-12-01] MEDS ORDERED: PROMETHAZINE 25 MG/ML VIAL ONE (12:07)
[2018-12-01] MEDS ORDERED: HYDROMORPHONE HCL 0.5 MG/0.5 ML INJ ONE (12:07)
[2018-12-01] MEDS ORDERED: ACETAMINOPHEN 650MG/RECT SUPP PR PRN (15:29)
[2018-12-01] MEDS ORDERED: ONDANSETRON 4 MG/2 ML VIAL IV PRN (15:29)
[2018-12-01] MEDS ORDERED: HOME MED 1 EA UNK (Metoclopramide Hcl [Reglan] 10 MG) PO PRN (15:36)
[2018-12-01] MEDS ORDERED: KCL 20 MEQ/100 mL IVPB 20 MEQ/100 ML BAG IV SCH (16:00)
[2018-12-01 16:10] VITALS: BMI 21.4
[2018-12-01] MEDS: METRONIDAZOLE 500mg IVPB 500 MG/100 ML BAG IV SCH (16:34)
[2018-12-01] MEDS: D5.45NS W/KCL 20MEQ 1,000 ML IV SCH (16:35)
[2018-12-01] MEDS ORDERED: METOCLOPRAMIDE 5 MG TAB PO PRN (17:09)
[2018-12-01] MEDS: MORPHINE 2 MG/ML SYR IV PRN (17:43)
[2018-12-01] MEDS: METHYLPREDNISOLONE 40 MG INJ IV SCH (17:43)
[2018-12-01] MEDS ORDERED: TIZANIDINE HCL 6 MG PO SCH (21:00)
[2018-12-01] MEDS: NALOXONE HCL PO SCH (21:00)
[2018-12-01] MEDS ORDERED: HOME MED 1 EA UNK (Gabapentin [Gabapentin] 800 MG) PO SCH (21:00)
[2018-12-01] MEDS: BUPRENORPHINE HCL PO SCH (21:00)
[2018-12-01] MEDS: GABAPENTIN 400 MG CAP PO SCH (21:34)
[2018-12-01] MEDS: LIDOCAINE 5% PATCH TOP PRN (21:34)
[2018-12-01] MEDS: CIPROFLOXACIN 400mg IV 400 MG/200 ML BAG IV SCH (21:34)
[2018-12-01] MEDS: ZOLPIDEM TARTRATE 10 MG TABLET PO SCH (21:35)
[2018-12-01] MEDS: TIZANIDINE 4 MG TABLET PO SCH (21:35)
[2018-12-01] MEDS ORDERED: PROMETHAZINE 25 MG/ML VIAL IV ONE (22:49)
[2018-12-02] MEDS: METHYLPREDNISOLONE 40 MG INJ IV SCH ×4 (00:39→17:43)
[2018-12-02] MEDS: MORPHINE 2 MG/ML SYR IV PRN ×4 (00:45→18:25)
[2018-12-02] MEDS: METRONIDAZOLE 500mg IVPB 500 MG/100 ML BAG IV SCH ×3 (01:00→17:43)
--- NOTE | 2018-12-02 01:36 | HP ---
Date of Admission: 12/01/2018 Primary Care Physician: None. Consultants: Dr. Howard, GI. Chief Complaint: Abdominal pain, nausea, vomiting. History Of Present Illness: The patient is a 33-year-old female with past medical history of Crohn's disease who was in her usual state of health until when patient started having nausea and v omiting with some hematemesis as well, likely due to the multiple episodes, and only identified strea ks of blood along with some abdominal pain consistent with her usual Crohn's exacerbations. The raz ent has been taken off her biologics recently, is not on any steroids currently. The patient usually sees Dr. Choi out of town. Due to her significant abdominal pain, nausea, vomiting, inabilit y to tolerate p.o. intake since , the patient came into the ER for further evaluation and lee atment. Her symptoms are constant, severe, and progressively worsening. Her workup revealed a white count of 3.6. She has had multiple CT scans, however acute abdominal series was done which showed a normal bowel gas pattern, no free air. The patient was then referred for admission. Dr. Howard w as consulted by the ER physician. When I saw the patient in the ER, she was awake, alert, oriented x 3, in some moderate distress. Past Medical History: Crohn's disease; fibromyalgia; scoliosis, stage IV; hypothyroidism; anemia, se condary to B12 deficiency; rheumatoid arthritis; osteoarthritis; herniated disks; seizure disorder; n europathy. Past Surgical History: Bilateral tubal ligation, x3 and lumbar fusion, bowel resection x2, appendectomy. Allergies: BENADRYL AND REMICADE CAUSES ANAPHYLAXIS. Medications: List reviewed. Family History: No history of premature coronary artery disease in the family. Social History: The patient denies tobacco use, alcohol use, or illicit drug use. Review of Systems: An 11-point system reviewed, negative except as per HPI. Physical Examination: Vital Signs: Temperature 98, heart rate 92, blood pressure 112/81, respirations 18, O2 100% on room air. General: Awake, alert, oriented x3. Ill-appearing female. HEENT: Normocephalic, atraumatic. PERRLA. EOMI. Dry mucous membranes. Oropharynx is clear. Poor dentition. Conjunctivae anicteric. Neck: Supple. No JVD. Trachea midline. CV: S1, S2. Regular rate and rhythm. Peripheral pulses present. No murmurs. Respiratory: Moving air well bilaterally. No wheezing or stridor. No use of accessory muscles. Gastrointestinal: Abdomen is soft. Tenderness to palpation in the epigastric region and left lower quadrant. No rebound or guarding. Bowel sounds hypoactive. Extremities: No clubbing, cyanosis, or edema. No calf tenderness. Neuro: Cranial nerves 2 through 12 intact grossly. No focal neurological deficits. Speech is delmy l. Laboratory Data: UA shows negative nitrite, negative leukocyte esterase. Urine test is ne gative. Sodium 139, potassium 3.8, chloride 110, CO2 15, BUN 28, creatinine 0.8, glucose 68, calcium 8.3, lipase 57. WBC 3.6, H and H 14.5 and 43.5, platelets 153, neutrophils 66.1%. Acute abdominal series, personally reviewed, shows lungs clear of infiltrate; no free air beneath the diaphragm; scol iosis of the spine; fluid present with nondilated large and small bowel in a nonspecific fashion. Assessment And Plan: A 33-year-old female with 1.Acute Crohn's exacerbation. We will keep patient n.p.o. for now. We will start her on IV antibio tics and IV steroids. Spoke with Dr. Howard, who agrees to see the patient. 2.Leukopenia. 3.Hematemesis. We will monitor H and H, likely secondary to above. 4.Fibromyalgia. 5.Scoliosis, stage IV. 6.Hypothyroidism. 7.B12 deficiency anemia. 8.Rheumatoid arthritis. 9.Generalized osteoarthritis. 10.Chronic neck pain due to herniated disks. 11.Seizure disorder. 12.Neuropathy. Plan: Admit the patient to Med-Surg, place as inpatient. Length Of Stay: Greater than 2 midnights. /PATRICIA Voice ID: [id number]
[2018-12-02] MEDS: D5.45NS W/KCL 20MEQ 1,000 ML IV SCH ×3 (05:22→18:31)
[2018-12-02] MEDS ORDERED: PROMETHAZINE 25 MG/ML VIAL IV ONE (05:31)
[2018-12-02 05:58] LABS: Absolute Lymphocytes (CBC) 0.5 K/uL (0.7-4.9); Absolute Monocytes 0.1 K/uL (0.1-1.3); Absolute Neutrophil 0.5 K/uL (1.8-8.0); Basophils % 0.5 % (0-1.3); Eosinophils % 0.5 % (0-4.4); Hematocrit 37.9 % (36.0-45.0); Lymphocytes % 43.4 % (15.3-44.8); MPV 7.8 fL (7.6-11.3); Monocytes % 8.8 % (3.3-12.3); RBC Red Blood Cell Count 4.52 M/uL (3.86-4.86)
[2018-12-02 06:22] LABS: ALT/SGPT 18 U/L (12-78); AST/SGOT 18 U/L (15-37); Albumin 3.7 g/dL (3.4-5.0); Alkaline Phosphatase 81 U/L (45-117); BUN Blood Urea Nitrogen 11 mg/dL (7-18); Bicarbonate 18 mmol/L (21-32); Bilirubin Total 0.3 mg/dL (0.2-1.0); Glucose Level 157 mg/dL (74-106); Magnesium 1.8 mg/dL (1.8-2.4); Protein, Total 7.1 g/dL (6.4-8.2); Sodium Level 141 mmol/L (136-145)
[2018-12-02] MEDS: NALOXONE HCL PO SCH ×2 (09:00→20:01)
[2018-12-02] MEDS: BUPRENORPHINE HCL PO SCH ×2 (09:00→20:01)
[2018-12-02] MEDS ORDERED: predniSONE 20 MG TAB PO SCH (09:00)
[2018-12-02] MEDS ORDERED: MAGNESIUM SULFATE 1 gm IVPB 1 GM/100 ML BAG IV ONE (09:00)
[2018-12-02] MEDS: TIZANIDINE 4 MG TABLET PO SCH ×2 (10:43→20:01)
[2018-12-02] MEDS: GABAPENTIN 400 MG CAP PO SCH ×3 (10:44→20:01)
[2018-12-02] MEDS: CIPROFLOXACIN 400mg IV 400 MG/200 ML BAG IV SCH ×2 (10:44→20:00)
--- NOTE | 2018-12-02 11:56 | RAD REPORT ---
EXAM DESCRIPTION: RAD - Small Bowel Series - 12/02/2018 11:48 am CLINICAL HISTORY: Crohn's Abdominal pain COMPARISON: Abdomen Pelvis W Contrast dated 03/11/2018 FINDINGS: Service Rig Operator film shows a nonspecific bowel gas pattern. No obstruction or free air. No suspiciou s calcifications. Prominent S-shaped scoliosis of the thoracolumbar spine is seen. Cholecystectomy cl ips are present. Gastric size and mucosal fold pattern are normal. No delay in transit of contrast into the small mack l. Small bowel is shortened likely due to previous resection, however is normal in diameter with no m ucosal fold thickening. No intrinsic or extrinsic mass identifiable. Terminal ileum is poorly visuali zed. Transit time to the colon is normal. No fluoroscopy was performed. Total images acquired: 6 IMPRESSION: Significantly shortened small-bowel presumably related to previous partial resection wit hout other worrisome abnormality detected.
[2018-12-02] MEDS: PROMETHAZINE 25 MG/ML VIAL IV PRN ×2 (12:08→18:25)
[2018-12-02] MEDS: ZOLPIDEM TARTRATE 10 MG TABLET PO SCH (20:01)
--- NOTE | 2018-12-02 23:00 | PN ---
Date of Progress Note: 12/02/2018 Subjective: The patient seen and examined. Chart reviewed and case discussed with RN and Dr. Torsten neal. The patient is still having some pain, had some nausea and vomiting with bile. Medications: List reviewed. Physical Examination: Vital Signs: Temperature 97.6, heart rate 60, blood pressure 101/58, respirations 16, O2 of 97% on r oom air. General: Awake, alert, oriented x3. Some mild distress due to pain, ill-appearing female. CV: S1, S2. Regular rate and rhythm. Peripheral pulses present. Respiratory: Moving air well bilaterally. No wheezing or stridor. Gastrointestinal: Abdomen is soft. Tenderness to palpation. No rebound or guarding. Bowel sounds positive. Extremities: No clubbing, cyanosis, or edema. Neurologic: Nonfocal. Laboratory Data: Sodium 141, potassium 4, chloride 112, CO2 of 18, BUN 11, creatinine 0.57, glucose 157, calcium 7.9, magnesium 1.8, WBC 1.1, H and H 12.8 and 37.9, platelets 155, neutrophils 46%, abso lute neutrophils 500. Urine culture shows no growth. Small bowel series: Significantly shortened small bowel presumably related to previous partial resec tion without other worrisome abnormality detected. Assessment: A 33-year-old female with: 1.Acute Crohn exacerbation. We will keep n.p.o. We will continue on IV antibiotics and steroids. GI on board. The patient is still having some abdominal pain, nausea and vomiting. 2.Leukopenia. White count is dropped to 1100 with absolute neutrophil count of 500. We will place the patient on neutropenic precautions. We will consult Hematology. The patient states she has not had biologics for a while. 3.Hematemesis, resolved. No further episodes. We will continue to monitor H and H. 4.Short-gut syndrome. A small-bowel series did not show any other worrisome abnormalities. The pat ient has had multiple prior resections and stricturotomies. 5.Scoliosis stage 4, stable. 6.Hypothyroidism. Continue Synthroid. 7.B12 deficiency anemia. 8.Rheumatoid arthritis. 9.Generalized osteoarthritis. We will continue pain medications. 10.Chronic neck pain due to herniated disks, stable. 11.Seizure disorder. 12.Neuropathy. Plan: Hematology consultation. Reverse isolation for neutropenic precautions. Advance to clear liqu ids. Overall, guarded prognosis. SA/MODL Voice ID: [id number] Report ID: [id number]
[2018-12-03] MEDS: METHYLPREDNISOLONE 40 MG INJ IV SCH ×5 (00:01→23:42)
[2018-12-03] MEDS: D5.45NS W/KCL 20MEQ 1,000 ML IV SCH ×4 (00:01→23:43)
[2018-12-03] MEDS: PROMETHAZINE 25 MG/ML VIAL IV PRN ×5 (05:40→23:43)
[2018-12-03] MEDS: MORPHINE 2 MG/ML SYR IV PRN ×5 (05:40→23:42)
[2018-12-03 06:32] LABS: Absolute Lymphocytes (CBC) 0.5 K/uL (0.7-4.9); Absolute Monocytes 0.3 K/uL (0.1-1.3); Absolute Neutrophil 2.1 K/uL (1.8-8.0); Basophils % 0.2 % (0-1.3); Hematocrit 38.6 % (36.0-45.0); MPV 7.8 fL (7.6-11.3); Monocytes % 9.9 % (3.3-12.3); RBC Red Blood Cell Count 4.66 M/uL (3.86-4.86)
[2018-12-03 06:57] LABS: ALT/SGPT 17 U/L (12-78); AST/SGOT 13 U/L (15-37); Albumin 3.8 g/dL (3.4-5.0); Alkaline Phosphatase 77 U/L (45-117); BUN Blood Urea Nitrogen 11 mg/dL (7-18); Bicarbonate 19 mmol/L (21-32); Bilirubin Total 0.4 mg/dL (0.2-1.0); Glucose Level 172 mg/dL (74-106); Potassium 3.7 mmol/L (3.5-5.1); Protein, Total 7.2 g/dL (6.4-8.2); Sodium Level 140 mmol/L (136-145)
[2018-12-03] MEDS: CIPROFLOXACIN 400mg IV 400 MG/200 ML BAG IV SCH ×2 (08:49→21:01)
[2018-12-03] MEDS: ONDANSETRON 4 MG/2 ML VIAL IV PRN ×3 (08:49→21:02)
[2018-12-03] MEDS: GABAPENTIN 400 MG CAP PO SCH ×3 (08:49→21:02)
[2018-12-03] MEDS: METRONIDAZOLE 500mg IVPB 500 MG/100 ML BAG IV SCH ×4 (08:49→23:54)
[2018-12-03] MEDS: TIZANIDINE 4 MG TABLET PO SCH ×2 (08:50→21:02)
[2018-12-03] MEDS: NALOXONE HCL PO SCH ×2 (08:51→21:00)
[2018-12-03] MEDS: BUPRENORPHINE HCL PO SCH ×2 (08:51→21:00)
[2018-12-03 12:19] LABS: Folic Acid, (Folate) > 20.0 ng/mL (3.1-17.5); Transferrin 308 mg/dL (200-360)
[2018-12-03] MEDS: LIDOCAINE 5% PATCH TOP PRN (15:41)
[2018-12-03] MEDS: ZOLPIDEM TARTRATE 10 MG TABLET PO SCH (21:02)
--- NOTE | 2018-12-03 22:46 | PN ---
Date of Progress Note: 12/03/2018 Subjective: The patient is seen and examined. Chart reviewed and case discussed with RN and Dr. Robbie osullivan. The patient seems to display a pain-seeking behavior. The patient has done so as well in the past. The patient is refusing NG tube, asking for Dilaudid by name. Medications: List reviewed. Physical Examination: Vital Signs: Temperature 97.5, heart rate 90, blood pressure 110/86, respirations 18, O2 of 100% on room air. General: Awake, alert, oriented x3. CV: S1, S2. Regular rate and rhythm. Peripheral pulses present. Respiratory: Moving air well bilaterally. No wheezing or stridor. Gastrointestinal: Abdomen is soft, nontender, nondistended. Positive bowel sounds. No guarding or rigidity. Extremities: No clubbing, cyanosis, or edema. Neurologic: Nonfocal. Laboratory Data: Sodium 140, potassium 3.7, chloride 113, CO2 of 19, BUN 11, creatinine 0.53, glucos e 172, calcium 8.1, iron 122, TIBC 431, transferrin 308, lactate dehydrogenase 215, vitamin B12 of 45 8, serum folate greater than 20. WBC 2.8, H and H 13.1 and 38.6, platelets 184, neutrophils 73%. Pe ripheral blood smear has been sent out. Urine culture, no growth. Assessment: A 33-year-old female with: 1.Acute Crohn's exacerbation. We will start her on clear liquid diet and advance as tolerated. Con tinue IV antibiotics and steroids. Appreciate GI input. 2.Short-gut syndrome. The patient will need ID specialist and multidisciplinary approach with benjy mcadams as an outpatient. 3.Leukopenia, improved, may be secondary to her autoimmune disease due to Crohn's. She has not been on biologics for over a year. Appreciate Hematology evaluation. No longer requiring a reverse isol ation. 4.Hematemesis, resolved. H and H are stable. 5.Scoliosis stage 4. 6.Hypothyroidism. We will continue Synthroid. 7.B12 deficiency anemia. B12 level is 458, which is close to low normal. 8.Rheumatoid arthritis. 9.Generalized osteoarthritis. The patient is on lidocaine patches. 10.Chronic neck pain due to herniated disks, stable. Continue pain medications. 11.Seizure disorder. 12.Neuropathy. 13.Pain seeking behavior. Plan: Advance diet as tolerated. Likely discharge in the next 24 to 48 hours depending on clinical response. SA/MODL Voice ID: [id number] Report ID: [id number]
[2018-12-04] MEDS: ONDANSETRON 4 MG/2 ML VIAL IV PRN ×4 (03:02→21:19)
[2018-12-04] MEDS: METHYLPREDNISOLONE 40 MG INJ IV SCH ×4 (05:33→23:22)
[2018-12-04] MEDS: MORPHINE 2 MG/ML SYR IV PRN ×3 (05:33→17:23)
[2018-12-04] MEDS: PROMETHAZINE 25 MG/ML VIAL IV PRN ×4 (05:33→23:16)
[2018-12-04] MEDS: D5.45NS W/KCL 20MEQ 1,000 ML IV SCH (05:34)
[2018-12-04] MEDS: NALOXONE HCL PO SCH ×2 (07:57→19:54)
[2018-12-04] MEDS: BUPRENORPHINE HCL PO SCH ×2 (07:57→19:54)
[2018-12-04] MEDS: GABAPENTIN 400 MG CAP PO SCH ×4 (09:00→19:54)
[2018-12-04] MEDS: TIZANIDINE 4 MG TABLET PO SCH ×2 (09:15→21:19)
[2018-12-04] MEDS: METRONIDAZOLE 500mg IVPB 500 MG/100 ML BAG IV SCH ×2 (09:15→17:07)
[2018-12-04] MEDS: CIPROFLOXACIN 400mg IV 400 MG/200 ML BAG IV SCH ×2 (10:25→21:18)
[2018-12-04] MEDS ORDERED: SUCRALFATE 1 GM TABLET PO ONE (11:07)
--- NOTE | 2018-12-04 12:14 | RAD REPORT ---
EXAM DESCRIPTION: RAD - Abdomen Acute Series - 12/04/2018 11:22 am CLINICAL HISTORY: Abdominal pain FINDINGS: The bowel gas pattern is unremarkable. Free air is not seen beneath the diaphragm. Lungs appear clear of acute infiltration. Contrast from a small bowel series is present within colon
[2018-12-04] MEDS: NA CHLORIDE 0.9% 1,000 ML IV SCH ×2 (15:13→23:22)
--- NOTE | 2018-12-04 15:50 | PN ---
Date of Progress Note: 12/04/2018 Subjective: The patient is seen and examined. Chart reviewed, and case discussed with RN and Dr. Joshua rosales. The patient continues to have pain-seeking behavior. The patient noted to be in no distress , sleeping comfortably, however, once nursing staff or myself walked into the room, the patient start s moaning and has pain out of proportion to exam, stating that she wants to go to [place] and threate bhavani to leave against medical advice. Medications: List reviewed. Physical Examination: Vital Signs: Temperature 97.7, heart rate 80, blood pressure 141/97, respirations 18, O2 of 98% on r oom air. General: Awake, alert, oriented x3. CV: S1 and S2. Regular rate and rhythm. Respiratory: Moving air well bilaterally. No wheezing. Gastrointestinal: Abdomen is soft. Pain is out of proportion to exam. Bowel sounds are positive. Extremities: No clubbing, cyanosis, or edema. Neuro: Nonfocal. Laboratory Data: The patient refused lab draws this morning. Acute abdominal series personally revi ewed, shows unremarkable bowel gas pattern, no free air. Lungs are clear. Contrast is present from small bowel series in the colon. Assessment: A 33-year-old female with: 1.Acute Crohn's exacerbation. We will advance diet to low residue. Continue IV antibiotics and xochilt roids. The patient has been refusing treatments such as NG tube and labs. 2.Leukopenia, improved. Case discussed with cage operator, Dr. Cortes. Likely due to her autoim mune disease. No need for Neupogen. We will continue to monitor. The patient has refused labs this morning. 3.Short-gut syndrome. Start on low residue diet. Acute abdominal series do not show any obstructiv e pattern. 4.Scoliosis stage IV, stable. 5.Pain medication-seeking behavior. The patient asking for her to be sedated. I explained to her t hat she does not need to be sedated. She is threatening to leave AMA if her pain medications are not adjusted. Subjectively, she does not have physiological signs of pain and has displayed pain-seekin g behavior in the past. 6.Hypothyroidism. Continue Synthroid. 7.B12 deficiency anemia. We will monitor hemoglobin and hematocrit. 8.Rheumatoid arthritis. 9.Generalized osteoarthritis. 10.Chronic neck pain due to herniated disks, stable. 11.Seizure disorder. 12.Neuropathy. Plan: 1.Advance diet to low residue, discontinue once tolerating diet. 2.Intractable nausea and vomiting. The patient refused NG tube. /PATRICIA Voice ID: [id number] Report ID: [id number]
[2018-12-04] MEDS: LIDOCAINE 5% PATCH TOP PRN (17:23)
[2018-12-04] MEDS: ZOLPIDEM TARTRATE 10 MG TABLET PO SCH (21:19)
[2018-12-05] MEDS: METRONIDAZOLE 500mg IVPB 500 MG/100 ML BAG IV SCH ×2 (00:31→08:02)
[2018-12-05] MEDS: ONDANSETRON 4 MG/2 ML VIAL IV PRN ×2 (02:56→09:29)
[2018-12-05] MEDS: METHYLPREDNISOLONE 40 MG INJ IV SCH ×2 (05:13→11:29)
[2018-12-05] MEDS: MORPHINE 2 MG/ML SYR IV PRN (05:13)
[2018-12-05] MEDS: PROMETHAZINE 25 MG/ML VIAL IV PRN ×2 (05:13→11:29)
[2018-12-05] MEDS: TIZANIDINE 4 MG TABLET PO SCH ×2 (08:03→08:56)
[2018-12-05] MEDS: GABAPENTIN 400 MG CAP PO SCH ×2 (08:04→08:55)
[2018-12-05] MEDS: CIPROFLOXACIN 400mg IV 400 MG/200 ML BAG IV SCH (08:04)
[2018-12-05] MEDS: BUPRENORPHINE HCL PO SCH (08:05)
[2018-12-05] MEDS: NALOXONE HCL PO SCH (08:05)
[2018-12-05 08:16] VITALS: O2SAT 97
[2018-12-05] MEDS: NA CHLORIDE 0.9% 1,000 ML IV SCH (10:00)
[2018-12-05] MEDS ORDERED: HYDROMORPHONE HCL 1 MG/ML INJ IV ONE (11:45)
[2018-12-05] MEDS ORDERED: HEPARIN 500 UNIT/5 ML SYR IV SCH (12:00)
[2018-12-05 12:33] VITALS: BP 123/83; TEMP 99.6
--- NOTE | 2018-12-05 14:20 | PN ---
Date of Progress Note: 12/05/2018 History Of Present Illness: The patient seen and examined. Chart reviewed and case discussed with Annie Mckee. The patient refusing lab draws, refusing her medications. Also has been spending her whole night in the bathroom, lying in the tub, in the darkness. The patient still having some intractable nause a and vomiting, refusing to attempt the eat, requesting more pain medications stating that she wants to go to [place], but does not want to leave [facility]. Medications: List reviewed. Physical Examination: Vital Signs: Temperature 99.7, heart rate 108, blood pressure 132/90, respirations 16, O2 97% on colleen m air. General: Awake, alert, oriented x3. CV: S1, S2. Regular rate and rhythm. Peripheral pulses present. Respiratory: Moving air well bilaterally. No wheezing. Gastrointestinal: Abdomen is soft. Pain out of proportion to exam. Laboratory Data: The patient has declined labs. Assessment And Plan: A 33-year-old female with: 1.Acute Crohn's exacerbation. The patient has not had any p.o. intake, has not attempted any p.o. i ntake. Refuses NG tube placement. We will start on PPN. GI on board. 2.Leukopenia; had improved on last CBC. 3.Short-gut syndrome. The patient will need low residue diet and will need to follow up with specia list as an outpatient. 4.Scoliosis, stage IV, stable. 5.Pain medication seeking behavior. 6.Hypothyroidism. Continue Synthroid. 7.B12 deficiency anemia. We will monitor H and H if the patient allows for lab draws. 8.Rheumatoid arthritis, stable. The patient has lidocaine patches. 9.Generalized osteoarthritis. 10.Chronic neck pain due to herniated disks. 11.Seizure disorder. No seizures while in the facility. Plan: We will start PPN. Unfortunately, patient continues to display pain seeking behavior, noncomp liance with treatment, labs, and unfortunately we are unable to give her much help due to her behavio rUmair SANTANA/MODL Voice ID: [id number] Report ID: [id number]
--- NOTE | 2018-12-06 23:12 | DS ---
Date of Discharge: 12/05/2018 General Store Manager: Dr. Howard with GI. Procedures: None. Admitting Diagnoses: 1.Acute Crohn's exacerbation. 2.Leukopenia. 3.Hematemesis. 4.Fibromyalgia. 5.Scoliosis stage IV. 6.Hypothyroidism. 7.B12 deficiency anemia. 8.Rheumatoid arthritis. 9.Generalized osteoarthritis. 10.Chronic neck pain due to herniated disks. 11.Seizure disorder. Discharge Diagnoses: 1.Acute Crohn's exacerbation. 2.Noncompliance. 3.Leukopenia. 4.Short-gut syndrome. 5.Gliosis stage IV. 6.Ewsq-zunkinawqe-vtchgyk behavior. 7.Hypothyroidism. 8.B12 deficiency anemia. 9.Rheumatoid arthritis. 10.Generalized osteoarthritis. 11.Chronic neck pain due to herniated disks. 12.Seizure disorder. Hospital Course: The patient is a 33-year-old female, who comes in with abdominal pain, nausea, and vomiting. The patient has had multiple readmissions for similar symptoms. 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 Horn out of town. [facility]urotomies and partial resection. The patient was started on IV antibioti cs and IV fluids, kept n.p.o., and pain medications. The patient was also seen by Dr. Howard, who did not recommend any procedures at this time. The patient remained leukopenic, was seen by Hematolo gy, Dr. Cortes. Peripheral blood smear was sent out, which showed leukopenia. The patient did h ave a small bowel series, which showed significantly shortened small bowel related to previous partia l resection without other worrisome abnormality detected. The patient has had multiple CT scans of t he abdomen; therefore, to avoid further radiation exposure, acute abdominal series was done, which sh owed a bowel gas pattern unremarkable, contrast for small bowel series present within the colon. The patient did not improve. She was unable to tolerate any p.o. intake, however, she refused NG tube f or her intractable nausea and vomiting. She also displayed pain-seeking behavior, asking for Craig fagan by name, also asking for me to put her into sedation due to her pain. I explained to her that she will have some form of pain due to her previous strictures and nature of her disease. However, it is unsafe to continue with heavily sedative medications as her blood pressure also stays on the low wilfredo e. 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 The patient had been constipated, had not had a bowel movement. The patient also refused ambulation. She would go inside the bathroom and wou ld lay in the tub for hours in the dark. 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 She was given the option of being transferred; however, mother had come and thei r plan was to go directly to [place]. They have seen Dr. Claros in the past and want to be under his s ervice. The patient did sign AMA and was discharged against medical advice. For physical exam findi ngs, please see progress note dictated on the day of discharge. /PATRICIA Voice ID: [id number] Report ID: [id number]
== END 2018-12-05 12:25 | disposition left against medical advice (07) | DRG 386 ==
LOC: ER 08:19 → ERHOLD 12:17 → 4TH 14:31
PROVIDERS: ADMIT Family Medicine; ATTEND Family Medicine
DX: K50.90 Crohn's disease, unspecified, without complications (principal); K91.2 Postsurgical malabsorption, not elsewhere classified; K92.0 Hematemesis; Z91.19 Patient's noncompliance with other medical treatment and regimen; D72.819 Decreased white blood cell count, unspecified; G93.89 Other specified disorders of brain; Z76.5 Malingerer [conscious simulation]; E03.9 Hypothyroidism, unspecified; D51.9 Vitamin B12 deficiency anemia, unspecified; M06.9 Rheumatoid arthritis, unspecified; M15.9 Polyosteoarthritis, unspecified; M50.20 Other cervical disc displacement, unspecified cervical region; M41.9 Scoliosis, unspecified; Z53.21 Procedure and treatment not carried out due to patient leaving prior to being seen by health care provider
CPT/HCPCS: 36415; 74022; 74250; 80048; 80053; 80076; 81003; 81025; 82607; 82746; 82962; 83540; 83615; 83690; 83735; 84466; 85025; 87086; 87088; 94760; 96361; 96365; 96368; 96375; 99285; J0696; J0744; J1170; J1642; J2270; J2405; J2550; J2920; J2930; J3475; J7030

== ENCOUNTER 2019-06-19 01:27 | Emergency (ER) | payer SELFPAY ==
[2019-06-19] MEDS ORDERED: NA CHLORIDE 0.9% 1,000 ML ONE (02:09)
[2019-06-19] MEDS ORDERED: ONDANSETRON 4 MG/2 ML VIAL ONE (02:10)
[2019-06-19 02:35] LABS: Urine Appearance CLEAR; Urine Blood NEGATIVE (NEG); Urine Color RED; Urine Glucose NEGATIVE (NEG); Urine Protein 1+ (NEG); Urine Specific Gravity >=1.030 (1.005-1.030)
[2019-06-19 02:52] LABS: Urine Microscopic Reflex NO UMIC
[2019-06-19 02:56] LABS: Urine Bilirubin ND (NEG)
[2019-06-19 02:57] LABS: Urine Culture Reflex Order REFLEXED; Urine Mucus MOD /HPF (NONE SEEN); Urine RBC NONE SEEN /HPF (NONE SEEN)
[2019-06-19 02:58] LABS: Urine Bacteria 20-50 /HPF (<20)
[2019-06-19 02:59] LABS: Urine Blood NEGATIVE (NEG); Urine Glucose 2+ (NEG); Urine Protein 3+ (NEG)
[2019-06-19 03:05] LABS: Absolute Lymphocytes (CBC) 1.3 K/uL (0.7-4.9); Basophils % 1.1 % (0-1.3); Hematocrit 33.1 % (36.0-45.0); Lymphocytes % 28.4 % (15.3-44.8); MPV 7.4 fL (7.6-11.3); RBC Red Blood Cell Count 3.82 M/uL (3.86-4.86)
[2019-06-19 03:20] LABS: ALT/SGPT 14 U/L (12-78); AST/SGOT 13 U/L (15-37); Alkaline Phosphatase 77 U/L (45-117); BUN Blood Urea Nitrogen 16 mg/dL (7-18); Bicarbonate 26 mmol/L (21-32); Bilirubin Direct 0.2 mg/dL (0-0.2); Bilirubin Total 0.5 mg/dL (0.2-1.0); Glucose Level 75 mg/dL (74-106); Lipase 80 U/L (73-393); Potassium 3.4 mmol/L (3.5-5.1); Sodium Level 145 mmol/L (136-145)
[2019-06-19] MEDS ORDERED: PROMETHAZINE 25 MG/ML VIAL ONE (03:21)
[2019-06-19] MEDS ORDERED: MORPHINE 4 MG/ML SYR ONE (03:21)
[2019-06-19] MEDS ORDERED: DIPHENHYDRAMINE 50 MG/ML VIAL ONE (03:21)
[2019-06-19] MEDS ORDERED: CEFTRIAXONE/SWI 1gm 1 GM/10 ML SYR ONE (03:22)
--- NOTE | 2019-06-19 04:18 | EDPHYS ---
Physician Documentation [facility] Name: Va Cardoso Age: 34 yrs Sex: Female : 1985 Arrival Date: 06/19/2019 Time: 01:33 Bed 5 Private MD: ED Physician Anthony Joshua HPI: 06/19 02:30 This 34 yrs old Female presents to ER via Ambulatory with complaints of cp Nausea/Vomiting, Abdominal Pain. 02:30 The patient presents to the emergency department with nausea, vomiting, that is cp intermittent, diarrhea, that is continuous, abdominal pain, of the right upper quadrant. 02:30 Onset: The symptoms/episode began/occurred gradually. cp 02:30 Possible causes: flare up of bowel problem, Crohn's disease. Associated signs and cp symptoms: Pertinent negatives: fever, GI bleeding. Severity of symptoms: in the emergency department the symptoms are unchanged despite home interventions. Patient reports she ran out of chronic pain medications and prescribing physician refused to refill pain medications due to patient testing positive for marijuana. [employer]: 01:50 LMP 06/19/2019 fc Historical: - Allergies: 02:35 Benadryl (MAKES ME HYPER A CHILD); fc 02:35 Remicade (Anaphylaxis); fc - Home Meds: 02:35 Dexilant 60 mg oral CpDB 1 cap once daily [Active]; Suboxone sublingual sublingual fc twice a day [Active]; tizanidine 4 mg Oral tab 1 tab three times a day [Active]; gabapentin 800 mg Oral tab 1 tab 3 times per day [Active]; Diazepam Oral as needed [Active]; Vitamin B-12 1,000 mcg/mL injection soln 0.1 mL once a week [Active]; promethazine 25 mg Oral tab 1 tab as needed [Active]; Zofran (as hydrochloride) 8 mg Oral tab 1 tab as needed [Active]; Reglan 5 mg Oral tab as needed [Active]; pantoprazole 40 mg oral TbEC 1 tab 2 times per day [Active]; - PMHx: 02:35 Anemia; bowel obstruction; Chronic pain; Crohn's; fatty liver; Fibromyalgia; fc HYPOGLYCEMIA; Hypothyroidism; Osteoporosis; Rheumatoid Arthritis; ruptured small bowel; scoliosis; B12 deficiency; Seizures; uterine cysts; - PSHx: 02:35 Bowel resection; volvulous repair; fistula repair; Hernia repair; ; Tubal fc ligation; Cholecystectomy; - Immunization history:: Last tetanus immunization: unable to take. Flu vaccine is not up to date. - Social history:: Smoking status: Patient/guardian denies using tobacco, Patient uses street drugs, marijuana, Patient/guardian denies using alcohol. - Ebola Screening: : Patient negative for fever greater than or equal to 101.5 degrees Fahrenheit, and additional compatible Ebola Virus Disease symptoms Patient denies exposure to infectious person Patient denies travel to an Ebola-affected area in the 21 days before illness onset. ROS: 02:35 Eyes: Negative for injury, pain, redness, and discharge. cp 02:35 Constitutional: Positive for poor PO intake, Negative for body aches, chills, fever. 02:35 ENT: Negative for drainage from ear(s), ear pain, sore throat, difficulty swallowing, difficulty handling secretions. 02:35 Cardiovascular: Negative for chest pain, edema, palpitations. 02:35 Respiratory: Negative for cough, shortness of breath, wheezing. 02:35 Abdomen/GI: Positive for abdominal pain, nausea, vomiting, and diarrhea, Negative for constipation, hematemesis, black/tarry stool, rectal bleeding. 02:35 Back: Negative for radiated pain. 02:35 : Positive for vaginal bleeding, Negative for urinary symptoms. 02:35 Neuro: Negative for altered mental status, headache, weakness. 02:35 All other systems are negative. Exam: 02:38 Head/Face: Normocephalic, atraumatic. cp 02:38 Constitutional: The patient appears in no acute distress, alert, awake, non-toxic, well developed, well nourished, uncomfortable. 02:38 Eyes: Periorbital structures: appear normal, Conjunctiva: normal, no exudate, no injection, Sclera: no appreciated abnormality, Lids and lashes: appear normal, bilaterally. 02:38 ENT: External ear(s): are unremarkable, Nose: is normal, Mouth: Lips: moist, Oral mucosa: pink and intact, moist, Posterior pharynx: is normal, airway is patent, no erythema, no exudate. 02:38 Chest/axilla: Inspection: normal, Palpation: is normal, no crepitus, no tenderness. 02:38 Cardiovascular: Rate: tachycardic, Rhythm: regular. 02:38 Respiratory: the patient does not display signs of respiratory distress, Respirations: normal, no use of accessory muscles, no retractions, no splinting, no tachypnea, labored breathing, is not present, Breath sounds: are clear throughout, no decreased breath sounds, no stridor, no wheezing. 02:38 Abdomen/GI: Inspection: abdomen appears normal, Bowel sounds: active, all quadrants, Palpation: soft, in all quadrants, moderate abdominal tenderness, in all quadrants, voluntary guarding, is not appreciated, involuntary guarding, is not appreciated. 02:38 Back: pain, is absent, ROM is normal. Vital Signs: 01:50 BP 126 / 87; Pulse 102; Resp 20; Temp 98.2(O); Pulse Ox 96% on R/A; Weight 49.9 kg (R); fc Height 5 ft. 0 in. (152.40 cm) (R); Pain 8/10; 02:50 BP 131 / 53; Pulse 69; Resp 14 S; Pulse Ox 100% on R/A; bb 03:38 BP 109 / 63; Pulse 73; Resp 14 S; Pulse Ox 96% on R/A; bb 04:36 BP 118 / 82; Pulse 76; Resp 14 S; Pulse Ox 98% on R/A; bb 01:50 Body Mass Index 21.48 (49.90 kg, 152.40 cm) fc MDM: 01:57 Patient medically screened. tw4 04:17 Data reviewed: vital signs, nurses notes, lab test result(s), I have discussed the cp patient's presentation/case with the attending Emergency Department Physician; and as a result, I will discharge patient. 04:17 Differential diagnosis: Nonspecific abd pain, chronic pain, bowel obstruction, bowel cp perforation. Counseling: I had a detailed discussion with the patient and/or guardian regarding: the historical points, exam findings, and any diagnostic results supporting the discharge/admit diagnosis, lab results, radiology results, the need for outpatient follow up, for definitive care, a painter hand, to return to the emergency department if symptoms worsen or persist or if there are any questions or concerns that arise at home. Response to treatment: the patient's symptoms have markedly improved after treatment, VSS. Pain and nausea improved. No vomiting observed in ED, and as a result, I will discharge patient. Special discussion: Based on the patient's Hx, exam, and Dx evaluation, there is no indication for emergent surgery or inpatient Tx. It is understood by the patient/guardian that if the Sx's persist or worsen they need to return immediately for re-evaluation. 06/19 02:04 Order name: Basic Metabolic Panel; Complete Time: 03:58 tw4 06/19 03:58 Interpretation: Normal except: K 3.4; CL 111. cp 06/19 02:04 Order name: CBC with Diff; Complete Time: 03:10 tw4 06/19 03:10 Interpretation: Normal except: RBC 3.82; HGB 11.1; HCT 33.1; MCV 86.7; MPV 7.4. cp 06/19 02:04 Order name: Creatinine for Radiology; Complete Time: 03:58 tw4 06/19 02:04 Order name: Hepatic Function; Complete Time: 03:58 tw4 06/19 02:04 Order name: Lipase; Complete Time: 03:58 tw4 06/19 02:20 Order name: UA MICROSCOPIC; Complete Time: 03:10 cp 06/19 02:20 Order name: UA; Complete Time: 03:10 cp 06/19 02:43 Order name: Urine Dipstick--Ancillary (enter results); Complete Time: 03:10 ar5 06/19 03:10 Interpretation: Normal except: UGLUC 2+; UKET 1+; UPROT 3+; U NIT POSITIVE; UESTR 3+. cp 06/19 02:43 Order name: Urine --Ancillary (enter results); Complete Time: 03:10 ar5 06/19 02:58 Order name: Urine Culture EDKS 06/19 03:12 Order name: XRAY Abdomen Acute Series cp 06/19 02:04 Order name: IV Saline Lock; Complete Time: 03:19 tw4 06/19 02:04 Order name: Labs collected and sent; Complete Time: 03:19 tw4 06/19 02:20 Order name: Urine Test (obtain specimen); Complete Time: 03:19 cp Administered Medications: 03:00 Drug: NS 0.9% 1000 ml Route: IV; Rate: 1 bolus; Site: Port-a-cath; bb 03:00 Drug: Zofran 4 mg Route: IVP; Site: Port-a-cath; bb 04:31 Follow up: Response: No adverse reaction; Marked relief of symptoms; Nausea is decreasedtl1 03:32 Drug: Phenergan 25 mg Route: IVP; Site: Port-a-cath; bb 04:31 Follow up: Response: No adverse reaction; Marked relief of symptoms; Nausea is decreasedtl1 03:32 Drug: Benadryl 25 mg Route: IVP; Site: Port-a-cath; bb 04:30 Follow up: Response: No adverse reaction; Marked relief of symptoms tl1 03:32 Drug: morphine 4 mg Route: IVP; Site: Port-a-cath; bb 04:30 Follow up: Response: No adverse reaction; Marked relief of symptoms; Pain is decreased tl1 03:33 Drug: Rocephin 1 grams Route: IV; Rate: bolus; Site: Port-a-cath; bb 03:38 Follow up: IV Status: Completed infusion; IV Intake: 10ml tl1 04:30 Drug: Potassium Effervescent Tablet 25 mEq Route: PO; tl1 04:37 Follow up: Response: No adverse reaction bb 05:00 Drug: HEParin Flush 500 units Route: IVP; Infused Over: 1 mins; Site: Port-a-cath; tl1 05:11 Follow up: Response: No adverse reaction; No change in condition tl1 Disposition: 06:56 Co-signature as Attending Physician, Anthony Joshua MD I agree with the assessment and tw4 plan of care. Disposition: 06/19/19 04:18 Discharged to Home. Impression: Nausea and vomiting, Diarrhea, unspecified, Other chronic pain - abdominal pain, Urinary tract infection, site not specified. - Condition is Stable. - Discharge Instructions: Dehydration, Adult, Diarrhea, Adult, Nausea and Vomiting, Adult, Urinary Tract Infection, Adult. - Prescriptions for Bentyl 20 mg Oral Tablet - take 1 tablet by ORAL route every 6 hours As needed; 20 tablet. Phenergan 25 mg Rectal Suppository - insert 1 suppository by RECTAL route every 6 hours As needed; 12 suppository. promethazine 25 mg Oral Tablet - take 1 tablet by ORAL route every 6 hours As needed; 20 tablet. Augmentin 875- 125 mg Oral Tablet - take 1 tablet by ORAL route every 12 hours for 7 days; 14 tablet. - Medication Reconciliation Form, Thank You Letter, Antibiotic Education, Prescription Opioid Use form. - Follow up: Dick Howard MD; When: 2 - 3 days; Reason: Recheck today's complaints. - Problem is new. - Symptoms have improved. Signatures: Dispatcher [employer] EDMS Esme Whitley RN RN Jacquelyn Hansen RN RN bb Diandra Puckett RN RN tl1 Eh Wei PA PA Anthony Busby MD MD tw4 Corrections: (The following items were deleted from the chart) 04:19 04:18 06/19/2019 04:18 Discharged to Home. Impression: Nausea and vomiting; Diarrhea, cp unspecified; Other chronic pain - abdominal pain. Condition is Stable. Forms are Medication Reconciliation Form, Thank You Letter, Antibiotic Education, Prescription Opioid Use. Follow up: Dick Howard; When: 2 - 3 days; Reason: Recheck today's complaints. Problem is new. Symptoms have improved. cp 05:13 04:19 06/19/2019 04:18 Discharged to Home. Impression: Nausea and vomiting; Diarrhea, tl1 unspecified; Other chronic pain - abdominal pain; Urinary tract infection, site not specified. Condition is Stable. Discharge Instructions: Dehydration, Adult, Diarrhea, Adult, Nausea and Vomiting, Adult. Prescriptions for Bentyl 20 mg Oral Tablet - take 1 tablet by ORAL route every 6 hours As needed; 20 tablet, Phenergan 25 mg Rectal Suppository - insert 1 suppository by RECTAL route every 6 hours As needed; 12 suppository, promethazine 25 mg Oral Tablet - take 1 tablet by ORAL route every 6 hours As needed; 20 tablet. and Forms are Medication Reconciliation Form, Thank You Letter, Antibiotic Education, Prescription Opioid Use. Follow up: Dick Howard; When: 2 - 3 days; Reason: Recheck today's complaints. Problem is new. Symptoms have improved. cp
--- NOTE | 2019-06-19 04:18 | ER ---
Nurse's Notes [facility] Name: Va Cardoso Age: 34 yrs Sex: Female : 1985 Arrival Date: 06/19/2019 Time: 01:33 Bed 5 Private MD: Diagnosis: Nausea and vomiting;Diarrhea, unspecified;Other chronic pain-abdominal pain;Urinary tract infection, site not specified Presentation: 06/19 01:50 Presenting complaint: Patient states: that she is having right upper abdominal pain and fc left leg pain. Also having nausea and vomiting. Pt out of pain medication from Dr Stacy. He refused to fill her medication due to her smoking weed. Transition of care: patient was not received from another setting of care. Onset of symptoms was June 14, 2019. Risk Assessment: Do you want to hurt yourself or someone else? Patient reports no desire to harm self or others. Initial Sepsis Screen: Does the patient meet any 2 criteria? HR > 90 bpm. Yes Does the patient have a suspected source of infection? No. Patient's initial sepsis screen is negative. Care prior to arrival: None. 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: 01:50 LMP 06/19/2019 fc Historical: - Allergies: 02:35 Benadryl (MAKES ME HYPER A CHILD); fc 02:35 Remicade (Anaphylaxis); fc - Home Meds: 02:35 Dexilant 60 mg oral CpDB 1 cap once daily [Active]; Suboxone sublingual sublingual fc twice a day [Active]; tizanidine 4 mg Oral tab 1 tab three times a day [Active]; gabapentin 800 mg Oral tab 1 tab 3 times per day [Active]; Diazepam Oral as needed [Active]; Vitamin B-12 1,000 mcg/mL injection soln 0.1 mL once a week [Active]; promethazine 25 mg Oral tab 1 tab as needed [Active]; Zofran (as hydrochloride) 8 mg Oral tab 1 tab as needed [Active]; Reglan 5 mg Oral tab as needed [Active]; pantoprazole 40 mg oral TbEC 1 tab 2 times per day [Active]; - PMHx: 02:35 Anemia; bowel obstruction; Chronic pain; Crohn's; fatty liver; Fibromyalgia; fc HYPOGLYCEMIA; Hypothyroidism; Osteoporosis; Rheumatoid Arthritis; ruptured small bowel; scoliosis; B12 deficiency; Seizures; uterine cysts; - PSHx: 02:35 Bowel resection; volvulous repair; fistula repair; Hernia repair; ; Tubal fc ligation; Cholecystectomy; - Immunization history:: Last tetanus immunization: unable to take. Flu vaccine is not up to date. - Social history:: Smoking status: Patient/guardian denies using tobacco, Patient uses street drugs, marijuana, Patient/guardian denies using alcohol. - Ebola Screening: : Patient negative for fever greater than or equal to 101.5 degrees Fahrenheit, and additional compatible Ebola Virus Disease symptoms Patient denies exposure to infectious person Patient denies travel to an Ebola-affected area in the 21 days before illness onset. Screenin:50 Abuse screen: Denies threats or abuse. Nutritional screening: No deficits noted. fc Tuberculosis screening: No symptoms or risk factors identified. Fall Risk None identified. Assessment: 02:50 General: Appears uncomfortable, slender, Behavior is calm, cooperative. Pain: Complains bb of pain in abdomen. Neuro: Level of Consciousness is awake, alert, obeys commands, Oriented to person, place, time, Appropriate for age. Cardiovascular: No deficits noted. Respiratory: Respiratory effort is even, unlabored, Respiratory pattern is regular. GI: Abdomen is non-distended, Reports upper abdominal pain, diarrhea, nausea, vomiting. Derm: Skin is dry, Skin is pale, Skin temperature is warm. 02:50 Musculoskeletal: Circulation, motion, and sensation intact. bb 03:35 Reassessment: Patient and/or family updated on plan of care and expected duration. Pain bb level reassessed. Patient is alert, oriented x 3, equal unlabored respirations, skin warm/dry/pink. port-a-cath patent and intact with fluids infusing, family at bedside. 04:35 Reassessment: pt awaiting diagnostic results prior to discharge. Pt is A\T\O x 4, resp bb unlabored states she is feeling better now family at bedside. Vital Signs: 01:50 BP 126 / 87; Pulse 102; Resp 20; Temp 98.2(O); Pulse Ox 96% on R/A; Weight 49.9 kg (R); fc Height 5 ft. 0 in. (152.40 cm) (R); Pain 8/10; 02:50 BP 131 / 53; Pulse 69; Resp 14 S; Pulse Ox 100% on R/A; bb 03:38 BP 109 / 63; Pulse 73; Resp 14 S; Pulse Ox 96% on R/A; bb 04:36 BP 118 / 82; Pulse 76; Resp 14 S; Pulse Ox 98% on R/A; bb 01:50 Body Mass Index 21.48 (49.90 kg, 152.40 cm) ED Course: 01:33 Patient arrived in ED. ds1 01:50 Arm band placed on Patient placed in an exam room, on a stretcher. fc 01:50 Patient has correct armband on for positive identification. Bed in low position. Call fc light in reach. Side rails up X 1. Pulse ox on. NIBP on. 01:50 No provider procedures requiring assistance completed. fc 01:57 Anthony Joshua MD is Attending Physician. tw4 02:19 Eh Wei PA is PHCP. cp 02:25 Triage completed. fc 02:50 Accessed Port-a-Cath. using accessed w/ # 20 Vitale needle, Clean \T\ dry. Dressing bb intact. Good blood return. Flushes easily. 03:07 Jacquelyn Dow, KELLY is Primary Nurse. bb 04:17 Dick Howard MD is Referral Physician. cp 04:42 XRAY Abdomen Acute Series In Process Unspecified. EDMS 05:12 IV discontinued, intact, bleeding controlled. tl1 Administered Medications: 03:00 Drug: NS 0.9% 1000 ml Route: IV; Rate: 1 bolus; Site: Port-a-cath; bb 03:00 Drug: Zofran 4 mg Route: IVP; Site: Port-a-cath; bb 04:31 Follow up: Response: No adverse reaction; Marked relief of symptoms; Nausea is decreasedtl1 03:32 Drug: Phenergan 25 mg Route: IVP; Site: Port-a-cath; bb 04:31 Follow up: Response: No adverse reaction; Marked relief of symptoms; Nausea is decreasedtl1 03:32 Drug: Benadryl 25 mg Route: IVP; Site: Port-a-cath; bb 04:30 Follow up: Response: No adverse reaction; Marked relief of symptoms tl1 03:32 Drug: morphine 4 mg Route: IVP; Site: Port-a-cath; bb 04:30 Follow up: Response: No adverse reaction; Marked relief of symptoms; Pain is decreased tl1 03:33 Drug: Rocephin 1 grams Route: IV; Rate: bolus; Site: Port-a-cath; bb 03:38 Follow up: IV Status: Completed infusion; IV Intake: 10ml tl1 04:30 Drug: Potassium Effervescent Tablet 25 mEq Route: PO; tl1 04:37 Follow up: Response: No adverse reaction bb 05:00 Drug: HEParin Flush 500 units Route: IVP; Infused Over: 1 mins; Site: Port-a-cath; tl1 05:11 Follow up: Response: No adverse reaction; No change in condition tl1 Intake: 03:38 IV: 10ml; Total: 10ml. tl1 Outcome: 04:18 Discharge ordered by . cp 05:12 Discharged to home ambulatory, with family. tl1 05:12 Condition: stable 05:12 Discharge instructions given to patient, family, Instructed on discharge instructions, follow up and referral plans. medication usage, Demonstrated understanding of instructions, follow-up care, medications, Prescriptions given X 4. 05:13 Patient left the ED. tl1 Addendum: 06/22/2019 12:16 Addendum: Culture Results: Positive urine culture. No further action required. Bacteria s s sensitive to prescribed antibiotic. Signatures: Dispatcher [employer] EDMS Esme Whitley RN RN fc Sanford, Demi ds1 Jacquelyn Dow RN RN bb Smirch, Shelby, RN RN ss Lasagna, Tonya, RN RN tl1 Eh Wei PA PA cp Wadley, Terrence, MD MD tw4
[2019-06-19] MEDS ORDERED: POTASSIUM 25 MEQ EFFERV TAB ONE (04:21)
[2019-06-19] MEDS ORDERED: HEPARIN 500 UNIT/5 ML SYR IV ONE (04:27)
--- NOTE | 2019-06-19 10:51 | RAD REPORT ---
EXAM DESCRIPTION: RAD - Abdomen Acute Series - 06/19/2019 4:44 am CLINICAL HISTORY: diarrhea;Abd pain;Nausea / vomiting COMPARISON: Abdomen Acute Series dated 12/04/2018 . FINDINGS: Lungs are clear. Heart size and pulmonary vasculature are normal. No pleural effusion, pne umothorax or other acute cardiopulmonary process seen. Right-sided Port-A-Cath is in place. Chest fin dings are not significantly different from comparison. Nipple shadow is seen in the lower left lung f ield. Bowel gas pattern is nonspecific. No bowel obstruction, free air or other acute findings. No suspicio us calcifications. Cholecystectomy clips are present. No other suspicious for significant findings. No acute bone findings seen. Patient has a pronounced thoracolumbar scoliotic curvature. IMPRESSION: Negative acute abdomen series for acute or significant finding.
== END 2019-06-19 05:13 | disposition home or self-care (01) ==
LOC: ER 01:27
DX: N39.0 Urinary tract infection, site not specified (principal); R11.2 Nausea with vomiting, unspecified; R19.7 Diarrhea, unspecified; R10.9 Unspecified abdominal pain
CPT/HCPCS: 36415; 74022; 80048; 80076; 81003; 81015; 81025; 83690; 85025; 87077; 87086; 87088; 87186; 96374; 96375; 99284; J0696; J1200; J1642; J2405; J2550; J7030

== ENCOUNTER 2019-06-20 21:39 | Emergency (ER) | payer SELFPAY ==
[2019-06-20] MEDS ORDERED: HALOPERIDOL LACT 5 MG/ML INJ ONE (22:52)
[2019-06-20] MEDS ORDERED: PANTOPRAZOLE 40 MG INJ ONE (22:52)
[2019-06-20] MEDS ORDERED: NA CHLORIDE 0.9% 1,000 ML ONE (22:53)
[2019-06-20 23:23] LABS: Basophils % 0.7 % (0-1.3); Hematocrit 31.2 % (36.0-45.0); Lymphocytes % 22.5 % (15.3-44.8); MPV 7.6 fL (7.6-11.3); RBC Red Blood Cell Count 3.65 M/uL (3.86-4.86)
[2019-06-20 23:36] LABS: Urine Blood NEGATIVE (NEG); Urine Glucose TRACE (NEG); Urine Protein 2+ (NEG)
[2019-06-20 23:42] LABS: Urine Culture Reflex Order NOT NEEDED
[2019-06-20 23:43] LABS: Urine Bacteria <20 /HPF (<20); Urine Mucus 2+ /HPF (NONE SEEN); Urine RBC <5 /HPF (NONE SEEN)
[2019-06-20 23:43] LABS: ALT/SGPT 15 U/L (12-78); AST/SGOT 10 U/L (15-37); Albumin 3.9 g/dL (3.4-5.0); Alkaline Phosphatase 77 U/L (45-117); BUN Blood Urea Nitrogen 15 mg/dL (7-18); Bicarbonate 26 mmol/L (21-32); Bilirubin Direct 0.2 mg/dL (0-0.2); Bilirubin Total 0.5 mg/dL (0.2-1.0); Glucose Level 113 mg/dL (74-106); Lipase 133 U/L (73-393); Potassium 3.6 mmol/L (3.5-5.1); Protein, Total 6.7 g/dL (6.4-8.2); Sodium Level 144 mmol/L (136-145)
[2019-06-21] MEDS ORDERED: PROMETHAZINE 25 MG/ML VIAL ONE (02:56)
[2019-06-21] MEDS ORDERED: HYDROMORPHONE HCL 0.5 MG/0.5 ML INJ ONE (02:56)
[2019-06-21] MEDS ORDERED: NA CHLORIDE 0.9% 100 ML IV ONE (02:57)
--- NOTE | 2019-06-21 03:14 | EDPHYS ---
Physician Documentation [facility] Name: Va Cardoso Age: 34 yrs Sex: Female : 1985 Arrival Date: 06/20/2019 Time: 21:43 Bed 6 Private MD: ED Physician Osvaldo Li HPI: 06/21 03:00 This 34 yrs old Female presents to ER via Ambulatory with complaints of NERVE gs PAIN. 03:00 The patient presents with abdominal pain that is diffuse. Onset: The symptoms/episode gs began/occurred 1 week(s) ago. The symptoms do not radiate. Associated signs and symptoms: Pertinent positives: vomiting. The symptoms are described as crampy. Modifying factors: The symptoms are alleviated by nothing, the symptoms are aggravated by nothing. Severity of pain: At its worst the pain was severe in the emergency department the pain is unchanged. The patient has experienced similar episodes in the past, chronically, recent out of opiates fired by pain management for marijuana usage. 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: 06/20 21:52 LMP 06/19/2019 ak1 Historical: - Allergies: 21:52 Remicade (Anaphylaxis); ak1 - Home Meds: 21:52 Ambien 10 mg Oral tab 1 tab once daily [Active]; amitriptyline 10 mg Oral tab 2 tabs ak1 nightly [Active]; [place] Thyroid 30 mg Oral tab daily [Active]; baclofen 10 mg Oral tab 1 tab every 6 hours [Active]; Bentyl 10 mg Oral cap 1 cap 3 times per day [Active]; cholecalciferol (vitamin D3) 50,000 unit Oral cap WEEKLY [Active]; clonazepam 0.5 mg Oral tab 1 tab nightly [Active]; Dexilant 60 mg Oral CpDB 1 cap once daily [Active]; diazepam Oral as needed [Active]; fentanyl 75 mcg/hr Topical pt72 1 patch every 72 hours [Active]; gabapentin 800 mg Oral tab 1 tab 3 times per day [Active]; magnesium oxide 400 mg Oral tab twice a day [Active]; pantoprazole 40 mg Oral TbEC 1 tab 2 times per day [Active]; Phenergan 25 mg Rectal supp 1 suppository [Active]; promethazine 25 mg Oral tab 1 tab as needed [Active]; Reglan 5 mg Oral tab as needed [Active]; Suboxone sublingual twice a day [Active]; tizanidine 4 mg Oral tab 1 tab three times a day [Active]; Vitamin B-12 1,000 mcg/mL injection soln 0.1 mL once a week [Active]; Zofran (as hydrochloride) 8 mg Oral tab 1 tab as needed [Active]; - PMHx: 21:52 Anemia; B12 deficiency; bowel obstruction; Chronic pain; Crohn's; fatty liver; ak1 Fibromyalgia; HYPOGLYCEMIA; Hypothyroidism; Osteoporosis; Rheumatoid Arthritis; ruptured small bowel; scoliosis; Seizures; uterine cysts; - PSHx: 21:52 Bowel resection; ; volvulous repair; fistula repair; Cholecystectomy; Hernia ak1 repair; Tubal ligation; - Immunization history:: Adult Immunizations unknown. - Social history:: Smoking status: Patient/guardian denies using tobacco. - Ebola Screening: : No symptoms or risks identified at this time. ROS: 06/21 03:00 All other systems are negative. gs Exam: 03:00 Head/Face: Normocephalic, atraumatic. Eyes: Pupils equal round and reactive to light, gs extra-ocular motions intact. Lids and lashes normal. Conjunctiva and sclera are non-icteric and not injected. Cornea within normal limits. Periorbital areas with no swelling, redness, or edema. ENT: Nares patent. No nasal discharge, no septal abnormalities noted. Tympanic membranes are normal and external auditory canals are clear. Oropharynx with no redness, swelling, or masses, exudates, or evidence of obstruction, uvula midline. Mucous membranes moist. Neck: Trachea midline, no thyromegaly or masses palpated, and no cervical lymphadenopathy. Supple, full range of motion without nuchal rigidity, or vertebral point tenderness. No Meningismus. Chest/axilla: Normal chest wall appearance and motion. Nontender with no deformity. No lesions are appreciated. Cardiovascular: Regular rate and rhythm with a normal S1 and S2. No gallops, murmurs, or rubs. Normal PMI, no JVD. No pulse deficits. Respiratory: Lungs have equal breath sounds bilaterally, clear to auscultation and percussion. No rales, rhonchi or wheezes noted. No increased work of breathing, no retractions or nasal flaring. Back: No spinal tenderness. No costovertebral tenderness. Full range of motion. Skin: Warm, dry with normal turgor. Normal color with no rashes, no lesions, and no evidence of cellulitis. MS/ Extremity: Pulses equal, no cyanosis. Neurovascular intact. Full, normal range of motion. Neuro: Awake and alert, GCS 15, oriented to person, place, time, and situation. Cranial nerves II-XII grossly intact. Motor strength 5/5 in all extremities. Sensory grossly intact. Cerebellar exam normal. Normal gait. 03:00 Constitutional: The patient appears alert, awake. 03:00 Abdomen/GI: Palpation: mild abdominal tenderness, in all quadrants, rebound tenderness, is not appreciated, Rectal exam: Stool: guaiac negative, the exam is chaperoned by the nurse. Vital Signs: 06/20 21:52 BP 142 / 94; Pulse 119; Resp 16; Temp 98.1; Pulse Ox 99% on R/A; Weight 49.9 kg (R); ak1 Height 5 ft. 0 in. (152.40 cm) (R); Pain 9/10; 23:00 BP 105 / 67; Pulse 78; Resp 16; Pulse Ox 96% on R/A; ak1 23:45 BP 87 / 51; Pulse 74; Resp 16; Pulse Ox 97% on R/A; lp1 06/21 00:30 BP 92 / 54; Pulse 73; Resp 16; Pulse Ox 97% on R/A; lp1 01:00 BP 118 / 83; Pulse 100; Resp 18; Pulse Ox 100% on R/A; lp1 02:00 BP 108 / 77; Pulse 100; Resp 18; Pulse Ox 97% on R/A; lp1 03:00 BP 101 / 63; Pulse 78; Resp 16; Pulse Ox 97% on R/A; lp1 04:15 BP 104 / 66; Pulse 88; Resp 16; Pulse Ox 98% on R/A; lp1 06/20 21:52 Body Mass Index 21.48 (49.90 kg, 152.40 cm) ak1 MDM: 06/20 22:24 Patient medically screened. gs 06/21 03:00 Differential diagnosis: non-specific abd pain, pancreatitis, Crohns flare. Data gs reviewed: vital signs, nurses notes, lab test result(s), radiologic studies. Response to treatment: the patient's symptoms have markedly improved after treatment, and as a result, I will discharge patient. 06/20 22:01 Order name: Basic Metabolic Panel; Complete Time: 00:37 06/20 22:01 Order name: CBC with Diff; Complete Time: 00:37 gs 06/20 22:01 Order name: Hepatic Function; Complete Time: 00:37 gs 06/20 22:01 Order name: Lipase; Complete Time: 00:37 gs 06/20 22:01 Order name: Urine Microscopic Only; Complete Time: 00:37 06/20 22:55 Order name: Urine Dipstick--Ancillary (enter results) [facility] 06/20 22:55 Order name: Urine --Ancillary (enter results); Complete Time: 00:37 [facility] 06/21 01:31 Order name: CT Abd/Pelvis - Without Contrast 06/20 22:01 Order name: IV Saline Lock; Complete Time: 22:52 06/20 22:01 Order name: Labs collected and sent; Complete Time: 22:52 06/20 22:01 Order name: Urine Test (obtain specimen); Complete Time: 22:51 06/20 22: Order name: Urine Dipstick-Ancillary (obtain specimen); Complete Time: 22:52 06/20 22:23 Order name: Hemacult; Complete Time: 03:26 gs Administered Medications: 06/20 23:01 Drug: NS 0.9% 1000 ml Route: IV; Rate: 1 bolus; Site: Port-a-cath; 1 06/21 00:15 Follow up: IV Status: Completed infusion; IV Intake: 1000ml [facility] 06/20 23:01 Drug: ProTONIX 40 mg Route: IVP; Site: Port-a-cath; lp1 06/21 00:00 Follow up: Response: No adverse reaction lp1 01:20 Drug: HALdol 2.5 mg Route: IVP; Site: Port-a-cath; lp1 02:00 Follow up: Response: No adverse reaction lp1 03:38 Drug: Dilaudid 0.5 mg Route: IVP; Site: Port-a-cath; lp1 04:16 Follow up: Response: Marked relief of symptoms lp1 03:39 Drug: Phenergan 25 mg Route: IVP; Site: Port-a-cath; lp1 04:16 Follow up: Response: Marked relief of symptoms lp1 03:39 Drug: NS 0.9% 100 ml Route: IV; Rate: per protocol; Site: Port-a-cath; 1 04:15 Follow up: IV Status: Completed infusion; IV Intake: 100ml lp1 04:19 Drug: Hep-Lock 500 units {Note: prior to DC of port-a-cath per patient .} Route: IVP; 1 Site: Port-a-cath; 04:19 Follow up: Response: No adverse reaction; Medication administered at discharge. 1 Point of Care Testing: Guaiac: 02:30 Stool Guaiac: Negative; Stool Hemoccult Control: Pass; lp1 Disposition: 06/21/19 03:13 Discharged to Home. Impression: Left sided colitis. - Condition is Stable. - Discharge Instructions: Crohn Disease. - Prescriptions for sulfasalazine 500 mg Oral tablet - take 1 tablet by ORAL route 4 times per day for 7 days after meals; 28 tablet. Prednisone 20 mg Oral Tablet - take 2 tablet by ORAL route once daily for 7 days; 14 tablet. - Medication Reconciliation Form, Thank You Letter, Antibiotic Education, Prescription Opioid Use form. - Follow up: Private Physician; When: 1 - 2 days; Reason: Re-evaluation by your physician. Signatures: Dispatcher [employer] EDFlor Shen RN RN lp1 Estephanie Borges RN RN ak1 Osvaldo Li MD MD Corrections: (The following items were deleted from the chart) 04:20 03:13 06/21/2019 03:13 Discharged to Home. Impression: Left sided colitis. Condition is lp1 Stable. Forms are Medication Reconciliation Form, Thank You Letter, Antibiotic Education, Prescription Opioid Use. Follow up: Private Physician; When: 1 - 2 days; Reason: Re-evaluation by your physician. gs
--- NOTE | 2019-06-21 03:14 | ER ---
Nurse's Notes [facility] Name: Va Cardoso Age: 34 yrs Sex: Female : 1985 Arrival Date: 06/20/2019 Time: 21:43 Bed 6 Private MD: Diagnosis: Left sided colitis Presentation: 06/20 21:48 Presenting complaint: Patient states: nerve pain to bilateral lower legs and tail bone ak1 since 1 week [employer]ET[employer], after running out of her medications. 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 Transition of care: patient was not received from another setting of care. Onset of symptoms is unknown. Risk Assessment: Do you want to hurt yourself or someone else? Patient reports no desire to harm self or others. Initial Sepsis Screen: Does the patient meet any 2 criteria? No. Patient's initial sepsis screen is negative. Does the patient have a suspected source of infection? No. Patient's initial sepsis screen is negative. Care prior to arrival: None. 21:48 Method Of Arrival: Ambulatory ak1 21:48 Acuity: IGNACIO 3 ak1 Triage Assessment: 21:52 General: Appears in no apparent distress. 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:52 LMP 06/19/2019 ak1 Historical: - Allergies: 21:52 Remicade (Anaphylaxis); ak1 - Home Meds: 21:52 Ambien 10 mg Oral tab 1 tab once daily [Active]; amitriptyline 10 mg Oral tab 2 tabs ak1 nightly [Active]; [place] Thyroid 30 mg Oral tab daily [Active]; baclofen 10 mg Oral tab 1 tab every 6 hours [Active]; Bentyl 10 mg Oral cap 1 cap 3 times per day [Active]; cholecalciferol (vitamin D3) 50,000 unit Oral cap WEEKLY [Active]; clonazepam 0.5 mg Oral tab 1 tab nightly [Active]; Dexilant 60 mg Oral CpDB 1 cap once daily [Active]; diazepam Oral as needed [Active]; fentanyl 75 mcg/hr Topical pt72 1 patch every 72 hours [Active]; gabapentin 800 mg Oral tab 1 tab 3 times per day [Active]; magnesium oxide 400 mg Oral tab twice a day [Active]; pantoprazole 40 mg Oral TbEC 1 tab 2 times per day [Active]; Phenergan 25 mg Rectal supp 1 suppository [Active]; promethazine 25 mg Oral tab 1 tab as needed [Active]; Reglan 5 mg Oral tab as needed [Active]; Suboxone sublingual twice a day [Active]; tizanidine 4 mg Oral tab 1 tab three times a day [Active]; Vitamin B-12 1,000 mcg/mL injection soln 0.1 mL once a week [Active]; Zofran (as hydrochloride) 8 mg Oral tab 1 tab as needed [Active]; - PMHx: 21:52 Anemia; B12 deficiency; bowel obstruction; Chronic pain; Crohn's; fatty liver; ak1 Fibromyalgia; HYPOGLYCEMIA; Hypothyroidism; Osteoporosis; Rheumatoid Arthritis; ruptured small bowel; scoliosis; Seizures; uterine cysts; - PSHx: 21:52 Bowel resection; ; volvulous repair; fistula repair; Cholecystectomy; Hernia ak1 repair; Tubal ligation; - Immunization history:: Adult Immunizations unknown. - Social history:: Smoking status: Patient/guardian denies using tobacco. - Ebola Screening: : No symptoms or risks identified at this time. Screenin:14 Abuse screen: Denies threats or abuse. Denies injuries from another. Nutritional lp1 screening: No deficits noted. Tuberculosis screening: No symptoms or risk factors identified. Fall Risk None identified. Assessment: 22:30 General: Appears in no apparent distress. Behavior is appropriate for age. Pain: lp1 Complains of pain in abdomen Pain currently is 8 out of 10 on a pain scale. Quality of pain is described as sharp, stabbing. Neuro: Level of Consciousness is awake, alert, obeys commands, Oriented to person, place, time, situation. Cardiovascular: Patient's skin is warm and dry. Respiratory: Respiratory effort is even, unlabored. GI: Abdomen is flat, Bowel sounds present X 4 quads. Abd is soft and non tender X 4 quads. Reports intolerance of fluids, intolerance of food, nausea, vomiting, "I've had coffee ground stool for the past 3 days". : Reports currently being treated for UTI. EENT: No signs and/or symptoms were reported regarding the EENT system. Derm: Skin is intact, Skin is dry, Skin is normal. Musculoskeletal: No deficits noted. 23:00 Reassessment: Patient woken up from sleep to ask about pain, denies need for medication lp1 at this time; Appears comfortable, eyes closed, respirations unlabored. 23:10 Reassessment: Significant other at bedside wakes patient to ask if she wants pain lp1 medicine, patient seems drowsy, states "yes, but I need nausea medicine too"; On arrival back into room with medication, patient asleep; Will continue to monitor. 23:47 Reassessment: Patient resting, eyes closed, respirations unlabored. lp1 06/21 01:00 Reassessment: Patient moaning while guarding abdomen, states "the pain just hit me and lp1 it's making me nauseous"; Patient sitting up in bed, states "I took my scheduled muscle relaxer earlier and it knocks me out for a bit, then I always wake up in a lot of pain". 01:00 General: Appears uncomfortable, Behavior is anxious. lp1 01:15 Reassessment: Patient ambulated to bathroom at this time; Dr. Li discuss plan of lp1 care with patient. 03:00 Reassessment: Medication prepared at this time; patient sleeping, no apparent lp1 discomfort noted; will continue to monitor. 03:30 Reassessment: Reassessment: Dr. Li at bedside to discuss results with patient and lp1 significant other; Patient with eyes closed, resting, in no apparent distress; Significant other asked "Can she get some pain and nausea medication before she leaves?"; Dr. Li explained patient asleep in no apparent discomfort at this time. 03:38 Reassessment: On arrival with discharge papers, patient awake rocking in bed in pain, lp1 moaning, "I can't leave in pain like this, it's not my fault I pass out from the pain"; Significant other agitated with nurse, stating "You can't discharge her like this, you wouldn't get here in time before she would pass out"; Dr. Li notified, verbal order to administer medication prepared at this time. 04:15 Reassessment: Patient states feeling better at this time; significant other at bedside lp1 for discharge home. Vital Signs: 06/20 21:52 BP 142 / 94; Pulse 119; Resp 16; Temp 98.1; Pulse Ox 99% on R/A; Weight 49.9 kg (R); ak1 Height 5 ft. 0 in. (152.40 cm) (R); Pain 9/10; 23:00 BP 105 / 67; Pulse 78; Resp 16; Pulse Ox 96% on R/A; ak1 23:45 BP 87 / 51; Pulse 74; Resp 16; Pulse Ox 97% on R/A; lp1 06/21 00:30 BP 92 / 54; Pulse 73; Resp 16; Pulse Ox 97% on R/A; lp1 01:00 BP 118 / 83; Pulse 100; Resp 18; Pulse Ox 100% on R/A; lp1 02:00 BP 108 / 77; Pulse 100; Resp 18; Pulse Ox 97% on R/A; lp1 03:00 BP 101 / 63; Pulse 78; Resp 16; Pulse Ox 97% on R/A; lp1 04:15 BP 104 / 66; Pulse 88; Resp 16; Pulse Ox 98% on R/A; lp1 06/20 21:52 Body Mass Index 21.48 (49.90 kg, 152.40 cm) [facility] ED Course: 06/20 21:43 Patient arrived in ED. cf2 21:49 Triage completed. ak1 21:52 Arm band placed on Patient placed in an exam room, on a stretcher, Patient notified of al1 wait time. 21:55 Flor Hooks, KELLY is Primary Nurse. lp1 22:00 Osvaldo Li MD is Attending Physician. gs 22:30 Patient has correct armband on for positive identification. Placed in gown. Pulse ox lp1 on. NIBP on. 22:40 Accessed Port-a-Cath. using accessed w/ # 20 Vit[place] needle, ,sterile technique, per [facility] hospital protocol. Clean \\T\\ dry. Dressing intact. Good blood return. Flushes easily. 06/21 01:58 CT Abd/Pelvis - Without Contrast In Process Unspecified. 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 lp1 04:19 IV discontinued, bleeding controlled, No redness/swelling at site. Pressure dressing lp1 applied. Administered Medications: 06/20 23:01 Drug: NS 0.9% 1000 ml Route: IV; Rate: 1 bolus; Site: Port-a-cath; lp1 06/21 00:15 Follow up: IV Status: Completed infusion; IV Intake: 1000ml lp1 06/20 23:01 Drug: ProTONIX 40 mg Route: IVP; Site: Port-a-cath; lp1 06/21 00:00 Follow up: Response: No adverse reaction lp1 01:20 Drug: HALdol 2.5 mg Route: IVP; Site: Port-a-cath; lp1 02:00 Follow up: Response: No adverse reaction lp1 03:38 Drug: Dilaudid 0.5 mg Route: IVP; Site: Port-a-cath; lp1 04:16 Follow up: Response: Marked relief of symptoms lp1 03:39 Drug: Phenergan 25 mg Route: IVP; Site: Port-a-cath; lp1 04:16 Follow up: Response: Marked relief of symptoms lp1 03:39 Drug: NS 0.9% 100 ml Route: IV; Rate: per protocol; Site: Port-a-cath; lp1 04:15 Follow up: IV Status: Completed infusion; IV Intake: 100ml lp1 04:19 Drug: Hep-Lock 500 units {Note: prior to DC of port-a-cath per patient .} Route: IVP; lp1 Site: Port-a-cath; 04:19 Follow up: Response: No adverse reaction; Medication administered at discharge. lp1 Point of Care Testing: Guaiac: 02:30 Stool Guaiac: Negative; Stool Hemoccult Control: Pass; lp1 Intake: 00:15 IV: 1000ml; Total: 1000ml. lp1 04:15 IV: 100ml; Total: 1100ml. lp1 Outcome: 03:13 Discharge ordered by . 04:20 Discharged to home ambulatory, with significant other. lp1 04:20 Condition: good 04:20 Discharge instructions given to patient, Instructed on discharge instructions, follow up and referral plans. medication usage, Demonstrated understanding of instructions, follow-up care, medications, Prescriptions given X 2. 04:20 Patient left the ED. lp1 Signatures: Dispatcher [employer] EDMS Flor Hooks RN RN lp1 Estephanie Borges RN RN ak1 Osvaldo Li MD MD gs Frazier, Celesta cf2 Corrections: (The following items were deleted from the chart) 03:46 03:38 Reassessment: 1 lp1
[2019-06-21] MEDS ORDERED: HEPARIN 500 UNIT/5 ML SYR IV ONE (03:28)
[2019-06-21 04:24] VITALS: TEMP 98.1
[2019-06-21 04:33] VITALS: BP 104/66; O2SAT 98
--- NOTE | 2019-06-21 14:27 | RAD REPORT ---
EXAM DESCRIPTION: Pelvis Wo Contrast CLINICAL HISTORY: ABD PAIN TECHNIQUE: Contiguous axial images obtained through the abdomen and pelvis following the uneventful administration of IV contrast. Coronal and sagittal reformatted images were provided. This exam was performed according to our departmental dose-optimization program, which includes autom ated exposure control, adjustment of the mA and/or kV according to patient size and/or use of iterati ve reconstruction technique. COMPARISON: 03/11/2018 FINDINGS: Lung bases: Clear Liver: Grossly unremarkable Gallbladder and biliary system: Prior cholecystectomy. Pancreas: Grossly unremarkable Spleen: Grossly unremarkable Adrenals: Unremarkable Kidneys: 5 mm left renal calculus. No hydronephrosis. Bowel: Multiple bowel anastomoses. Air-fluid levels within the proximal to mid large bowel. The dista l large bowel appears thickened. No obstruction. Appendix: The appendix is not definitively visualized. No findings to suggest acute appendicitis. Urinary bladder: Unremarkable Reproductive: Unremarkable as visualized Lymph nodes: Multiple mesenteric lymph nodes measuring up to 9 mm in short axis. Peritoneum: No focal fluid collection. No free air. Vessels: No abdominal aortic aneurysm. Abdominal wall: Midline ventral abdominal wall incisional scar. Bones: Lumbar levoscoliosis and mild multilevel spondylosis. IMPRESSION: 1. Findings which may be related to mild nonspecific colitis involving the distal larg e bowel. 2. Other findings as above. Electronically signed by: Heri Jain MD 06/21/2019 2:55 AM CDT Due to temporary technical issues with the PACS/Fluency reporting system, reports are being signed by the in house radiologist as a courtesy to ensure prompt reporting. The interpreting radiologist is f ully responsible for the content of the report.
== END 2019-06-21 04:20 | disposition home or self-care (01) ==
LOC: ER 21:39
DX: K51.50 Left sided colitis without complications (principal); E03.9 Hypothyroidism, unspecified; G40.909 Epilepsy, unspecified, not intractable, without status epilepticus; Z88.8 Allergy status to other drugs, medicaments and biological substances
CPT/HCPCS: 36415; 74176; 80048; 80076; 81003; 81015; 81025; 83690; 85025; 96361; 96374; 96375; 99284; C9113; J1170; J1630; J1642; J2550; J7030

== ENCOUNTER 2019-10-08 15:15 | Emergency (ER) | payer SELFPAY ==
--- OUTSIDE RECORDS SUMMARY | 2019-10-08 15:18 | XMS REPORT ---
:1985 [facility] Address [address] [place] [address] Dr. Gutiérrez [address] [place] [id number] Care Team Providers Name Role Phone Unavailable Unavailable Unavailable Problems This patient has no known problems. Allergies, Adverse Reactions, Alerts This patient has no known allergies or adverse reactions. Medications This patient has no known medications.
[2019-10-08] MEDS ORDERED: PROMETHAZINE INJ 25 MG/ML AMP ONE ×2 (16:44→21:18)
[2019-10-08] MEDS ORDERED: NA CHLORIDE 0.9% 1,000 ML ONE (16:44)
[2019-10-08] MEDS ORDERED: NA CHLORIDE 0.9% 500 ML ONE (16:44)
[2019-10-08 19:24] LABS: Absolute Lymphocytes (CBC) 0.4 K/uL (0.7-4.9); Basophils % 0.3 % (0-1.3); Hematocrit 23.7 % (36.0-45.0); Lymphocytes % 5.7 % (15.3-44.8); MPV 7.2 fL (7.6-11.3); RBC Red Blood Cell Count 2.83 M/uL (3.86-4.86)
[2019-10-08 20:08] LABS: ALT/SGPT 9 U/L (12-78); AST/SGOT 6 U/L (15-37); Albumin 2.3 g/dL (3.4-5.0); Alkaline Phosphatase 45 U/L (45-117); BUN Blood Urea Nitrogen 26 mg/dL (7-18); Bicarbonate 26 mmol/L (21-32); Bilirubin Direct < 0.1 mg/dL (0-0.2); Bilirubin Total 0.2 mg/dL (0.2-1.0); Glucose Level 69 mg/dL (74-106); Lipase 21 U/L (73-393); Phosphorus 3.1 mg/dL (2.5-4.9); Potassium 3.3 mmol/L (3.5-5.1); Protein, Total 4.6 g/dL (6.4-8.2); Sodium Level 148 mmol/L (136-145); Thyroid Stimulating Hormone 0.537 uIU/mL (0.360-3.740)
[2019-10-08 20:21] LABS: Blood Morphology Comment NOT SEEN (NOT SEEN); Platelet Estimate ADEQ; Urine White Blood Cell Casts OK
[2019-10-08 21:59] LABS: Urine Bacteria <20 /HPF (<20); Urine Culture Reflex Order NOT NEEDED; Urine RBC <5 /HPF (NONE SEEN)
[2019-10-08 22:10] LABS: Urine Blood TRACE (NEG); Urine Glucose NEGATIVE (NEG); Urine Protein NEGATIVE (NEG); Urine pH 6.5 (5.0-7.0)
[2019-10-08] MEDS ORDERED: D50W 25 GM/50 ML SYRINGE/VIAL IV ONE (22:13)
[2019-10-08] MEDS ORDERED: D5 0.9 NS 1,000 ML IV ONE (22:29)
[2019-10-08] MEDS ORDERED: CIPROFLOXACIN 400mg IV 400 MG/200 ML BAG IV ONE (22:33)
--- NOTE | 2019-10-08 23:45 | ER ---
Nurse's Notes [facility] Name: Va Cardoso Age: 34 yrs Sex: Female : 1985 Arrival Date: 10/08/2019 Time: 15:21 Bed 23 Private MD: Diagnosis: Enterocolitis;Anemia, unspecified;Melena Presentation: 10/08 15:49 Presenting complaint: N/V?D and upper abdominal pain x 1 week. Pt reports dark tarry hb stool and vomiting dark fecal matter. Transition of care: patient was not received from another setting of care. Onset of symptoms was October 02, 2019. Risk Assessment: Do you want to hurt yourself or someone else? Patient reports no desire to harm self or others. Care prior to arrival: None. 15:49 Method Of Arrival: Ambulatory 15:49 Acuity: IGNACIO 2 hb 10/09 00:29 Initial Sepsis Screen: Does the patient meet any 2 criteria? HR > 90 bpm. No. Patient's rv initial sepsis screen is negative. Does the patient have a suspected source of infection? No. Patient's initial sepsis screen is negative. Historical: - Allergies: 10/08 15:52 Remicade (Anaphylaxis); hb - PMHx: 15:52 ruptured small bowel; Seizures; Hypothyroidism; uterine cysts; Osteoporosis; hb HYPOGLYCEMIA; Rheumatoid Arthritis; fatty liver; Crohn's; Chronic pain; bowel obstruction; B12 deficiency; Anemia; Fibromyalgia; scoliosis; - PSHx: 15:52 Bowel resection; ; volvulous repair; fistula repair; Hernia repair; hb Cholecystectomy; Tubal ligation; - Immunization history:: Adult Immunizations up to date. - Coronavirus screen:: The patient has NOT traveled to [place], [place], or [place] in the past 14 days. The patient has NOT had contact with known/suspected case of Coronavirus? Proceed with normal triage procedures. - Social history:: Smoking status: Patient denies any tobacco usage or history of. - Ebola Screening: : No symptoms or risks identified at this time. Screenin:30 Abuse screen: Denies threats or abuse. Denies injuries from another. Nutritional aj1 screening: No deficits noted. Tuberculosis screening: No symptoms or risk factors identified. 10/09 00:29 Fall Risk None identified. rv Assessment: 10/08 15:30 General: Appears in no apparent distress. uncomfortable. Pain: Complains of pain in aj1 abdomen diffusely Pain does not radiate. Pain currently is 10 out of 10 on a pain scale. Quality of pain is described as aching, sharp, Is continuous. Neuro: Level of Consciousness is awake, alert, obeys commands, Oriented to person, place, time, situation. Cardiovascular: Heart tones S1 S2 present Patient's skin is warm and dry. Rhythm is sinus tachycardia. Respiratory: Airway is patent Respiratory effort is even, unlabored, Respiratory pattern is regular, symmetrical. GI: Abdomen is round Bowel sounds diminished in abdomen diffusely Abdomen is tender to palpation X 4 quads. Reports nausea, vomiting. : No signs and/or symptoms were reported regarding the genitourinary system. EENT: No signs and/or symptoms were reported regarding the EENT system. Derm: Skin is intact, Skin is dry, Skin is pale, Skin temperature is warm. Musculoskeletal: No signs and/or symptoms reported regarding the musculoskeletal system. Circulation, motion, and sensation intact. 16:30 Reassessment: Patient appears in no apparent distress at this time. No changes from aj1 previously documented assessment. Patient and/or family updated on plan of care and expected duration. Pain level reassessed. 16:59 Reassessment: Patient refuses talley states that she will use a bed stokes if need be but aj1 she does not want the talley. Patient also refuses NGT at this time Notified Chuck Noble NP. 17:05 Reassessment: Gravel Screener at bedside to attempt blood draw, missed attempt x1, unable aj1 to obtain specimen. Patient states that sometimes her port-a-cath works after having fluids going for a bit, patient would like nursing staff to attempt to obtain blood that way. Port-a-cath was flushed, sluggish blood return noted, 9mL was drawn and discarded as waste due to dilution from NS in tubing. Was able to obtain a small additional sample, but not enough for all of the tests. Gravel Screener will return to attempt to draw the rest of the labs. 18:10 Reassessment: Gravel Screener at bedside, missed attempt x1, patient is refusing further aj1 sticks at this time. State that she is tired of being stuck and she is agitated that her port-a-cath is not drawing back blood. I attempted to draw blood once again from the port-a-cath, with no success. Looked at patient's feet to see if there was any spot to obtain blood, patient states that she does not allow people to stick her feet for blood draws. 18:30 Reassessment: Patient appears in no apparent distress at this time. lab draw from port sg a cath successful at this time, pt is thankful, labs have been sent as ordered. 19:30 Reassessment: Patient and/or family updated on plan of care and expected duration. Pain aj1 level reassessed. General: Appears in no apparent distress. comfortable, Behavior is calm, cooperative, appropriate for age. Neuro: Level of Consciousness is awake, alert, obeys commands, Oriented to person, place, time, situation. Cardiovascular: Patient's skin is warm and dry. Respiratory: Airway is patent Respiratory effort is even, unlabored, Respiratory pattern is regular, symmetrical. GI: Abdomen is round. Derm: Skin is pale, Skin temperature is warm. Musculoskeletal: Circulation, motion, and sensation intact. 19:51 Reassessment: Patient had a bowel movement, that was dark with bright red blood. aj1 Notified Chuck Noble NP. 20:35 Reassessment: Patient transported to [place] via wheelchair. aj1 21:10 Reassessment: Patient appears in no apparent distress at this time. No changes from aj1 previously documented assessment. Patient and/or family updated on plan of care and expected duration. Pain level reassessed. Patient states that she is still nauseated and in pain. Notified Chuck Noble NP. 22:49 Reassessment: Patient appears in no apparent distress at this time. denies pain. ss Updated on plan of care. Awaiting acceptance at receiving hospital. Pt verbalizes understanding need for transfer. Report given to KELLY Oquendo. 10/09 00:20 Reassessment:. fc 00:28 Reassessment: Patient appears in no apparent distress at this time. Patient and/or rv family updated on plan of care and expected duration. Pain level reassessed. Patient is alert, oriented x 3, equal unlabored respirations, skin warm/dry/pink. patient is complaining of abdominal pain and nausea. explained the plan of care. report given to Ayad of [facility], awaiting EMS for transportation. Vital Signs: 10/08 15:48 BP 120 / 55; Pulse 155; Resp 16; Temp 97.8; Pulse Ox 100% on R/A; Weight 43.09 kg; hb Height 5 ft. (152.40 cm); Pain 6/10; 17:00 Pulse 142; Resp 15; Pulse Ox 100% on R/A; aj1 17:18 BP 116 / 78; Pulse 133; Resp 24; Pulse Ox 100% on R/A; aj1 17:25 BP 106 / 70; Pulse 107; Resp 15; Pulse Ox 100% on R/A; aj1 18:21 BP 109 / 70; Pulse 97; Resp 20; Pulse Ox 100% on R/A; aj1 19:30 BP 102 / 70; Pulse 104; Resp 16; Pulse Ox 100% ; aj1 21:10 BP 107 / 64; Pulse 112; Resp 20; Pulse Ox 100% on R/A; aj1 22:08 BP 108 / 71; Pulse 123; Resp 18; Pulse Ox 99% on R/A; ss 22:18 Pulse 115; ss 22:36 BP 114 / 71; Pulse 107; Resp 16; ss 10/09 00:20 BP 114 / 69; Pulse 94; Resp 17; Pulse Ox 100% on R/A; fc 10/08 15:48 Body Mass Index 18.55 (43.09 kg, 152.40 cm) hb ED Course: 10/08 15:21 Patient arrived in ED. es 15:30 Patient has correct armband on for positive identification. Bed in low position. Call [facility] light in reach. 15:30 No provider procedures requiring assistance completed. aj1 15:50 Triage completed. hb 15:50 Arm band placed on. hb 15:57 Sita Noble FNP-C is PHCP. snw 15:57 Tyler Harden MD is Attending Physician. snw 16:07 Mandy Frias, KELLY is Primary Nurse. [facility] 16:25 Accessed Port-a-Cath. using accessed w/ #19 Vitale needle, ,sterile technique, per [address] protocol. Clean \T\ dry. Dressing intact. No blood return. Flushes easily. Patient states that she can taste the saline when port-a-cath is flushed, states that she frequently has issues getting blood return on her port-a-cath when she is dehydrated. 17:00 Radiology exam delayed due to lab results not completed at this time. (HCG) (BUN/Creatinine). 18:30 Initial lab(s) drawn, by me, sent to lab. First set of blood cultures drawn by me. sg 18:41 Radiology exam delayed due to lab results not completed at this time. (BUN/Creatinine). 18:45 Second set of blood cultures drawn by me. sg 20:16 Notified Nurse Practitioner and/or Physician Applications Trainer of a critical lab result(s), fc calcium 6.9. 21:11 CT Abd/Pelvis - IV Contrast Only In Process Unspecified. EDMS 10/09 00:31 Patient transferred, IV remains in place. rv Administered Medications: 10/08 16:47 Drug: NS 0.9% (30 ml/kg) 30 ml/kg Route: IV; Rate: bolus; Site: Port-a-cath; [facility] 19:36 Follow up: IV Status: Completed infusion; IV Intake: 1500ml 16:47 Drug: Phenergan 12.5 mg Route: IVP; Site: Port-a-cath; aj1 21:13 Follow up: Response: No adverse reaction [facility] 21:46 Drug: Phenergan 12.5 mg Route: IVP; Site: Port-a-cath; aj 22:17 Follow up: Response: Nausea is decreased 22:17 Drug: D50W 25 ml Route: IVP; Site: Port-a-cath; 10/09 00:31 Follow up: Response: Blood sugar is elevated 10/08 22:35 Drug: D5-NS 1000 ml Route: IV; Rate: 125 ml/hr; Site: Port-a-cath; 10/09 00:31 Follow up: IV Status: Infusion continued upon transfer 10/08 22:36 Drug: Cipro 400 mg Volume: 200 ml; Route: IVPB; Infused Over: 60 mins; Site: Port-a-cath; 10/09 00:31 Follow up: IV Status: Completed infusion rv 00:00 Drug: Lactated Ringers Solution 1000 ml Route: IV; Rate: 300 ml/hr; Site: Port-a-cath; rv 01:13 Follow up: IV Status: Completed infusion; IV Intake: 300ml rv 00:55 Drug: Phenergan 6.25 mg Route: IVP; Site: Port-a-cath; rv 00:56 Follow up: Response: Medication administered at discharge. rv 00:56 Drug: fentaNYL (PF) 25 mcg {Note: rass 0.} Route: IVP; Site: Port-a-cath; rv 00:56 Follow up: Response: No adverse reaction rv Intake: 10/08 19:36 IV: 1500ml; Total: 1500ml. ss 10/09 01:13 IV: 300ml; Total: 1800ml. rv Outcome: 10/08 23:44 ER care complete, transfer ordered by . snw 10/09 00:30 Transferred by ground EMS to [facility] [place], Transfer form completed. rv X-rays sent w/ patient. Condition: good Discharge instructions given to patient, Instructed on discharge instructions, Demonstrated understanding of instructions. 01:13 Patient left the ED. rv Signatures: Dispatcher [employer] EDMandy Polo RN RN aj Navarro Aguilar RN RN sg Sita Noble, ICU STAFF NURSE-C ICU STAFF NURSE-Csnw Yana Arredondo Ervin eh Chretien, Felicia, RN RN fc Smirch, Shelby, RN RN ss Cristina Jay RN RN hb Vicente, Ronaldo RN RN rv Corrections: (The following items were deleted from the chart) 10/08 18:22 16:57 Accessed Port-a-Cath. using accessed w/ #19 Vitale needle, ,sterile technique, per [address] protocol. Clean \T\ dry. Dressing intact. No blood return. Flushes easily. Patient states that she can taste the saline when port-a-cath is flushed, states that she frequently has issues getting blood return on her port-a-cath when she is dehydrated. [facility] 10/09 00:30 00:29 Initial Sepsis Screen: Does the patient meet any 2 criteria? No. Patient's rv initial sepsis screen is negative. Does the patient have a suspected source of infection? No. Patient's initial sepsis screen is negative. rv
--- NOTE | 2019-10-08 23:45 | EDPHYS ---
Physician Documentation [facility] Name: Va Cardoso Age: 34 yrs Sex: Female : 1985 Arrival Date: 10/08/2019 Time: 15:21 Bed 23 Private MD: ED Physician Tyler Harden HPI: 10/08 16:15 This 34 yrs old Female presents to ER via Ambulatory with complaints of snw Vomiting. 16:15 The patient presents to the emergency department with nausea, vomiting. Onset: The snw symptoms/episode began/occurred chronic problem but became significantly worse last week, last bowel obstruction one year ago. Possible causes: flare up of bowel problem, Crohn's disease. The symptoms are aggravated by nothing. The symptoms are alleviated by nothing. Severity of symptoms: At their worst the symptoms were severe. The patient has experienced similar episodes in the past, chronically, and the symptoms today are exactly the same. It is unknown whether or not the patient has recently seen a physician. Historical: - Allergies: 15:52 Remicade (Anaphylaxis); hb - PMHx: 15:52 ruptured small bowel; Seizures; Hypothyroidism; uterine cysts; Osteoporosis; hb HYPOGLYCEMIA; Rheumatoid Arthritis; fatty liver; Crohn's; Chronic pain; bowel obstruction; B12 deficiency; Anemia; Fibromyalgia; scoliosis; - PSHx: 15:52 Bowel resection; ; volvulous repair; fistula repair; Hernia repair; hb Cholecystectomy; Tubal ligation; - Immunization history:: Adult Immunizations up to date. - Coronavirus screen:: The patient has NOT traveled to [place], [place], or [place] in the past 14 days. The patient has NOT had contact with known/suspected case of Coronavirus? Proceed with normal triage procedures. - Social history:: Smoking status: Patient denies any tobacco usage or history of. - Ebola Screening: : No symptoms or risks identified at this time. ROS: 16:14 Constitutional: Negative for fever, chills, and weight loss, Eyes: Negative for injury, snw pain, redness, and discharge, ENT: Negative for injury, pain, and discharge, Neck: Negative for injury, pain, and swelling, Cardiovascular: Negative for chest pain, palpitations, and edema. 16:14 Back: Negative for injury and pain, : Negative for injury, bleeding, discharge, and swelling, MS/Extremity: Negative for injury and deformity, Skin: Negative for injury, rash, and discoloration, Neuro: Negative for headache, weakness, numbness, tingling, and seizure. 16:14 Respiratory: Positive for shortness of breath, on exertion. 16:14 Abdomen/GI: Positive for abdominal pain, nausea and vomiting. Exam: 16:12 Head/Face: Normocephalic, atraumatic. snw 16:12 ENT: Nares patent. No nasal discharge, no septal abnormalities noted. Tympanic membranes are normal and external auditory canals are clear. Oropharynx with no redness, swelling, or masses, exudates, or evidence of obstruction, uvula midline. Mucous membranes moist. Neck: Trachea midline, no thyromegaly or masses palpated, and no cervical lymphadenopathy. Supple, full range of motion without nuchal rigidity, or vertebral point tenderness. No Meningismus. Chest/axilla: Normal chest wall appearance and motion. Nontender with no deformity. No lesions are appreciated. 16:12 Respiratory: Lungs have equal breath sounds bilaterally, clear to auscultation and percussion. No rales, rhonchi or wheezes noted. No increased work of breathing, no retractions or nasal flaring. 16:12 Back: No spinal tenderness. No costovertebral tenderness. Full range of motion. MS/ Extremity: Pulses equal, no cyanosis. Neurovascular intact. Full, normal range of motion. Neuro: Awake and alert, GCS 15, oriented to person, place, time, and situation. Cranial nerves II-XII grossly intact. Motor strength 5/5 in all extremities. Sensory grossly intact. Cerebellar exam normal. Normal gait. Psych: Awake, alert, with orientation to person, place and time. Behavior, mood, and affect are within normal limits. 16:12 Constitutional: The patient appears awake, frail, obviously ill, pale, uncomfortable. 16:12 Eyes: Conjunctiva: pale, bilaterally. 16:12 Cardiovascular: Rate: tachycardic, Rhythm: regular, Pulses: no pulse deficits are appreciated. 16:12 Abdomen/GI: Inspection: distension, Bowel sounds: diminished, in all quadrants, Palpation: mild abdominal tenderness, in all quadrants. 16:12 Skin: Appearance: Color: pale, Temperature: normal temperature. Vital Signs: 15:48 BP 120 / 55; Pulse 155; Resp 16; Temp 97.8; Pulse Ox 100% on R/A; Weight 43.09 kg; hb Height 5 ft. (152.40 cm); Pain 6/10; 17:00 Pulse 142; Resp 15; Pulse Ox 100% on R/A; aj1 17:18 BP 116 / 78; Pulse 133; Resp 24; Pulse Ox 100% on R/A; aj1 17:25 BP 106 / 70; Pulse 107; Resp 15; Pulse Ox 100% on R/A; aj1 18:21 BP 109 / 70; Pulse 97; Resp 20; Pulse Ox 100% on R/A; aj1 19:30 BP 102 / 70; Pulse 104; Resp 16; Pulse Ox 100% ; aj1 21:10 BP 107 / 64; Pulse 112; Resp 20; Pulse Ox 100% on R/A; aj1 22:08 BP 108 / 71; Pulse 123; Resp 18; Pulse Ox 99% on R/A; ss 22:18 Pulse 115; ss 22:36 BP 114 / 71; Pulse 107; Resp 16; ss 10/09 00:20 BP 114 / 69; Pulse 94; Resp 17; Pulse Ox 100% on R/A; fc 10/08 15:48 Body Mass Index 18.55 (43.09 kg, 152.40 cm) hb MDM: 10/08 16:03 Patient medically screened. snw 20:59 Data reviewed: vital signs, nurses notes. Data interpreted: Pulse oximetry: on room air snw is 100 %. Counseling: I had a detailed discussion with the patient and/or guardian regarding: the historical points, exam findings, and any diagnostic results supporting the discharge/admit diagnosis. Awaiting: pt just returned from CT. 23:14 Physician consultation: Dr Keene was called at 23:14, was contacted at 23:14, snw regarding consult, Will attempt transfer to [facility] Hospitalist, Dr. Keene agrees to consult. 23:39 Physician consultation: Dr Larson was called at 23:40, was contacted at 23:40, regarding snw regarding transfer, to [facility]. Dr. Larson kindly accepts pt in transfer. 10/08 16:01 Order name: Basic Metabolic Panel; Complete Time: 20:32 snw 10/08 16:01 Order name: CBC with Diff; Complete Time: 20:32 snw 10/08 16:01 Order name: Creatinine for Radiology; Complete Time: 20:10 [facility] 10/08 16:01 Order name: Hepatic Function; Complete Time: 20:32 [facility] 10/08 16:01 Order name: Lipase; Complete Time: 20:32 [facility] 10/08 16:01 Order name: Phosphorus; Complete Time: 20:32 [facility] 10/08 16:01 Order name: TS; Complete Time: 18:49 [facility] 10/08 16:01 Order name: TSH; Complete Time: 20:32 [facility] 10/08 16:01 Order name: Urine Culture [facility] 10/08 16:01 Order name: Urine Microscopic Only; Complete Time: 22:08 [facility] 10/08 16:01 Order name: Strep [facility] 10/08 16:01 Order name: Lactate; Complete Time: 18:19 [facility] 10/08 16:01 Order name: Blood Culture Pedi (1) [facility] 10/08 16:01 Order name: B12; Complete Time: 20:32 [facility] 10/08 16:01 Order name: CT Abd/Pelvis - IV Contrast Only [facility] 10/08 17:20 Order name: Throat Culture [facility] 10/08 19:45 Order name: CBC Smear Scan; Complete Time: 20:32 [facility] 10/08 22:08 Order name: Urine Dipstick--Ancillary (enter results); Complete Time: 22:19 [facility] 10/08 22:08 Order name: Urine --Ancillary (enter results) [facility] 10/08 22:11 Order name: Urine --Ancillary; Complete Time: 22:19 [facility] 10/09 00:38 Order name: Glucose, Ancillary Testing; Complete Time: 00:45 [facility] 10/08 16:01 Order name: Labs collected and sent; Complete Time: 19:58 [facility] 10/08 16:01 Order name: Urine Test (obtain specimen); Complete Time: 21:47 [facility] 10/08 16:01 Order name: Urine Dipstick-Ancillary (obtain specimen); Complete Time: 16:57 snw Administered Medications: 16:47 Drug: NS 0.9% (30 ml/kg) 30 ml/kg Route: IV; Rate: bolus; Site: Port-a-cath; aj1 19:36 Follow up: IV Status: Completed infusion; IV Intake: 1500ml ss 16:47 Drug: Phenergan 12.5 mg Route: IVP; Site: Port-a-cath; aj1 21:13 Follow up: Response: No adverse reaction aj1 21:46 Drug: Phenergan 12.5 mg Route: IVP; Site: Port-a-cath; aj1 22:17 Follow up: Response: Nausea is decreased ss 22:17 Drug: D50W 25 ml Route: IVP; Site: Port-a-cath; ss 10/09 00:31 Follow up: Response: Blood sugar is elevated rv 10/08 22:35 Drug: D5-NS 1000 ml Route: IV; Rate: 125 ml/hr; Site: Port-a-cath; ss 10/09 00:31 Follow up: IV Status: Infusion continued upon transfer rv 10/08 22:36 Drug: Cipro 400 mg Volume: 200 ml; Route: IVPB; Infused Over: 60 mins; Site: Port-a-cath; 10/09 00:31 Follow up: IV Status: Completed infusion rv 00:00 Drug: Lactated Ringers Solution 1000 ml Route: IV; Rate: 300 ml/hr; Site: Port-a-cath; rv 01:13 Follow up: IV Status: Completed infusion; IV Intake: 300ml rv 00:55 Drug: Phenergan 6.25 mg Route: IVP; Site: Port-a-cath; rv 00:56 Follow up: Response: Medication administered at discharge. rv 00:56 Drug: fentaNYL (PF) 25 mcg {Note: rass 0.} Route: IVP; Site: Port-a-cath; rv 00:56 Follow up: Response: No adverse reaction rv Disposition: 21:20 Co-signature as Attending Physician, Tyler Harden MD I agree with the assessment and kdr plan of care. Disposition: 10/08/19 23:44 Transfer ordered to [facility]. Diagnosis are Enterocolitis, Anemia, unspecified, Melena. - Reason for transfer: Higher level of care. - Accepting physician is Dr. Larson. - Condition is Stable. - Problem is an acute exacerbation. - Symptoms have improved. Signatures: Dispatcher [employer] EDCO Mandy Frias RN RN aj1 Tyler Harden MD MD kdr Therrien, Shelly, FNP-C FACILITY ENVIRONMENTAL TECHNICIAN-Csnw Lulú Gunter, RN RN Cristina Jay, KELLY RN Simon Mooney, RN RN rv Corrections: (The following items were deleted from the chart) 10/08 16:56 16:01 French ordered. phuong aj1 22:48 16:10 NG Tube ordered. phuong mike 10/09 01:13 10/08 23:44 10/08/2019 23:44 Transfer ordered to [facility]. rv Diagnosis is Enterocolitis; Anemia, unspecified; Melena. Reason for transfer: Higher level of care. Accepting physician is Dr. Larson. Condition is Stable. Problem is an acute exacerbation. Symptoms have improved. phuong
[2019-10-09] MEDS ORDERED: Ringers Lactate 1,000 ML IV ONE (00:13)
[2019-10-09] MEDS ORDERED: FENTANYL CITR 100 MCG/2 ML ONE (00:13)
[2019-10-09] MEDS ORDERED: PROMETHAZINE INJ 25 MG/ML AMP ONE (00:26)
[2019-10-09 01:22] VITALS: TEMP 97.8
[2019-10-09 01:35] VITALS: BP 114/69; O2SAT 100
--- NOTE | 2019-10-10 11:33 | RAD REPORT ---
EXAM DESCRIPTION: CT Abdomen and Pelvis With Intravenous Contrast CLINICAL HISTORY: The patient is 34 years old and is Female; vomiting;Abd pain TECHNIQUE: Axial computed tomography images of the abdomen and pelvis with intravenous contrast. S agittal and coronal reformatted images were created and reviewed. This CT exam was performed using one or more of the following dose reduction techniques: automated exposure control, adjustment of t he mA and/or kV according to patient size, and/or use of iterative reconstruction technique. DLP: 433 mGy*cm COMPARISON: CT abdomen and pelvis without contrast dated June 21, 2019. FINDINGS: LUNG BASES: Lung bases are clear. HEART: Visualized heart is normal. ABDOMEN: LIVER: Diffuse hepatic steatosis. GALLBLADDER AND BILE DUCTS: Prior cholecystectomy. No ductal dilation. PANCREAS: Unremarkable. No mass. No ductal dilation. SPLEEN: Unremarkable. No splenomegaly. ADRENALS: Unremarkable. No mass. KIDNEYS AND URETERS: Unremarkable. No solid mass. No hydronephrosis. STOMACH AND BOWEL: Multifocal bilateral postsurgical changes without obstruction. There is diffuse wall thickening and mucosal enhancement of small and large bowel. PELVIS: APPENDIX: No findings to suggest acute appendicitis. BLADDER: Unremarkable. No mass. REPRODUCTIVE: Bilateral ovarian cystic changes measuring up to 3.4 cm on the left. Intravaginal contraceptive ring. ABDOMEN and PELVIS: INTRAPERITONEAL SPACE: Unremarkable. No free air. No significant fluid collection. BONES/JOINTS: Levoscoliosis centered at L3. No acute fracture. No dislocation. SOFT TISSUES: Unremarkable. VASCULATURE: Unremarkable. No abdominal aortic aneurysm. LYMPH NODES: Mildly prominent mesenteric lymph nodes. OTHER FINDINGS: Abdominal midline scarring. IMPRESSION: 1. Constellation of findings most suggestive of infectious or inflammatory enterocolit is. 2. Mildly prominent mesenteric lymph nodes, likely reactive. 3. Multifocal small and large bowel postsurgical changes. No bowel obstruction. 4. Bilateral ovarian cysts measuring up to 3.4 cm on the left. No follow-up imaging is recommended. Reference: US recommendations based on Radiology 2010 Sep;256(3):943-54; CT/MR recommendations based on J Am Jag Radiol 2013;10:675-681. 5. Hepatic steatosis. 6. Levoscoliosis. Electronically signed by: Ramon Hernadez DO 10/08/2019 9:54 PM WEBLOGIC ADMINISTRATOR Due to temporary technical issues with the PACS/Fluency reporting system, reports are being signed by the in house radiologist as a courtesy to ensure prompt reporting. The interpreting radiologist is f ully responsible for the content of the report.
== END 2019-10-09 01:13 | disposition short-term general hospital (02) ==
LOC: ER 15:15
DX: K52.9 Noninfective gastroenteritis and colitis, unspecified (principal); K92.1 Melena; D64.9 Anemia, unspecified; Z88.8 Allergy status to other drugs, medicaments and biological substances
CPT/HCPCS: 36415; 74177; 80048; 80076; 81003; 81015; 81025; 82607; 82947; 83605; 83690; 84100; 84443; 85025; 86850; 86900; 86901; 87040; 87070; 87081; 87086; 87088; 87205; 96361; 96365; 96366; 96367; 96368; 96375; 99285; J0744; J2550; J3010; J7030; J7040; J7042; J7120; Q9967

== ENCOUNTER 2021-01-07 11:33 | Inpatient (IN) | payer SELFPAY ==
--- OUTSIDE RECORDS SUMMARY | 2021-01-07 11:37 | XMS REPORT | Continuity of Care Document ---
:1985 Author Organization [facility] t Address [address] [place] [address] Care Team Providers Name Role Phone Asked, Pcp Primary Care Physician Unavailable 2, Adult Infusion Nurse Attending Clinician Unavailable DEON GALLO Attending Clinician Unavailable DEON GALLO Admitting Clinician Unavailable Problems Condition Condition Condition Status Onset Resolution Last Treating Co mments Source Name Details Category Date Date Treatment Clinician Date Crohn Crohn Disease Active [facility] Fever Fever Disease Active 2016-09 [place] 10-25 [facility]: st 00 Crohn's Crohn's Disease Active 2016-09 [place] disease of disease of 10-12 Me thodi both small both small 00:00: st and large and large 00 intestine intestine with with intestinal intestinal obstructio obstructio n n Stricture Stricture Disease Active 2016-09 [facility] intestinal intestinal 10-12 Me thodi 00:00: st 00 Small Small Disease Active 2016-09 [place] bowel bowel 10-06 [facility] obstructio obstructio 00:00: st n n 00 Cyst of Cyst of Disease Active 2016-09 [place] ovary ovary 10-06 [facility] 00:00: st 00 Generalize Generalize Disease Active [place] 05-07 [facility] abdominal abdominal 00:00: st pain pain 00 Allergies, Adverse Reactions, Alerts Allergy Allergy Status Severity Reaction(s) Onset Inactive Treating Comm ents Source Name Type Date Date Clinician Alcohol Propensi Active Rash Rubbing [facility] 10[facility]09 [facility] - adverse 00:[facility]: Medical reaction 00 Center s Inflixim Propensi Active Anaphylaxis [facility] ty to 10-09 [facility] - adverse 00:00: Medical reaction 00 Center s Shellfis Propensi Active [facility] to 10-09 [facility] - Containi adverse 00:00: Medical ng reaction 00 Center Products s Diphenhy Propensi Active 2016-09 [place] ty to 10-06 heart [facility] Hcl adverse 00:00: rate st reaction 00 s to drug Inflixim Propensi Active Shortness Of Pt said [place] ab ty to Breath 05-07 airway [facility] adverse 00:00: becomes st reaction 00 completel s to y closed drug within 5 seconds Social History Social Habit Start Date Stop Date Quantity Comments Source History SDOH [facility] Std Drinks [facility] Center History SDOH [facility] - Alcohol Binge Medical Brandyn ter Tobacco use and 2019-10-10 2019-10-[address] [facility] [address] Daniela kes - exposure 00:00:00 00:00:00 Medical Center History SDOH 2019-10-09 2019-10-[address] [facility] - Alcohol Frequency 00:00:00 00:00:00 [facility] Alcohol intake 2017-09-24 2017-09-24 Current [facility] thodist 00:00:00 00:00:00 non-drinker of alcohol (finding) Sex Ass[birth year] At [birth year] [facility] ethodist 00:00:00 00:00:00 Smoking Status Start Date Stop Date Source Never smoker [place] [facility] Medications Ordered Filled Start Stop Current Ordering Indication Dosage Frequency Signature Comments Components Source Medication Medication Date Date Medication? Clinician (SIG) Name Name buprenorphi Yes Q.5D Place [facility] ne-naloxone 10-12 under the [place] [facility] - (ZUBSOLV) 16:58: tongue 2 Medi rashida 5.7-1.4 mg 50 (two) Center Subl times daily. tiZANidine 2020-0 Yes 4mg [id number] Take [address] (ZANAFLEX) -29 [id number] by mouth 3 [facility] - 4 MG tablet 16:58: 3D (three) Med ical 50 times Center daily. cyanocobala 2020-0 Yes 1000ug Q7D Inject [facility] min - 1,000 mcg [facility] - (VITAMIN 16:58: intramuscu Med ical B-12) 1,000 50 larly once Ce nter mcg/mL a week. injection ondansetron 2020-0 Yes 8mg Take [address] [facility] (ZOFRAN) 8 - tablet (8 Luke s - MG tablet 00:00: mg total) Med ical 00 by mouth Center every 8 (eight) hours as needed for Nausea. promethazin 2020-0 Yes 25mg Take [address] [facility] e - tablet (25 [facility] - (PHENERGAN) 00:00: mg total) M edical 25 MG 00 by mouth Center tablet every 6 (six) hours as needed for Nausea. fentaNYL 2016-09 Yes 1{patch Q72H Place 1 [facility] (DURAGESIC) 2-20 } patch on Meth kelvin 75 mcg/hr 16:08: the skin st 13 every third day. tiZANidine 2016-09 Yes 4mg Q6H Take 4 mg [place] (ZANAFLEX) 2-20 by mouth Metho di 4 MG tablet 16:08: every 6 st 13 (six) hours. clonAZEPAM 2016-09 Yes .5mg QD Take 0.5 [facility] (KlonoPIN) 2-20 mg by [facility] 0.5 MG 16:08: mouth st tablet 13 nightly. zolpidem 2016-09 Yes 10mg QD Take 10 mg [facility] (AMBIEN) 10 2-20 by mouth Meth kelvin mg tablet 16:08: nightly as st 13 needed for sleep. thyroid, 2017 Yes 30mg QD Take 30 mg [facility] pork, 2-20 by mouth [facility] (ARMOUR 16:08: daily. st THYROID) 15 13 mg tablet magnesium 2016-09 Yes 400mg Q.5D Take 400 [facility] oxide 1-11 mg by [facility] (MAG-OX) 00:00: mouth 2 st 400 mg 00 (two) tablet times a day. Procedures This patient has no known procedures. Plan of Care Planned Activity Planned Date Details Comments Source Future Scheduled 2021-04-14 INFLUENZA VACCINE [place] [facility] 00:00:00 [code = INFLUENZA VACCINE] Future Scheduled 2020-05-[address] [facility] - Test 00:00:00 (#1) [code = [facility] INFLUENZA VACCINE (#1)] Future Scheduled [address] [facility] - Test 00:00:00 malignant neoplasm Medical C enter of cervix (procedure) [code = 339957601] Future Scheduled 2008 Screening for [facility] thodist Test 00:00:00 malignant neoplasm of cervix (procedure) [code = 528855080] Future Scheduled 2003 COVID-19 VACCINE [place] [facility] Test 00:00:00 (1) [code = COVID-19 VACCINE (1)] Encounters Start End Encounter Admission Attending Care Care Encounter Source Date/Time Date/Time Type Type Clinicians Facility Department ID 2020-06-15 2020-06-15 Nurse 2 Kari [facility] [id number] 10 09:39:33 16:49:21 Visit Adult SPECIALTY [id number] Infusion CARE [id number] Nurse CENTER AT [phone] [place] [id number] [facility] Results Test Description Test Time Test Comments Results Result Sour e Comments TISSUE EXAM 2019-10-14 Surgical Pathology Report 12:24:00 Case: [id number] Authorizing Provider: Mateo Ohara Collected: 10/10/2019 1113 MD Daniela Ordering Location: [address] Received: 10/10/2019 1332 Service Pathologist: Osmar Cabello MD Specimens: A) - Ulcer, DUODENAL ULCER BIOPSY HISTORY OF CROHN'S B) - Biopsy, Gastric, BIOPSY R/O H PYLORY C) - Biopsy, Ileocecal Valve D) - Large Intestine, Colon - Right/Ascending, biopsy E) - Large Intestine, Colon - Transverse F) - Large Intestine, Colon - Left/Descending G) - Rectum, biopsy The addendum is being issued to report the results of the Helicobacter immunostain. The diagnosis remains unchanged.RESULTSImmunost ain for Helicobacter is negative. (appropriate controls)Billing [id number] electronically signed by Osmar Cabello MD on 10/14/2019 at 12:24 PMA DUODENUM, BIOPSIES OF ULCER- SEVERE ACTIVE DUODENITIS WITH ULCERATION- NO GRANULOMAS SEEN- NEGATIVE FOR DYSPLASIA OR CARCINOMAB. STOMACH, ENDOSCOPIC MUCOSAL BIOPSIES- ANTRAL AND OXYNTIC MUCOSA WITH MODERATE CHRONIC, FOCALLY ACTIVE, GASTRITIS WITH FOCAL NON-NECROTIZING EPITHELIOID GRANULOMA- NEGATIVE FOR HELICOBACTER PYLORI- NEGATIVE FOR INTESTINAL METAPLASIA, DYSPLASIA OR CARCINOMAC. ILEOCECAL VALVE, BIOPSY- SEVERE ACTIVE ENTERITIS WITH DIFFUSE MUCOSAL ULCERATIOND. COLON, RIGHT/ASCENDING, BIOPSY- COLONIC MUCOSA WITH NO SIGNIFICANT DIAGNOSTIC ALTERATIONS, HOWEVER WELL-HEALED CHRONIC COLITIS CANNOT BE EXCLUDED- NO GRANULOMAS SEEN- NEGATIVE FOR DYSPLASIA OR CARCINOMAE. COLON, TRANSVERSE, BIOPSY- COLONIC MUCOSA WITH NO SIGNIFICANT DIAGNOSTIC ALTERATIONS, HOWEVER WELL-HEALED CHRONIC COLITIS CANNOT BE EXCLUDED- NO GRANULOMAS SEEN- NEGATIVE FOR DYSPLASIA OR CARCINOMAF. COLON, LEFT/DESCENDING, BIOPSY- COLONIC MUCOSA WITH NO SIGNIFICANT DIAGNOSTIC ALTERATIONS, HOWEVER WELL-HEALED CHRONIC COLITIS CANNOT BE EXCLUDED- NO GRANULOMAS SEEN- NEGATIVE FOR DYSPLASIA OR CARCINOMAG. 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 Received in formalin labeled "duodenal ulcer biopsy" is a piece of wolf-pink irregular soft tissue measuring 0.3 x 0.2 x 0.1 cm. The specimen is submitted entirely in cassette A1. B. Received in formalin labeled "biopsy rule out H. Pylori" are multiple pieces of wolf-pink irregular soft tissue measuring in aggregate 0.9 x 0.4 x 0.2 cm. The specimen is submitted entirely in cassette B1. C. Received in formalin labeled "ileocecal valve biopsy" is a wolf-pink brown irregular soft tissue measuring 0.3 x 0.2 x 0.1 cm. The specimen is submitted entirely in cassette C1. D. Received in formalin labeled "ascending colon biopsy" are multiple pieces of wolf-brown irregular soft tissue measuring in aggregate 0.8 x 0.2 x 0.1 cm. The specimen is submitted entirely in cassette D1. E. Received in formalin labeled "transverse colon biopsy" are multiple pieces of wolf-white irregular soft tissue measuring in aggregate 0.7 x 0.2 x 0.2 cm. The specimen is submitted entirely in cassette E1. F. Received in formalin labeled "descending colon biopsy" are multiple pieces of wolf-white irregular soft tissue measuring in aggregate 0.6 x 0.2 x 0.2 cm. The specimen is submitted entirely in cassette F1.G. Received in formalin labeled "rectum" are multiple pieces of wolf-white irregular soft tissues measuring in aggregate 0.6 x 0.5 x 0.1 cm. The specimen is submitted entirely in cassette G1. CYB/pl A-G. Microscopic examination is performed and the findings are incorporated in the diagnostic line. Warthin starry stain is negative for Helicobacter pylori. B. Deeper level 4 shows non-necrotizing epithelioid granulomaThe interpretation of this case included the use of immunohistochemistry or special stains.Control Slides Examined: In-house known positive controls were evaluated along with the test tissue. These control slides run alongside of the patients sample show appropriate staining. Internal positive and negative controls when available are evaluated Immunohistochemistry technical testing was performed at [facility], Pathology Laboratory where it was developed and its performance characteristics were determined. It has not been cleared or approved by the U.S. Food and Drug Administration. The FDA has determined that such clearance or approval is not necessary. The test is used for clinical purposes. It should not be regarded as investigational or for research. This laboratory is certified under the Clinical Laboratory Improvement Amendments of 1988 (CLIA-88) as qualified to perform high complexity clinical laboratory testing. BASIC METABOLIC PANEL 2019-10-12 06:40:00 Test Item Value Reference Range Interpretation Comme nts SODIUM (BEAKER) (test code 141 meq/L 136-145 = 381) POTASSIUM (BEAKER) (test 4.0 meq/L 3.5-5.1 code = 379) CHLORIDE (BEAKER) (test 115 meq/L 98-107 H code = 382) CO2 (BEAKER) (test code = 24 meq/L 22-29 355) BLOOD UREA NITROGEN < mg/dL 7-21 L (BEAKER) (test code = 354) CREATININE (BEAKER) (test 0.55 mg/dL 0.57-1.25 L code = 358) GLUCOSE RANDOM (BEAKER) 92 mg/dL 70-105 (test code = 652) CALCIUM (BEAKER) (test 7.9 mg/dL 8.4-10.2 L code = 697) EGFR (BEAKER) (test code = 128 mL/min/1.73 sq m ESTIMATED GFR IS NOT 1092) ACCURATE CRE ATININE CLEARANCE IN [place] EDICTING GLOMERULAR FILT RATION RATE. ESTIMATED GFR IS NOT APPLICABLE FOR DIALYSIS PATIENTS. Barrel Burner ID - MARTIN [facility] W/PLT COUNT & AUTO [id number] 05:31:00 Test Item Value Reference Range Interpretation Comments WHITE BLOOD CELL COUNT (BEAKER) 5.1 K/ L 3.5-10.5 (test code = 775) RED BLOOD CELL COUNT (BEAKER) 3.13 M/ L 3.93-5.22 L (test code = 761) HEMOGLOBIN (BEAKER) (test code = 8.8 GM/DL 11.2-15.7 L 410) HEMATOCRIT (BEAKER) (test code = 27.4 % 34.1-44.9 L 411) MEAN CORPUSCULAR VOLUME (BEAKER) 87.5 fL 79.4-94.8 (test code = 753) MEAN CORPUSCULAR HEMOGLOBIN 28.1 pg 25.6-32.2 (BEAKER) (test code = 751) MEAN CORPUSCULAR HEMOGLOBIN CONC 32.1 GM/DL 32.2-35.5 L (BEAKER) (test code = 752) RED CELL DISTRIBUTION WIDTH 14.4 % 11.7-14.4 (BEAKER) (test code = 412) PLATELET COUNT (BEAKER) (test 215 K/CU MM 150-450 code = 756) MEAN PLATELET VOLUME (BEAKER) 9.2 fL 9.4-12.3 L (test code = 754) NUCLEATED RED BLOOD CELLS 0 /100 WBC 0-0 (BEAKER) (test code = 413) NEUTROPHILS RELATIVE PERCENT 60 % (BEAKER) (test code = 429) LYMPHOCYTES RELATIVE PERCENT 23 % (BEAKER) (test code = 430) MONOCYTES RELATIVE PERCENT 8 % (BEAKER) (test code = 431) EOSINOPHILS RELATIVE PERCENT 8 % (BEAKER) (test code = 432) BASOPHILS RELATIVE PERCENT 1 % (BEAKER) (test code = 437) NEUTROPHILS ABSOLUTE COUNT 3.08 K/ L 1.56-6.13 (BEAKER) (test code = 670) LYMPHOCYTES ABSOLUTE COUNT 1.16 K/ L 1.18-3.74 L (BEAKER) (test code = 414) MONOCYTES ABSOLUTE COUNT (BEAKER) 0.39 K/ L 0.24-0.36 H (test code = 415) EOSINOPHILS ABSOLUTE COUNT 0.41 K/ L 0.04-0.36 H (BEAKER) (test code = 416) BASOPHILS ABSOLUTE COUNT (BEAKER) 0.04 K/ L 0.01-0.08 (test code = 417) IMMATURE GRANULOCYTES-RELATIVE 1 % 0-1 PERCENT (BEAKER) (test code = 2801) BASIC METABOLIC [id number] 05:48:00 Test Item Value Reference Range Interpretation Comments SODIUM (BEAKER) 140 meq/L 136-145 (test code = 381) POTASSIUM (BEAKER) 3.9 meq/L 3.5-5.1 (test code = 379) CHLORIDE (BEAKER) 114 meq/L 98-107 H (test code = 382) CO2 (BEAKER) (test 22 meq/L 22-29 code = 355) BLOOD UREA NITROGEN < mg/dL 7-21 L (BEAKER) (test code = 354) CREATININE (BEAKER) 0.56 mg/dL 0.57-1.25 L (test code = 358) GLUCOSE RANDOM 96 mg/dL 70-105 (BEAKER) (test code = 652) CALCIUM (BEAKER) 8.0 mg/dL 8.4-10.2 L (test code = 697) EGFR (BEAKER) (test 125 mL/min/1.73 ESTIM ATED GFR IS code = 1092) sq m NOT ACCURATE CREATININE CLEARANCE IN PREDICTING GLOMERULAR FILTRATION RATE . ESTIMATED GFR I S NOT APPLICABLE FOR DIALYSIS PATIEN TS. Barrel Burner ID - MARTIN [id number] 05:12:00 Test Item Value Reference Range Interpretation Comments PREALBUMIN (BEAKER) (test code = 14 mg/dL 14-45 586) Barrel Burner ID - MARTIN [facility] W/PLT COUNT & AUTO [id number] 04:56:00 Test Item Value Reference Range Interpretation Comments WHITE BLOOD CELL COUNT (BEAKER) 7.3 K/ L 3.5-10.5 (test code = 775) RED BLOOD CELL COUNT (BEAKER) 3.12 M/ L 3.93-5.22 L (test code = 761) HEMOGLOBIN (BEAKER) (test code = 8.9 GM/DL 11.2-15.7 L 410) HEMATOCRIT (BEAKER) (test code = 26.9 % 34.1-44.9 L 411) MEAN CORPUSCULAR VOLUME (BEAKER) 86.2 fL 79.4-94.8 (test code = 753) MEAN CORPUSCULAR HEMOGLOBIN 28.5 pg 25.6-32.2 (BEAKER) (test code = 751) MEAN CORPUSCULAR HEMOGLOBIN CONC 33.1 GM/DL 32.2-35.5 (BEAKER) (test code = 752) RED CELL DISTRIBUTION WIDTH 14.2 % 11.7-14.4 (BEAKER) (test code = 412) PLATELET COUNT (BEAKER) (test 200 K/CU MM 150-450 code = 756) MEAN PLATELET VOLUME (BEAKER) 9.1 fL 9.4-12.3 L (test code = 754) NUCLEATED RED BLOOD CELLS 0 /100 WBC 0-0 (BEAKER) (test code = 413) NEUTROPHILS RELATIVE PERCENT 75 % (BEAKER) (test code = 429) LYMPHOCYTES RELATIVE PERCENT 12 % (BEAKER) (test code = 430) MONOCYTES RELATIVE PERCENT 6 % (BEAKER) (test code = 431) EOSINOPHILS RELATIVE PERCENT 6 % (BEAKER) (test code = 432) BASOPHILS RELATIVE PERCENT 1 % (BEAKER) (test code = 437) NEUTROPHILS ABSOLUTE COUNT 5.44 K/ L 1.56-6.13 (BEAKER) (test code = 670) LYMPHOCYTES ABSOLUTE COUNT 0.88 K/ L 1.18-3.74 L (BEAKER) (test code = 414) MONOCYTES ABSOLUTE COUNT (BEAKER) 0.47 K/ L 0.24-0.36 H (test code = 415) EOSINOPHILS ABSOLUTE COUNT 0.44 K/ L 0.04-0.36 H (BEAKER) (test code = 416) BASOPHILS ABSOLUTE COUNT (BEAKER) 0.05 K/ L 0.01-0.08 (test code = 417) IMMATURE GRANULOCYTES-RELATIVE 0 % 0-1 PERCENT (BEAKER) (test code = 2801) BASIC METABOLIC [id number] 07:31:00 Test Item Value Reference Range Interpretation Comments SODIUM (BEAKER) 138 meq/L 136-145 (test code = 381) POTASSIUM (BEAKER) 3.6 meq/L 3.5-5.1 (test code = 379) CHLORIDE (BEAKER) 114 meq/L 98-107 H (test code = 382) CO2 (BEAKER) (test 22 meq/L 22-29 code = 355) BLOOD UREA NITROGEN 2 mg/dL 7-21 L (BEAKER) (test code = 354) CREATININE (BEAKER) 0.48 mg/dL 0.57-1.25 L (test code = 358) GLUCOSE RANDOM 87 mg/dL 70-105 (BEAKER) (test code = 652) CALCIUM (BEAKER) 7.0 mg/dL 8.4-10.2 L (test code = 697) EGFR (BEAKER) (test 150 mL/min/1.73 ESTIM ATED GFR IS code = 1092) sq m NOT ACCURATE CREATININE CLEARANCE IN PREDICTING GLOMERULAR FILTRATION RATE . ESTIMATED GFR I S NOT APPLICABLE FOR DIALYSIS PATIEN TS. Barrel Burner ALEXIS De León ZAKIA FHEPATIC FUNCTION [id number] 07:29:00 Test Item Value Reference Range Interpretation Comments TOTAL PROTEIN (BEAKER) (test code = 4.4 gm/dL 6.0-8.3 L 770) ALBUMIN (BEAKER) (test code = 1145) 2.7 g/dL 3.5-5.0 L BILIRUBIN TOTAL (BEAKER) (test code 0.3 mg/dL 0.2-1.2 = 377) BILIRUBIN DIRECT (BEAKER) (test 0.2 mg/dL 0.1-0.5 code = 706) ALKALINE PHOSPHATASE (BEAKER) (test 43 U/L 40-150 code = 346) AST (SGOT) (BEAKER) (test code = 14 U/L 5-34 353) ALT (SGPT) (BEAKER) (test code = < U/L 6-55 L 347) Barrel Burner ALEXIS De León ZAKIA FCBC W/PLT COUNT & AUTO [id number] 05:27:00 Test Item Value Reference Range Interpretation Comments WHITE BLOOD CELL COUNT (BEAKER) 4.3 K/ L 3.5-10.5 (test code = 775) RED BLOOD CELL COUNT (BEAKER) 2.82 M/ L 3.93-5.22 L (test code = 761) HEMOGLOBIN (BEAKER) (test code = 8.1 GM/DL 11.2-15.7 L 410) HEMATOCRIT (BEAKER) (test code = 24.3 % 34.1-44.9 L 411) MEAN CORPUSCULAR VOLUME (BEAKER) 86.2 fL 79.4-94.8 (test code = 753) MEAN CORPUSCULAR HEMOGLOBIN 28.7 pg 25.6-32.2 (BEAKER) (test code = 751) MEAN CORPUSCULAR HEMOGLOBIN CONC 33.3 GM/DL 32.2-35.5 (BEAKER) (test code = 752) RED CELL DISTRIBUTION WIDTH 13.9 % 11.7-14.4 (BEAKER) (test code = 412) PLATELET COUNT (BEAKER) (test 163 K/CU MM 150-450 code = 756) MEAN PLATELET VOLUME (BEAKER) 9.0 fL 9.4-12.3 L (test code = 754) NUCLEATED RED BLOOD CELLS 0 /100 WBC 0-0 (BEAKER) (test code = 413) NEUTROPHILS RELATIVE PERCENT 54 % (BEAKER) (test code = 429) LYMPHOCYTES RELATIVE PERCENT 31 % (BEAKER) (test code = 430) MONOCYTES RELATIVE PERCENT 8 % (BEAKER) (test code = 431) EOSINOPHILS RELATIVE PERCENT 6 % (BEAKER) (test code = 432) BASOPHILS RELATIVE PERCENT 1 % (BEAKER) (test code = 437) NEUTROPHILS ABSOLUTE COUNT 2.29 K/ L 1.56-6.13 (BEAKER) (test code = 670) LYMPHOCYTES ABSOLUTE COUNT 1.33 K/ L 1.18-3.74 (BEAKER) (test code = 414) MONOCYTES ABSOLUTE COUNT (BEAKER) 0.34 K/ L 0.24-0.36 (test code = 415) EOSINOPHILS ABSOLUTE COUNT 0.25 K/ L 0.04-0.36 (BEAKER) (test code = 416) BASOPHILS ABSOLUTE COUNT (BEAKER) 0.05 K/ L 0.01-0.08 (test code = 417) IMMATURE GRANULOCYTES-RELATIVE 1 % 0-1 PERCENT (BEAKER) (test code = 2801) HEPATITIS PANEL, [id number] 19:35:00 Test Item Value Reference Range Interpretation Comments HEPATITIS A IGM ANTIBODY (BEAKER) Nonreactive Nonreactive (test code = 498) HEPATITIS B CORE IGM ANTIBODY Nonreactive Nonreactive (BEAKER) (test code = 645) HEPATITIS C ANTIBODY (BEAKER) Nonreactive Nonreactive (test code = 367) HEPATITIS B SURFACE ANTIGEN (2) Nonreactive Nonreactive (BEAKER) (test code = 2585) Barrel Burner ID - [id number] 16:43:00 Test Item Value Reference Range Interpretation Comments FERRITIN (BEAKER) (test code = 361) 14 ng/mL 5-275 Barrel Burner ID - AYLIN WVITAMIN B12 AND [id number] 16:43:00 Test Item Value Reference Range Interpretation Comments VITAMIN B12 (BEAKER) (test code = 219 pg/mL 213-816 774) FOLATE (BEAKER) (test code = 362) 18.6 ng/mL >=7.0 Barrel Burner ID - AYLIN WC-REACTIVE [id number] 16:07:00 Test Item Value Reference Range Interpretation Comments C-REACTIVE PROTEIN (BEAKER) (test 0.22 mg/dL 0.00-0.50 code = 676) Barrel Burner ID - AYLIN LADARIUS, TIBC, % SAT. (WITHOUT FERRITIN)2019-10-09 14:35:00 Test Item Value Reference Range Interpretation Comments IRON (BEAKER) (test code = 547) 91.0 ug/dL 40.0-160.0 TOTAL IRON BINDING CAPACITY 246 ug/dL 250-450 L (BEAKER) (test code = 769) IRON % SATURATION (2) (BEAKER) 37 % 20-55 (test code = 2590) Barrel Burner ID - [id number] 10:43:00 Test Item Value Reference Range Interpretation Comments MAGNESIUM (BEAKER) (test code = 1.3 mg/dL 1.6-2.6 L 627) Barrel Burner ID - ROSIANGHEPATIC FUNCTION [id number] 06:39:00 Test Item Value Reference Range Interpretation Comments TOTAL PROTEIN (BEAKER) (test code = 4.7 gm/dL 6.0-8.3 L 770) ALBUMIN (BEAKER) (test code = 1145) 2.9 g/dL 3.5-5.0 L BILIRUBIN TOTAL (BEAKER) (test code 0.2 mg/dL 0.2-1.2 = 377) BILIRUBIN DIRECT (BEAKER) (test 0.2 mg/dL 0.1-0.5 code = 706) ALKALINE PHOSPHATASE (BEAKER) (test 53 U/L 40-150 code = 346) AST (SGOT) (BEAKER) (test code = 8 U/L 5-34 353) ALT (SGPT) (BEAKER) (test code = < U/L 6-55 L 347) Barrel Burner ID Genet PARKER [id number] 06:31:00 Test Item Value Reference Range Interpretation Comments FERRITIN (BEAKER) (test code = 361) 10 ng/mL 5-275 Barrel Burner ID - KEITH WVITAMIN B12 AND [id number] 06:31:00 Test Item Value Reference Range Interpretation Comments VITAMIN B12 (BEAKER) (test code = 221 pg/mL 213-816 774) FOLATE (BEAKER) (test code = 362) 17.8 ng/mL >=7.0 Barrel Burner ID Genet PARKER WBASIC METABOLIC [id number] 05:58:00 Test Item Value Reference Range Interpretation Comments SODIUM (BEAKER) 141 meq/L 136-145 (test code = 381) POTASSIUM (BEAKER) 2.7 meq/L 3.5-5.1 L (test code = 379) CHLORIDE (BEAKER) 110 meq/L 98-107 H (test code = 382) CO2 (BEAKER) (test 24 meq/L 22-29 code = 355) BLOOD UREA NITROGEN 13 mg/dL 7-21 (BEAKER) (test code = 354) CREATININE (BEAKER) 0.51 mg/dL 0.57-1.25 L (test code = 358) GLUCOSE RANDOM 94 mg/dL 70-105 (BEAKER) (test code = 652) CALCIUM (BEAKER) 7.3 mg/dL 8.4-10.2 L (test code = 697) EGFR (BEAKER) (test 140 mL/min/1.73 ESTIM ATED GFR IS code = 1092) sq m NOT ACCURATE CREATININE CLEARANCE IN PREDICTING GLOMERULAR FILTRATION RATE . ESTIMATED GFR I S NOT APPLICABLE FOR DIALYSIS PATIEN TS. Barrel Burner ID Genet PARKER WC-REACTIVE [id number] 05:53:00 Test Item Value Reference Range Interpretation Comments C-REACTIVE PROTEIN (BEAKER) (test 0.30 mg/dL 0.00-0.50 code = 676) Barrel Burner ID Genet PARKER WCBC W/PLT COUNT & AUTO [id number] 05:13:00 Test Item Value Reference Range Interpretation Comments WHITE BLOOD CELL COUNT (BEAKER) 6.6 K/ L 3.5-10.5 (test code = 775) RED BLOOD CELL COUNT (BEAKER) 2.60 M/ L 3.93-5.22 L (test code = 761) HEMOGLOBIN (BEAKER) (test code = 7.4 GM/DL 11.2-15.7 L 410) HEMATOCRIT (BEAKER) (test code = 21.9 % 34.1-44.9 L 411) MEAN CORPUSCULAR VOLUME (BEAKER) 84.2 fL 79.4-94.8 (test code = 753) MEAN CORPUSCULAR HEMOGLOBIN 28.5 pg 25.6-32.2 (BEAKER) (test code = 751) MEAN CORPUSCULAR HEMOGLOBIN CONC 33.8 GM/DL 32.2-35.5 (BEAKER) (test code = 752) RED CELL DISTRIBUTION WIDTH 14.2 % 11.7-14.4 (BEAKER) (test code = 412) PLATELET COUNT (BEAKER) (test 221 K/CU MM 150-450 code = 756) MEAN PLATELET VOLUME (BEAKER) 9.0 fL 9.4-12.3 L (test code = 754) NUCLEATED RED BLOOD CELLS 0 /100 WBC 0-0 (BEAKER) (test code = 413) NEUTROPHILS RELATIVE PERCENT 67 % (BEAKER) (test code = 429) LYMPHOCYTES RELATIVE PERCENT 24 % (BEAKER) (test code = 430) MONOCYTES RELATIVE PERCENT 7 % (BEAKER) (test code = 431) EOSINOPHILS RELATIVE PERCENT 1 % (BEAKER) (test code = 432) BASOPHILS RELATIVE PERCENT 1 % (BEAKER) (test code = 437) NEUTROPHILS ABSOLUTE COUNT 4.45 K/ L 1.56-6.13 (BEAKER) (test code = 670) LYMPHOCYTES ABSOLUTE COUNT 1.56 K/ L 1.18-3.74 (BEAKER) (test code = 414) MONOCYTES ABSOLUTE COUNT (BEAKER) 0.48 K/ L 0.24-0.36 H (test code = 415) EOSINOPHILS ABSOLUTE COUNT 0.07 K/ L 0.04-0.36 (BEAKER) (test code = 416) BASOPHILS ABSOLUTE COUNT (BEAKER) 0.04 K/ L 0.01-0.08 (test code = 417) IMMATURE GRANULOCYTES-RELATIVE 1 % 0-1 PERCENT (BEAKER) (test code = 2801)
[2021-01-07 12:58] LABS: Absolute Lymphocytes (CBC) 0.5 K/uL (0.7-4.9); Basophils % 0.1 % (0-1.3); Hematocrit 43.4 % (36.0-45.0); Lymphocytes % 3.1 % (15.3-44.8); MPV 7.7 fL (7.6-11.3); RBC Red Blood Cell Count 5.08 M/uL (3.86-4.86)
[2021-01-07] MEDS ORDERED: PANTOPRAZOLE 40 MG INJ ONE (13:03)
[2021-01-07] MEDS ORDERED: WATER FOR INJ,STERILE 10 ML ONE (13:04)
[2021-01-07] MEDS ORDERED: NA CHLORIDE 0.9% 1,000 ML ONE (13:04)
--- NOTE | 2021-01-07 13:16 | ER ---
Nurse's Notes [facility] Name: Va Cardoso Age: 35 yrs Sex: Female : 1985 Arrival Date: 01/07/2021 Time: 11:34 Bed 13 Private MD: Diagnosis: Abdominal tenderness;Crohn's disease [regional enteritis];Vomiting;Elevated white blood cell count;Volume depletion;Gastritis, unspecified;Dental caries Presentation: 01/07 11:41 Chief complaint: Patient states: Started amoxicillin Thursday for Left lower jaw tooth ll1 infection. Has had N/V ever since. Noticed blood in her vomit and blood in her stool last night. + pale, weak, lethargic. Coronavirus screen: Client denies travel out of the [place] in the last 14 days. fatigue, nausea, vomiting. Client presents with at least one sign or symptom that may indicate coronavirus-19. Standard/surgical mask placed on the client. Ebola Screen: Patient denies travel to an Ebola-affected area in the 21 days before illness onset. Initial Sepsis Screen: Does the patient meet any 2 criteria? HR > 90 bpm. Does the patient have a suspected source of infection? Yes: Acute abdominal pain. Risk Assessment: Do you want to hurt yourself or someone else? Patient reports no desire to harm self or others. Onset of symptoms was January 03, 2021. 11:41 Method Of Arrival: Ambulatory 1 11:41 Acuity: IGNACIO 3 ll1 CARE CONNECTOR: 13:09 LMP N/A - control method tr6 Historical: - Allergies: 11:45 Remicade (Anaphylaxis); ll1 11:45 Alcohol, Rubbing; ll1 - PMHx: 11:45 Hypothyroidism; Crohn's; Fibromyalgia; Osteoporosis; HYPOGLYCEMIA; ruptured small ll1 bowel; Seizures; bowel obstruction; uterine cysts; B12 deficiency; Rheumatoid Arthritis; scoliosis; Anemia; fatty liver; Chronic pain; - PSHx: 11:45 fistula repair; volvulous repair; Hernia repair; ; Bowel resection; ll1 Cholecystectomy; Tubal ligation; - Immunization history:: Flu vaccine is not up to date. - Social history:: Smoking status: Patient denies any tobacco usage or history of. Screenin:10 Fall Risk None identified. tr6 Assessment: 12:40 General: Appears distressed, uncomfortable, slender, Behavior is cooperative. General: tr6 pt reports that she had her tubes tied in 2013. pt unable to give urine at this time. MD ok to give meds. . Pain: Complains of pain in pt c/o generalized abdominal pain. Neuro: No deficits noted. Cardiovascular: No deficits noted. Respiratory: No deficits noted. GI: Bowel sounds Abd is soft and non tender Reports cramping, diarrhea, bloody stool, nausea, vomiting, pt actively vomiting in room. : No deficits noted. EENT: No deficits noted. Derm: Skin is clammy, diaphoretic, Skin is pale, Skin temperature is warm. Musculoskeletal: No deficits noted. 13:40 Reassessment: pt resting comfortably in bed. pt reports that abdominal cramping has tr6 improved and pt has stopped vomiting after medications given. 16:06 Reassessment: No changes from previously documented assessment. Patient and/or family tr6 updated on plan of care and expected duration. Pain level reassessed. Patient is alert, oriented x 3, equal unlabored respirations, skin warm/dry/pink. POC reviewed with pt. pt OOB to restroom. Vital Signs: 11:41 BP 129 / 93; Pulse 129; Resp 22; Temp 97.8; Pulse Ox 97% on R/A; Weight 49.9 kg; Height ll1 4 ft. 11 in. (149.86 cm); Pain 8/10; 13:09 BP 133 / 90; Pulse 108; Resp 22; Pulse Ox 100% ; tr6 11:41 Body Mass Index 22.22 (49.90 kg, 149.86 cm) ll1 ED Course: 11:34 Patient arrived in ED. am2 11:43 Triage completed. ll1 11:45 Arm band placed on. ll1 11:50 Patient placed in an exam room, on a stretcher. ll1 11:52 Eh Champion MD is Attending Physician. [facility] 12:43 Basic Metabolic Panel Sent. tr6 12:43 CBC with Diff Sent. tr6 12:43 Hepatic Function Sent. tr6 12:43 Lipase Sent. tr6 13:05 Type And Screen Sent. tr6 13:10 Patient has correct armband on for positive identification. Fall risk band placed. Bed tr6 in low position. Call light in reach. Side rails up X 1. 13:14 Fady Forrester is Hospitalizing Provider. lauren 13:47 Shirley Nick, RN is Primary Nurse. aa5 13:48 XRAY Chest (1 view) In Process Unspecified. EDMS 13:54 CT Abd/Pelvis - IV Contrast Only In Process Unspecified. EDMS 13:55 No provider procedures requiring assistance completed. pt off unit for CT. Accessed tr6 Port-a-Cath. 19:18 Primary Nurse role handed off by Shirley Nick, RN mw2 Administered Medications: Discontinued: NS 0.9% 500 ml IV at bolus once Discontinued: NS 0.9% 1000 ml IV at 125 ml/hr continuous Discontinued: Cipro (ciprofloxacin) 400 mg 200 ml IVPB once over 60 mins Discontinued: Flagyl (metroNIDAZOLE) 500 mg 100 ml IVPB at 200 ml/hr once over 30 mins Discontinued: NS 0.9% 500 ml IV at bolus once 12:48 Drug: NS 0.9% 500 ml Route: IV; Rate: bolus; Site: Port-a-cath; ca1 13:31 Follow up: Response: No adverse reaction; IV Intake: 500ml tr6 12:48 Drug: NS 0.9% 1000 ml Route: IV; Rate: 125 ml/hr; Site: Port-a-cath; tr6 13:30 Follow up: Response: No adverse reaction; IV Intake: 1000ml tr6 12:48 Drug: ProTONIX (pantoprazole) 40 mg Route: IVP; Site: Port-a-cath; tr6 13:05 Follow up: Response: No adverse reaction tr6 13:31 Follow up: Response: No adverse reaction; Pain is decreased tr6 13:04 Drug: Phenergan (promethazine) 12.5 mg Route: IVP; Site: Port-a-cath; tr6 13:16 Follow up: Response: No adverse reaction; Nausea unchanged tr6 13:15 Drug: morphine 4 mg Route: IVP; Site: Port-a-cath; tr6 13:30 Follow up: Response: No adverse reaction; Pain is decreased; Anxiety decreased tr6 13:16 Drug: Flagyl (metroNIDAZOLE) 500 mg Volume: 100 ml; Route: IVPB; Rate: 200 ml/hr; tr6 Infused Over: 30 mins; Site: Port-a-cath; 13:32 Follow up: Response: Vomiting decreased; IV Intake: 100ml tr6 14:39 Drug: Phenergan (promethazine) 12.5 mg Route: IVP; Site: Port-a-cath; tr6 14:43 Follow up: Response: Anxiety decreased; Nausea is decreased; Vomiting decreased tr6 14:43 Drug: Cipro (ciprofloxacin) 400 mg Volume: 200 ml; Route: IVPB; Infused Over: 60 mins; tr6 Site: Port-a-cath; 15:08 Follow up: IV Intake: 200ml tr6 15:07 Drug: NS 0.9% 500 ml Route: IV; Rate: bolus; Site: Port-a-cath; tr6 16:05 Follow up: Response: No adverse reaction; IV Intake: 500ml tr6 16:04 Drug: D5-1/2 NS 1000 ml Route: IV; Rate: 150 ml/hr; Site: Port-a-cath; tr6 Intake: 13:30 IV: 1000ml; Total: 1000ml. tr6 13:31 IV: 500ml; Total: 1500ml. tr6 13:32 IV: 100ml; Total: 1600ml. tr6 15:08 IV: 200ml; Total: 1800ml. tr6 16:05 IV: 500ml; Total: 2300ml. tr6 Outcome: 13:15 Decision to Hospitalize by Provider. lauren 22:44 Patient left the ED. jb4 Signatures: Dispatcher [employer] Eh Talley MD MD cha Calderon, Audri, RN RN aa5 Scot Manley RN RN jb4 Binta Casas MyKena 2 Casandra Landry RN RN ca1 Tona Lopez RN RN ll1 Mei Wilde, KELLY RN tr6 Corrections: (The following items were deleted from the chart) 13:40 12:40 GI: Bowel sounds Abd is soft and non tender Reports cramping, diarrhea, bloody tr6 stool, nausea, vomiting, tr6 13:40 12:40 Derm: No deficits noted. tr6 tr6
--- NOTE | 2021-01-07 13:16 | EDPHYS ---
Physician Documentation [facility] Name: Va Cardoso Age: 35 yrs Sex: Female : 1985 Arrival Date: 01/07/2021 Time: 11:34 Bed 13 Private MD: LINDSAY Physician Eh Champion HPI: 01/07 13:08 This 35 yrs old Female presents to ER via Ambulatory with complaints of lauren Abdominal Pain, Nausea/Vomiting. 13:08 The patient presents to the emergency department with nausea, vomiting, that is lauren continuous. Onset: The symptoms/episode began/occurred 2 day(s) ago. Possible causes: flare up of bowel problem. The symptoms are aggravated by movement, pressure, food , The symptoms are alleviated by nothing. remaining still. Associated signs and symptoms: Pertinent positives: abdominal pain, nausea, vomiting. Severity of symptoms: At their worst the symptoms were mild moderate in the emergency department the symptoms are unchanged. The patient has experienced similar episodes in the past, multiple times. LOAN BROKER: 13:09 LMP N/A - control method tr6 Historical: - Allergies: 11:45 Remicade (Anaphylaxis); ll1 11:45 Alcohol, Rubbing; ll1 - PMHx: 11:45 Hypothyroidism; Crohn's; Fibromyalgia; Osteoporosis; HYPOGLYCEMIA; ruptured small ll1 bowel; Seizures; bowel obstruction; uterine cysts; B12 deficiency; Rheumatoid Arthritis; scoliosis; Anemia; fatty liver; Chronic pain; - PSHx: 11:45 fistula repair; volvulous repair; Hernia repair; ; Bowel resection; ll1 Cholecystectomy; Tubal ligation; - Immunization history:: Flu vaccine is not up to date. - Social history:: Smoking status: Patient denies any tobacco usage or history of. ROS: 13:09 Constitutional: Negative for fever, chills, and weight loss, Eyes: Negative for injury, lauren pain, redness, and discharge, ENT: Negative for injury, pain, and discharge, Neck: Negative for injury, pain, and swelling, Cardiovascular: Negative for chest pain, palpitations, and edema, Respiratory: Negative for shortness of breath, cough, wheezing, and pleuritic chest pain, Back: Negative for injury and pain, : Negative for injury, bleeding, discharge, and swelling, MS/Extremity: Negative for injury and deformity, Neuro: Negative for headache, weakness, numbness, tingling, and seizure, Psych: Negative for depression, anxiety, suicide ideation, homicidal ideation, and hallucinations, Allergy/Immunology: Negative for hives, rash, and allergies, Endocrine: Negative for neck swelling, polydipsia, polyuria, polyphagia, and marked weight changes, Hematologic/Lymphatic: Negative for swollen nodes, abnormal bleeding, and unusual bruising. 13:09 Abdomen/GI: Positive for abdominal pain, nausea and vomiting, nausea, vomiting, abdominal cramps, of the epigastric area, right upper quadrant, left upper quadrant, right lower quadrant and left lower quadrant. Exam: 13:09 Constitutional: This is a well developed, well nourished patient who is awake, alert, lauren and in no acute distress. Head/Face: Normocephalic, atraumatic. Eyes: Pupils equal round and reactive to light, extra-ocular motions intact. Lids and lashes normal. Conjunctiva and sclera are non-icteric and not injected. Cornea within normal limits. Periorbital areas with no swelling, redness, or edema. ENT: Nares patent. No nasal discharge, no septal abnormalities noted. Tympanic membranes are normal and external auditory canals are clear. Oropharynx with no redness, swelling, or masses, exudates, or evidence of obstruction, uvula midline. Mucous membranes moist. Neck: Trachea midline, no thyromegaly or masses palpated, and no cervical lymphadenopathy. Supple, full range of motion without nuchal rigidity, or vertebral point tenderness. No Meningismus. Chest/axilla: Normal chest wall appearance and motion. Nontender with no deformity. No lesions are appreciated. Respiratory: Lungs have equal breath sounds bilaterally, clear to auscultation and percussion. No rales, rhonchi or wheezes noted. No increased work of breathing, no retractions or nasal flaring. Back: No spinal tenderness. No costovertebral tenderness. Full range of motion. MS/ Extremity: Pulses equal, no cyanosis. Neurovascular intact. Full, normal range of motion. Neuro: Awake and alert, GCS 15, oriented to person, place, time, and situation. Cranial nerves II-XII grossly intact. Motor strength 5/5 in all extremities. Sensory grossly intact. Cerebellar exam normal. Normal gait. Psych: Awake, alert, with orientation to person, place and time. Behavior, mood, and affect are within normal limits. 13:09 Cardiovascular: Rate: tachycardic, Rhythm: regular, Pulses: Pulses are 4+ in bilateral radial, brachial, femoral, popliteal, posterior tibial and and dorsalis pedis arteries.. Heart sounds: normal, Edema: is not appreciated, JVD: is not appreciated. 14:02 ECG was reviewed by the Attending Physician. lauren Vital Signs: 11:41 BP 129 / 93; Pulse 129; Resp 22; Temp 97.8; Pulse Ox 97% on R/A; Weight 49.9 kg; Height ll1 4 ft. 11 in. (149.86 cm); Pain 8/10; 13:09 BP 133 / 90; Pulse 108; Resp 22; Pulse Ox 100% ; tr6 11:41 Body Mass Index 22.22 (49.90 kg, 149.86 cm) ll1 MDM: 11:52 Patient medically screened. lauren 13:17 Differential diagnosis: Nonspecific abd pain, gastritis, cholecystitis, pancreatitis, lauren diverticulitis, viral gastroenteritis, gastroenteritis, appendicitis, bowel obstruction, diverticulitis, gastritis. Data reviewed: vital signs, nurses notes, lab test result(s), EKG, radiologic studies, CT scan, plain films. Data interpreted: color television console monitor: rate is 108 beats/min, rhythm is regular, Pulse oximetry: on room air is 100 %. Test interpretation: by ED physician or midlevel provider: ECG, plain radiologic studies. Counseling: I had a detailed discussion with the patient and/or guardian regarding: the historical points, exam findings, and any diagnostic results supporting the discharge/admit diagnosis, lab results, radiology results, the need for further work-up and treatment in the hospital. 01/07 12:01 Order name: Basic Metabolic Panel; Complete Time: 14: lauren 01/07 12:01 Order name: CBC with Diff; Complete Time: 13:20 lauren 01/07 12:01 Order name: Hepatic Function; Complete Time: 14: lauren 01/07 12:01 Order name: Lipase; Complete Time: 14: lauren 01/07 12:01 Order name: Type And Screen; Complete Time: 14: lauren 01/07 12:41 Order name: Test, Serum; Complete Time: 14: 01/07 13:19 Order name: Manual Differential; Complete Time: 13:20 EDMS 04/26 13:20 Order name: Magnesium [facility] 01/07 13:20 Order name: PT-INR [facility] 01/07 13:46 Order name: COVID-19 : Document "Date of Symptom Onset" if Symptomatic. dh4 01/07 13:54 Order name: ABG 01/07 14:33 Order name: Urine Dipstick-Ancillary [facility] 01/07 14:33 Order name: Urine --Ancillary (enter results) 01/07 14:34 Order name: Urine --Ancillary [facility] 01/07 13:16 Order name: CT Abd/Pelvis - IV Contrast Only [facility] 01/07 13:20 Order name: XRAY Chest (1 view) [facility] 01/07 18:56 Order name: Lactate [facility] 01/07 19:00 Order name: Acetone Level [facility] 01/07 19:02 Order name: Alcohol Serum/Plasma [facility] 01/07 19:05 Order name: Acetaminophen Level [facility] 01/07 19:07 Order name: Phosphorus [facility] 01/07 19:08 Order name: Salicylates Level [facility] 01/07 19:10 Order name: SARS-COV-2 RT PCR [facility] 01/07 19:13 Order name: Troponin I [facility] 01/07 19:15 Order name: Creatine Phosphokinase [facility] 01/07 19:15 Order name: CKMB Creatine Kinase MB [facility] 01/07 22:17 Order name: Osmolality, Urine [facility] 01/07 22:20 Order name: Urine Drug Screen [facility] 01/07 22:33 Order name: Basic Metabolic Panel [facility] 01/07 12:01 Order name: IV Saline Lock; Complete Time: 12:23 [facility] 01/07 12:01 Order name: Labs collected and sent; Complete Time: 12:24 [facility] 01/07 12:01 Order name: Urine Dipstick-Ancillary (obtain specimen); Complete Time: 14:32 [facility] 01/07 12:01 Order name: Urine Test (obtain specimen); Complete Time: 14:32 [facility] 01/07 13:20 Order name: EKG; Complete Time: 13:21 [facility] 01/07 13:20 Order name: Cardiac monitoring; Complete Time: 13:29 [facility] 01/07 13:20 Order name: EKG - Nurse/Tech; Complete Time: 13:29 [facility] 01/07 13:20 Order name: O2 Per Protocol; Complete Time: 13:29 [facility] 01/07 13:20 Order name: O2 Sat Monitoring; Complete Time: 13:33 [facility] EC:02 Rate is 125 beats/min. Rhythm is regular. QRS [place] is Normal. [place] interval is normal. lauren QRS interval is normal. QT interval is normal. No Q waves. T waves are Normal. No ST changes noted. Clinical impression: Sinus tachycardia and No evidence of ischemia. Interpreted by me. Reviewed by me. Administered Medications: Discontinued: NS 0.9% 500 ml IV at bolus once Discontinued: NS 0.9% 1000 ml IV at 125 ml/hr continuous Discontinued: Cipro (ciprofloxacin) 400 mg 200 ml IVPB once over 60 mins Discontinued: Flagyl (metroNIDAZOLE) 500 mg 100 ml IVPB at 200 ml/hr once over 30 mins Discontinued: NS 0.9% 500 ml IV at bolus once 12:48 Drug: NS 0.9% 500 ml Route: IV; Rate: bolus; Site: Port-a-cath; ca1 13:31 Follow up: Response: No adverse reaction; IV Intake: 500ml tr6 12:48 Drug: NS 0.9% 1000 ml Route: IV; Rate: 125 ml/hr; Site: Port-a-cath; tr6 13:30 Follow up: Response: No adverse reaction; IV Intake: 1000ml tr6 12:48 Drug: ProTONIX (pantoprazole) 40 mg Route: IVP; Site: Port-a-cath; tr6 13:05 Follow up: Response: No adverse reaction tr6 13:31 Follow up: Response: No adverse reaction; Pain is decreased tr6 13:04 Drug: Phenergan (promethazine) 12.5 mg Route: IVP; Site: Port-a-cath; tr6 13:16 Follow up: Response: No adverse reaction; Nausea unchanged tr6 13:15 Drug: morphine 4 mg Route: IVP; Site: Port-a-cath; tr6 13:30 Follow up: Response: No adverse reaction; Pain is decreased; Anxiety decreased tr6 13:16 Drug: Flagyl (metroNIDAZOLE) 500 mg Volume: 100 ml; Route: IVPB; Rate: 200 ml/hr; tr6 Infused Over: 30 mins; Site: Port-a-cath; 13:32 Follow up: Response: Vomiting decreased; IV Intake: 100ml tr6 14:39 Drug: Phenergan (promethazine) 12.5 mg Route: IVP; Site: Port-a-cath; tr6 14:43 Follow up: Response: Anxiety decreased; Nausea is decreased; Vomiting decreased tr6 14:43 Drug: Cipro (ciprofloxacin) 400 mg Volume: 200 ml; Route: IVPB; Infused Over: 60 mins; tr6 Site: Port-a-cath; 15:08 Follow up: IV Intake: 200ml tr6 15:07 Drug: NS 0.9% 500 ml Route: IV; Rate: bolus; Site: Port-a-cath; tr6 16:05 Follow up: Response: No adverse reaction; IV Intake: 500ml tr6 16:04 Drug: D5-1/2 NS 1000 ml Route: IV; Rate: 150 ml/hr; Site: Port-a-cath; tr6 Disposition: 01/07/21 13:15 Hospitalization ordered by Fady Forrester for Inpatient Admission. Preliminary diagnosis are Abdominal tenderness, Crohn's disease [regional enteritis], Vomiting, Elevated white blood cell count, Volume depletion, Gastritis, unspecified, Dental caries. - Bed requested for Telemetry/MedSurg (Inpatient). - Status is Inpatient Admission. jb4 - Condition is Stable. - Problem is new. - Symptoms have improved. Signatures: Dispatcher [employer] Ana Sol RN RN dw Anderson, Corey, MD MD cha Calderon, Audri, RN RN aa5 Scot Manley RN RN jb4 Casandra Landry RN RN ca1 Tona Lopez RN RN ll1 Mei Wilde RN RN tr6 Corrections: (The following items were deleted from the chart) 13:22 13:15 Hospitalization Ordered by Fady Forrester for Inpatient Admission. Preliminary lauren diagnosis is Abdominal tenderness; Crohn's disease [regional enteritis]; Vomiting; Elevated white blood cell count; Volume depletion; Gastritis, unspecified. Bed requested for Telemetry/MedSurg (Inpatient). Status is Inpatient Admission. Condition is Stable. Problem is new. Symptoms have improved. lauren 21:36 13:22 01/07/2021 13:15 Hospitalization Ordered by Fady Forrester for Inpatient dw Admission. Preliminary diagnosis is Abdominal tenderness; Crohn's disease [regional enteritis]; Vomiting; Elevated white blood cell count; Volume depletion; Gastritis, unspecified; Dental caries. Bed requested for Telemetry/MedSurg (Inpatient). Status is Inpatient Admission. Condition is Stable. Problem is new. Symptoms have improved. lauren 22:44 21:36 01/07/2021 13:15 Hospitalization Ordered by Fady Forrester for Inpatient jb4 Admission. Preliminary diagnosis is Abdominal tenderness; Crohn's disease [regional enteritis]; Vomiting; Elevated white blood cell count; Volume depletion; Gastritis, unspecified; Dental caries. Bed requested for Telemetry/MedSurg (Inpatient). Status is Inpatient Admission. Condition is Stable. Problem is new. Symptoms have improved. dw
[2021-01-07] MEDS ORDERED: PROMETHAZINE INJ 25 MG/ML AMP ONE ×3 (13:17→20:36)
[2021-01-07] MEDS ORDERED: NA CHLORIDE 0.9% 100 ML ONE (13:18)
[2021-01-07 13:19] LABS: Blood Morphology Comment NOT SEEN (NOT SEEN); Platelet Estimate ADEQ; Platelets, Giant FEW
[2021-01-07] MEDS ORDERED: CIPROFLOXACIN 400mg IV 400 MG/200 ML BAG IV ONE (13:31)
[2021-01-07] MEDS ORDERED: METRONIDAZOLE 500mg IVPB 500 MG/100 ML BAG IV ONE ×2 (13:31→21:08)
[2021-01-07] MEDS ORDERED: MORPHINE 4 MG/ML SYR ONE ×2 (13:31→18:03)
[2021-01-07] MEDS ORDERED: NA CHLORIDE 0.9% 500 ML ONE (13:32)
[2021-01-07 13:35] LABS: ALT/SGPT 21 U/L (12-78); AST/SGOT 11 U/L (15-37); Albumin 4.1 g/dL (3.4-5.0); Alkaline Phosphatase 94 U/L (45-117); BUN Blood Urea Nitrogen 13 mg/dL (7-18); Bilirubin Direct < 0.1 mg/dL (0-0.2); Bilirubin Total 0.3 mg/dL (0.2-1.0); Glucose Level 123 mg/dL (74-106); Lipase 46 U/L (73-393); Potassium 4.1 mmol/L (3.5-5.1); Protein, Total 8.6 g/dL (6.4-8.2); Sodium Level 137 mmol/L (136-145)
[2021-01-07 13:42] LABS: Bicarbonate 10 mmol/L (21-32)
[2021-01-07 14:06] LABS: Arterial Blood Carboxyhemoglob 0.3 % (0-1.5); Blood Gas Oxyhemoglobin 93.7 % (94-97); Blood O2 Saturation 95.9 % (92-98.5)
--- NOTE | 2021-01-07 14:18 | RAD REPORT ---
EXAM DESCRIPTION: CT - Abdomen Pelvis W Contrast - 01/07/2021 1:54 pm CLINICAL HISTORY: Abdominal pain COMPARISON: 2019 TECHNIQUE: Computed axial tomography of the abdomen pelvis was obtained. 100 cc Isovue-300 was admin istered intravenously. Oral contrast was not requested which limits evaluation of bowel. All CT scans are performed using dose optimization technique as appropriate and may include automated exposure control or mA/KV adjustment according to patient size. FINDINGS: The liver, spleen, pancreas, adrenal and right kidney appear unremarkable. Nonobstructing left renal calculus The wall of the distal stomach is moderately thickened. Postsurgical changes involve the bowel. Mild thickening of the wall of most of colon. A 6 centimeter complex cystic mass right adnexa. It contains septations. IMPRESSION: Wall of the stomach is moderately thickened most likely inflammation. Neoplasm can also have this appearance but is considered less likely. Followup is recommended Mild thickening of portions of the wall of most of the colon probably a mild colitis 6 centimeter complex cystic mass right adnexa probably benign. An ovarian neoplasm can also have this appearance. Followup ultrasound a couple months recommended to assess stability/resolution
--- NOTE | 2021-01-07 14:20 | RAD REPORT ---
EXAM DESCRIPTION: Mark Single View01/07/2021 1:48 pm CLINICAL HISTORY: Abdomen pain COMPARISON: 2018 FINDINGS: The lungs appear clear of acute infiltrate. The heart is normal size. 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 Scoliosis is present IMPRESSION: No acute abnormalities displayed
[2021-01-07 14:34] LABS: Urine Blood Trace-intact (Negative); Urine Glucose Negative (Negative); Urine Protein 1+ (Negative); Urine Specific Gravity 1.015 (1.005-1.030); Urine pH 5.5 (5.0-7.0)
[2021-01-07 14:56] LABS: Urine Specific Gravity/Preg 1.015 (1.005-1.030)
[2021-01-07 14:56] LABS: Protime INR 0.97
[2021-01-07] MEDS ORDERED: D5 0.45 NS 1,000 ML with NA BICARB 8.4% 75 MEQ IV SCH ×2 (16:00)
[2021-01-07] MEDS ORDERED: ACETAMINOPHEN 650MG/RECT SUPP PR PRN (16:22)
[2021-01-07] MEDS: METHYLPREDNISOLONE 40 MG INJ IV SCH (17:00)
[2021-01-07] MEDS: ONDANSETRON 4 MG (ODT) TAB PO PRN (17:48)
[2021-01-07] MEDS: MORPHINE 4 MG/ML SYR IV PRN (17:48)
[2021-01-07] MEDS ORDERED: THIAMINE 200 MG/2 ML INJ IVP ONE (18:00)
[2021-01-07] MEDS ORDERED: D5W 1,000 ML with NA BICARB 8.4% 150 MEQ IV SCH ×4 (18:00→23:09)
[2021-01-07] MEDS ORDERED: ONDANSETRON 4 MG/2 ML VIAL ONE (18:03)
[2021-01-07] MEDS ORDERED: METHYLPREDNISOLONE 40 MG INJ ONE (18:03)
[2021-01-07 18:50] VITALS: BMI 22.4
[2021-01-07 19:07] LABS: Phosphorus 1.9 mg/dL (2.5-4.9)
[2021-01-07 19:14] LABS: CKMB Creatine Kinase MB < 1.0 ng/mL (0.3-3.6); Creatine Phosphokinase 36 U/L (26-192)
--- NOTE | 2021-01-07 19:53 | P.HP ---
Certification for Inpatient Patient admitted to: Inpatient With expected LOS: >2 Midnights <Bobbi Gutierrez - Last Filed: 01/08/21 11:07> Patient admitted to: Inpatient <Uday Schumacher - Last Filed: 01/08/21 15:31> Patient History Date of Service: 01/07/21 Reason for admission: Hematemesis and Hematochezia History of Present Illness: Patient is a 35 years old female with a PMHx significant for Crohns disease, hypothyroidism, RA, Seizures, Neuropathy, Anemia who presents with complaint of abdominal pain, hematemesis and hematochezia. Patient reported that she has been having nausea and hematemesis for the past 4 days. She also described stool as watery and coffee ground in color. She indicated that she has been having diarrhea for the past 2 days. She rated pain as 8/10 in severity and described pain as burning in quality. Patient reported associated s\s of dizziness, headache and fatigue. Patient denies any other s\s. patient decided to present to the ER due to worsening symptoms. Home medications list reviewed: Yes - Past Medical/Surgical History Has patient received pneumonia vaccine in the past: No Diabetic: No -: Fibromyalgia -: Scoliosis stage 4 -: The Crohn's exacerbation -: Hypoglycemia -: Hypothyroidism -: Anemia; B12 Deficiency -: RA -: Osteoporosis -: Herniated disc -: Seizures -: neuropathy -: Bilateral Tubal ligation -: X3 -: Lumbar Fusion -: Bowel Resection X2 -: Appendectomy -: strictureplasty x4 - Social History Smoking Status: Never smoker Alcohol use: No CD- Drugs: No Caffeine use: Yes <Bobbi Gutierrez - Last Filed: 01/08/21 11:07> Date of Service: 01/08/21 - Past Medical/Surgical History Psychosocial/ Personal History: Patient lives at home - Family History Family History: Reviewed- Non-Contributory - Social History Place of Residence: Home <Uday Schumacher - Last Filed: 01/08/21 15:31> Allergies diphenhydramine [From Benadryl] Adverse Reaction (Verified 03/12/18 03:45) hyperactive infliximab [From Remicade] Adverse Reaction (Verified 03/12/18 03:45) Anaphylaxis Home Medications: Buprenorphine HCl/Naloxone HCl [Zubsolv 5.7-1.4 mg Tablet Sl] 1 tab PO BID 12/01/18 Cholecalciferol (Vitamin D3) [Vitamin D3] 1,000 unit PO DAILY 12/01/18 Cyanocobalamin (Vitamin B-12) [Cyanocobalamin Injection] 1 ml SQ SEECOM 12/01/18 Gabapentin 800 mg PO TID 12/01/18 Lidocaine 4% Patch [Lidoderm 5% Patch*] 1 patch TOP Q12H PRN 12/01/18 Promethazine HCl [Phenergan] 25 mg RC Q4H PRN 12/01/18 Tizanidine HCl [Zanaflex] 4 mg PO TID 12/01/18 Zolpidem Tartrate [Ambien] 10 mg PO BEDTIME 12/01/18 ondansetron HCL [Zofran] 8 mg SL Q4H PRN 12/01/18 Omeprazole 20 mg PO DAILY 01/08/21 Review of Systems General: Weakness, Malaise Eyes: Unremarkable ENT: Unremarkable Respiratory: Unremarkable Cardiovascular: Unremarkable Gastrointestinal: Nausea, Vomiting, Diarrhea, No Distention, Melena, Hematochezia Genitourinary: Unremarkable Musculoskeletal: Unremarkable Integumentary: Unremarkable Neurological: Weakness Lymphatics: Unremarkable <Bobbi Gutierrez - Last Filed: 01/08/21 11:07> Physical Examination - Physical Exam General: Alert, Oriented x3, Cooperative HEENT: Atraumatic, Normocephalic, PERRLA, EOMI Neck: Supple, 2+ carotid pulse no bruit, JVD not distended Respiratory: Clear to auscultation bilaterally, Normal air movement Cardiovascular: No edema, Normal pulses, Regular rate/rhythm, Normal S1 S2 Capillary refill: <2 Seconds Gastrointestinal: Normal bowel sounds Musculoskeletal: No clubbing, No swelling, No erythema Integumentary: No rashes, No breakdown Neurological: Normal gait, Normal affect Lymphatics: No axilla or inguinal lymphadenopathy External genitalia: No edema, Deferred Rectal: Deferred - Studies Laboratory Data (last 24 hrs) 01/07/21 14:21: PT 11.2, INR 0.97 01/07/21 14:21: Magnesium 2.0 01/07/21 12:39: WBC 16.80 H, Hgb 14.2, Hct 43.4, Plt Count 447 H 01/07/21 12:39: Sodium 137, Potassium 4.1, BUN 13, Creatinine 0.80, Glucose 123 H, Total Bilirubin 0.3, AST 11 L, ALT 21, Alkaline Phosphatase 94, Lipase 46 L <EddieraviBobbi stallings E - Last Filed: 01/08/21 11:07> Assessment and Plan - Plan --Gastrointestinal bleeding. Curtain Feller Blindstitch consulted. H\H stable. Will continue to monitor hemoglobin and transfuses if hemoglobin is <7. Will await further recommendation from GI MD. --Acute of crohns disease exacerbation. Patient placed on steroids and antibiotics. Continue current pain medication regimen. --Nausea and vomiting. Antiemetic on board --Abdominal pain. CT abdomen pending. Will manage pain with current pain medication regimen. --Hypothyrisim . Continue home medication when appropriate. --Diarrhea. Stool studies pending. Continue IV hydration and antibiotics. --DVT prophylaxis with SCDS Discharge Plan: Home Plan to discharge in: 72 Hours - Advance Directives Does patient have a Living Will: No Does patient have a Durable POA for Healthcare: Yes - Code Status/Comfort Care Code Status Assessed: Yes Code Status: Full Code <BrendaJoséglenroy Stallings - Last Filed: 01/08/21 11:07> - Plan Patient with Crohn's colitis. GI consult. Continue with IV steroids, IV antibiotic therapy. Time Spent Managing Pts Care (In Minutes): 55 <Uday Schumacher - Last Filed: 01/08/21 15:31>
[2021-01-07] MEDS ORDERED: THIAMINE 200 MG/2 ML INJ ONE (20:11)
[2021-01-07] MEDS ORDERED: PROMETHAZINE INJ 25 MG/ML AMP IV ONE (20:12)
[2021-01-07] MEDS: METRONIDAZOLE 500mg IVPB 500 MG/100 ML BAG IV SCH (21:00)
[2021-01-07 22:18] LABS: Barbiturates NEGATIVE (NEGATIVE); Benzodiazepines NEGATIVE (NEGATIVE); Cocaine NEGATIVE (NEGATIVE); METHAMPHETAM NEGATIVE (NEGATIVE); Methadone NEGATIVE (NEGATIVE); Opiates POSITIVE (NEGATIVE); Phencyclidine NEGATIVE (NEGATIVE); THC Cannibis POSITIVE (NEGATIVE)
[2021-01-07] MEDS ORDERED: MECLIZINE HCL 12.5 MG TAB PO ONE (22:18)
[2021-01-07 22:32] LABS: BUN Blood Urea Nitrogen 8 mg/dL (7-18); Bicarbonate 16 mmol/L (21-32); Glucose Level 151 mg/dL (74-106); Potassium 3.5 mmol/L (3.5-5.1); Sodium Level 142 mmol/L (136-145)
[2021-01-07] MEDS ORDERED: MECLIZINE HCL 12.5 MG TAB ONE (22:34)
[2021-01-07] MEDS: CIPROFLOXACIN 400mg IV 400 MG/200 ML BAG IV SCH (23:54)
[2021-01-08] MEDS: ONDANSETRON 4 MG (ODT) TAB PO PRN (00:20)
[2021-01-08] MEDS ORDERED: METRONIDAZOLE 500mg IVPB 500 MG/100 ML BAG IV SCH (01:00)
[2021-01-08] MEDS: METRONIDAZOLE 500mg IVPB 500 MG/100 ML BAG IV SCH ×2 (01:00→16:09)
[2021-01-08] MEDS: MORPHINE 4 MG/ML SYR IV PRN ×4 (01:07→20:24)
[2021-01-08] MEDS: METHYLPREDNISOLONE 40 MG INJ IV SCH ×3 (01:07→16:09)
[2021-01-08] MEDS ORDERED: HEPARIN SOD 100 UNIT/ML FLUSH IV PRN (01:49)
[2021-01-08] MEDS ORDERED: HEPARIN 500 UNIT/5 ML SYR IV ONE (02:06)
[2021-01-08] MEDS: ONDANSETRON 4 MG/2 ML VIAL IV PRN ×4 (04:28→20:24)
[2021-01-08] MEDS ORDERED: METRONIDAZOLE 500mg IVPB 500 MG/100 ML BAG IV ONE (06:00)
[2021-01-08 06:07] LABS: Absolute Lymphocytes (CBC) 0.4 K/uL (0.7-4.9); Basophils % 0.2 % (0-1.3); Hematocrit 34.9 % (36.0-45.0); Lymphocytes % 4.4 % (15.3-44.8); MPV 7.3 fL (7.6-11.3); RBC Red Blood Cell Count 4.18 M/uL (3.86-4.86)
[2021-01-08 06:21] LABS: BUN Blood Urea Nitrogen 10 mg/dL (7-18); Bicarbonate 17 mmol/L (21-32); Glucose Level 163 mg/dL (74-106); Potassium 3.4 mmol/L (3.5-5.1); Sodium Level 141 mmol/L (136-145)
--- NOTE | 2021-01-08 09:17 | RAD REPORT ---
EXAM DESCRIPTION: US - Renal Ultrasound-Complete - 01/08/2021 8:45 am CLINICAL HISTORY: acidosis, unspecified kidney disease COMPARISON: Abdomen Pelvis W Contrast dated 01/07/2021 FINDINGS: The right kidney measures approximately 9.3 x 4.8 cm. The left kidney measures approximat emilia 9.3 x 4.6 cm. Cortical thickness is normal. Both kidneys show a slight increase in cortical echog enicity that could be body habitus artifact or mild medical renal disease. There is a 5 millimeter ca lyx or pyramid calcification in the posterior mid left kidney No hydronephrosis or suspicious renal m ass. Mostly contracted urinary bladder shows no gross abnormality. Partially imaged complex cystic mass in the right adnexae is noted but not evaluated on this study. F inding is addressed on the January 07 CT study. IMPRESSION: Normal size kidneys show no hydronephrosis or suspicious mass. Slight increase in cortic al echogenicity is probably body habitus artifact. A minimal or mild medical renal disease is possibl e. Cystic mass in the right adnexa is present but not fully evaluated. This is detailed further on the CT study.
[2021-01-08] MEDS: CIPROFLOXACIN 400mg IV 400 MG/200 ML BAG IV SCH ×2 (09:21→20:23)
[2021-01-08] MEDS: THIAMINE 200 MG/2 ML INJ IVP SCH (09:22)
[2021-01-08] MEDS: POTASS/SODIUM PHOSPHATE 1 PKT POWD.PACK PO SCH (09:23)
[2021-01-08] MEDS ORDERED: D5W 1,000 ML with POTASSIUM CL 20 MEQ IV SCH ×2 (10:00)
[2021-01-08] MEDS ORDERED: Ringers Lactate 1,000 ML IV ONE (10:16)
--- NOTE | 2021-01-08 11:16 | EKG ---
Test Date: 2021-01-07 Test Time: 13:39:15 Scouring Pads Supervisor: SHANNON MEASUREMENT RESULTS: Intervals: Rate: 125 MT: 128 QRSD: 70 QT: 284 QTc: 409 [place]: P: 86 MT: 128 QRS: 78 T: 81 INTERPRETIVE STATEMENTS: Sinus tachycardia Right atrial enlargement Borderline ECG Compared to ECG 01/20/2018 11:03:20 Atrial abnormality now present Electronically Signed On 01-08-21 11:13:34 CDT by Danny Quintana
--- NOTE | 2021-01-08 15:36 | P.PN ---
Subjective Date of Service: 01/08/21 Chief Complaint: Hematemesis and Hematochezia Subjective: Improving, Doing well (No more diarrhea noted. Less nausea noted.) Physical Examination - Vital Signs Temperature: 99.8 F Blood Pressure: 121/73 Pulse: 88 Respirations: 18 Pulse Ox (%): 100 Assessment & Plan Discharge Plan: Home Plan to discharge in: 48 Hours Physician Review Additional Text: Physical exam: Alert, cooperative. Heart: Regular rate and rhythm Lungs: Clear to auscultation Abdomen: Less pain to the abdomen. Extremities: Good range of motion to upper and lower extremities. Impression: Hematochezia secondary to acute Crohn's disease exacerbation Nausea and vomiting with dehydration Chronic pain THC use GERD Insomnia Plan: Patient stable and improving slowly. No more diarrhea noted. We will continue to monitor stool and evaluate for C. difficile. So far negative. Spoke with GI. GI recommends to continue IV steroids and antibiotic therapy. Anticipate improvement. Encourage oral intake. Will slowly advance diet as tolerated. Continue home medication. Patient had been on biologic therapy. Last use was over 6 months ago. GI recommends that this will need to be initiated as an outpatient to prevent flareups. Review and restart home medication. Anticipate improvement over the next 48 hours. Time Spent Managing Pts Care (In Minutes): 55
[2021-01-08] MEDS: GABAPENTIN 400 MG CAP PO SCH (16:09)
[2021-01-08] MEDS: ENSURE CLEAR 200 ML CAN PO SCH (20:24)
[2021-01-08] MEDS ORDERED: HOME MED 1 EA UNK (Gabapentin [Gabapentin] 800 MG Tablet) PO SCH (21:00)
[2021-01-08] MEDS: D5W 1,000 ML with POTASSIUM CL 20 MEQ IV SCH ×2 (22:41)
[2021-01-09] MEDS: METHYLPREDNISOLONE 40 MG INJ IV SCH ×3 (00:38→18:20)
[2021-01-09] MEDS: METRONIDAZOLE 500mg IVPB 500 MG/100 ML BAG IV SCH ×3 (00:38→18:17)
[2021-01-09] MEDS: ONDANSETRON 4 MG/2 ML VIAL IV PRN (03:00)
[2021-01-09] MEDS: MORPHINE 4 MG/ML SYR IV PRN ×5 (03:00→21:19)
[2021-01-09 06:18] LABS: Basophils % 0.6 % (0-1.3); Hematocrit 34.9 % (36.0-45.0); Lymphocytes % 6.5 % (15.3-44.8); MPV 7.5 fL (7.6-11.3); RBC Red Blood Cell Count 4.22 M/uL (3.86-4.86)
[2021-01-09 06:20] LABS: Albumin 3.7 g/dL (3.4-5.0); BUN Blood Urea Nitrogen 11 mg/dL (7-18); Bicarbonate 20 mmol/L (21-32); Glucose Level 146 mg/dL (74-106); Phosphorus 1.3 mg/dL (2.5-4.9); Potassium 3.4 mmol/L (3.5-5.1); Sodium Level 139 mmol/L (136-145)
[2021-01-09] MEDS: D5W 1,000 ML with POTASSIUM CL 20 MEQ IV SCH ×2 (08:47)
[2021-01-09] MEDS: PROMETHAZINE INJ 25 MG/ML AMP IV PRN ×3 (08:52→18:20)
[2021-01-09] MEDS: CIPROFLOXACIN 400mg IV 400 MG/200 ML BAG IV SCH ×2 (08:54→20:40)
[2021-01-09] MEDS: THIAMINE 200 MG/2 ML INJ IVP SCH (08:55)
[2021-01-09] MEDS: GABAPENTIN 400 MG CAP PO SCH ×3 (08:55→20:41)
[2021-01-09] MEDS: POTASS/SODIUM PHOSPHATE 1 PKT POWD.PACK PO SCH (08:56)
[2021-01-09] MEDS: ENSURE CLEAR 200 ML CAN PO SCH ×3 (08:58→20:41)
[2021-01-09] MEDS ORDERED: HOME MED 1 EA UNK (Cholecalciferol (Vitamin D3) [Vitamin D3] 1,000 UNIT Capsule) PO SCH (09:00)
[2021-01-09] MEDS ORDERED: VITAMIN D 1000 UNIT TAB PO SCH (09:00)
[2021-01-09] MEDS: LIDOCAINE 4% PATCH TOP PRN (09:06)
[2021-01-09] MEDS ORDERED: POTASSIUM CL SA 10 MEQ TAB PO ONE (10:18)
[2021-01-09] MEDS ORDERED: POTASSIUM PHOS 20 MM in NA CHLORIDE 0.9% 500 ML IV ONE (10:19)
--- NOTE | 2021-01-09 12:15 | PN ---
Subjective: The patient had Crohn disease. The patient was admitted with gastroenteritis, Crohn exacerbation with depleted in her electrolyte and severe acidosis. We started the patient on bicarb drip. Her bicarb has been improved significantly. On admission, it was 10, currently 20. The patient is still complaining from low back pain and constipation has been resolved. No melena. Physical Examination: Vital Signs: Blood pressure 130/89, pulse of 65, afebrile. The patient had good urine output, voiding. Chest: Clear to auscultation. Heart: S1, S2. Regular. Abdomen: Soft, non-guarding. Mild tenderness on the epigastric area. Extremities: No edema. Neuro: Alert, oriented x3. Laboratory Data: WBC 14.9, H and H 11.9/34.9. Sodium 139, potassium 3.4, bicarb 20, BUN 11, creatinine 0.5, calcium 8.5, phosphorus 1.3, magnesium of 2, albumin 3.7, corrected calcium 8.7, PTH 37, vitamin D of 12. Current Medications: The patient on include Cipro 400 b.i.d., metronidazole 500 t.i.d., Tylenol, gabapentin 800 t.i.d., Ambien, sodium bicarb drip 3 amps and D5, cholecalciferol, and thiamine. Assessment And Plan: 1. Acidosis secondary to gastrointestinal loss, recovered. I am going to go ahead and decrease the bicarb drip. Change the IV fluid to half-normal with 1.5 amp of bicarb and decrease the rate to 75. 2. Hypokalemia, hypophosphatemia. We will supplement. 3. Possible RTA. Continue adjustment on the bicarb drip as above. We will start oral bicarb. Waiting for urine electrolyte and we will follow up. 4. Crohn flare. We will follow up with primary. Continue current antibiotics to consider prednisone if the patient continues to be symptomatic. 5. Vitamin D deficiency. We will start supplement. Time spent discussing with the patient, examining the patient, [id number] with the patient, placing orders, discussing the case with our pizza hut team member including nursing, discussing the case with the other subspecialty including Cardiology and hospitalist 35 minutes. PAUL Voice ID: [id number] Report ID: [id number] MTDD
[2021-01-09] MEDS: NA BICARB IV SCH ×3 (12:46)
[2021-01-09] MEDS: POTASSIUM CL IV SCH ×3 (12:46)
[2021-01-09] MEDS: NACHLORIDE 0.45% IV SCH ×3 (12:46)
--- NOTE | 2021-01-09 13:21 | CON ---
Date of Consultation: 01/08/2021 Consulting Physician: Eh Champion MD. Reason For Consultation: Acidosis, electrolyte imbalance. History Of Present Illness: This is an unfortunate 35-year-old female with significant past medical history of hypothyroidism, B12 deficiency with neuropathy, osteoporosis, fibromyalgia, rheumatoid arthritis, Crohn disease. The patient had recurrent Crohn flare mostly between August and October according to the patient. The patient did undergo partial small-bowel resections multiple times. The patient came to the hospital that she started having nausea and vomiting with hematochezia and coffee-ground diarrhea, feeling weak, feeling sick, did not improve on her regular remedy. For that reason reported to the hospital. Upon arrival to the hospital, the patient was found to have severely acidotic with bicarb down to the 10. For that reason, we have been consulted. The patient denied taking any nonsteroidal, no IV contrast. Over the night, we started the patient on bicarb drip. Gradually, bicarb has been improving to 16, currently 17. Her hypokalemia has been supplemented. Past Medical History: Includes, 1. Rheumatoid arthritis. 2. Fibromyalgia. 3. Crohn disease status post small-bowel resection. 4. B12 deficiency complicated with neuropathy. 5. Seizure. 6. Osteoporosis. Past Surgical History: Includes, 1. Hernia disk. 2. Tubal ligation. 3. . 4. Lumbar fusion. 5. Small-bowel resection. Social History: Denied smoking, denied drinking, denied drugs abuse. Family History: Positive for hypertension. Allergies: 1. DIPHENHYDRAMINE. Home Medications: Include naloxone, cholecalciferol, B12, gabapentin, promethazine, tizanidine, Ambien, Zofran, omeprazole. Review of Systems: Head and Neck: No red eye. No ear pain. Has lightheaded. GI: Has nausea, vomiting, has diarrhea, has coffee-ground emesis and melena in the stool. : No polyuria. No dysuria. No hematuria. 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 Respiratory: No shortness of breath Cardiovascular: No chest pain. Endocrine: No polydipsia. Skin: No rash. Neuro: Has neuropathy. Musculoskeletal: Generalized fatigue. Mascular ache Physical Examination: GENERAL: The patient is lying in bed, feeling better. Still tachycardic. Vital Signs: Blood pressure 121/77, pulse of 107, afebrile. Chest: Clear to auscultation. Heart: S1, S2. Systolic murmur. Tachycardic. Abdomen: Soft, mild tenderness, no guarding or rebound. Extremities: No edema. Neuro: Alert. No focality. Laboratory Data: When she presented to the emergency room, sodium 137, potassium 4.1, bicarb 10, chloride 109, anion gap of 18. Calcium 9, phosphorus 1.9, magnesium of 2. Albumin 4.1. Current Medications: The patient on include, 1. Kcl 2. Ciprofloxacin. 3. Flagyl. 4. Tylenol. 5. Ambien. 6. Gabapentin. 7. Morphine. 8. Solu-Medrol. Assessment And Plan: Acidosis. High anion gap metabolic acidosis with contraction alkalosis, hypokalemia, hypo Mag and hypophosphatemia. 1. I am going to continue agrissive IV fluid , I am going to go ahead and increase bicarb drip 75 per hour and we will follow up the patient closely. 2. Hypophosphatemia. We will supplement. 3. Hypokalemia. We will supplement. 4. Chrons exacerbation. Continue current antibiotic. We will follow up with the primary. 5. Acidosis. mostly 2nd to lactic 2nd to GI : continue the Bicar drip We will follow up urine electrolytes to r/u RTA given the history of Chron disease 6 pain / neuropathy as by the primary Time spent discussing with the patient, examining the patient, [id number] with the patient, placing orders, discussing the case with our food service team member including nursing, discussing the case with the other subspecialty including Cardiology and hospitalist 65 minutes. PAUL Voice ID: [id number] Report ID: [id number] MTDD
--- NOTE | 2021-01-09 15:16 | P.PN ---
Subjective Date of Service: 01/09/21 Chief Complaint: Hematemesis and Hematochezia Subjective: Other (Still with abdominal pain.) Physical Examination - Vital Signs Temperature: 99.1 F Blood Pressure: 136/83 Pulse: 79 Respirations: 16 Pulse Ox (%): 99 Assessment & Plan Discharge Plan: Home Plan to discharge in: 48 Hours Physician Review Additional Text: Physical exam: Alert, cooperative. Heart: Regular rate and rhythm Lungs: Clear to auscultation Abdomen: Pain to the abdomen still present. Extremities: Good range of motion to upper and lower extremities. Impression: Hematochezia secondary to acute Crohn's disease exacerbation Nausea and vomiting with dehydration Chronic pain THC use GERD Insomnia Plan: Slow improvement noted. No more diarrhea noted. Patient prefers Phenergan rather than Zofran. Will provide Phenergan as needed. Continue IV antibiotic therapy and IV steroids as recommended by GI. GI recommends biologic therapy as an outpatient. Continue to slowly advance diet. Anticipate improvement over the next 24 to 48 hours. Once able to take better oral intake then will consider discharge. Likely discharge in the next 48 hours. Time Spent Managing Pts Care (In Minutes): 55
[2021-01-09] MEDS ORDERED: METRONIDAZOLE 500mg IVPB 500 MG/100 ML BAG IV SCH (17:00)
[2021-01-09] MEDS: SODIUM BICARB 325 MG TAB PO SCH (20:41)
[2021-01-10] MEDS: METRONIDAZOLE 500mg IVPB 500 MG/100 ML BAG IV SCH ×2 (00:03→08:45)
[2021-01-10] MEDS: METHYLPREDNISOLONE 40 MG INJ IV SCH ×2 (00:04→08:44)
[2021-01-10] MEDS: PROMETHAZINE INJ 25 MG/ML AMP IV PRN ×6 (00:10→23:26)
[2021-01-10] MEDS: NACHLORIDE 0.45% IV SCH ×6 (01:10→16:12)
[2021-01-10] MEDS: POTASSIUM CL IV SCH ×6 (01:10→16:12)
[2021-01-10] MEDS: NA BICARB IV SCH ×6 (01:10→16:12)
[2021-01-10] MEDS: MORPHINE 4 MG/ML SYR IV PRN ×6 (01:13→23:26)
[2021-01-10 05:30] LABS: Albumin 3.4 g/dL (3.4-5.0); BUN Blood Urea Nitrogen 17 mg/dL (7-18); Bicarbonate 21 mmol/L (21-32); Glucose Level 116 mg/dL (74-106); Magnesium 2.2 mg/dL (1.8-2.4); Phosphorus 2.4 mg/dL (2.5-4.9); Potassium 3.9 mmol/L (3.5-5.1); Sodium Level 141 mmol/L (136-145)
[2021-01-10 07:08] LABS: Absolute Lymphocytes (CBC) 0.8 K/uL (0.7-4.9); Basophils % 0.2 % (0-1.3); MPV 8.2 fL (7.6-11.3); RBC Red Blood Cell Count 3.86 M/uL (3.86-4.86)
--- NOTE | 2021-01-10 08:04 | P.PN ---
Subjective Date of Service: 01/10/21 Chief Complaint: Hematemesis and Hematochezia C/o epigastric discomfort. Physical Examination - Vital Signs Temperature: 97 F Blood Pressure: 155/89 Pulse: 100 Respirations: 20 Pulse Ox (%): 99 - Physical Exam General: Other (Appears as her stated age) HEENT: Atraumatic, Normocephalic Neck: Supple Respiratory: Clear to auscultation bilaterally Cardiovascular: Normal S1 S2, No rubs, No murmurs Assessment And Plan - Plan # Non-gap metabolic acidosis 2/2 lower GI losses Improved Cont oral bicarb # HypoPO4 Cont oral phos repletion # Hypokalemia Monitor/replete prn # Vit D deficiency Now on high dose D repletion # Crohn's dse exacerbation Hx of bowel resections Monitor for recurrent hematochezia Diarrhea resolved Antibiotics per primary team ADAT # GERD Protonix # Dispo Dc in 1-2d
[2021-01-10 08:21] LABS: Blood Morphology Comment NOT SEEN (NOT SEEN); Platelet Estimate ADEQ; White Blood Cell Scan 100 (OK)
[2021-01-10] MEDS: POTASS/SODIUM PHOSPHATE 1 PKT POWD.PACK PO SCH (08:43)
[2021-01-10] MEDS: GABAPENTIN 400 MG CAP PO SCH ×3 (08:44→22:15)
[2021-01-10] MEDS: SODIUM BICARB 325 MG TAB PO SCH ×2 (08:44→22:16)
[2021-01-10] MEDS: THIAMINE 200 MG/2 ML INJ IVP SCH (08:44)
[2021-01-10] MEDS: ENSURE CLEAR 200 ML CAN PO SCH ×3 (08:45→21:00)
[2021-01-10] MEDS: CIPROFLOXACIN 400mg IV 400 MG/200 ML BAG IV SCH (08:45)
[2021-01-10] MEDS: VITAMIN D 5,000 UNIT CAP PO SCH (09:00)
[2021-01-10] MEDS: LIDOCAINE 4% PATCH TOP PRN (09:09)
[2021-01-10] MEDS: PANTOPRAZOLE 40MG TABLET PO SCH (13:49)
--- NOTE | 2021-01-10 15:41 | P.PN ---
Subjective Date of Service: 01/10/21 Chief Complaint: Hematemesis and Hematochezia Subjective: Improving, Doing well (Less abdominal pain) Physical Examination - Vital Signs Temperature: 99.1 F Blood Pressure: 142/74 Pulse: 90 Respirations: 20 Pulse Ox (%): 99 Assessment & Plan Discharge Plan: Home Plan to discharge in: 24 Hours Physician Review Additional Text: Physical exam: Alert, cooperative. Heart: Regular rate and rhythm Lungs: Clear to auscultation Abdomen: Pain to the abdomen still present. Less abdominal pain noted Extremities: Good range of motion to upper and lower extremities. Impression: Hematochezia secondary to acute Crohn's disease exacerbation Nausea and vomiting with dehydration Chronic pain THC use GERD Insomnia Plan: Patient continues to improve. No more diarrhea noted. Patient doing better with Phenergan. Will transition to oral Cipro and Flagyl. We will also change IV medication to oral due to patient preference. Port-A-Cath was accessed but not properly working. If taking good oral intake will discontinue IV fluids. Encourage ambulation. Encourage incentive spirometer. Slowly adjust oral intake. Anticipate improvement over the next 24 hours with likely discharge tomorrow. Time Spent Managing Pts Care (In Minutes): 55
[2021-01-10] MEDS: metroNIDAZOLE 500 MG TABLET PO SCH (22:16)
[2021-01-10] MEDS: predniSONE 20 MG TAB PO SCH (22:16)
[2021-01-10] MEDS: CIPROFLOXACIN HCL 500 MG TAB PO SCH (22:16)
--- NOTE | 2021-01-11 05:21 | P.PN ---
Subjective Date of Service: 01/11/21 Chief Complaint: Hematemesis and Hematochezia Reports epigastric discomfort is less today. Physical Examination - Vital Signs Temperature: 97.6 F Blood Pressure: 121/68 Pulse: 84 Respirations: 18 Pulse Ox (%): 98 - Physical Exam General: In no apparent distress HEENT: Atraumatic, Normocephalic Neck: Supple Respiratory: Normal air movement Cardiovascular: No rubs, No murmurs Gastrointestinal: Non-distended Musculoskeletal: No swelling Neurological: Normal tone Urinary: Other (No talley ) Assessment And Plan - Plan # Non-gap metabolic acidosis 2/2 lower GI losses Oral bicarb dose increased to 1300 mg po bid # HypoPO4 Resolved Oral phos repletion prn # Hypokalemia Resolved Monitor/replete prn # Vit D deficiency Cont high dose D repletion # Crohn's dse exacerbation Hx of bowel resections Monitor for recurrent hematochezia Diarrhea resolving Antibiotics per primary team ADAT # GERD Better Protonix # Dispo Dc in 1-2d
[2021-01-11] MEDS: PROMETHAZINE INJ 25 MG/ML AMP IV PRN ×3 (06:20→20:55)
[2021-01-11] MEDS: MORPHINE 4 MG/ML SYR IV PRN ×2 (06:20→16:50)
[2021-01-11 06:40] LABS: Albumin 3.3 g/dL (3.4-5.0); BUN Blood Urea Nitrogen 22 mg/dL (7-18); Bicarbonate 20 mmol/L (21-32); Glucose Level 131 mg/dL (74-106); Phosphorus 3.4 mg/dL (2.5-4.9); Potassium 3.8 mmol/L (3.5-5.1); Sodium Level 142 mmol/L (136-145)
[2021-01-11] MEDS: POTASSIUM CL IV SCH ×3 (06:48)
[2021-01-11] MEDS: NACHLORIDE 0.45% IV SCH ×3 (06:48)
[2021-01-11] MEDS: NA BICARB IV SCH ×3 (06:48)
[2021-01-11] MEDS: SODIUM BICARB 325 MG TAB PO SCH ×3 (08:24→20:03)
[2021-01-11] MEDS: PANTOPRAZOLE 40MG TABLET PO SCH (08:25)
[2021-01-11] MEDS: CIPROFLOXACIN HCL 500 MG TAB PO SCH ×2 (08:25→20:03)
[2021-01-11] MEDS: predniSONE 20 MG TAB PO SCH ×2 (08:25→20:03)
[2021-01-11] MEDS: VITAMIN D 5,000 UNIT CAP PO SCH (08:25)
[2021-01-11] MEDS: metroNIDAZOLE 500 MG TABLET PO SCH ×3 (08:25→20:03)
[2021-01-11] MEDS: GABAPENTIN 400 MG CAP PO SCH ×3 (08:25→20:03)
[2021-01-11] MEDS: FOLIC ACID 1 MG TABLET PO SCH (08:25)
[2021-01-11] MEDS: THIAMINE HCL 100 MG TABLET PO SCH (08:26)
[2021-01-11] MEDS: POTASS/SODIUM PHOSPHATE 1 PKT POWD.PACK PO SCH (08:26)
[2021-01-11] MEDS: ENSURE CLEAR 200 ML CAN PO SCH ×2 (08:29→20:03)
--- NOTE | 2021-01-11 09:51 | P.PN ---
Subjective Date of Service: 01/11/21 Chief Complaint: Hematemesis and Hematochezia Subjective: Improving (Less pain noted. Taking oral intake better. No diarrhea noted.) Physical Examination - Vital Signs Temperature: 970 F Blood Pressure: 100/56 Pulse: 77 Respirations: 16 Pulse Ox (%): 98 Assessment & Plan Discharge Plan: Home Plan to discharge in: 24 Hours Physician Review Additional Text: Physical exam: Alert, cooperative. Heart: Regular rate and rhythm Lungs: Clear to auscultation Abdomen: Pain to the abdomen still present. Extremities: Good range of motion to upper and lower extremities. Impression: Hematochezia secondary to acute Crohn's disease exacerbation Nausea and vomiting with dehydration [place] metabolic acidosis secondary to above Chronic pain THC use GERD Insomnia Plan: Patient continues to slowly improve. No more diarrhea noted. Patient doing better with Phenergan. Encourage oral intake. Will transition to GI soft diet. Patient now on GI Cipro and Flagyl. Encourage ambulation. Encourage incentive spirometer. If doing well will consider discharge as early as later today or likely tomorrow. We will continue to follow closely. Time Spent Managing Pts Care (In Minutes): 55
[2021-01-11] MEDS ORDERED: POTASSIUM CL SA 10 MEQ TAB PO ONE (10:32)
[2021-01-11] MEDS ORDERED: SODIUM BICARB 325 MG TAB PO ONE (12:00)
[2021-01-12 00:56] VITALS: O2SAT 100
[2021-01-12] MEDS: MORPHINE 4 MG/ML SYR IV PRN ×2 (01:50→06:06)
[2021-01-12] MEDS: PROMETHAZINE INJ 25 MG/ML AMP IV PRN ×3 (03:50→21:33)
[2021-01-12 06:23] LABS: Albumin 3.4 g/dL (3.4-5.0); BUN Blood Urea Nitrogen 19 mg/dL (7-18); Bicarbonate 23 mmol/L (21-32); Glucose Level 106 mg/dL (74-106); Phosphorus 3.3 mg/dL (2.5-4.9); Potassium 4.1 mmol/L (3.5-5.1); Sodium Level 141 mmol/L (136-145)
[2021-01-12] MEDS: ENSURE CLEAR 200 ML CAN PO SCH ×2 (09:00→20:13)
[2021-01-12] MEDS: THIAMINE HCL 100 MG TABLET PO SCH (09:03)
[2021-01-12] MEDS: predniSONE 20 MG TAB PO SCH (09:03)
[2021-01-12] MEDS: CIPROFLOXACIN HCL 500 MG TAB PO SCH (09:03)
[2021-01-12] MEDS: PANTOPRAZOLE 40MG TABLET PO SCH (09:03)
[2021-01-12] MEDS: VITAMIN D 5,000 UNIT CAP PO SCH (09:03)
[2021-01-12] MEDS: GABAPENTIN 400 MG CAP PO SCH ×3 (09:03→20:13)
[2021-01-12] MEDS: LACTOBACILLUS/ACIDOPHILUS TAB PO SCH ×3 (09:03→20:13)
[2021-01-12] MEDS: SODIUM BICARB 325 MG TAB PO SCH ×2 (09:03→20:12)
[2021-01-12] MEDS: metroNIDAZOLE 500 MG TABLET PO SCH ×2 (09:04→13:08)
[2021-01-12] MEDS: FOLIC ACID 1 MG TABLET PO SCH (09:04)
[2021-01-12] MEDS: SIMETHICONE 80 MG TAB PO SCH ×3 (09:04→20:12)
--- NOTE | 2021-01-12 11:06 | P.PN ---
Subjective Date of Service: 01/12/21 Chief Complaint: Hematemesis and Hematochezia Subjective: Improving, Doing well Physical Examination - Vital Signs Temperature: 96.8 F Blood Pressure: 109/69 Pulse: 87 Respirations: 16 Pulse Ox (%): 99 Assessment & Plan Discharge Plan: Home Plan to discharge in: 24 Hours Physician Review Additional Text: Physical exam: Patient continues to improve. Reports no further diarrhea. Some abdominal pain with soft diet. Alert, cooperative. Heart: Regular rate and rhythm Lungs: Clear to auscultation Abdomen: Pain to the abdomen still present. But improved Extremities: Good range of motion to upper and lower extremities. Impression: Hematochezia secondary to acute Crohn's disease exacerbation Nausea and vomiting with dehydration [place] metabolic acidosis secondary to above Chronic pain THC use GERD Insomnia Plan: Patient continues to slowly improve. No more diarrhea noted. Had some abdominal pain with soft diet. May need to adjust diet today. Continue with Phenergan, Cipro Flagyl, and prednisone. Encourage ambulation. Encourage incentive spirometer. We will continue to reassess and monitor closely. Case discussed with nephrology. Once the patient is able to take good oral intake then will consider discharge. Will reassess later today for possible discharge later or likely tomorrow. Time Spent Managing Pts Care (In Minutes): 55
[2021-01-12] MEDS ORDERED: TRAMADOL HCL 50 MG TAB PO PRN (14:48)
[2021-01-12] MEDS ORDERED: METHYLPREDNISOLONE 40 MG INJ IV SCH (16:00)
--- NOTE | 2021-01-12 16:33 | PN ---
Date of Progress Note: 01/12/2021 Subjective: The patient was admitted with a Crohn disease flare up. The patient had severe acidosis, started on bicarb drip and then we switched her to oral, tolerating well. The patient's diarrhea has been subsided. Still complaining from pain. Physical Examination: Vital Signs: Blood pressure 109/69, pulse of 87, afebrile. Chest: Clear to auscultation. Heart: S1, S2 regular. Abdomen: Soft. Mild epigastric pain. No guarding or rebound. Extremities: No edema. Neurologic: Alert. No focality. Laboratory Data: WBC 9.8, H and H 10.8/32. Sodium 141, potassium 4.1, bicarb 23, BUN 19, creatinine 0.3, calcium 8.2, phosphorus 3.3. Current Medications: Include: 1. Tylenol. 2. Gabapentin. 3. Ambien. 4. Sodium bicarb 1300 b.i.d. 5. Folic acid. 6. Simethicone. 7. Pantoprazole. 8. Prednisone 20 b.i.d. Assessment And Plan: 1. Acute kidney injury secondary to prerenal, recovered, resolved. 2. Acidosis secondary to gastrointestinal loss/renal tubular acidosis has been ruled out as urine anion gap was -4. I am going to continue oral bicarb. 3. Crohn flare up as by primary. 4. Colitis. Continue current treatment. The patient is cleared from the renal standpoint for discharge planning. Follow up in the office in 2-3 weeks. 5. Hypokalemia, hypomagnesemia, and hypophosphatemia status post supplement, resolved. Time spent discussing with the patient, examining the patient, [id number] with the patient, placing orders, discussing the case with our pressure steamer tender including nursing, discussing the case with the other subspecialty including Cardiology and hospitalist 35 minutes. PETROS/PATRICIA Voice ID: [id number] Report ID: [id number] CARTER
[2021-01-12] MEDS: METHYLPREDNISOLONE 40 MG INJ IV SCH (17:21)
[2021-01-12] MEDS: MORPHINE 2 MG/ML SYR IV PRN (17:21)
[2021-01-12] MEDS: METRONIDAZOLE 500mg IVPB 500 MG/100 ML BAG IV SCH (17:21)
[2021-01-12] MEDS: CIPROFLOXACIN 400mg IV 400 MG/200 ML BAG IV SCH (20:13)
[2021-01-12] MEDS: ZOLPIDEM TARTRATE 10 MG TABLET PO PRN (21:38)
[2021-01-13] MEDS: METRONIDAZOLE 500mg IVPB 500 MG/100 ML BAG IV SCH ×4 (00:27→17:01)
[2021-01-13] MEDS: MORPHINE 2 MG/ML SYR IV PRN ×3 (00:27→20:44)
[2021-01-13] MEDS: METHYLPREDNISOLONE 40 MG INJ IV SCH ×3 (00:28→17:02)
[2021-01-13] MEDS: PROMETHAZINE INJ 25 MG/ML AMP IV PRN ×3 (02:12→17:02)
[2021-01-13] MEDS: ONDANSETRON 4 MG/2 ML VIAL IV PRN (05:01)
[2021-01-13 06:50] LABS: BUN Blood Urea Nitrogen 15 mg/dL (7-18); Bicarbonate 21 mmol/L (21-32); Glucose Level 125 mg/dL (74-106); Phosphorus 2.7 mg/dL (2.5-4.9); Potassium 3.7 mmol/L (3.5-5.1); Sodium Level 144 mmol/L (136-145)
[2021-01-13] MEDS: GABAPENTIN 400 MG CAP PO SCH ×3 (08:22→20:44)
[2021-01-13] MEDS: VITAMIN D 5,000 UNIT CAP PO SCH (08:22)
[2021-01-13] MEDS: FOLIC ACID 1 MG TABLET PO SCH (08:22)
[2021-01-13] MEDS: PANTOPRAZOLE 40MG TABLET PO SCH (08:23)
[2021-01-13] MEDS: LACTOBACILLUS/ACIDOPHILUS TAB PO SCH ×3 (08:23→20:44)
[2021-01-13] MEDS: ENSURE CLEAR 200 ML CAN PO SCH ×2 (08:23→20:45)
[2021-01-13] MEDS: THIAMINE HCL 100 MG TABLET PO SCH (08:23)
[2021-01-13] MEDS: SIMETHICONE 80 MG TAB PO SCH ×3 (08:23→20:43)
[2021-01-13] MEDS: SODIUM BICARB 325 MG TAB PO SCH ×2 (08:24→20:44)
[2021-01-13] MEDS: CIPROFLOXACIN 400mg IV 400 MG/200 ML BAG IV SCH ×2 (08:24→20:43)
--- NOTE | 2021-01-13 11:02 | P.PN ---
Subjective Date of Service: 01/13/21 Chief Complaint: Hematemesis and Hematochezia Subjective: Improving (Slowly improving) Physical Examination - Vital Signs Temperature: 97.0 F Blood Pressure: 106/70 Pulse: 99 Respirations: 16 Pulse Ox (%): 100 Assessment & Plan Discharge Plan: Home Plan to discharge in: 24 Hours Physician Review Additional Text: Physical exam: Slow improvement noted. Continue with full and soft diet. No further diarrhea noted. Alert, cooperative. Heart: Regular rate and rhythm Lungs: Clear to auscultation Abdomen: Pain to the abdomen still present. But improved Extremities: Good range of motion to upper and lower extremities. Impression: Hematochezia secondary to acute Crohn's disease exacerbation Nausea and vomiting with dehydration Nongap metabolic acidosis secondary to above Chronic pain THC use GERD Insomnia Plan: Patient continues to slowly improve. Patient required IV antibiotics and steroids yesterday due to poor intake. We will continue with fluid and oral intake. Continue with IV medication and transition to oral. Encourage ambulation. Encourage incentive spirometer. Will reassess later today. Possible discharge as early as today or likely tomorrow. I will turn the service over to the hospitalist team tomorrow. I will go over the plan of care with him. Time Spent Managing Pts Care (In Minutes): 55
[2021-01-13] MEDS: POTASSIUM CL SA 10 MEQ TAB PO SCH (11:52)
[2021-01-13] MEDS ORDERED: KCL 20 MEQ/100 mL IVPB 20 MEQ/100 ML BAG IV SCH (12:00)
--- NOTE | 2021-01-13 13:24 | PN ---
Date of Progress Note: 01/13/2021 Subjective: The patient was admitted with colitis, Crohn flare with depleted electrolytes including potassium and magnesium with acidosis. The patient was started on bicarb drip, was switched to oral. Physical Examination: Vital Signs: Blood pressure 127/85, pulse of 99, afebrile. Chest: Clear to auscultation. Heart: S1, S2. Regular. Abdomen: Mild tenderness. No guarding or rebound. Extremities: No edema. Laboratory Data: H and H 10.8/32. Sodium 144, potassium 3.7, bicarb 21, BUN 15, creatinine 0.3, rashida cium 7.7, phosphorus 2.7, magnesium 2.2. Current Medications: The patient on include promethazine, ciprofloxacin, metronidazole, gabapentin, Ambien, simethicone, morphine, KCl. Assessment And Plan: 1.Acute kidney injury secondary to prerenal, recovered, resolved. 2.Acidosis secondary to GI loss. RTA has been ruled out. Continue current supplement. We will mon itor the patient. 3.Hypokalemia, hypomagnesemia. We will continue to monitor. 4.Crohn disease with colitis. Follow up with primary. PETROS/PATRICIA Voice ID: [id number] Report ID: [id number]
[2021-01-13] MEDS: ONDANSETRON 4 MG (ODT) TAB PO PRN (14:41)
[2021-01-13] MEDS: HYDROCODONE/APAP 7.5/325 MG TAB PO PRN (14:41)
[2021-01-13] MEDS: ZOLPIDEM TARTRATE 10 MG TABLET PO PRN (20:44)
[2021-01-14] MEDS: METRONIDAZOLE 500mg IVPB 500 MG/100 ML BAG IV SCH ×2 (00:56→09:05)
[2021-01-14] MEDS: METHYLPREDNISOLONE 40 MG INJ IV SCH ×2 (00:56→08:54)
[2021-01-14] MEDS: MORPHINE 2 MG/ML SYR IV PRN ×3 (01:06→12:26)
[2021-01-14] MEDS: ONDANSETRON 4 MG/2 ML VIAL IV PRN ×3 (01:06→12:26)
[2021-01-14] MEDS: PROMETHAZINE INJ 25 MG/ML AMP IV PRN ×3 (03:50→13:25)
[2021-01-14] MEDS: HYDROCODONE/APAP 7.5/325 MG TAB PO PRN (03:58)
[2021-01-14 06:39] LABS: Albumin 3.2 g/dL (3.4-5.0); BUN Blood Urea Nitrogen 11 mg/dL (7-18); Bicarbonate 23 mmol/L (21-32); Glucose Level 109 mg/dL (74-106); Magnesium 1.9 mg/dL (1.8-2.4); Phosphorus 2.4 mg/dL (2.5-4.9); Potassium 4.1 mmol/L (3.5-5.1); Sodium Level 142 mmol/L (136-145)
[2021-01-14] MEDS: LIDOCAINE 4% PATCH TOP PRN (06:54)
[2021-01-14] MEDS: SODIUM BICARB 325 MG TAB PO SCH (08:54)
[2021-01-14] MEDS: FOLIC ACID 1 MG TABLET PO SCH (08:54)
[2021-01-14] MEDS: ENSURE CLEAR 200 ML CAN PO SCH (08:54)
[2021-01-14] MEDS: LACTOBACILLUS/ACIDOPHILUS TAB PO SCH ×2 (08:54→14:19)
[2021-01-14] MEDS: GABAPENTIN 400 MG CAP PO SCH ×2 (08:54→14:22)
[2021-01-14] MEDS: VITAMIN D 5,000 UNIT CAP PO SCH (08:54)
[2021-01-14] MEDS: SIMETHICONE 80 MG TAB PO SCH ×2 (08:55→14:19)
[2021-01-14] MEDS: CIPROFLOXACIN 400mg IV 400 MG/200 ML BAG IV SCH (08:55)
[2021-01-14] MEDS: THIAMINE HCL 100 MG TABLET PO SCH (08:55)
[2021-01-14] MEDS: PANTOPRAZOLE 40MG TABLET PO SCH (08:55)
[2021-01-14 13:48] VITALS: BP 122/70; TEMP 99.2
--- NOTE | 2021-01-15 01:05 | PN ---
Date of Progress Note: 01/14/2021 Chief Complaint: Abdominal pain. History Of Present Illness: The patient has colitis on presentation to the hospital. The patient wa s found to have multiple electrolyte abnormalities and metabolic acidosis. The patient developed a m etabolic acidosis due to GI loss, off bicarbonate, and hypovolemia. The patient is feeling better, a lthough she had some hematemesis and primary team was evaluating the patient. Review of Systems: Denies fever or chills. Physical Examination: Lungs: Diminished breath sounds at bases. Heart: S1, S2. Abdomen: Soft, benign. Extremities: No edema. Impression And Plan: 1.Acute kidney injury secondary to prerenal azotemia. Renal function has improved and BUN 15, creat inine 0.3. 2.Hypophosphatemia. Increase intake as tolerated. Monitor phosphorus level and adjust replacement. 3.Hypokalemia, hypomagnesemia. Replacement according to lab results. 4.Crohn's disease with colitis. Follow up with primary team. 5.Metabolic acidosis secondary to GI loss. Bicarbonate improved. The patient may need additional r eplacement according to the lab results. FLORIDALMA/PATRICIA Voice ID: [id number] Report ID: [id number]
--- NOTE | 2021-01-21 19:32 | P.DS ---
Discharge Date: 01/14/21 Disposition: ROUTINE DISCHARGE Discharge Condition: GOOD Reason for Admission: Hematemesis and Hematochezia Brief History of Present Illness: Patient is a 35 years old female with a PMHx significant for Crohns disease, hypothyroidism, RA, Seizures, Neuropathy, Anemia who presents with complaint of abdominal pain, hematemesis and hematochezia. Patient reported that she has been having nausea and hematemesis for the past 4 days. She also described stool as watery and coffee ground in color. She indicated that she has been having diarrhea for the past 2 days. She rated pain as 8/10 in severity and described pain as burning in quality. Patient reported associated s\s of dizziness, headache and fatigue. Patient denies any other s\s. patient decided to present to the ER due to worsening symptoms. Hospital Course: Patient's labs have been stable. Hemoglobin is stable. Patient is currently doing much better. She is tolerating diet. At this time, patient is stable for discharge home. Vital Signs/Physical Exam: Temp Pulse Resp BP Pulse Ox 99.2 F 96 H 16 122/70 99 01/14/21 12:00 01/14/21 12:00 01/14/21 12:26 01/14/21 12:00 01/14/21 12:26 General: Alert, In no apparent distress, Oriented x3 Laboratory Data at Discharge: WBC 9.80 K/uL (4.3-10.9) D 01/10/21 03:41 Hgb 10.8 g/dL (12.0-15.0) L 01/10/21 03:41 Hct 32.0 % (36.0-45.0) L 01/10/21 03:41 Plt Count 347 K/uL (152-406) D 01/10/21 03:41 PT 11.2 SECONDS (9.5-12.5) 01/07/21 14:21 INR 0.97 01/07/21 14:21 Sodium 142 mmol/L (136-145) 01/14/21 05:31 Potassium 4.1 mmol/L (3.5-5.1) 01/14/21 05:31 BUN 11 mg/dL (7-18) 01/14/21 05:31 Creatinine 0.50 mg/dL (0.55-1.3) L 01/14/21 05:31 Glucose 109 mg/dL (74-106) H 01/14/21 05:31 Phosphorus 2.4 mg/dL (2.5-4.9) L 01/14/21 05:31 Magnesium 1.9 mg/dL (1.8-2.4) 01/14/21 05:31 Total Bilirubin 0.3 mg/dL (0.2-1.0) 01/07/21 12:39 AST 11 U/L (15-37) L 01/07/21 12:39 ALT 21 U/L (12-78) 01/07/21 12:39 Alkaline Phosphatase 94 U/L (45-117) 01/07/21 12:39 Troponin I < 0.02 ng/mL (0.0-0.045) 01/07/21 18:27 Lipase 46 U/L (73-393) L 01/07/21 12:39 Home Medications: Buprenorphine HCl/Naloxone HCl [Zubsolv 5.7-1.4 mg Tablet Sl] 1 tab PO BID 12/01/18 Cholecalciferol (Vitamin D3) [Vitamin D3] 1,000 unit PO DAILY 12/01/18 Cyanocobalamin (Vitamin B-12) [Cyanocobalamin Injection] 1 ml SQ SEECOM 12/01/18 Gabapentin 800 mg PO TID 12/01/18 Lidocaine 4% Patch [Lidoderm 5% Patch*] 1 patch TOP Q12H PRN 12/01/18 Promethazine HCl [Phenergan] 25 mg RC Q4H PRN 12/01/18 Tizanidine HCl [Zanaflex] 4 mg PO TID 12/01/18 Zolpidem Tartrate [Ambien*] 10 mg PO BEDTIME 12/01/18 ondansetron HCL [Zofran] 8 mg SL Q4H PRN 12/01/18 Cholecalciferol (Vitamin D3) [Vitamin D 5,000 IU Cap*] 5,000 unit PO DAILY #30 cap 01/14/21 Ensure Clear 237 ml PO BID #60 can 01/14/21 Na Bicarb Tab [Sodium Bicarb 325 MG Tab*] 650 mg PO BID #60 tab 01/14/21 Omeprazole 40 mg PO BID #60 01/14/21 Promethazine Inj [Phenergan] 12.5 mg IM DAILY PRN #5 vial 01/14/21 Promethazine Tab [Phenergan] 25 mg PO Q6HP PRN #60 tab 01/14/21 Simethicone [Mylicon*] 80 mg PO TID PRN #30 tab 01/14/21 Thiamine HCl [Vitamin B-1*] 100 mg PO DAILY #30 tablet 01/14/21 levoFLOXacin [Levaquin] 500 mg PO DAILY #7 tab 01/14/21 metroNIDAZOLE [Flagyl] 500 mg PO Q8H #20 tablet 01/14/21 predniSONE [Deltasone] 20 mg PO BID #20 tab 01/14/21 New Medications: Ensure Clear 237 ml PO BID #60 can metroNIDAZOLE [Flagyl] 500 mg PO Q8H #20 tablet levoFLOXacin [Levaquin] 500 mg PO DAILY #7 tab Simethicone [Mylicon*] 80 mg PO TID PRN #30 tab PRN Reason: Abdominal Cramps Omeprazole 40 mg PO BID #60 Promethazine Inj [Phenergan] 12.5 mg IM DAILY PRN #5 vial PRN Reason: breakthrough nausea/vomiting Promethazine Tab [Phenergan] 25 mg PO Q6HP PRN #60 tab PRN Reason: nausea/vomiting predniSONE [Deltasone] 20 mg PO BID #20 tab Na Bicarb Tab [Sodium Bicarb 325 MG Tab*] 650 mg PO BID #60 tab Thiamine HCl [Vitamin B-1*] 100 mg PO DAILY #30 tablet Cholecalciferol (Vitamin D3) [Vitamin D 5,000 IU Cap*] 5,000 unit PO DAILY #30 cap Physician Discharge Instructions: -OK TO DC IV AND DC HOME -FOLLOW-UP WITH PCP IN 1-2 WEEKS -FOLLOW-UP WITH Gastroenterology IN 1-2 WEEKS -PLEASE MAKE SURE ALL DIAGNOSTIC STUDIES ARE AVAILABLE AND HAVE BEEN REVIEWED WITH PATIENT PRIOR TO DISCHARGE -RETURN TO THE ER IF Symptoms worsen -CALL DR. SALEH AT [phone] IF ANY QUESTIONS REGARDING HOSPITAL STAY -PLEASE CALL THE FLOOR AT [phone] IF ANY MEDICATION OR NURSING QUESTIONS Diet: Low residu Activity: Fall precautions Followup: Abram Sen MD [ACTIVE - CAN ADMIT] - NONE,NONE [Primary Care Provider] - Time spent managing pt's care (in minutes): 35
== END 2021-01-14 16:51 | disposition home or self-care (01) | DRG 386 ==
LOC: ER 11:33 → ERHOLD 14:57 → 2ND 22:16
PROVIDERS: ADMIT Family Medicine; ATTEND Hospitalist
DX: K50.90 Crohn's disease, unspecified, without complications (principal); E87.2 Acidosis; E87.3 Alkalosis; N17.9 Acute kidney failure, unspecified; K92.2 Gastrointestinal hemorrhage, unspecified; K52.9 Noninfective gastroenteritis and colitis, unspecified; E03.9 Hypothyroidism, unspecified; E86.0 Dehydration; G89.29 Other chronic pain; K21.9 Gastro-esophageal reflux disease without esophagitis; G47.00 Insomnia, unspecified; K59.00 Constipation, unspecified; E87.6 Hypokalemia; E83.42 Hypomagnesemia; E83.39 Other disorders of phosphorus metabolism; G62.9 Polyneuropathy, unspecified; R00.0 Tachycardia, unspecified; Z79.52 Long term (current) use of systemic steroids; Z91.09 Other allergy status, other than to drugs and biological substances; Z98.51 Tubal ligation status; Z90.49 Acquired absence of other specified parts of digestive tract; Z79.899 Other long term (current) drug therapy; Z88.8 Allergy status to other drugs, medicaments and biological substances; Z20.822 Contact with and (suspected) exposure to COVID-19
CPT/HCPCS: 36415; 71045; 74177; 76770; 80048; 80069; 80076; 80307; 80320; 80329; 81003; 81025; 82010; 82274; 82306; 82435; 82550; 82553; 82570; 82805; 83605; 83690; 83735; 83935; 83970; 84100; 84132; 84300; 84425; 84484; 84703; 85025; 85610; 86850; 86900; 86901; 87040; 87045; 87046; 87177; 87205; 87209; 89055; 93005; 96374; 96375; 99284; C9113; J0744; J1642; J2270; J2405; J2550; J2920; J3411; J3480; J7030; J7040; J7120; J7512; J7799; Q9967; U0003

== ENCOUNTER 2024-09-11 18:20 | Emergency (ER) | payer OTHER ==
[2024-09-11] MEDS ORDERED: AMOX/K CLAV 875 MG TAB ONE (18:57)
[2024-09-11] MEDS ORDERED: ONDANSETRON 4 MG (ODT) TAB ONE (18:57)
[2024-09-11 19:34] LABS: Specific Gravity > 1.030 (1.005-1.030)
[2024-09-11 19:35] LABS: Specific Gravity > 1.030 (1.005-1.030); Sqamous Epithelial <5 /HPF (None Seen); Transitional Epithelial <5 /HPF (None Seen); Urine Bacteria <20 /HPF (<20); Urine Bilirubin 1+ (Negative); Urine Blood 1+ (Negative); Urine Clarity Clear (Clear); Urine Color Yellow (Yellow); Urine Culture Reflex Order NOT NEEDED; Urine Glucose NEGATIVE (Negative); Urine Ketones NEGATIVE (Negative); Urine Microscopic Reflex YN ORDER UMIC; Urine Mucus 2+ /HPF (None Seen); Urine Nitrite NEGATIVE (Negative); Urine Protein 1+ (Negative); Urine RBC 21-50 /HPF (None Seen); Urine Urobilinogen 1+ (Normal); Urine WBC <5 /HPF (<5); Urine pH 6.5 (5.0-7.0)
--- NOTE | 2024-09-11 19:38 | EDPHYS ---
Physician Documentation [facility] Name: Va Cardoso Age: 39 yrs Sex: Female : 1985 Arrival Date: 09/11/2024 Time: 18:20 Bed 12 Private MD: ED Physician Zheng Santos HPI: 09/11 20:28 This 39 yrs old Female presents to ER via Ambulatory with complaints of Urinary kb Problem, Weight loss. 20:28 Pt is a 39 year old female who presents for an infection to left upper mouth that kb started 2 days ago. States her face was swollen on the left side at first, but has gone down since she took vancomycin that she had at home. Also reports dysuria and urinary frequency that started 2 days ago that feels the same as previous UTIs. 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 - Social history:: Smoking status: Patient reports the use of cigarette tobacco products. ROS: 20:27 Constitutional: As per HPI kb Exam: 20:27 Constitutional: This is a well developed, well nourished patient who is awake, alert, kb and in no acute distress. Head/Face: Normocephalic, atraumatic. Cardiovascular: Regular rate Respiratory: Respirations even and unlabored. No increased work of breathing. Talking in full sentences Abdomen/GI: Soft, non-tender. No distention Skin: Warm, dry with normal turgor. Normal color. MS/ Extremity: Pulses equal, no cyanosis. Neurovascular intact. Full, normal range of motion. Neuro: Awake and alert, GCS 15, oriented to person, place, time, and situation. 20:27 ENT: Dental exam: dental caries, that is moderate, that is severe, diffusely, gum swelling, that is mild, specifically in the upper left second bicuspid (#13), upper left first molar (#14) and upper left second molar (#15), pain, Vital Signs: 18:33 BP 141 / 80; Pulse 119; Resp 17; Temp 98.1(TE); Pulse Ox 100% on R/A; MAP 95 mmHg; tm6 Weight 54.43 kg; Height 4 ft. 11 in. ; Pain 7/10; 20:24 BP 140 / 80; Pulse 98; Resp 16; Temp 98.2(O); Pulse Ox 100% on R/A; Pain 5/10; le1 18:33 Body Mass Index 24.24 (54.43 kg, 149.86 cm) tm6 18:33 Pain Scale: Adult tm6 20:24 Pain Scale: Adult le1 MDM: 18:25 Medical Screening Exam initiated kb 20:28 Differential diagnosis: dental abscess, uti, dental caries. Data reviewed: vital signs, kb nurses notes. Counseling: I had a detailed discussion with the patient and/or guardian regarding the historical points, exam findings, and any diagnostic results supporting the discharge/admit diagnosis, lab results, the need for outpatient follow up, a dentist, to return to the emergency department if symptoms worsen or persist or if there are any questions or concerns that arise at home. 09/11 18:34 Order name: Test, Urine; Complete Time: 19:37 kb 09/11 18:34 Order name: Urinalysis w/ reflexes; Complete Time: 19:37 kb Administered Medications: 19:09 Drug: Ondansetron Oral Disintegrating Tablet Oral Disintegrating Tablet 4 mg PO once le1 Route: PO; 20:23 Follow up: Response: Nausea is decreased le1 19:09 Drug: Amoxicillin-Clavulanate PO 875 mg PO once Route: PO; le1 20:23 Follow up: Response: No adverse reaction le1 Disposition: 09/12 07:05 Co-signature as Attending Physician, Zheng Santos MD I reviewed the patient's care rn provided by the Advanced Practice Provider and agree with the diagnosis and treatment plan. Disposition Summary: 09/11/24 19:38 Discharge Ordered Notes: Location: Home kb Condition: Stable kb Diagnosis - Periapical abscess without sinus kb Followup: kb - With: Emergency Department - When: As needed - Reason: Worsening of condition Followup: kb - With: Private Physician - When: 2 - 3 days - Reason: Recheck today's complaints, Continuance of care, Re-evaluation by your physician Discharge Instructions: - Discharge Summary Sheet kb - Dental Pain, [id number] kb - Dental Abscess, [id number] kb Forms: - Medication Reconciliation Form kb - Antibiotic Education kb - Prescription Opioid Use kb - Patient Portal Instructions kb - Leadership Thank You Letter kb Prescriptions: - Augmentin 875-125 mg Oral Tablet - take 1 tablet ORAL route every 12 hours for 10 days; 20 tablet; Refills: 0, kb Product Selection Permitted Signatures: Dispatcher [employer] EDMS Emilia Quinn, HEBREW TEACHER-C HEBREW TEACHER-Ckb Zheng Santos MD MD rn Flora Brambila RN RN tm6 Bandar Eagle RN RN le1
--- NOTE | 2024-09-11 19:38 | ER ---
Nurse's Notes [facility] Name: Va Cardoso Age: 39 yrs Sex: Female : 1985 Arrival Date: 09/11/2024 Time: 18:20 Bed 12 Private MD: Diagnosis: Periapical abscess without sinus Presentation: 09/11 18:30 Chief complaint: Patient states: I've had some kind of oral infection and UTI. I took tm6 some vancomycin but it hasn't helped. Since the , pain in mouth, face, fatigue. Coronavirus screen: Client denies travel out of the [place] in the last 14 days. Ebola Screen: Patient negative for fever greater than or equal to 101.5 degrees Fahrenheit, and additional compatible Ebola Virus Disease symptoms Patient denies exposure to infectious person. Patient denies travel to an Ebola-affected area in the 21 days before illness onset. No symptoms or risks identified at this time. Risk Assessment: Do you want to hurt yourself or someone else? Patient reports no desire to harm self or others. Onset of symptoms was September 06, 2024. 18:30 Method Of Arrival: Ambulatory tm6 18:35 Initial Sepsis Screen: Does the patient meet any 2 criteria? HR > 90 bpm. Does the tm6 patient have a suspected source of infection? No. Patient's initial sepsis screen is negative. 18:35 Acuity: IGNACIO 4 tm6 Triage Assessment: 18:31 General: Appears in no apparent distress. Behavior is calm, cooperative. Pain: tm6 Complains of pain in mouth. EENT: Reports pain in mouth. Neuro: Level of Consciousness is awake, alert, obeys commands, Oriented to person, place, time, situation. Cardiovascular: Patient's skin is warm and dry. Respiratory: Airway is patent Respiratory effort is even, unlabored, Respiratory pattern is regular, symmetrical. GI: No signs and/or symptoms were reported involving the gastrointestinal system. Abdomen is flat, non-distended. : Reports burning with urination, urgency, urinary frequency. Derm: No signs and/or symptoms reported regarding the dermatologic system. Musculoskeletal: No signs and/or symptoms reported regarding the musculoskeletal system. 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 - Social history:: Smoking status: Patient reports the use of cigarette tobacco products. Screenin:21 [facility] ED Fall Risk Assessment (Adult) History of falling in the last 3 months, le1 including since admission No falls in past 3 months (0 pts) Confusion or Disorientation No (0 pts) Intoxicated or Sedated No (0 pts) Impaired Gait No (0 pts) Mobility Assist Device Used No (0 pt) Altered Elimination No (0 pt) Score/Fall Risk Level 0 - 2 = Low Risk Oriented to surroundings, Maintained a safe environment, Educated pt \T\ family on fall prevention, incl call for assistance when getting out of bed, Assessed \T\ reinforced patient's understanding of fall precautions, Hourly rounding (assess needs \T\ fall precautionary measures) done, Used ambulatory aids as needed (educated on \T\ assisted with). Abuse screen: Denies threats or abuse. Denies injuries from another. Nutritional screening: No deficits noted. Tuberculosis screening: No symptoms or risk factors identified. Assessment: 19:20 General: Appears in no apparent distress. comfortable, Behavior is calm, cooperative. le1 Pain: Complains of pain in face Pain currently is 5 out of 10 on a pain scale. Neuro: No deficits noted. Cardiovascular: No deficits noted. Respiratory: No deficits noted. GI: No deficits noted. : No deficits noted. Musculoskeletal: No deficits noted. Vital Signs: 18:33 BP 141 / 80; Pulse 119; Resp 17; Temp 98.1(TE); Pulse Ox 100% on R/A; MAP 95 mmHg; tm6 Weight 54.43 kg; Height 4 ft. 11 in. ; Pain 7/10; 20:24 BP 140 / 80; Pulse 98; Resp 16; Temp 98.2(O); Pulse Ox 100% on R/A; Pain 5/10; le1 18:33 Body Mass Index 24.24 (54.43 kg, 149.86 cm) tm6 18:33 Pain Scale: Adult tm6 20:24 Pain Scale: Adult le1 ED Course: 18:24 Patient arrived in ED. mr 18:25 Emilia Quinn FNP-C [facility]. kb 18:25 Zheng Santos MD is Attending Physician. kb 18:31 Arm band placed on left wrist. tm6 18:35 Triage completed. tm6 18:48 Bandar Eagle, RN is Primary Nurse. le1 19:21 Patient has correct armband on for positive identification. Bed in low position. Call le1 light in reach. Side rails up X2. Adult w/ patient. Provided Education on: Patient informed to use call light if needing assistance.. 20:25 No provider procedures requiring assistance completed. Patient did not have IV access le1 during this emergency room visit. Administered Medications: 19:09 Drug: Ondansetron Oral Disintegrating Tablet Oral Disintegrating Tablet 4 mg PO once le1 Route: PO; 20:23 Follow up: Response: Nausea is decreased le1 19:09 Drug: Amoxicillin-Clavulanate PO 875 mg PO once Route: PO; le1 20:23 Follow up: Response: No adverse reaction le1 Medication: 20:25 VIS not applicable for this client. le1 Outcome: 19:38 Discharge ordered by . kb 20:25 Discharged to home ambulatory, le1 20:25 Condition: stable 20:25 Discharge instructions given to patient, Instructed on discharge instructions, follow up and referral plans. medication usage, Demonstrated understanding of instructions, follow-up care, medications, Prescriptions given X 1, 20:26 Patient left the ED. le1 Signatures: Emilia Quinn FNP-C FNP-Nilsa Crook, Reg Reg mr Brambila Flora, RN RN tm6 Bandar Ealge, RN RN le1
[2024-09-11 21:24] VITALS: O2SAT 100
[2024-09-11 21:26] VITALS: BP 140/80; TEMP 98.2
== END 2024-09-11 20:26 | disposition home or self-care (01) ==
LOC: ER 18:20
DX: K04.7 Periapical abscess without sinus (principal); R30.0 Dysuria
CPT/HCPCS: 81001; 81025; 99283; Q0162

== ENCOUNTER 2025-01-16 19:58 | Emergency (ER) | payer OTHER ==
[2025-01-16] MEDS ORDERED: dexAMETHasone 10 MG/ML VIAL ONE (20:36)
[2025-01-16] MEDS ORDERED: NA CHLORIDE 0.9% 1,000 ML ONE (20:36)
[2025-01-16] MEDS ORDERED: PROMETHAZINE INJ 25 MG/ML AMP ONE (20:36)
[2025-01-16 20:38] LABS: Absolute Eosinophils 0.1 K/uL (0-0.5); Absolute Lymphocytes (CBC) 1.6 K/uL (0.7-4.9); Absolute Monocytes 0.5 K/uL (0.1-1.3); Absolute Neutrophil 1.9 K/uL (1.8-8.0); Basophils % 0.9 % (0-1.3); Eosinophils % 1.8 % (0-4.4); Hematocrit 37.6 % (36.0-45.0); Hemoglobin 13.2 g/dL (12.0-15.0); Lymphocytes % 38.4 % (15.3-44.8); MCH 29.9 pg (27.0-35.0); MCHC 35.2 g/dL (32.0-36.0); MCV 85.2 fL (80-100); MPV 7.4 fL (7.6-11.3); Neutrophils % 45.9 % (41.7-73.7); Nucleated Red Blood Cells % 0.1 % (0-0); Platelets 172 thou/uL (152-406); RBC Red Blood Cell Count 4.41 M/uL (3.86-4.86); Red Cell Distribution Width 12.6 % (12.1-15.2)
[2025-01-16 21:03] LABS: Albumin 3.7 g/dL (3.4-5.0); Albumin/Globulin Ratio 1.2 (1.1-1.8); Anion Gap 12.9 mEq/L (5.0-15.0); Bilirubin Total 0.6 mg/dL (0.2-1.0); Globulin 3.1 g/dL (2.3-3.5); Potassium 2.9 mEq/L (3.5-5.1); Protein, Total 6.8 g/dL (6.4-8.2)
[2025-01-16] MEDS ORDERED: KCL 20 MEQ/100 mL IVPB 100 ML IV ONE (21:10)
--- NOTE | 2025-01-16 22:07 | RAD REPORT ---
EXAMINATION: CT ABDOMEN AND PELVIS WITH CONTRAST CLINICAL INDICATION: Abdominal pain TECHNIQUE: CT abdomen and pelvis was performed, after the administration of 100 cc Isovue-300.. Sagit shavonne and coronal reconstructions were obtained. One or more of the following dose reduction techniques were used: Automated exposure control, adjustment of the mA and kV according to patient si ze, and iterative reconstruction. Unless otherwise specified, incidental findings do not require dedicated imaging follow-up. [id number]. Oral contrast was not given which limits evaluation of bowel and appendix. COMPARISON: .2021 FINDINGS: Liver, spleen, pancreas, adrenals and right kidney appear unremarkable. Nonobstructing calculus left kidney. Cholecystectomy Narrowing of the distal aspect of the ascending colon. The wall of the colon does not appear to be si gnificantly thickened. Post surgical changes involve the the small bowel.There are also several areas of narrowing. Mild thi ckening of the wall of several loops of jejunum. No obstruction seen. Mild gastric distention Small amount of free fluid. : IMPRESSION: Areas of stricture involving small and large bowel likely the sequela of Crohn's disease. Mild thickening wall of several loops of jejunum probably indicating mild limitation. Mild gastric distention
[2025-01-16] MEDS ORDERED: POTASSIUM CL SA 10 MEQ TAB PO ONE (22:15)
--- NOTE | 2025-01-16 22:40 | ER ---
Nurse's Notes [facility] Name: Va Cardoso Age: 39 yrs Sex: Female : 1985 Arrival Date: 01/16/2025 Time: 19:58 Bed 5 Private MD: Diagnosis: Nausea with vomiting, unspecified;Crohn's disease, unspecified, without complications;Hypokalemia Presentation: 01/16 20:09 Chief complaint: Patient states: POSSIBLE CROHN'S FLARE UP, NAUSEA, AND VOMITING SINCE ap3 THREE DAYS AGO. 20:09 Coronavirus screen: Client denies travel out of the [place] in the last 14 days. Ebola ap3 Screen: No symptoms or risks identified at this time. Initial Sepsis Screen: Does the patient meet any 2 criteria? No. Patient's initial sepsis screen is negative. Does the patient have a suspected source of infection? No. Patient's initial sepsis screen is negative. Risk Assessment: Do you want to hurt yourself or someone else? Patient reports no desire to harm self or others. Onset of symptoms was January 16, 2025. 20:09 Method Of Arrival: Ambulatory ap3 20:09 Acuity: IGNACIO 3 ap3 Triage Assessment: 20:09 General: Appears uncomfortable, Behavior is cooperative. Pain: Complains of pain in ap3 abdomen diffusely and right upper quadrant. 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 - Infectious Disease History:: Denies. - Social history:: Smoking status: Patient uses street drugs, marijuana. Screenin:32 [facility] ED Fall Risk Assessment (Adult) History of falling in the last 3 months, al5 including since admission No falls in past 3 months (0 pts) Confusion or Disorientation No (0 pts) Intoxicated or Sedated No (0 pts) Impaired Gait No (0 pts) Mobility Assist Device Used No (0 pt) Altered Elimination No (0 pt) Score/Fall Risk Level 0 - 2 = Low Risk Oriented to surroundings, Maintained a safe environment, Hourly rounding (assess needs \T\ fall precautionary measures) done. Abuse screen: Denies threats or abuse. Denies injuries from another. Nutritional screening: No deficits noted. Tuberculosis screening: No symptoms or risk factors identified. Assessment: 20:32 General: Appears in no apparent distress. uncomfortable, Behavior is calm, cooperative. al5 Pain: Complains of pain in abdomen diffusely and right lower quadrant and right upper quadrant. Neuro: Level of Consciousness is awake, alert, obeys commands, Oriented to person, place, time, situation. Cardiovascular: Capillary refill < 3 seconds Patient's skin is warm and dry. Respiratory: Airway is patent Respiratory effort is even, unlabored, Respiratory pattern is regular, symmetrical. GI: Abdomen is flat, non-distended, Reports lower abdominal pain, upper abdominal pain, nausea. : No signs and/or symptoms were reported regarding the genitourinary system. EENT: No signs and/or symptoms were reported regarding the EENT system. Derm: Skin is intact, is healthy with good turgor, Skin is pink, warm \T\ dry. normal. Musculoskeletal: No signs and/or symptoms reported regarding the musculoskeletal system. 21:40 Reassessment: Patient appears in no apparent distress at this time. Patient and/or al5 family updated on plan of care and expected duration. Pain level reassessed. Patient is alert, oriented x 3, equal unlabored respirations, skin warm/dry/pink. nausea subsided. Vital Signs: 20:09 BP 114 / 81; Pulse 121; Resp 18 S; Temp 98.6(O); Pulse Ox 100% on R/A; Weight 52.16 kg; ap3 Height 4 ft. 11 in. ; Pain 8/10; 21:34 BP 110 / 81; Pulse 99; Resp 15; Pulse Ox 100% ; al5 23:55 BP 115 / 88; Pulse 100; Resp 15; Pulse Ox 100% ; cp4 20:09 Body Mass Index 23.23 (52.16 kg, 149.86 cm) ap3 20:09 Pain Scale: Adult ap3 ED Course: 20:08 Patient arrived in ED. gm2 20:10 Emilia Quinn FNP-C is [facility]. kb 20:10 Abiodun Flores MD is Attending Physician. kb 20:20 Radiology exam delayed due to lab results not completed at this time. (HCG) vm2 (BUN/Creatinine) test not completed at this time. IV insertion attempt and/or patient not having appropriate IV at this time. 20:20 Triage completed. ap3 20:30 Arm band placed on right wrist. Patient placed in the treatment room, in view of staff al5 members, on sanitarian, on pulse oximetry. 20:31 Accessed Port-a-Cath. using accessed w/ # 20 Vitale needle, Clean \T\ dry. Dressing cp4 intact. Good blood return. Flushes easily. 20:32 Binta Church, KELLY is Primary Nurse. al5 20:32 No provider procedures requiring assistance completed. al5 20:32 Patient has correct armband on for positive identification. Bed in low position. Call al5 light in reach. Side rails up X2. Provided Education on: plan of care. 21:32 CT Abd/Pelvis - IV Contrast Only In Process Unspecified. EDMS 23:55 intact, bleeding controlled, No redness/swelling at site. Pressure dressing applied. cp4 Administered Medications: 20:44 Drug: NS 0.9% IV 1000 ml IV at 1 bolus Per protocol; to be given as a bolus over 60 al5 minutes Route: IV; Rate: 1 bolus; Site: Port-a-cath; 23:58 Follow up: IV Status: Completed infusion cp4 20:44 Drug: Promethazine IVP 12.5 mg IVP once Route: IVP; Site: Port-a-cath; al5 21:34 Follow up: Response: No adverse reaction; Nausea is decreased al5 20:44 Drug: Decadron - Dexamethasone IVP 10 mg IVP once Route: IVP; Site: Port-a-cath; al5 21:34 Follow up: Response: No adverse reaction al5 21:34 Drug: Potassium Chloride IV 20 mEq IV at calculated rate once; administer over 1-2 al5 hours Route: IV; Rate: calculated rate; Site: Port-a-cath; 23:57 Follow up: IV Status: Completed infusion cp4 22:17 Drug: Potassium Chloride PO 40 mEq PO once Route: PO; br2 23:57 Follow up: Response: No adverse reaction cp4 Medication: 21:15 VIS not applicable for this client. al5 Outcome: 22:39 Discharge ordered by . gema 23:55 Discharged to home ambulatory, cp4 23:55 Condition: stable 23:55 Discharge instructions given to patient, family, Instructed on discharge instructions, follow up and referral plans. medication usage, Demonstrated understanding of instructions, follow-up care, medications, Prescriptions given X 2, 23:58 Patient left the ED. cp4 Signatures: Dispatcher [employer] EDMS Emilia Quinn, RESIDENTIAL FEE APPRAISER-C RESIDENTIAL FEE APPRAISER-Ckb Dipika Angel 2 Binta Bravo, RN RN ap3 Jennifer Ca cp4 Viri Charles gm2 Binta Church RN RN al5 Linda Ku RN RN br2
--- NOTE | 2025-01-16 22:40 | EDPHYS ---
Physician Documentation [facility] Name: Va Cardoso Age: 39 yrs Sex: Female : 1985 Arrival Date: 01/16/2025 Time: 19:58 Bed 5 Private MD: ED Physician Abiodun Flores HPI: 01/16 20:15 This 39 yrs old Female presents to ER via Unassigned with complaints of kb Nausea/Vomiting, Abdominal Pain. 20:15 Pt is a 39 year old female who presents for nausea, vomiting and upper abd pain that kb started 3 days ago. Denies diarrhea, fever. States her kids have had similar symptoms, but she thinks it triggered a crohn's attack. . 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 - Infectious Disease History:: Denies. - Social history:: Smoking status: Patient uses street drugs, marijuana. ROS: 20:15 Constitutional: As per HPI kb Exam: 20:15 Constitutional: This is a well developed, well nourished patient who is awake, alert, kb and in no acute distress. Head/Face: Normocephalic, atraumatic. ENT: Moist Mucous membranes Cardiovascular: Regular rate Respiratory: Respirations even and unlabored. No increased work of breathing. Talking in full sentences Skin: Warm, dry with normal turgor. Normal color. MS/ Extremity: Pulses equal, no cyanosis. Neurovascular intact. Full, normal range of motion. Neuro: Awake and alert, GCS 15, oriented to person, place, time, and situation. 20:15 Abdomen/GI: Inspection: abdomen appears normal, Palpation: soft, in all quadrants, mild abdominal tenderness, in the right upper quadrant and right lower quadrant, Vital Signs: 20:09 BP 114 / 81; Pulse 121; Resp 18 S; Temp 98.6(O); Pulse Ox 100% on R/A; Weight 52.16 kg; ap3 Height 4 ft. 11 in. ; Pain 8/10; 21:34 BP 110 / 81; Pulse 99; Resp 15; Pulse Ox 100% ; al5 23:55 BP 115 / 88; Pulse 100; Resp 15; Pulse Ox 100% ; cp4 20:09 Body Mass Index 23.23 (52.16 kg, 149.86 cm) ap3 20:09 Pain Scale: Adult ap3 MDM: 20:10 Medical Screening Exam initiated kb 22:37 Differential diagnosis: gastritis, viral gastroenteritis, crohns. Data reviewed: vital kb signs, nurses notes. Historians other than the Patient: Spouse/Significant Other: spouse. Counseling: I had a detailed discussion with the patient and/or guardian regarding the historical points, exam findings, and any diagnostic results supporting the discharge/admit diagnosis, lab results, radiology results, the need for outpatient follow up, a scheduler maintenance, to return to the emergency department if symptoms worsen or persist or if there are any questions or concerns that arise at home. 01/16 20:14 Order name: CBC with Diff; Complete Time: 20:39 kb 01/16 20:14 Order name: CMP; Complete Time: 21:05 kb 01/16 20:14 Order name: Lipase; Complete Time: 21:05 kb 01/16 20:14 Order name: Test, Serum; Complete Time: 20:59 kb 01/16 20:14 Order name: CT Abd/Pelvis - IV Contrast Only; Complete Time: 22:10 kb 01/16 20:14 Order name: IV Saline Lock; Complete Time: 20:32 kb 01/16 20:14 Order name: Labs collected and sent; Complete Time: 20:32 kb Administered Medications: 20:44 Drug: NS 0.9% IV 1000 ml IV at 1 bolus Per protocol; to be given as a bolus over 60 al5 minutes Route: IV; Rate: 1 bolus; Site: Port-a-cath; 23:58 Follow up: IV Status: Completed infusion cp4 20:44 Drug: Promethazine IVP 12.5 mg IVP once Route: IVP; Site: Port-a-cath; al5 21:34 Follow up: Response: No adverse reaction; Nausea is decreased al5 20:44 Drug: Decadron - Dexamethasone IVP 10 mg IVP once Route: IVP; Site: Port-a-cath; al5 21:34 Follow up: Response: No adverse reaction al5 21:34 Drug: Potassium Chloride IV 20 mEq IV at calculated rate once; administer over 1-2 al5 hours Route: IV; Rate: calculated rate; Site: Port-a-cath; 23:57 Follow up: IV Status: Completed infusion cp4 22:17 Drug: Potassium Chloride PO 40 mEq PO once Route: PO; br2 23:57 Follow up: Response: No adverse reaction cp4 Disposition: 01/17 04:13 Co-signature as Attending Physician, Abiodun Flores MD I agree with the assessment sp4 and plan of care. I reviewed the patient's care provided by the Advanced Practice Provider and agree with the diagnosis and treatment plan. Disposition Summary: 01/16/25 22:39 Discharge Ordered Notes: Location: Home kb Condition: Stable kb Diagnosis - Nausea with vomiting, unspecified kb - Crohn's disease, unspecified, without complications kb - Hypokalemia kb Followup: kb - With: Emergency Department - When: As needed - Reason: Worsening of condition Followup: kb - With: Private Physician - When: 2 - 3 days - Reason: Recheck today's complaints, Continuance of care, Re-evaluation by your physician Discharge Instructions: - Discharge Summary Sheet kb - Crohn's Disease kb - Nausea and Vomiting, Adult, [id number] kb Forms: - Medication Reconciliation Form kb - Antibiotic Education kb - Prescription Opioid Use kb - Patient Portal Instructions kb - Leadership Thank You Letter kb Prescriptions: - Prednisone 20 mg Oral Tablet - take 1 tablet ORAL route once daily for 5 days; 5 tablet; Refills: 0, Product kb Selection Permitted - promethazine 25 mg Oral Tablet - take 1 tablet ORAL route every 6 hours As needed; 20 tablet; Refills: 0, kb Product Selection Permitted Signatures: Dispatcher [employer] Emilia Abad FNP-C FNP-Ckb Prokisch, Amanda RN RN ap3 Abiodun Flores MD MD sp4 Binta Church RN RN al5 Linda Ku RN RN br2 Jennifer Ca cp4 Corrections: (The following items were deleted from the chart) 01/16 20:15 20:15 CBC+H.LAB.BRZ ordered. EDMS EDMS 20:15 20:15 COMPREHENSIVE METABOLIC PANEL+C.LAB.BRZ ordered. EDMS EDMS 20:15 20:15 LIPASE+C.LAB.BRZ ordered. EDMS EDMS 20:15 20:15 TEST, SERUM+SC.LAB.BRZ ordered. EDMS EDMS 20:15 20:15 Abdomen Pelvis W Con+CT.RAD.BRZ ordered. EDMS EDMS
[2025-01-16] MEDS ORDERED: HEPARIN 500 UNIT/5 ML SYR IV ONE (23:51)
[2025-01-17 07:29] VITALS: TEMP 98.6; O2SAT 100
[2025-01-17 07:32] VITALS: BP 115/88
== END 2025-01-16 23:58 | disposition home or self-care (01) ==
LOC: ER 19:58
DX: E87.6 Hypokalemia (principal); K50.90 Crohn's disease, unspecified, without complications
CPT/HCPCS: 96365; 96361; 85025; 36415; 84703; 83690; 80053; 74177; 96375; 99285; 96366; Q9967; J2550; J3480; J1100; J1642; J7030

== ENCOUNTER 2025-02-06 03:01 | Emergency (ER) | payer OTHER ==
[2025-02-06] MEDS ORDERED: ONDANSETRON 4 MG/2 ML VIAL ONE (03:24)
[2025-02-06] MEDS ORDERED: NA CHLORIDE 0.9% 1,000 ML ONE (03:25)
[2025-02-06 03:44] LABS: Absolute Basophils 0.1 K/uL (0-0.5); Absolute Eosinophils 0.1 K/uL (0-0.5); Absolute Lymphocytes (CBC) 1.7 K/uL (0.7-4.9); Absolute Monocytes 0.5 K/uL (0.1-1.3); Absolute Neutrophil 3.7 K/uL (1.8-8.0); Basophils % 0.9 % (0-1.3); Eosinophils % 1.7 % (0-4.4); Hematocrit 38.1 % (36.0-45.0); Hemoglobin 13.1 g/dL (12.0-15.0); Lymphocytes % 28.7 % (15.3-44.8); MCH 29.9 pg (27.0-35.0); MCHC 34.5 g/dL (32.0-36.0); MCV 86.6 fL (80-100); MPV 6.8 fL (7.6-11.3); Monocytes % 8.3 % (3.3-12.3); Neutrophils % 60.4 % (41.7-73.7); Nucleated Red Blood Cells % 0.1 % (0-0); Platelets 194 thou/uL (152-406)
[2025-02-06] MEDS ORDERED: MORPHINE 2 MG/ML SYR ONE (03:54)
[2025-02-06] MEDS ORDERED: dexAMETHasone 10 MG/ML VIAL ONE (03:55)
[2025-02-06] MEDS ORDERED: MORPHINE 4 MG/ML SYR ONE (03:55)
[2025-02-06] MEDS ORDERED: droPERidol 5 MG/2 ML VIAL ONE (03:55)
[2025-02-06 04:07] LABS: AST/SGOT 12 U/L (15-37); Albumin 3.2 g/dL (3.4-5.0); Alkaline Phosphatase 77 U/L (45-117); Anion Gap 7.4 mEq/L (5.0-15.0); BUN Blood Urea Nitrogen 9 mg/dL (7-18); Bicarbonate 28 mEq/L (21-32); Bilirubin Total 0.5 mg/dL (0.2-1.0); Globulin 3.3 g/dL (2.3-3.5); Glomerular Filtration Rate 125 ml/min (=/>90); Glucose Level 103 mg/dL (74-106); Lipase 16 U/L (13-75); Potassium 3.4 mEq/L (3.5-5.1); Protein, Total 6.5 g/dL (6.4-8.2); Sodium Level 139 mEq/L (136-145)
[2025-02-06 04:08] LABS: ALT/SGPT < 14 U/L (13-56)
[2025-02-06 05:34] LABS: Specific Gravity 1.017 (1.005-1.030); Urine Bilirubin NEGATIVE (Negative); Urine Blood Negative (Negative); Urine Clarity Clear (Clear); Urine Color Yellow (Yellow); Urine Glucose NEGATIVE (Negative); Urine Ketones 1+ (Negative); Urine Microscopic Reflex YN NO UMIC; Urine Nitrite NEGATIVE (Negative); Urine Protein NEGATIVE (Negative); Urine Urobilinogen Normal (Normal)
[2025-02-06 05:43] LABS: Specific Gravity 1.017 (1.005-1.030); Urine Bacteria <20 /HPF (<20); Urine Culture Reflex Order NOT NEEDED; Urine Mucus 3+ /HPF (None Seen); Urine RBC None Seen /HPF (None Seen); Urine WBC <5 /HPF (<5)
--- NOTE | 2025-02-06 06:44 | RAD REPORT ---
EXAMINATION: Abdomen Pelvis Wo Contrast CLINICAL INDICATION: Female, 39 years old.ABD PAIN TECHNIQUE: CT abdomen and pelvis was performed, without IV contrast, as per department protocol. Axia l, sagittal and coronal reconstructions were obtained. One or more of the following dose reduction techniques were used: Automated exposure control, adjustment of the mA and/or kV according to the pat ient size, and/or iterative reconstruction. Unless otherwise specified, incidental findings do not require dedicated imaging follow-up. [id number]. IV CONTRAST: Not administered. COMPARISON: 01/16/2025, 06/22/2022 FINDINGS: The lack of intravenous contrast limits the sensitivity of this exam for evaluation of solid visceral organs, vascular structures, and retroperitoneum. LOWER CHEST: No acute process identified.Mild cardiomegaly. Mild circumferential thickening of the di stal esophagus which could reflect esophagitis. UPPER GI: No significant abnormality. LIVER: No significant focal abnormality. GALLBLADDER/BILE DUCTS: Cholecystectomy. Mild extra-hepatic biliary ductal dilatation is likely relat ed to the post-cholecystectomy state. Consider correlating with LFT's.? PANCREAS: No mass, ductal dilation, or cristela-pancreatic fluid. SPLEEN: Unremarkable. ADRENALS: No adrenal masses. KIDNEYS AND URETERS: No hydronephrosis.Limited evaluation for renal lesions in the absence of IV cont rast.6 mm stone in left kidney ABDOMINAL AORTA AND OTHER VESSELS: Normal caliber aorta and IVC. PERITONEUM: No abnormal free fluid. No free air. LYMPH NODES: No pathologic lymphadenopathy. ABDOMINAL WALL: Unremarkable SMALL BOWEL/COLON: Increased formed stool burden in the colon. Borderline dilated ileum. Surgical lauren nges from ileocecectomy.Appendectomy. Question short segment wall thickening without evidence of obstruction at the hepatic flexure. URINARY BLADDER: Underdistended but grossly unremarkable. REPRODUCTIVE ORGANS: No pathologic process. MUSCULOSKELETAL: No acute or suspicious osseous abnormality. ADDITIONAL FINDINGS: None. IMPRESSION: No high-grade bowel obstruction or active inflammation on this noncontrast CT identified. Distended b ut not frankly dilated distal small bowel. Short segment of possible wall thickening at the hepatic flexure without inflammatory changes. Consid er colonoscopy if not recently performed to exclude a developing lesion.
--- NOTE | 2025-02-06 07:18 | ER ---
Nurse's Notes [facility] Name: Va Cardoso Age: 39 yrs Sex: Female : 1985 Arrival Date: 02/06/2025 Time: 03:01 Bed 14 Private MD: Diagnosis: Acute exacerbation of Crohn's disease, acute colitis at hepatic flexure, acute abdominal pain, acute nausea vomiting Presentation: 02/06 03:20 Chief complaint: Patient states: Nausea/ vomiting, abd'l \T\ back pain for 2 days. rg5 03:20 Coronavirus screen: Client denies travel out of the [place] in the last 14 days. Ebola rg5 Screen: Patient negative for fever greater than or equal to 101.5 degrees Fahrenheit, and additional compatible Ebola Virus Disease symptoms Patient denies exposure to infectious person. Patient denies travel to an Ebola-affected area in the 21 days before illness onset. Initial Sepsis Screen: Does the patient meet any 2 criteria? No. Patient's initial sepsis screen is negative. Does the patient have a suspected source of infection? No. Patient's initial sepsis screen is negative. Risk Assessment: Do you want to hurt yourself or someone else? Patient reports no desire to harm self or others. Onset of symptoms was February 06, 2025. 03:20 Method Of Arrival: Ambulatory rg5 03:20 Acuity: IGNACIO 3 rg5 Triage Assessment: 03:20 General: Appears in no apparent distress. Behavior is calm, cooperative, appropriate rg5 for age. 03:20 Pain: Complains of pain in abdomen. EENT: No deficits noted. Neuro: Level of rg5 Consciousness is awake, alert, obeys commands. Cardiovascular: Patient's skin is warm and dry. Respiratory: Airway is patent Respiratory effort is even, unlabored. GI: Abdomen is flat, Abd is soft and non tender Reports lower abdominal pain, upper abdominal pain, cramping, nausea, vomiting. : No signs and/or symptoms were reported regarding the genitourinary system. Derm: Skin is intact, Skin is dry, Skin is normal, Skin temperature is warm. Musculoskeletal: Circulation, motion, and sensation intact. Range of motion: intact in all extremities. 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 - Infectious Disease History:: Denies. - Social history:: Smoking status: unknown. - Family history:: not pertinent. Screenin:44 [facility] ED Fall Risk Assessment (Adult) History of falling in the last 3 months, ha1 including since admission No falls in past 3 months (0 pts) Confusion or Disorientation No (0 pts) Intoxicated or Sedated No (0 pts) Impaired Gait No (0 pts) Mobility Assist Device Used No (0 pt) Altered Elimination No (0 pt) Score/Fall Risk Level 0 - 2 = Low Risk Oriented to surroundings, Maintained a safe environment, Hourly rounding (assess needs \T\ fall precautionary measures) done. Abuse screen: Denies threats or abuse. Denies injuries from another. Nutritional screening: No deficits noted. Tuberculosis screening: No symptoms or risk factors identified. Assessment: 04:03 General: Appears in no apparent distress. GI: Abdomen is flat, Reports lower abdominal rg5 pain, upper abdominal pain, nausea, vomiting. 05:16 Reassessment: No changes from previously documented assessment. Patient and/or family rg5 updated on plan of care and expected duration. Pain level reassessed. Patient is alert, oriented x 3, equal unlabored respirations, skin warm/dry/pink. Vital Signs: 03:20 BP 106 / 89; Pulse 91; Resp 18; Temp 97.6; Pulse Ox 99% on R/A; Weight 60.78 kg; Height rg5 4 ft. 11 in. ; Pain 7/10; 04:04 BP 117 / 84; Pulse 85; Resp 18; Pulse Ox 99% ; rg5 05:15 BP 120 / 81; Pulse 89; Resp 18; Pulse Ox 100% ; Pain 5/10; rg5 06:00 BP 115 / 79; Pulse 99; Resp 18; Pulse Ox 97% on R/A; rg5 03:20 Body Mass Index 27.06 (60.78 kg, 149.86 cm) rg5 03:20 Pain Scale: Adult rg5 05:15 Pain Scale: Adult rg5 Luis Daniel Coma Score: 02/07 01:07 Eye Response: spontaneous(4). Motor Response: obeys commands(6). Verbal Response: sp4 oriented(5). Total: 15. ED Course: 02/06 03:03 Patient arrived in ED. jj6 03:10 Abiodun Flores MD is Attending Physician. sp4 03:19 Giorgio Dominguez, KELLY is Primary Nurse. rg5 03:19 Patient has correct armband on for positive identification. Bed in low position. Call rg5 light in reach. Side rails up X 1. 03:20 Arm band placed on. rg5 03:35 Accessed Port-a-Cath. using accessed w/ # 20 Vitale needle, ,sterile technique, Clean \T\ ha1 dry. Good blood return. Flushes easily. 03:41 CBC with Diff Sent. ha1 03:41 CMP Sent. ha1 03:41 Lipase Sent. ha1 03:44 Triage completed. rg5 04:04 No provider procedures requiring assistance completed. rg5 04:55 Radiology exam delayed due to test not completed at this time. ag6 05:22 Test, Urine Sent. oe 05:22 UA Rfx Johnathan Cult if indicated Sent. oe 06:11 CT Abd/Pelvis - Without Contrast In Process Unspecified. EDMS 07:34 IV discontinued, intact, bleeding controlled, No redness/swelling at site. Pressure kc6 dressing applied. Administered Medications: 03:30 Drug: Ondansetron IVP 4 mg IVP once; over 2 minutes Route: IVP; Site: right subclavian; rg5 05:13 Follow up: Response: No adverse reaction rg5 03:30 Drug: NS 0.9% IV 1000 ml IV at 1 bolus Per protocol; to be given as a bolus over 60 rg5 minutes Route: IV; Rate: 1 bolus; Site: right subclavian; 03:50 Drug: Droperidol IVP 2.5 mg IVP once Route: IVP; Site: right subclavian; rg5 05:12 Follow up: Response: No adverse reaction; Pain is decreased rg5 04:00 Drug: morphine IVP or IV 6 mg IVP once over 4 mins Route: IVP; Infused Over: 4 mins; rg5 Site: right subclavian; 05:13 Follow up: Response: No adverse reaction; Pain is decreased rg5 04:01 Drug: Dexamethasone IVP 10 mg IVP once; (not to exceed 40 mg) Route: IVP; Site: right rg5 subclavian; 05:13 Follow up: Response: No adverse reaction; Pain is decreased rg5 Medication: 04:04 VIS not applicable for this client. rg5 Outcome: 07:18 Discharge ordered by . patito 07:34 Discharged to home ambulatory, with significant other, [email or web address] 07:34 Condition: improved 07:34 Discharge instructions given to patient, significant other, Instructed on discharge instructions, follow up and referral plans. medication usage, Demonstrated understanding of instructions, follow-up care, medications, Prescriptions given X 4, 07:34 Patient left the ED. kc6 Signatures: Dispatcher [employer] EDMS Yan Brandt Autumn 6 Latoya Licea jj6 Kirsty Pa RN RN haPrachi Rendon RN RN kc6 Abiodun Flores MD MD sp4 Giorgio Dominguez, RN RN rg5
--- NOTE | 2025-02-06 07:18 | EDPHYS ---
Physician Documentation [facility] Name: Va Cardoso Age: 39 yrs Sex: Female : 1985 Arrival Date: 02/06/2025 Time: 03:01 Bed 14 Private MD: ED Physician Abiodun Flores HPI: 02/06 03:11 This 39 yrs old Other Race Female presents to ER via Unassigned with complaints of sp4 Nausea/Vomiting, Abdominal Pain, Back Pain. 02/07 01:07 39-year-old female presents with nausea vomiting acute abdominal and back pain.. sp4 History of Crohn's disease.. HAND STEMMER: 02/06 05:48 LMP N/A - , Not rg5 Historical: - Allergies: 03:42 Alcohol; rubbing; ha1 03:42 Remicade (Anaphylaxis); ha1 - Home Meds: 03:42 promethazine 25 mg Oral tab 1 tab as needed [Active]; Phenergan 25 mg Rectal supp 1 ha1 suppository [Active]; - PMHx: 03:42 Anemia; B12 deficiency; bowel obstruction; Chronic pain; Crohn's; fatty liver; ha1 Fibromyalgia; HYPOGLYCEMIA; Hypothyroidism; Osteoporosis; Rheumatoid Arthritis; ruptured small bowel; scoliosis; Seizures; uterine cysts; - PSHx: 03:42 bowel resection; ha1 - Immunization history:: Adult Immunizations not up to date. - Infectious Disease History:: Denies. - Social history:: Smoking status: unknown. - Family history:: not pertinent. ROS: 02/07 01:07 Constitutional: Negative for fever, chills, and weight loss, positive nausea vomiting sp4 abdominal pain. All other systems are negative, Exam: 01:07 Constitutional: This is a well developed, well nourished patient who is awake, alert, sp4 pale appearing and ill-appearing female nontoxic. Right chest wall vascular port Head/Face: Normocephalic, atraumatic. Eyes: Pupils equal round and reactive to light, extra-ocular motions intact. Lids and lashes normal. Conjunctiva and sclera are not injected. Cornea within normal limits. Periorbital areas with no swelling, redness, or edema. ENT: Nares patent. No nasal discharge, no septal abnormalities noted. Tympanic membranes are normal and external auditory canals are clear. Oropharynx with no redness, swelling, or masses, exudates, or evidence of obstruction, uvula midline. Mucous membranes moist. Neck: Trachea midline, no thyromegaly or masses palpated, and no cervical lymphadenopathy. Supple, full range of motion without nuchal rigidity, or vertebral point tenderness. Chest/axilla: Normal chest wall appearance and motion. Nontender with no deformity. No lesions are appreciated. Cardiovascular: Regular rate and rhythm with a normal S1 and S2. No gallops, murmurs, or rubs. Normal PMI, no JVD. No pulse deficits. Respiratory: Lungs have equal breath sounds bilaterally, clear to auscultation and percussion. No rales, rhonchi or wheezes noted. No increased work of breathing, no retractions or nasal flaring. Abdomen/GI: Soft, with normal bowel sounds. No distension or tympany. No guarding or rebound. No evidence of tenderness throughout. Back: No spinal tenderness. No costovertebral tenderness. Skin: Warm, dry with normal turgor. Normal color with no rashes, no lesions, and no evidence of cellulitis. MS/ Extremity: Pulses equal, no cyanosis. Neurovascular intact. Full, normal range of motion. Neuro: Awake and alert, GCS 15, oriented to person, place, time, and situation. Cranial nerves II-XII grossly intact. Motor strength 5/5 in all extremities. Sensory grossly intact. Psych: Awake, alert, with orientation to person, place and time. Behavior, mood, and affect are within normal limits Vital Signs: 02/06 03:20 BP 106 / 89; Pulse 91; Resp 18; Temp 97.6; Pulse Ox 99% on R/A; Weight 60.78 kg; Height rg5 4 ft. 11 in. ; Pain 7/10; 04:04 BP 117 / 84; Pulse 85; Resp 18; Pulse Ox 99% ; rg5 05:15 BP 120 / 81; Pulse 89; Resp 18; Pulse Ox 100% ; Pain 5/10; rg5 06:00 BP 115 / 79; Pulse 99; Resp 18; Pulse Ox 97% on R/A; rg5 03:20 Body Mass Index 27.06 (60.78 kg, 149.86 cm) rg5 03:20 Pain Scale: Adult rg5 05:15 Pain Scale: Adult rg5 [place] Coma Score: 02/07 01:07 Eye Response: spontaneous(4). Motor Response: obeys commands(6). Verbal Response: sp4 oriented(5). Total: 15. MDM: 02/06 03:15 Medical Screening Exam initiated sp4 07:06 ED course: EXAMINATION: Abdomen Pelvis Wo Contrast CLINICAL INDICATION: Female, 39 sp4 years old.ABD PAIN TECHNIQUE: CT abdomen and pelvis was performed, without IV contrast, as per department protocol. Axial, sagittal and coronal reconstructions were obtained. One or more of the following dose red uction techniques were used: Automated exposure control, adjustment of the mA and/or kV according to the patient size, and/or iterative reconstruction. Unless otherwise specified, incidental findings do not require dedicated imaging follow-up. [id number]. IV CONTRAST: Not administered. COMPARISON: 01/16/2025, 06/22/2022 FINDINGS: The lack of intravenous contrast limits the sensitivity of this exam for evaluation of solid visceral organs, vascular structures, and retroperitoneum. LOWER CHEST: No acute process identified.Mild cardiomegaly. Mild circumferential thickening of the distal esophagus which could reflect esophagitis. UPPER GI: No significant abnormality. LIVER: No significant focal abnormality. GALLBLADDER/BILE DUCTS: Cholecystectomy. Mild extra-hepatic biliary ductal dilatation is likely related to the post-cholecystectomy state. Consider correlating with LFT's.? PANCREAS: No mass, ductal dilation, or cristela-pancreatic fluid. SPLEEN: Unremarkable. ADRENALS: No adrenal masses. KIDNEYS AND URETERS: No hydronephrosis.Limited evaluation for renal lesions in the absence of IV contrast.6 mm stone in left kidney ABDOMINAL AORTA AND OTHER VESSELS: Normal caliber aorta and IVC. PERITONEUM: No abnormal free fluid. No free air. LYMPH NODES: No pathologic lymphadenopathy. ABDOMINAL WALL: Unremarkable SMALL BOWEL/COLON: Increased formed stool burden in the colon. Borderline dilated ileum. Surgical changes from ileocecectomy.Appendectomy. Question short segment wall thickening without evidence of obstruction at the hepatic flexure. URINARYBLADDER: Underdistended but grossly unremarkable. Contrast REPRODUCTIVE ORGANS: No pathologic process. MUSCULOSKELETAL: No acute or suspicious osseous abnormality. ADDITIONAL FINDINGS: None. IMPRESSION: No high-grade bowel obstruction or active inflammation on this noncontrast CT identified. Distended but not frankly dilated distal small bowel. Short segment of possible wall thickening at the hepatic flexure without inflammatory changes. Consider colonoscopy if not recently performed to exclude a developing lesion. . 07:16 Differential diagnosis: Nonspecific abd pain, gastritis, viral gastroenteritis, sp4 gastroenteritis. Data reviewed: vital signs, nurses notes, lab test result(s), CBC, electrolytes, hepatic panel, radiologic studies. Consideration of Admission/Observation Escalation of care including admission/observation considered. ED course: Patient stable for discharge home.. 02/07 01:08 Management of patient was discussed with the following: Light Out Examiner: GI. ED course: sp4 Stable for discharge home with p.o. medications and p.o. prednisone for 10 days.. 01:49 ED course: stable for discharge home. Advised follow-up with gastroenterology.. [place] 02/06 03:18 Order name: CBC with Diff; Complete Time: 06:17 4 02/06 03:18 Order name: CMP; Complete Time: 06:17 [place] [facility] 02/06 03:18 Order name: Lipase; Complete Time: 06:17 [place] [facility] 02/06 03:18 Order name: Test, Urine; Complete Time: 06:17 4 02/06 03:19 Order name: UA Rfx Johnathan Cult if indicated; Complete Time: 06:17 [place] [facility] 02/06 03:39 Order name: CT Abd/Pelvis - Without Contrast; Complete Time: 07:04 4 02/06 03:18 Order name: IV Saline Lock; Complete Time: 03:41 [place] [facility] 02/06 03:18 Order name: Labs collected and sent; Complete Time: 03:41 Administered Medications: 02/06 03:30 Drug: Ondansetron IVP 4 mg IVP once; over 2 minutes Route: IVP; Site: right subclavian; rg5 05:13 Follow up: Response: No adverse reaction rg5 03:30 Drug: NS 0.9% IV 1000 ml IV at 1 bolus Per protocol; to be given as a bolus over 60 rg5 minutes Route: IV; Rate: 1 bolus; Site: right subclavian; 03:50 Drug: Droperidol IVP 2.5 mg IVP once Route: IVP; Site: right subclavian; rg5 05:12 Follow up: Response: No adverse reaction; Pain is decreased rg5 04:00 Drug: morphine IVP or IV 6 mg IVP once over 4 mins Route: IVP; Infused Over: 4 mins; rg5 Site: right subclavian; 05:13 Follow up: Response: No adverse reaction; Pain is decreased rg5 04:01 Drug: Dexamethasone IVP 10 mg IVP once; (not to exceed 40 mg) Route: IVP; Site: right rg5 subclavian; 05:13 Follow up: Response: No adverse reaction; Pain is decreased rg5 Disposition: 02/07 01:08 Chart complete. sp4 Disposition Summary: 02/06/25 07:18 Discharge Ordered Notes: Location: Home sp4 Problem: new sp4 Symptoms: have improved sp4 Condition: Stable sp4 Diagnosis - Acute exacerbation of Crohn's disease, acute colitis at hepatic flexure, acute sp4 abdominal pain, acute nausea vomiting Followup: sp4 - With: Private Physician - When: 7 - 10 days - Reason: Recheck today's complaints Discharge Instructions: - Discharge Summary Sheet sp4 - Crohn's Disease sp4 Forms: - Patient Portal Instructions sp4 Prescriptions: - Tramadol 50 mg Oral tablet - take 1 tablet ORAL route every 8 hours PRN pain; 20 tablet; Refills: 0, Product sp4 Selection Permitted - Prednisone 20 mg Oral tablet - take 2 tablets ORAL route once daily for 10 days for 10 days; 20 tablet; sp4 Refills: 0, Product Selection Permitted - promethazine 25 mg Oral tablet - take 1 tablet ORAL route every 6 hours As needed PRN nausea; 30 tablet; sp4 Refills: 0, Product Selection Permitted - dicyclomine 20 mg Oral tablet - take 1 tablet ORAL route every 6 hours PRN pain; 30 tablet; Refills: 0, Product sp4 Selection Permitted Signatures: Dispatcher [employer] Kirsty De Guzman RN RN ha1 Abiodun Flores MD MD sp4 Giorgio Dominguez RN RN rg5
[2025-02-06 08:03] VITALS: TEMP 97.6
[2025-02-06 08:09] VITALS: BP 115/79; O2SAT 97
== END 2025-02-06 07:34 | disposition home or self-care (01) ==
LOC: ER 03:01
DX: K50.90 Crohn's disease, unspecified, without complications (principal); K52.9 Noninfective gastroenteritis and colitis, unspecified; R10.9 Unspecified abdominal pain
CPT/HCPCS: 85025; 36415; 81025; 81003; 83690; 80053; 74176; 96375; 96374; 99284; J1100; J2270; J2405; J1790; J7030